=== PATIENT | male | born 1960 | race African-American/Black ===

== ENCOUNTER 2017-06-19 10:42 | Inpatient (IN) | payer MEDICAID ==
[2017-06-19] MEDS ORDERED: MAGNESIUM SULFATE/D5W 100 ML IV ONE (10:49)
[2017-06-19] MEDS ORDERED: NORMAL SALINE 1000 ML 1,000 ML IV ONE (10:51)
[2017-06-19] MEDS ORDERED: IPRATROPIUM/ALBUTEROL 0.5-2.5 MG/3 ML AMPUL NEB ONE (10:51)
--- NOTE | 2017-06-19 11:22 | RADIOLOGY REPORT (SQ) ---
EXAM DESCRIPTION: CHEST SINGLE VIEW COMPLETED DATE/TIME: 06/19/2017 10:59 am REASON FOR STUDY: bed 9 db COMPARISON: None. NUMBER OF VIEWS: One view. TECHNIQUE: Single frontal radiographic view of the chest acquired. LIMITATIONS: None. FINDINGS: LUNGS AND PLEURA: The lungs are clear and well expanded except for linear atelectatic marylou ing at the left lung base. MEDIASTINUM AND HILAR STRUCTURES: No masses. Contour normal. HEART AND VASCULAR STRUCTURES: Heart normal in size. Normal vasculature. BONES: No acute findings. HARDWARE: None in the chest. OTHER: No other significant finding. IMPRESSION: Nothing acute other than linear atelectatic marking left lung base. TECHNICAL DOCUMENTATION: JOB ID: [id number] [employer]- All Rights Reserved
[2017-06-19 11:49] LABS: ABSOLUTE EOSINOPHILS # (AUTO) 0.2 10^3/uL (0.0-0.6); ABSOLUTE LYMPHOCYTES (AUTO) 0.7 10^3/uL (0.5-4.7); ABSOLUTE MONOCYTES (AUTO) 0.6 10^3/uL (0.1-1.4); BASOPHILS % (AUTO) 0.3 % (0-2); EOSINOPHILS % (AUTO) 1.5 % (0-6); HEMATOCRIT 41.1 % (37.9-51.0); HEMOGLOBIN 13.5 g/dL (13.5-17.0); HGB HCT DIFFERENCE -0.6; MEAN CORPUSCULAR HEMOGLOBIN 25.4 pg (27.0-33.4); MEAN CORPUSCULAR HGB CONC 32.8 g/dL (32.0-36.0); MEAN CORPUSCULAR VOLUME 78 fl (80-97); MONOCYTES % (AUTO) 6.1 % (3-13); RED CELL DISTRIBUTION WIDTH 20.1 % (11.5-14.0); SEGMENTED NEUTROPHILS % (AUTO) 85.1 % (42-78); VENOUS BLOOD BASE EXCESS -0.2 mmol/L; VENOUS BLOOD HCO3 25.9 mmol/L (20-32); VENOUS BLOOD PCO2 47.5 mmHg (35-63); VENOUS BLOOD PH 7.35 (7.30-7.42); WHITE BLOOD COUNT 10.6 10^3/uL (4.0-10.5)
[2017-06-19 11:56] LABS: PROTHROMBIN TIME 12.5 SEC (11.4-15.4)
[2017-06-19 11:57] LABS: PARTIAL THROMBOPLASTIN TIME 25.8 SEC (23.5-35.8)
[2017-06-19 12:02] LABS: ALANINE AMINOTRANSFERASE 28 U/L (21-72); ALBUMIN 4.2 g/dL (3.5-5.0); ALKALINE PHOSPHATASE 65 U/L (38-126); ANION GAP 11 (5-19); ASPARTATE AMINO TRANSFERASE 21 U/L (17-59); BILIRUBIN,DIRECT 0.4 mg/dL (0.0-0.4); BILIRUBIN,TOTAL 0.7 mg/dL (0.2-1.3); BLOOD UREA NITROGEN 16 mg/dL (7-20); CALCIUM 9.3 mg/dL (8.4-10.2); CARBON DIOXIDE 28 mmol/L (22-30); CHLORIDE 104 mmol/L (98-107); CREATINE KINASE 132 U/L (55-170); CREATININE RESULT 1.24 mg/dL (0.52-1.25); GLUCOSE 141 mg/dL (75-110); MAGNESIUM 2.1 mg/dL (1.6-2.3); POTASSIUM 3.8 mmol/L (3.6-5.0); SODIUM 143.4 mmol/L (137-145); TOTAL PROTEIN 7.5 g/dL (6.3-8.2)
--- NOTE | 2017-06-19 12:11 | EKG REPORT ---
SEVERITY:- ABNORMAL ECG - SINUS TACHYCARDIA VENTRICULAR PREMATURE COMPLEX REPOL ABNRM SUGGESTS ISCHEMIA, DIFFUSE LEADS : Confirmed by: Herson Stanton 19-Jun-2017 12:10:48
[2017-06-19 12:14] LABS: CREATINE KINASE MB 3.18 ng/mL (<4.55)
[2017-06-19 12:17] LABS: TROPONIN I < 0.012 ng/mL
[2017-06-19] MEDS ORDERED: ALBUTEROL SULFATE 0.083% NEB 2.5 MG/3 ML AMPUL NEB ONE (12:19)
[2017-06-19] MEDS ORDERED: CEFTRIAXONE 1 GM/D5W RTU 50 ML IV ONE (12:19)
[2017-06-19] MEDS ORDERED: AZITHROMYCIN INJ 500 MG VIAL IV ONE (12:19)
[2017-06-19] MEDS ORDERED: METHYLPREDNISOLONE INJ 125 MG/2 ML SDV IV ONE (12:20)
--- NOTE | 2017-06-19 12:30 | ER Document Report ---
ED General - General Chief Complaint: Breathing Difficulty Stated Complaint: DIFFICULTY BREATHING Time Seen by Provider: 06/19/17 10:49 TRAVEL OUTSIDE OF THE [place] IN LAST 30 DAYS: No - HPI Patient complains to provider of: Respiratory distress Notes: Patient coming in for evaluation of respiratory distress patient has a history of COPD emphysema patient placed on CPAP as he was hypoxic with O2 saturations in the 80s prior to arrival. Patient tachycardic tachypneic upon arrival placed on BiPAP. Patient denies head pain chest pain abdominal pain denies any recent travel states denies any hemoptysis does state that he had clear sputum now has yellow sputum and coughing. No recent antibiotics - Related Data Allergies/Adverse Reactions: No Known Allergies Allergy (Verified 06/19/17 11:48) Home Medications: Current Home Medications Albuterol Sulfate [Albuterol Sulfate 2.5mg/3 mL] 1 vial IH Q6HP PRN 06/19/17 [ History] Albuterol Sulfate [Proair Hfa Inhalation Aerosol 8.5 gm Mdi] 2 puff IH Q6HP PRN 06/19/17 [History] Amlodipine Besylate [Norvasc 5 mg Tablet] 5 mg PO DAILY 06/19/17 [History] Cetirizine HCl [Zyrtec 10 mg Tablet] 10 mg PO DAILY 06/19/17 [History] Fluticasone/Salmeterol [Advair 500-50 Diskus 28 Dose] 1 inh IH DAILY 06/19/17 [ History] Hydrochlorothiazide 25 mg PO DAILY 06/19/17 [History] Montelukast Sodium [Singulair 10 mg Tablet] 10 mg PO QHS 06/19/17 [History] Naproxen Sodium [Aleve] 440 mg PO DAILY 06/19/17 [History] Prednisone [Deltasone 5 mg Tablet] 5 mg PO DAILY 06/19/17 [History] Tamsulosin HCl [Flomax 0.4 mg Cap.sr] 0.4 mg PO QHS 06/19/17 [History] Tiotropium [place] [Spiriva Handihaler 18 mcg/dose (30 Dose)] 1 cap IH DAILY 06/28 [History] Past Medical History - Social History Smoking Status: Former Smoker Frequency of alcohol use: None Drug Abuse: None Family History: Reviewed & Not Pertinent Patient has suicidal ideation: No Patient has homicidal ideation: No - Past Medical History Cardiac Medical History: Reports: Hx Hypercholesterolemia, Hx Hypertension Pulmonary Medical History: Reports: Hx Bronchitis Renal/ Medical History: Denies: Hx Peritoneal Dialysis Review of Systems - Review of Systems Constitutional: No symptoms reported EENT: No symptoms reported Cardiovascular: No symptoms reported Respiratory: Cough, Short of breath, Wheezing Gastrointestinal: No symptoms reported Genitourinary: No symptoms reported Male Genitourinary: No symptoms reported Musculoskeletal: No symptoms reported Skin: No symptoms reported Hematologic/Lymphatic: No symptoms reported Neurological/Psychological: No symptoms reported -: Yes All other systems reviewed and negative Physical Exam - Vital signs Vitals: Resp BP 32 H 163/119 H 06/19/17 10:50 06/19/17 10:50 Interpretation: Normal - General General appearance: Appears well, Alert - HEENT Head: Normocephalic, Atraumatic Eyes: Normal Pupils: PERRL - Respiratory Respiratory status: Respiratory distress Chest status: Nontender Breath sounds: Rhonchi, Wheezing Chest palpation: Normal - Cardiovascular Rhythm: Regular Heart sounds: Normal auscultation Murmur: No - Abdominal Inspection: Normal Distension: No distension Bowel sounds: Normal Tenderness: Nontender Organomegaly: No organomegaly - Back Back: Normal, Nontender - Extremities General upper extremity: Normal inspection, Nontender, Normal color, Normal ROM , Normal temperature General lower extremity: Normal inspection, Nontender, Normal color, Normal ROM , Normal temperature, Normal weight bearing. No: Sandi's sign - Neurological Neuro grossly intact: Yes Cognition: Normal Orientation: AAOx4 Srikanth Coma Scale Eye Opening: Spontaneous [place] Coma Scale Verbal: Oriented Srikanth Coma Scale Motor: Obeys Commands Srikanth Coma Scale Total: 15 Speech: Normal Motor strength normal: LUE, RUE, LLE, RLE Sensory: Normal - Psychological Associated symptoms: Normal affect, Normal mood - Skin Skin Temperature: Warm Skin Moisture: Dry Skin Color: Normal Course - Re-evaluation Re-evalutation: 06/19/17 15:31 Patient better on BiPAP will give Rocephin and Zithromax due to changes sputum. Lab work does not show any critical pathology this time will admit for COPD exacerbation due to hypoxia. - Vital Signs Vital signs: Temp Pulse Resp BP Pulse Ox 97.3 F 99 22 H 128/82 H 98 06/19/17 15:15 06/19/17 15:15 06/19/17 15:15 06/19/17 15:15 06/19/17 15:15 - Laboratory Result Diagrams: 06/19/17 11:25 06/19/17 11:25 Laboratory results interpreted by me: 06/19/17 06/19/17 06/19/17 11:25 11:25 11:25 WBC 10.6 H MCV 78 L MCH 25.4 L RDW 20.1 H Seg Neutrophils % 85.1 H Lymphocytes % 7.0 L Absolute Neutrophils 9.0 H D-Dimer 3.24 H Glucose 141 H Critical Care Note - Critical Care Note Total time excluding time spent on procedures (mins): 50 Comments: Multiple evaluations a restrained stress managing BiPAP. Discharge - Discharge Clinical Impression: Respiratory distress with hypoxia, COPD exacerbation Condition: Good Disposition: ADMITTED INPATIENT Admitting Provider: Burt [facility] Unit Admitted: [facility]
[2017-06-19] MEDS ORDERED: HYDRALAZINE HCL INJ/PF 20 MG/1 ML SDV IV PRN (13:26)
[2017-06-19] MEDS ORDERED: ALBUTEROL SULFATE 0.083% NEB 2.5 MG/3 ML AMPUL NEB PRN (13:26)
[2017-06-19] MEDS ORDERED: ACETAMINOPHEN 325 MG TABLET PO PRN (13:28)
[2017-06-19] MEDS ORDERED: ONDANSETRON HCL INJ/PF 4 MG/2 ML SDV IV PRN (13:28)
--- NOTE | 2017-06-19 13:39 | PDOC H&P ---
History of Present Illness Admission Date/PCP: 06/19/17 13:05 Dr. Burch Patient complains of: Shortness of breath History of Present Illness: SHONDA HUERTA is a 56 year old male with past medical history of COPD and hypertension presents with relatively acute onset today of shortness of breath. He has had a couple days of productive cough as well. He is felt feverish at times but has had no documented temperature. He was found in the emergency department to have a room air oxygen saturation of 80%. He has recovered nicely on oxygen supplementation and BiPAP in his O2 sat is currently in the high 90s. Home medications have not been verified. Past Medical History Cardiac Medical History: Reports: Hyperlipidema, Hypertension Pulmonary Medical History: Reports: Chronic Obstructive Pulmonary Disease (COPD) GI Medical History: Reports: Gastroesophageal Reflux Disease Past Surgical History Past Surgical History: Reports: None Social History Information Source: Patient Lives with: Family Smoking Status: Former Smoker Frequency of Alcohol Use: None Hx Recreational Drug Use: No Hx Prescription Drug Abuse: No - Advance Directive Resuscitation Status: Full Code Family History Family History: Hypertension Parental Family History Reviewed: Yes Children Family History Reviewed: Yes Sibling(s) Family History Reviewed.: Yes Medication/Allergy Allergies/Adverse Reactions: No Known Allergies Allergy (Verified 06/19/17 11:48) Review of Systems Constitutional: PRESENT: fatigue. ABSENT: chills, fever(s), headache(s), weight gain, weight loss Eyes: ABSENT: visual disturbances Ears: ABSENT: hearing changes Cardiovascular: PRESENT: dyspnea on exertion. ABSENT: chest pain, edema, orthropnea, palpitations Respiratory: PRESENT: cough, dyspnea, sputum. ABSENT: hemoptysis Gastrointestinal: ABSENT: abdominal pain, constipation, diarrhea, hematemesis, hematochezia, nausea, vomiting Genitourinary: ABSENT: dysuria, hematuria Musculoskeletal: ABSENT: joint swelling Integumentary: ABSENT: rash, wounds Neurological: ABSENT: abnormal gait, abnormal speech, confusion, dizziness, focal weakness, syncope Psychiatric: ABSENT: anxiety, depression, homidical ideation, suicidal ideation Endocrine: ABSENT: cold intolerance, heat intolerance, polydipsia, polyuria Hematologic/Lymphatic: ABSENT: easy bleeding, easy bruising Physical Exam Vital Signs: Temp Pulse Resp BP Pulse Ox 97.9 F 39 H 120/72 100 06/19/17 11:01 06/19/17 13:05 06/19/17 12:31 06/19/17 12:31 PHYSICAL EXAM: GENERAL: Appears well, no acute distress HEENT: Normocephalic, no scleral icterus, conjunctiva clear, EOEM intact, PERRLA , moist mucous membranes NECK: trachea midline, no thyromegally RESPIRATORY: Bilateral inspiratory/expiratory wheezes CARDIAC: Regular rate and rhythm, no murmur/karla/rub ABDOMEN: Soft, no distension, no tenderness, no guarding, normal bowel sounds, negative Jorgensen sign RECTAL: deferred : deferred EXTREMITIES: No edema, cyanosis, clubbing MUSCULOSKELETAL: No joint swelling or deformity VASCULAR: normal peripheral pulses NEUROLOGIC: Alert, oriented to person/place/time, normal speech, cranial nerves grossly intact, 5/5 strength in all extremities, tactile sensation intact in all extremities SKIN: No rash, no wounds, no worrisome skin lesions PSYCHIATRIC: Normal mood, normal affect Results Laboratory Results: Labs- All tests 24 hr 06/19/17 06/19/17 06/19/17 11:25 11:25 11:25 WBC 10.6 H RBC 5.30 Hgb 13.5 Hct 41.1 MCV 78 L MCH 25.4 L MCHC 32.8 RDW 20.1 H Plt Count 166 Seg Neutrophils % 85.1 H Lymphocytes % 7.0 L Monocytes % 6.1 Eosinophils % 1.5 Basophils % 0.3 Absolute Neutrophils 9.0 H Absolute Lymphocytes 0.7 Absolute Monocytes 0.6 Absolute Eosinophils 0.2 Absolute Basophils 0.0 PT INR APTT VBG pH VBG pCO2 VBG HCO3 VBG Base Excess Sodium 143.4 Potassium 3.8 Chloride 104 Carbon Dioxide 28 Anion Gap 11 BUN 16 Creatinine 1.24 Est GFR ( Amer) > 60 Est GFR (Non-Af Amer) > 60 Glucose 141 H Calcium 9.3 Magnesium 2.1 Total Bilirubin 0.7 Direct Bilirubin 0.4 Indirect Bilirubin Not Reportable Neonat Total Bilirubin Not Reportable AST 21 ALT 28 Alkaline Phosphatase 65 Creatine Kinase 132 CK-MB (CK-2) 3.18 Troponin I < 0.012 NT-Pro-B Natriuret Pep 48 Total Protein 7.5 Albumin 4.2 06/19/17 06/19/17 11:25 11:25 WBC RBC Hgb Hct MCV MCH MCHC RDW Plt Count Seg Neutrophils % Lymphocytes % Monocytes % Eosinophils % Basophils % Absolute Neutrophils Absolute Lymphocytes Absolute Monocytes Absolute Eosinophils Absolute Basophils PT 12.5 INR 0.87 APTT 25.8 VBG pH 7.35 VBG pCO2 47.5 VBG HCO3 25.9 VBG Base Excess -0.2 Sodium Potassium Chloride Carbon Dioxide Anion Gap BUN Creatinine Est GFR ( Amer) Est GFR (Non-Af Amer) Glucose Calcium Magnesium Total Bilirubin Direct Bilirubin Indirect Bilirubin Neonat Total Bilirubin AST ALT Alkaline Phosphatase Creatine Kinase CK-MB (CK-2) Troponin I NT-Pro-B Natriuret Pep Total Protein Albumin Impressions: Chest X-Ray 06/19/17 10:44 IMPRESSION: Nothing acute other than linear atelectatic marking left lung base. Assessment & Plan - Diagnosis (1) Acute hypoxemic respiratory failure Is this a current diagnosis for this admission?: YesPlan: Continue BiPAP and oxygen supplementation for now. Wean off as tolerated. (2) COPD exacerbation Is this a current diagnosis for this admission?: YesPlan: Continue IV Solu-Medrol, IV Rocephin, and IV azithromycin initiated in the emergency department. Nebulizer treatments. (3) Hypertension Is this a current diagnosis for this admission?: YesPlan: Verify home medications and resume. As needed IV hydralazine for now. (4) GERD (gastroesophageal reflux disease) Is this a current diagnosis for this admission?: YesPlan: Prevacid. - Time Time Spent: Greater than 70 Minutes Anticipated discharge: Home Within: within 72 hours
[2017-06-19] MEDS: ALBUTEROL SULFATE 0.083% NEB 2.5 MG/3 ML AMPUL NEB SCH ×2 (13:56→20:42)
[2017-06-19] MEDS: METHYLPREDNISOLONE INJ 40 MG/1 ML SDV IV SCH ×2 (14:23→21:23)
[2017-06-19 14:31] LABS: CREATINE KINASE MB 3.82 ng/mL (<4.55); TROPONIN I 0.016 ng/mL
[2017-06-19 14:53] LABS: APPEARANCE,URINE CLEAR; BILIRUBIN,URINE NEGATIVE (NEGATIVE); GLUCOSE, URINE NEGATIVE (NEGATIVE); KETONES,URINE NEGATIVE (NEGATIVE); LEUKOCYTE ESTERASE,URINE NEGATIVE (NEGATIVE); NITRITE,URINE NEGATIVE (NEGATIVE); PROTEIN,URINE 100 mg/dL (NEGATIVE); URINE SPECIFIC GRAVITY 1.011; UROBILINOGEN,URINE NEGATIVE mg/dL (<2.0)
--- NOTE | 2017-06-19 20:48 | RADIOLOGY REPORT (SQ) ---
EXAM DESCRIPTION: CTA CHEST COMPLETED DATE/TIME: 06/19/2017 8:34 pm REASON FOR STUDY: dyspnea, +Ddimer COMPARISON: None. TECHNIQUE: CT scan of the chest performed using helical scanning technique with dynamic intravenous contrast injection. Images reviewed with lung, soft tissue and bone windows. Reconstructed coronal and sagittal MPR images reviewed. Additional 3 dimensional post-processing performed to develop Maximal Intensity Projection images (PR P). All images stored on PACS. All CT scanners at this facility use dose modulation, iterative reconstruction, and/or weight based d osing when appropriate to reduce radiation dose to as low as reasonably achievable (ALARA). [facility]: Dose Right [facility]: CareDose [facility]: Dose Right [facility]: Teradose 4D [facility]: [employer] CONTRAST TYPE AND DOSE: contrast/concentration: Isovue 370.00 mg/ml; Total Contrast Delivered: 76.0 ml; Total Saline Delivered: 70.0 ml RENAL FUNCTION: BUN 16, creatinine 1.24 RADIATION DOSE: Up-to-date CT equipment and radiation dose reduction techniques were employed. CTDIv ol: 25.1 - 26.4 mGy. DLP: 983 mGy-cm. . LIMITATIONS: None. FINDINGS: LUNGS AND PLEURA: No masses, infiltrates, pneumothorax. No pleural effusions, calcificati ons. AORTA AND GREAT VESSELS: No aneurysm or dissection. HEART: No pericardial effusion. PULMONARY ARTERIES: There are acute emboli in the right lower lobe segmental mid subsegmental branche s. There is thrombus in the right upper lobe segmental in sub segmental branches. Small filling def ect is seen in sub segmental branches on the left. HILAR AND MEDIASTINAL STRUCTURES: No identified masses or abnormal nodes. HARDWARE: None in the chest. UPPER ABDOMEN: No significant findings. Limited exam. THYROID AND OTHER SOFT TISSUES: No masses. No adenopathy. BONES: No acute or significant finding. 3D MIPS: Confirm above findings. OTHER: No other significant finding. IMPRESSION: Bilateral pulmonary emboli as described. COMMENT: This report was called to Viktoriya at20:38 on 06/19/2017. TECHNICAL DOCUMENTATION: JOB ID: [id number] Quality ID # [id number]: Final reports with documentation of one or more dose reduction techniques (e.g., Au tomated exposure control, adjustment of the mA and/or kV according to patient size, use of iterative reconstruction technique) 2010 [employer]- All Rights Reserved
[2017-06-19] MEDS: TAMSULOSIN HCL 0.4 MG CAP.SR.24H PO SCH (21:22)
[2017-06-19] MEDS: MONTELUKAST SODIUM 10 MG TABLET PO SCH (21:22)
[2017-06-19] MEDS: NORMAL SALINE 1000 ML 1,000 ML IV PRN (21:31)
[2017-06-19] MEDS ORDERED: ENOXAPARIN SODIUM INJ 100 MG/1 ML DISP.SYRIN SUBCUT SCH (22:00)
[2017-06-19 22:01] LABS: CREATINE KINASE MB 4.81 ng/mL (<4.55); TROPONIN I 0.016 ng/mL
--- NOTE | 2017-06-19 23:07 | RADIOLOGY REPORT (SQ) ---
EXAM DESCRIPTION: VENOUS BILATERAL LOWER COMPLETED DATE/TIME: 06/19/2017 10:53 pm REASON FOR STUDY: pe COMPARISON: None. TECHNIQUE: Dynamic and static lozada scale and color images acquired of both lower extremity venous sy stems. Selected spectral images acquired with additional compression and augmentation maneuvers. Imag es stored on PACS. LIMITATIONS: None. FINDINGS: RIGHT LEG COMMON FEMORAL AND FEMORAL: Normal phasicity, compression and augmentation. No visualized echogenic m aterial on lozada scale. No defects on color images. POPLITEAL: There is nonocclusive thrombus in the right popliteal vein. Age is acute to subacute. CALF VESSELS: Normal compression and augmentation. No visualized echogenic material on lozada scale. No defects on color image. GSV AND SSV: Normal compression. No visualized echogenic material on lozada scale. No defects on color images. ANY DEEP VENOUS INSUFFICIENCY: Not evaluated. ANY EVIDENCE OF POPLITEAL CYST: No. OTHER: No other significant finding. LEFT LEG COMMON FEMORAL AND FEMORAL: Normal phasicity, compression and augmentation. No visualized echogenic m aterial on lozada scale. No defects on color images. POPLITEAL: Normal compression and augmentation. No visualized echogenic material on lozada scale. No de fects on color images. CALF VESSELS: Normal compression and augmentation. No visualized echogenic material on lozada scale. No defects on color images. GSV AND SSV: Normal compression. No visualized echogenic material on lozada scale. No defects on color images. ANY DEEP VENOUS INSUFFICIENCY: Not evaluated. ANY EVIDENCE POPLITEAL CYST: No. OTHER: No other significant finding. IMPRESSION: Acute to subacute nonocclusive thrombus in the right popliteal vein. COMMENT: This report was related to the floor by the cardiovascular radiologic technologist. TECHNICAL DOCUMENTATION: JOB ID: [id number] [employer]- All Rights Reserved
[2017-06-20 03:41] LABS: ABSOLUTE LYMPHOCYTES (AUTO) 0.6 10^3/uL (0.5-4.7); ABSOLUTE MONOCYTES (AUTO) 0.2 10^3/uL (0.1-1.4); ABSOLUTE NEUT (AUTO) 9.3 10^3/uL (1.7-8.2); BASOPHILS % (AUTO) 0.2 % (0-2); EOSINOPHILS % (AUTO) 0.1 % (0-6); HEMATOCRIT 38.7 % (37.9-51.0); HEMOGLOBIN 12.9 g/dL (13.5-17.0); LYMPHOCYTES % (AUTO) 5.8 % (13-45); MEAN CORPUSCULAR HEMOGLOBIN 25.5 pg (27.0-33.4); MEAN CORPUSCULAR HGB CONC 33.4 g/dL (32.0-36.0); MEAN CORPUSCULAR VOLUME 77 fl (80-97); MONOCYTES % (AUTO) 1.9 % (3-13); RED BLOOD COUNT 5.06 10^6/uL (4.35-5.55); RED CELL DISTRIBUTION WIDTH 19.5 % (11.5-14.0); WHITE BLOOD COUNT 10.1 10^3/uL (4.0-10.5)
[2017-06-20 03:54] LABS: ANION GAP 15 (5-19); BLOOD UREA NITROGEN 17 mg/dL (7-20); CALCIUM 9.5 mg/dL (8.4-10.2); CARBON DIOXIDE 22 mmol/L (22-30); CHLORIDE 105 mmol/L (98-107); CREATINE KINASE 217 U/L (55-170); CREATININE RESULT 1.11 mg/dL (0.52-1.25); GLUCOSE 166 mg/dL (75-110)
[2017-06-20 04:08] LABS: CREATINE KINASE MB 6.32 ng/mL (<4.55)
[2017-06-20 04:09] LABS: TROPONIN I < 0.012 ng/mL
[2017-06-20] MEDS: NORMAL SALINE 1000 ML 1,000 ML IV PRN (05:07)
[2017-06-20] MEDS: LANSOPRAZOLE 30 MG TAB.RAP.DR PO SCH (05:08)
[2017-06-20] MEDS: METHYLPREDNISOLONE INJ 40 MG/1 ML SDV IV SCH (05:09)
[2017-06-20] MEDS: ALBUTEROL SULFATE 0.083% NEB 2.5 MG/3 ML AMPUL NEB SCH ×3 (08:25→20:35)
--- NOTE | 2017-06-20 08:42 | Progress Note ---
Provider Note Provider Note: June 19, 2017: CT angiogram of chest reveals bilateral pulmonary emboli. At 9:10 PM, went to patient's bedside. Floor nurse is present. Systemic anticoagulation recommended to patient. Patient understands the risks of systemic anti-coagulation to include but not be limited to internal bleeding , which can take the form of GI tract and/or intracranial hemorrhage, the latter of which can result in or stroke with permanent paralysis. Patient has no absolute contraindication to systemic anticoagulation. Above discussed in lay person's terms. Patient agrees to undergo systemic anticoagulation.
--- NOTE | 2017-06-20 09:51 | PDOC PROGRESS REPORT ---
Subjective Progress Note for:: 06/20/17 Subjective:: Patient states her shortness of breath is much improved. He does have nasal congestion postnasal drip. He is still having a productive cough. He denies fever, chills, headache, nausea, vomiting, chest pain. Physical Exam Vital Signs: Temp Pulse Resp BP Pulse Ox 97.8 F 86 18 131/80 H 96 06/20/17 07:28 06/20/17 08:25 06/20/17 08:25 06/20/17 07:28 06/20/17 08:25 Intake & Output 06/19/17 06/20/17 06/21/17 06:59 06:59 06:59 Intake Total 1702 Balance 1702 Weight 91.2 kg Results Laboratory Results: 06/20/17 03:31 06/20/17 03:31 06/19/17 06/20/17 06/20/17 14:30 03:31 03:31 WBC 10.1 RBC 5.06 Hgb 12.9 L Hct 38.7 MCV 77 L MCH 25.5 L MCHC 33.4 RDW 19.5 H Plt Count 135 L Seg Neutrophils % 92.0 H Lymphocytes % 5.8 L Monocytes % 1.9 L Eosinophils % 0.1 Basophils % 0.2 Absolute Neutrophils 9.3 H Absolute Lymphocytes 0.6 Absolute Monocytes 0.2 Absolute Eosinophils 0.0 Absolute Basophils 0.0 Sodium 142.0 Potassium 4.0 Chloride 105 Carbon Dioxide 22 Anion Gap 15 BUN 17 Creatinine 1.11 Est GFR ( Amer) > 60 Est GFR (Non-Af Amer) > 60 Glucose 166 H Calcium 9.5 Urine Color YELLOW Urine Appearance CLEAR Urine pH 5.0 Ur Specific [place] 1.011 Urine Protein 100 H Urine Glucose (UA) NEGATIVE Urine Ketones NEGATIVE Urine Blood NEGATIVE Urine Nitrite NEGATIVE Ur Leukocyte Esterase NEGATIVE Urine WBC (Auto) 1 Urine RBC (Auto) 1 06/19/17 06/19/17 06/19/17 13:35 13:35 20:00 Creatine Kinase 145 Cancelled CK-MB (CK-2) 3.82 Troponin I 0.016 06/19/17 06/19/17 06/19/17 20:00 21:07 21:07 Creatine Kinase 199 H CK-MB (CK-2) Cancelled 4.81 H Troponin I Cancelled 0.016 06/20/17 06/20/17 03:31 03:31 Creatine Kinase 217 H CK-MB (CK-2) 6.32 H Troponin I < 0.012 Impressions: Chest/Abdomen CTA 06/19/17 00:00 IMPRESSION: Bilateral pulmonary emboli as described. Venous Doppler Study 06/19/17 00:00 IMPRESSION: Acute to subacute nonocclusive thrombus in the right popliteal vein. Chest X-Ray 06/19/17 10:44 IMPRESSION: Nothing acute other than linear atelectatic marking left lung base. Assessment & Plan - Diagnosis (1) Acute hypoxemic respiratory failure Is this a current diagnosis for this admission?: YesPlan: Oxygen saturation now stable on room air. Secondary to bilateral pulmonary emboli. (2) Pulmonary emboli Is this a current diagnosis for this admission?: YesPlan: Discontinue Lovenox. Start Xarelto. Consult Dr. Casillas of hematology. Likely secondary to immobility associated with recent back injury. No prior history of VTE. Last colonoscopy performed by Dr. Chaudhari 2 weeks ago with 2 polyps removed. Possible discharge home in the morning if tolerating oral anticoagulation. (3) Right leg DVT Is this a current diagnosis for this admission?: Yes (4) COPD exacerbation Is this a current diagnosis for this admission?: YesPlan: Discontinue Solu-Medrol. Continue Singulair, Advair. Continue albuterol. (5) Hypertension Is this a current diagnosis for this admission?: Yes (6) GERD (gastroesophageal reflux disease) Is this a current diagnosis for this admission?: Yes (7) Acute sinusitis Is this a current diagnosis for this admission?: YesPlan: Skye Mccormick. (8) Obstructive sleep apnea Is this a current diagnosis for this admission?: YesPlan: Patient is on home CPAP for the past month. - Time Time Spent with patient: 35 or more minutes Anticipated discharge: Home Within: within 24 hours
[2017-06-20] MEDS ORDERED: ENOXAPARIN SODIUM INJ 40 MG/0.4 ML DISP.SYRIN SUBCUT SCH (10:00)
[2017-06-20] MEDS ORDERED: CEFTRIAXONE 1 GM/D5W RTU 50 ML IV SCH (10:00)
[2017-06-20] MEDS ORDERED: AZITHROMYCIN 500 MG in DEXTROSE 5%-WATER 250 ML IV SCH (10:00)
[2017-06-20] MEDS: RIVAROXABAN 15 MG TABLET PO SCH ×2 (10:27→18:42)
[2017-06-20] MEDS: FLUTICASONE/SALMETEROL DISKUS 500-50 MCG/DOSE IH SCH (10:30)
[2017-06-20] MEDS: LEVOFLOXACIN 750 MG TABLET PO SCH (10:30)
[2017-06-20] MEDS: TIOTROPIUM BROMIDE DPI 5 CAP/KIT (18 MCG/CAP) IH SCH (10:31)
[2017-06-20] MEDS: HYDROCHLOROTHIAZIDE 25 MG TABLET PO SCH (10:42)
[2017-06-20] MEDS: AMLODIPINE BESYLATE 5 MG TABLET PO SCH (10:43)
[2017-06-20] MEDS: CETIRIZINE 10 MG TABLET PO SCH (10:44)
--- NOTE | 2017-06-20 10:57 | EKG REPORT ---
SEVERITY:- BORDERLINE ECG - SINUS RHYTHM LVH BY VOLTAGE : Confirmed by: Herson Stanton 20-Jun-2017 10:56:31
[2017-06-20] MEDS ORDERED: FLUTICASONE NASAL SPRAY 50 MCG/SPRY 120 SPRAY/16 GM NASL ONE (11:00)
--- NOTE | 2017-06-20 15:38 | Physician Advisory Note ---
Physician Advisor ProgressNote .: [facility] I have reviewed the medical record for this patient. Physician Advisor Statement: Nice documentation of Ac Resp Failure, hypoxemic type. Ham Smoker: Pt also had labored breathing initially, documented by ED nurse, which supports this dx. Thanks! CK
--- NOTE | 2017-06-20 16:29 | CONSULTATION REPORT E ---
Consultation Report NAME: SHONDA HUERTA : 1960 AGE: 56Y DATE: 06/20/2017 ROOM: 333 A TO: ERNESTO MAYA M.D. FROM: DONNA LEONARD Requesting Physician REASON FOR REFERRAL: Pulmonary embolism. HISTORY OF PRESENT ILLNESS: The patient is a 56-year-old man who was admitted into the hospital June 19, 2017 with complaints of shortness of breath. He was seen in the emergency room with complaints of shortness of breath, cough productive, febrile symptoms, and his oxygenation on room air was 80%. He had a chest x-ray done that showed no acute abnormalities other than linear atelectatic markings in the left lung base. CT chest showed bilateral pulmonary embolisms. Dopplers of his lower extremities showed DVT in his right lower extremity. He tells me he was diagnosed with COPD in 2012. At that time he was incarcerated. He tells me that he had to receive prednisone pills on and off over the years. He believes with the prednisone he had damage too. He was incarcerated and was released in January of 2017. While he was incarcerated he told me that x-rays of his spine had shown compression fractures. He has also been having pain in his right lower extremity, but he attributes that to his back pain. Since hospitalization and being on anticoagulation he is feeling a lot better. His shortness of breath has improved. His past medical history, as stated above, includes COPD, hyperlipidemia, high blood pressure, gastroesophageal reflux disease. He used to smoke cigarettes. He stopped smoking about 11 years ago. He does not drink alcohol as well. PHYSICAL EXAMINATION: GENERAL: He is a middle-aged man. He is not acutely ill looking. He is not tachypneic at rest. He has good air entry bilaterally. ABDOMEN: Soft. Liver and spleen are not palpably enlarged. X-RAYS: Chest x-ray June 19, 2017: Nothing acute other than linear atelectatic markings, left lung base. CTA chest: No masses or infiltrates in the lungs. Bilateral pulmonary emboli. LABORATORY STUDIES: White count was 10.1, hemoglobin 13.5, platelet count 116. His serum electrolytes were within normal limits. IMPRESSION AND PLAN: The patient is a 56-year-old man who was recently admitted with bilateral pulmonary embolisms, explaining most of his hypoxia. He also has underlying COPD. He tells me he has been more sedentary because of his back pain. I will request a thrombophilia workup. I will follow him with the results as an outpatient. I will also try and obtain his prior records with regards to the x-rays that were done of his back. I agree with the Xarelto. I explained that he will be on 15 mg b.i.d. for about 21 days followed by 20 mg a day. I will plan on seeing him back for followup in the office on July 03 at about 10 a.m. I thank you for this consultation and allowing me to participate in his care. DICTATING PHYSICIAN: ERNESTO MAYA M.D. [id number] [id number] ID: [id number] JOB#: [id number] ACCT: [id number] cc:ERNESTO MAYA M.D. >
[2017-06-20] MEDS: MONTELUKAST SODIUM 10 MG TABLET PO SCH (22:09)
[2017-06-20] MEDS: TAMSULOSIN HCL 0.4 MG CAP.SR.24H PO SCH (22:10)
[2017-06-20] MEDS: FLUTICASONE NASAL SPRAY 50 MCG/SPRY 120 SPRAY/16 GM NASL SCH (22:11)
[2017-06-21] MEDS: LANSOPRAZOLE 30 MG TAB.RAP.DR PO SCH (05:50)
[2017-06-21 06:56] LABS: ABSOLUTE LYMPHOCYTES (AUTO) 0.9 10^3/uL (0.5-4.7); ABSOLUTE NEUT (AUTO) 10.1 10^3/uL (1.7-8.2); BASOPHILS % (AUTO) 0.2 % (0-2); EOSINOPHILS % (AUTO) 0.1 % (0-6); HEMATOCRIT 36.7 % (37.9-51.0); HGB HCT DIFFERENCE -0.7; LYMPHOCYTES % (AUTO) 7.3 % (13-45); MEAN CORPUSCULAR HEMOGLOBIN 25.7 pg (27.0-33.4); MEAN CORPUSCULAR HGB CONC 32.7 g/dL (32.0-36.0); MEAN CORPUSCULAR VOLUME 78 fl (80-97); RED BLOOD COUNT 4.68 10^6/uL (4.35-5.55); RED CELL DISTRIBUTION WIDTH 19.6 % (11.5-14.0); SEGMENTED NEUTROPHILS % (AUTO) 84.4 % (42-78)
[2017-06-21 06:59] LABS: ANION GAP 9 (5-19); BLOOD UREA NITROGEN 16 mg/dL (7-20); CALCIUM 9.2 mg/dL (8.4-10.2); CARBON DIOXIDE 26 mmol/L (22-30); CHLORIDE 109 mmol/L (98-107); CREATININE RESULT 0.98 mg/dL (0.52-1.25); GLUCOSE 74 mg/dL (75-110); POTASSIUM 3.7 mmol/L (3.6-5.0); SODIUM 144.1 mmol/L (137-145)
[2017-06-21 07:09] LABS: APPEARANCE,URINE CLEAR; BILIRUBIN,URINE NEGATIVE (NEGATIVE); GLUCOSE, URINE NEGATIVE (NEGATIVE); KETONES,URINE NEGATIVE (NEGATIVE); LEUKOCYTE ESTERASE,URINE NEGATIVE (NEGATIVE); NITRITE,URINE NEGATIVE (NEGATIVE); PROTEIN,URINE NEGATIVE (NEGATIVE); UROBILINOGEN,URINE NEGATIVE mg/dL (<2.0)
[2017-06-21] MEDS: ALBUTEROL SULFATE 0.083% NEB 2.5 MG/3 ML AMPUL NEB SCH ×3 (07:56→20:13)
[2017-06-21] MEDS: TIOTROPIUM BROMIDE DPI 5 CAP/KIT (18 MCG/CAP) IH SCH (08:51)
[2017-06-21] MEDS: RIVAROXABAN 15 MG TABLET PO SCH ×2 (08:51→17:20)
[2017-06-21] MEDS: FLUTICASONE NASAL SPRAY 50 MCG/SPRY 120 SPRAY/16 GM NASL SCH ×2 (08:52→21:12)
[2017-06-21] MEDS: FLUTICASONE/SALMETEROL DISKUS 500-50 MCG/DOSE IH SCH (08:53)
[2017-06-21] MEDS: LEVOFLOXACIN 750 MG TABLET PO SCH (08:54)
[2017-06-21] MEDS: HYDROCHLOROTHIAZIDE 25 MG TABLET PO SCH (08:54)
[2017-06-21] MEDS: CETIRIZINE 10 MG TABLET PO SCH (08:54)
[2017-06-21] MEDS: AMLODIPINE BESYLATE 5 MG TABLET PO SCH (08:55)
--- NOTE | 2017-06-21 16:49 | PDOC PROGRESS REPORT ---
Subjective Progress Note for:: 06/21/17 Subjective:: Patient states he is shortness of breath is much improved. His nasal congestion is also improved. He denies fever, chills, headache, nausea, vomiting, chest pain. Physical Exam Vital Signs: Temp Pulse Resp BP Pulse Ox 97.8 F 95 16 113/65 93 06/21/17 15:15 06/21/17 15:15 06/21/17 15:15 06/21/17 15:15 06/21/17 15:15 Intake & Output 06/20/17 06/21/17 06/22/17 06:59 06:59 06:59 Intake Total 1702 2388 573 Output Total 3675 Balance 1702 -022 573 Weight 91.2 kg 91.9 kg GENERAL: No acute distress HEENT: Conjunctiva clear, nonicteric, moist mucous membranes, no JVD, midline trachea RESPIRATORY: Clear to auscultation bilaterally, no wheezes, no rhonchi CARDIAC: Regular rate and rhythm, no murmurs/gallops/rubs ABDOMEN: Soft, nondistended, nontender, positive bowel sounds, no rebound, no guarding EXTREMETIES: No edema, cyanosis, clubbing NEUROLOGIC: Alert, oriented to person/place/time, CN's grossly intact, no focal deficits SKIN: No rash, wounds PSYCH: Normal mood, normal affect Results Laboratory Results: 06/21/17 06:06 06/21/17 06:06 06/21/17 06/21/17 06/21/17 06:06 06:06 06:40 WBC 12.0 H RBC 4.68 Hgb 12.0 L Hct 36.7 L MCV 78 L MCH 25.7 L MCHC 32.7 RDW 19.6 H Plt Count 148 L Seg Neutrophils % 84.4 H Lymphocytes % 7.3 L Monocytes % 8.0 Eosinophils % 0.1 Basophils % 0.2 Absolute Neutrophils 10.1 H Absolute Lymphocytes 0.9 Absolute Monocytes 1.0 Absolute Eosinophils 0.0 Absolute Basophils 0.0 Sodium 144.1 Potassium 3.7 Chloride 109 H Carbon Dioxide 26 Anion Gap 9 BUN 16 Creatinine 0.98 Est GFR ( Amer) > 60 Est GFR (Non-Af Amer) > 60 Glucose 74 L Calcium 9.2 Urine Color YELLOW Urine Appearance CLEAR Urine pH 6.0 Ur Specific [place] 1.010 Urine Protein NEGATIVE Urine Glucose (UA) NEGATIVE Urine Ketones NEGATIVE Urine Blood NEGATIVE Urine Nitrite NEGATIVE Ur Leukocyte Esterase NEGATIVE Urine WBC (Auto) 1 Urine RBC (Auto) 0 06/19/17 06/19/17 06/19/17 13:35 13:35 20:00 Creatine Kinase 145 Cancelled CK-MB (CK-2) 3.82 Troponin I 0.016 06/19/17 06/19/17 06/19/17 20:00 21:07 21:07 Creatine Kinase 199 H CK-MB (CK-2) Cancelled 4.81 H Troponin I Cancelled 0.016 06/20/17 06/20/17 03:31 03:31 Creatine Kinase 217 H CK-MB (CK-2) 6.32 H Troponin I < 0.012 Impressions: Chest/Abdomen CTA 06/19/17 00:00 IMPRESSION: Bilateral pulmonary emboli as described. Venous Doppler Study 06/19/17 00:00 IMPRESSION: Acute to subacute nonocclusive thrombus in the right popliteal vein. Chest X-Ray 06/19/17 10:44 IMPRESSION: Nothing acute other than linear atelectatic marking left lung base. Assessment & Plan - Diagnosis (1) Acute hypoxemic respiratory failure Is this a current diagnosis for this admission?: YesPlan: Oxygen saturation now stable on room air. Secondary to bilateral pulmonary emboli. I attempted to discharge patient home today but he did not feel comfortable leaving the hospital and request to stay until tomorrow. (2) Pulmonary emboli Is this a current diagnosis for this admission?: YesPlan: Continue Xarelto. Consult from Dr. Casillas of hematology appreciated. She states she will order hypercoagulable studies. Likely secondary to immobility associated with recent back injury. No prior history of VTE. Last colonoscopy performed by Dr. Chaudhari 2 weeks ago with 2 polyps removed. Possible discharge home in the morning if tolerating oral anticoagulation. (3) Right leg DVT Is this a current diagnosis for this admission?: Yes (4) COPD exacerbation Is this a current diagnosis for this admission?: Yes (5) Hypertension Is this a current diagnosis for this admission?: Yes (6) GERD (gastroesophageal reflux disease) Is this a current diagnosis for this admission?: Yes (7) Acute sinusitis Is this a current diagnosis for this admission?: YesPlan: Levaquin, Flonase. (8) Obstructive sleep apnea Is this a current diagnosis for this admission?: YesPlan: Patient is on home CPAP for the past month. Follow-up Dr. Freire as an outpatient - Time Time Spent with patient: 25-34 minutes
[2017-06-21] MEDS: TAMSULOSIN HCL 0.4 MG CAP.SR.24H PO SCH (21:11)
[2017-06-21] MEDS: MONTELUKAST SODIUM 10 MG TABLET PO SCH (21:11)
[2017-06-22] MEDS: LANSOPRAZOLE 30 MG TAB.RAP.DR PO SCH (05:10)
[2017-06-22 06:03] LABS: HEMATOCRIT 39.5 % (37.9-51.0); HEMOGLOBIN 12.8 g/dL (13.5-17.0); HGB HCT DIFFERENCE -1.1; MEAN CORPUSCULAR HEMOGLOBIN 25.4 pg (27.0-33.4); MEAN CORPUSCULAR HGB CONC 32.5 g/dL (32.0-36.0); MEAN CORPUSCULAR VOLUME 78 fl (80-97); RED BLOOD COUNT 5.04 10^6/uL (4.35-5.55); RED CELL DISTRIBUTION WIDTH 19.7 % (11.5-14.0); WHITE BLOOD COUNT 5.5 10^3/uL (4.0-10.5)
[2017-06-22] MEDS: ALBUTEROL SULFATE 0.083% NEB 2.5 MG/3 ML AMPUL NEB SCH (08:32)
[2017-06-22] MEDS: RIVAROXABAN 15 MG TABLET PO SCH (09:10)
[2017-06-22] MEDS: CETIRIZINE 10 MG TABLET PO SCH (09:11)
[2017-06-22] MEDS: HYDROCHLOROTHIAZIDE 25 MG TABLET PO SCH (09:11)
[2017-06-22] MEDS: FLUTICASONE/SALMETEROL DISKUS 500-50 MCG/DOSE IH SCH (09:13)
[2017-06-22] MEDS: LEVOFLOXACIN 750 MG TABLET PO SCH (09:13)
[2017-06-22] MEDS: AMLODIPINE BESYLATE 5 MG TABLET PO SCH (09:13)
[2017-06-22] MEDS: FLUTICASONE NASAL SPRAY 50 MCG/SPRY 120 SPRAY/16 GM NASL SCH (09:14)
[2017-06-22] MEDS: TIOTROPIUM BROMIDE DPI 5 CAP/KIT (18 MCG/CAP) IH SCH (09:15)
[2017-06-22 10:36] VITALS: BP 128/82
--- NOTE | 2017-06-22 13:25 | PDOC DISCHARGE SUMMARY ---
General - Admit/Disc Date/PCP Admission Date/Primary Care Provider: 06/19/17 13:28 Discharge Date: 06/22/17 - Discharge Diagnosis (1) Acute hypoxemic respiratory failure Is this a current diagnosis for this admission?: Yes (2) Pulmonary emboli Is this a current diagnosis for this admission?: Yes (3) Right leg DVT Is this a current diagnosis for this admission?: Yes (4) COPD exacerbation Is this a current diagnosis for this admission?: Yes (5) Hypertension Is this a current diagnosis for this admission?: Yes (6) GERD (gastroesophageal reflux disease) Is this a current diagnosis for this admission?: Yes (7) Acute sinusitis Is this a current diagnosis for this admission?: Yes (8) Obstructive sleep apnea Is this a current diagnosis for this admission?: Yes - Additional Information Resuscitation Status: Full Code Discharge Diet: Regular Discharge Activity: Activity As Tolerated Home Medications: Albuterol Sulfate [Albuterol Sulfate 2.5mg/3 mL] 1 vial IH Q6HP PRN 06/19/17 Albuterol Sulfate [Proair HFA Inhalation Aerosol 8.5 gm MDI] 2 puff IH Q6HP PRN 06/19/17 Amlodipine Besylate [Norvasc 5 mg Tablet] 5 mg PO DAILY 06/19/17 Cetirizine HCl [Zyrtec 10 mg Tablet] 10 mg PO DAILY 06/19/17 Fluticasone/Salmeterol [Advair 500-50 Diskus 28 Dose] 1 inh IH DAILY 06/19/17 Hydrochlorothiazide 25 mg PO DAILY 06/19/17 Montelukast Sodium [Singulair 10 mg Tablet] 10 mg PO QHS 06/19/17 Prednisone [Deltasone 5 mg Tablet] 5 mg PO DAILY 06/19/17 Tamsulosin HCl [Flomax 0.4 mg Cap.sr] 0.4 mg PO QHS 06/19/17 Tiotropium [place] [Spiriva Handihaler 18 mcg/dose (30 Dose)] 1 cap IH DAILY 06/28 Fluticasone Propionate [Flonase Nasal [place] 50 Mcg/[place] 16 gm] 1 spray NASL Q12 spray.pump 06/22/17 Gabapentin [Neurontin 300 mg Capsule] 300 mg PO QHS #30 cap 06/22/17 Lansoprazole [Prevacid 30 mg Odt Tablet] 30 mg PO Q6AM #30 tab. 06/22/17 Levofloxacin [Levaquin 750 mg Tablet] 750 mg PO DAILY #5 tablet 06/22/17 Rivaroxaban [Xarelto 15 mg Tablet] 15 mg PO BIDBS #40 tablet 06/22/17 Tramadol HCl 50 mg PO Q6HP PRN #30 tablet 06/22/17 History of Present Illness Patient complains of: Shortness of breath History of Present Illness: SHONDA HUERTA is a 56 year old male with past medical history of COPD and hypertension presents with relatively acute onset today of shortness of breath. He has had a couple days of productive cough as well. He is felt feverish at times but has had no documented temperature. He was found in the emergency department to have a room air oxygen saturation of 80%. He has recovered nicely on oxygen supplementation and BiPAP in his O2 sat is currently in the high 90s. Hospital Course Hospital Course: Patient was admitted for dyspnea. D-dimer was positive. CTA showed bilateral pulmonary emboli. Right lower extremity Doppler showed right popliteal DVT. Presumably this is secondary to recent inactivity as a result of a low back injury. Patient was started on Lovenox initially and subsequently transitioned to Xarelto. He was seen by Dr. Casillas of hematology and she mention ordering hypercoagulable workup. Patient has tolerated Xarelto. He is discharged home in stable condition with follow-up appointment with Dr. Casillas. Patient was also treated for acute sinusitis with Flonase and Levaquin. Physical Exam Vital Signs: Temp Pulse Resp BP Pulse Ox 98.0 F 98 14 128/82 H 98 06/22/17 10:24 06/22/17 10:24 06/22/17 10:24 06/22/17 10:24 06/22/17 10:24 Intake & Output 06/21/17 06/22/17 06/23/17 06:59 06:59 06:59 Intake Total 4380 1992 Output Total 9520 0250 Balance -917 -419 Weight 91.9 kg 91.7 kg GENERAL: No acute distress HEENT: Conjunctiva clear, nonicteric, moist mucous membranes, no JVD, midline trachea RESPIRATORY: Clear to auscultation bilaterally, no wheezes, no rhonchi CARDIAC: Regular rate and rhythm, no murmurs/gallops/rubs ABDOMEN: Soft, nondistended, nontender, positive bowel sounds, no rebound, no guarding EXTREMETIES: No edema, cyanosis, clubbing NEUROLOGIC: Alert, oriented to person/place/time, CN's grossly intact, no focal deficits SKIN: No rash, wounds PSYCH: Normal mood, normal affect Results Laboratory Results: 06/22/17 05:41 06/21/17 06:06 06/22/17 05:41 WBC 5.5 RBC 5.04 Hgb 12.8 L Hct 39.5 MCV 78 L MCH 25.4 L MCHC 32.5 RDW 19.7 H Plt Count 157 06/19/17 06/19/17 06/19/17 13:35 13:35 20:00 Creatine Kinase 145 Cancelled CK-MB (CK-2) 3.82 Troponin I 0.016 06/19/17 06/19/17 06/19/17 20:00 21:07 21:07 Creatine Kinase 199 H CK-MB (CK-2) Cancelled 4.81 H Troponin I Cancelled 0.016 06/20/17 06/20/17 03:31 03:31 Creatine Kinase 217 H CK-MB (CK-2) 6.32 H Troponin I < 0.012 Impressions: Chest/Abdomen CTA 06/19/17 00:00 IMPRESSION: Bilateral pulmonary emboli as described. Venous Doppler Study 06/19/17 00:00 IMPRESSION: Acute to subacute nonocclusive thrombus in the right popliteal vein. Chest X-Ray 06/19/17 10:44 IMPRESSION: Nothing acute other than linear atelectatic marking left lung base. Qualifiers PATEINT BEING DISCHARGED WITH ANY OF THE FOLLOWING DIAGNOSIS?: No Plan Time Spent: Less than 30 Minutes
== END 2017-06-22 11:00 | disposition home or self-care (01) | DRG 189 ==
LOC: ER 10:42 → UNDOADMIN 13:05 → EH 13:05 → 3S 13:28 → EH 15:08 → 3S 15:08
PROVIDERS: ADMIT Family Medicine; ATTEND Family Medicine
DX: J96.01 Acute respiratory failure with hypoxia (principal); I26.99 Other pulmonary embolism without acute cor pulmonale; I82.431 Acute embolism and thrombosis of right popliteal vein; J44.9 Chronic obstructive pulmonary disease, unspecified; E78.5 Hyperlipidemia, unspecified; K21.9 Gastro-esophageal reflux disease without esophagitis; M54.9 Dorsalgia, unspecified; I10 Essential (primary) hypertension; J01.90 Acute sinusitis, unspecified; G47.33 Obstructive sleep apnea (adult) (pediatric); Z79.899 Other long term (current) drug therapy; Z87.891 Personal history of nicotine dependence
CPT/HCPCS: 36415; 71010; 71275; 80048; 80053; 81001; 82550; 82553; 82803; 83735; 83880; 84484; 85025; 85027; 85379; 85610; 85730; 87040; 93005; 93010; 93970; 94640; 94660; 96365; 96375; 99285; J0456; J0696; J1650; J2920; J2930; J3475; J3490; J7030; J7620

== ENCOUNTER 2017-07-10 13:14 | Inpatient (IN) | payer MEDICAID ==
[2017-07-10] MEDS ORDERED: MAGNESIUM SULFATE/D5W 1 GM/100 ML RTUPB IV ONE (13:37)
[2017-07-10] MEDS ORDERED: ALBUTEROL SULFATE 0.083% NEB 2.5 MG/3 ML AMPUL NEB ONE (13:37)
[2017-07-10 13:49] LABS: ABSOLUTE LYMPHOCYTES (AUTO) 0.6 10^3/uL (0.5-4.7); ABSOLUTE MONOCYTES (AUTO) 0.6 10^3/uL (0.1-1.4); ABSOLUTE NEUT (AUTO) 7.3 10^3/uL (1.7-8.2); BASOPHILS % (AUTO) 0.2 % (0-2); EOSINOPHILS % (AUTO) 0.4 % (0-6); HEMATOCRIT 43.8 % (37.9-51.0); HEMOGLOBIN 14.5 g/dL (13.5-17.0); HGB HCT DIFFERENCE -0.3; LYMPHOCYTES % (AUTO) 7.2 % (13-45); MEAN CORPUSCULAR HEMOGLOBIN 25.6 pg (27.0-33.4); MEAN CORPUSCULAR VOLUME 77 fl (80-97); MONOCYTES % (AUTO) 6.7 % (3-13); RED BLOOD COUNT 5.66 10^6/uL (4.35-5.55); RED CELL DISTRIBUTION WIDTH 19.3 % (11.5-14.0); SEGMENTED NEUTROPHILS % (AUTO) 85.5 % (42-78); WHITE BLOOD COUNT 8.6 10^3/uL (4.0-10.5)
[2017-07-10 13:55] LABS: PROTHROMBIN TIME 24.2 SEC (11.4-15.4)
[2017-07-10 13:59] LABS: VENOUS BLOOD BASE EXCESS -0.5 mmol/L; VENOUS BLOOD HCO3 24.5 mmol/L (20-32); VENOUS BLOOD PCO2 41.5 mmHg (35-63); VENOUS BLOOD PH 7.39 (7.30-7.42)
[2017-07-10 14:09] LABS: ALANINE AMINOTRANSFERASE 25 U/L (21-72); ALBUMIN 4.1 g/dL (3.5-5.0); ALKALINE PHOSPHATASE 64 U/L (38-126); ANION GAP 15 (5-19); ASPARTATE AMINO TRANSFERASE 19 U/L (17-59); BILIRUBIN,DIRECT 0.4 mg/dL (0.0-0.4); BILIRUBIN,TOTAL 0.8 mg/dL (0.2-1.3); BLOOD UREA NITROGEN 18 mg/dL (7-20); CALCIUM 9.7 mg/dL (8.4-10.2); CARBON DIOXIDE 25 mmol/L (22-30); CHLORIDE 103 mmol/L (98-107); CREATINE KINASE 155 U/L (55-170); CREATININE RESULT 1.24 mg/dL (0.52-1.25); GLUCOSE 151 mg/dL (75-110); LIPASE 104.2 U/L (23-300); POTASSIUM 3.5 mmol/L (3.6-5.0); SODIUM 142.5 mmol/L (137-145); TOTAL PROTEIN 7.4 g/dL (6.3-8.2)
--- NOTE | 2017-07-10 14:18 | RADIOLOGY REPORT (SQ) ---
EXAM DESCRIPTION: CHEST SINGLE VIEW COMPLETED DATE/TIME: 07/10/2017 2:01 pm REASON FOR STUDY: sob COMPARISON: 06/19/2017 EXAM PARAMETERS: NUMBER OF VIEWS: One view. TECHNIQUE: Single frontal radiographic view of the chest acquired. RADIATION DOSE: NA LIMITATIONS: None. FINDINGS: LUNGS AND PLEURA: Mild chronic interstitial changes are suggested. The lungs are somewhat hyperexpanded. No localized infiltrate is present no mass is seen MEDIASTINUM AND HILAR STRUCTURES: No masses. Contour normal. HEART AND VASCULAR STRUCTURES: Heart normal in size. Normal vasculature. BONES: No acute findings. HARDWARE: None in the chest. OTHER: No other significant finding. IMPRESSION: Mild chronic lung changes with no acute cardiopulmonary disease. TECHNICAL DOCUMENTATION: JOB ID: [id number]
[2017-07-10 14:21] LABS: CREATINE KINASE MB 2.21 ng/mL (<4.55)
[2017-07-10 14:22] LABS: TROPONIN I < 0.012 ng/mL
[2017-07-10] MEDS ORDERED: LIDOCAINE 5% (700 MG) TRANSDERMAL ADH..PATCH TP ONE (14:42)
--- NOTE | 2017-07-10 14:44 | ER Document Report ---
ED General - General Chief Complaint: Breathing Difficulty Stated Complaint: DIFFICULTY BREATHING Time Seen by Provider: 07/10/17 13:31 TRAVEL OUTSIDE OF THE [place] IN LAST 30 DAYS: No - HPI Patient complains to provider of: COPD exacerbation hypoxia and difficulty breathing Notes: Patient coming in for evaluation of difficulty breathing. Patient is ongoing for the last 2 days worse today she was found to be hypoxic upon EMS arrival. Patient has a history of DVT PE and is currently on Xarelto. Patient is compliant with medications states no recent antibiotics no recent travel. Patient was placed on CPAP due to his tachypnea and hypoxia transported to ER for further evaluation. Upon my evaluation will transfer the patient over to BiPAP patient states feeling better after trial of CPAP. Patient denies any fevers chills denies any productive cough denies any recent travel or chest pain at this time denies any abdominal pain. - Related Data Allergies/Adverse Reactions: No Known Allergies Allergy (Verified 06/19/17 11:48) Past Medical History - Social History Smoking Status: Unknown if Ever Smoked Family History: Reviewed & Not Pertinent - Past Medical History Cardiac Medical History: Reports: Hx Hypercholesterolemia, Hx Hypertension Pulmonary Medical History: Reports: Hx Bronchitis, Hx COPD Renal/ Medical History: Denies: Hx Peritoneal Dialysis GI Medical History: Reports: Hx Gastroesophageal Reflux Disease - Immunizations Hx Pneumococcal Vaccination: 11/12/16 Review of Systems - Review of Systems Constitutional: No symptoms reported EENT: No symptoms reported Cardiovascular: No symptoms reported Respiratory: Short of breath, Wheezing Gastrointestinal: No symptoms reported Genitourinary: No symptoms reported Male Genitourinary: No symptoms reported Musculoskeletal: No symptoms reported Skin: No symptoms reported Hematologic/Lymphatic: No symptoms reported Neurological/Psychological: No symptoms reported -: Yes All other systems reviewed and negative Physical Exam - Vital signs Vitals: Temp Pulse Ox 98.3 F 96 07/10/17 13:31 07/10/17 13:31 Interpretation: Normal - General General appearance: Appears well, Alert - HEENT Head: Normocephalic, Atraumatic Eyes: Normal Pupils: PERRL - Respiratory Respiratory status: Respiratory distress - Mild to moderate required BiPAP Chest status: Nontender Breath sounds: Decreased air movement, Wheezing Chest palpation: Normal - Cardiovascular Rhythm: Regular Heart sounds: Normal auscultation Murmur: No - Abdominal Inspection: Normal Distension: No distension Bowel sounds: Normal Tenderness: Nontender Organomegaly: No organomegaly - Back Back: Normal, Nontender - Extremities General upper extremity: Normal inspection, Nontender, Normal color, Normal ROM , Normal temperature General lower extremity: Normal inspection, Nontender, Normal color, Normal ROM , Normal temperature, Normal weight bearing. No: Sandi's sign - Neurological Neuro grossly intact: Yes Cognition: Normal Orientation: AAOx4 Srikanth Coma Scale Eye Opening: Spontaneous [place] Coma Scale Verbal: Oriented Srikanth Coma Scale Motor: Obeys Commands Srikanth Coma Scale Total: 15 Speech: Normal Motor strength normal: LUE, RUE, LLE, RLE Sensory: Normal - Psychological Associated symptoms: Normal affect, Normal mood - Skin Skin Temperature: Warm Skin Moisture: Dry Skin Color: Normal Course - Re-evaluation Re-evalutation: 07/10/17 15:39 Laboratory studies not show any acute critical findings chest x-ray is negative. Patient does have slight elevation in INR more likely due to the patient's Xarelto use. Patient will be discussed with the hospitalist and will be admitted for hypoxia with COPD exacerbation. - Vital Signs Vital signs: Temp Pulse Resp BP Pulse Ox 98.3 F 18 104/81 99 07/10/17 13:31 07/10/17 15:01 07/10/17 15:01 07/10/17 15:01 - Laboratory Result Diagrams: 07/10/17 13:38 07/10/17 13:38 Laboratory results interpreted by me: 07/10/17 07/10/17 07/10/17 13:38 13:38 13:38 RBC 5.66 H MCV 77 L MCH 25.6 L RDW 19.3 H Seg Neutrophils % 85.5 H Lymphocytes % 7.2 L PT 24.2 H Potassium 3.5 L Glucose 151 H Critical Care Note - Critical Care Note Total time excluding time spent on procedures (mins): 35 Comments: Multiple evaluations for patient with respiratory distress requiring BiPAP Discharge - Discharge Clinical Impression: COPD exacerbation, Anticoagulated, Acute hypoxemic respiratory failure Right leg DVT Qualifiers: Affected thrombotic vein of extremity: unspecified vein of extremity Chronicity : unspecified Qualified Code(s): I82.401 - Acute embolism and thrombosis of unspecified deep veins of right lower extremity Pulmonary emboli Qualifiers: Pulmonary embolism type: other Chronicity: unspecified Acute cor pulmonale presence: without acute cor pulmonale Qualified Code(s): I26.99 - Other pulmonary embolism without acute cor pulmonale Condition: Good Disposition: ADMITTED INPATIENT Admitting Provider: Hospitalist Ruth Guillermo [facility] Unit Admitted: [facility] Referrals: STACEY MORTON MD [Primary Care Provider] - Follow up as needed
[2017-07-10] MEDS ORDERED: ACETAMINOPHEN 325 MG TABLET PO PRN (15:18)
[2017-07-10] MEDS ORDERED: ONDANSETRON 4 MG TAB.RAPDIS PO PRN (15:18)
[2017-07-10] MEDS ORDERED: LEVALBUTEROL HCL NEB 0.63 MG/3 ML AMPUL NEB PRN (15:18)
[2017-07-10] MEDS ORDERED: ONDANSETRON HCL INJ/PF 4 MG/2 ML SDV IV PRN (15:18)
--- NOTE | 2017-07-10 15:41 | PDOC H&P ---
History of Present Illness Admission Date/PCP: STACEY MORTON MD Patient complains of: Shortness of breath History of Present Illness: SHONDA HUERTA is a 56 year old male who was discharged about 3 weeks ago from this hospital after being treated for shortness of breath and was found to have a DVT with pulmonary emboli. He was sent home on Levaquin for sinusitis and had been doing well. He reports that approximately 2 days ago he began having worsening shortness of breath along with a cough productive of some yellow sputum. He also has had some chills but no fevers. He also has had worsening wheezing and he reports he has been compliant with his anticoagulation therapy. He reports he has been having dyspnea on exertion with minimal effort. He denies having any chest pain associated with this. He denies any palpitations or tachycardia. The patient does use Singulair and Advair and has been taking those as prescribed. The patient also has complaints of back pain reports the tramadol he was given at the last hospitalization has worked well for him. Chest x-ray shows no evidence for a pneumonia but he appears to have a bronchitis with an acute COPD exacerbation and was admitted for further treatment. Past Medical History Cardiac Medical History: Reports: Hyperlipidema, Hypertension Pulmonary Medical History: Reports: Bronchitis, Chronic Obstructive Pulmonary Disease (COPD) EENT Medical History: Reports: None Neurological Medical History: Reports: None Endocrine Medical History: Reports: None Renal/ Medical History: Reports: None Malignancy Medical History: Reports: None GI Medical History: Reports: Gastroesophageal Reflux Disease Musculoskeltal Medical History: Reports: Other - Chronic back pain Skin Medical History: Reports: None Psychiatric Medical History: Reports: None Traumatic Medical History: Reports: None Hematology: Reports: Other Hematology History Note: DVT with pulmonary embolism Infectious Medical History: Reports: None Past Surgical History Past Surgical History: Reports: None Social History Information Source: Patient Lives with: Family Smoking Status: Former Smoker Frequency of Alcohol Use: None Hx Recreational Drug Use: No Drugs: None Hx Prescription Drug Abuse: No - Advance Directive Resuscitation Status: Full Code Family History Family History: Father's health history is unknown. Mother at age 91 and had no chronic health problems except for hypertension. Parental Family History Reviewed: Yes Children Family History Reviewed: No Sibling(s) Family History Reviewed.: No Medication/Allergy Home Medications: Albuterol Sulfate [Albuterol Sulfate 2.5mg/3 mL] 1 vial IH Q6HP PRN 06/19/17 Albuterol Sulfate [Proair HFA Inhalation Aerosol 8.5 gm MDI] 2 puff IH Q6HP PRN 06/19/17 Amlodipine Besylate [Norvasc 5 mg Tablet] 5 mg PO DAILY 06/19/17 Cetirizine HCl [Zyrtec 10 mg Tablet] 10 mg PO DAILY 06/19/17 Fluticasone/Salmeterol [Advair 500-50 Diskus 28 Dose] 1 inh IH DAILY 06/19/17 Hydrochlorothiazide 25 mg PO DAILY 06/19/17 Montelukast Sodium [Singulair 10 mg Tablet] 10 mg PO QHS 06/19/17 Prednisone [Deltasone 5 mg Tablet] 5 mg PO DAILY 06/19/17 Tamsulosin HCl [Flomax 0.4 mg Cap.sr] 0.4 mg PO QHS 06/19/17 Tiotropium [place] [Spiriva Handihaler 18 mcg/dose (30 Dose)] 1 cap IH DAILY 06/28 Fluticasone Propionate [Flonase Nasal [place] 50 Mcg/[place] 16 gm] 1 spray NASL Q12 spray.pump 06/22/17 Gabapentin [Neurontin 300 mg Capsule] 300 mg PO QHS #30 cap 06/22/17 Lansoprazole [Prevacid 30 mg Odt Tablet] 30 mg PO Q6AM #30 tab.rap.dr 06/22/17 Rivaroxaban [Xarelto 15 mg Tablet] 15 mg PO BIDBS #40 tablet 06/22/17 Allergies/Adverse Reactions: No Known Allergies Allergy (Verified 06/19/17 11:48) Review of Systems Constitutional: PRESENT: chills. ABSENT: fever(s), headache(s), weight gain, weight loss Eyes: ABSENT: visual disturbances Ears: ABSENT: hearing changes Cardiovascular: PRESENT: dyspnea on exertion. ABSENT: chest pain, edema, orthropnea, palpitations Respiratory: PRESENT: cough, dyspnea, sputum. ABSENT: hemoptysis Gastrointestinal: ABSENT: abdominal pain, constipation, diarrhea, hematemesis, hematochezia, nausea, vomiting Musculoskeletal: PRESENT: back pain. ABSENT: joint swelling Integumentary: ABSENT: rash, wounds Neurological: ABSENT: abnormal gait, abnormal speech, confusion, dizziness, focal weakness, syncope Psychiatric: ABSENT: anxiety, depression Endocrine: ABSENT: cold intolerance, heat intolerance, polydipsia, polyuria Hematologic/Lymphatic: ABSENT: easy bleeding, easy bruising Physical Exam Vital Signs: Temp Pulse Resp BP Pulse Ox 98.3 F 18 104/81 99 07/10/17 13:31 07/10/17 15:01 07/10/17 15:01 07/10/17 15:01 Intake & Output 07/09/17 07/10/17 07/11/17 06:59 06:59 06:59 Weight 92 kg General appearance: PRESENT: no acute distress, well-developed, well-nourished Head exam: PRESENT: atraumatic, normocephalic Eye exam: PRESENT: conjunctiva pink, EOMI, PERRLA. ABSENT: scleral icterus Ear exam: PRESENT: normal external ear exam Mouth exam: PRESENT: moist, tongue midline Neck exam: ABSENT: carotid bruit, JVD, lymphadenopathy, thyromegaly Respiratory exam: PRESENT: wheezes - Bilateral expiratory wheezes. ABSENT: rales, rhonchi Cardiovascular exam: PRESENT: RRR. ABSENT: diastolic murmur, rubs, systolic murmur Pulses: PRESENT: normal dorsalis pedis pul Vascular exam: PRESENT: normal capillary refill GI/Abdominal exam: PRESENT: normal bowel sounds, soft. ABSENT: distended, guarding, mass, organolmegaly, rebound, tenderness Rectal exam: PRESENT: deferred Extremities exam: ABSENT: calf tenderness, clubbing, pedal edema Neurological exam: PRESENT: alert, awake, oriented to person, oriented to place , oriented to time, oriented to situation, CN II-XII grossly intact. ABSENT: motor sensory deficit Psychiatric exam: PRESENT: appropriate affect Skin exam: PRESENT: dry, intact, warm. ABSENT: cyanosis, rash Results Laboratory Results: 07/10/17 13:38 07/10/17 13:38 07/10/17 07/10/17 07/10/17 13:38 13:38 13:38 WBC 8.6 RBC 5.66 H Hgb 14.5 Hct 43.8 MCV 77 L MCH 25.6 L MCHC 33.0 RDW 19.3 H Plt Count 316 Seg Neutrophils % 85.5 H Lymphocytes % 7.2 L Monocytes % 6.7 Eosinophils % 0.4 Basophils % 0.2 Absolute Neutrophils 7.3 Absolute Lymphocytes 0.6 Absolute Monocytes 0.6 Absolute Eosinophils 0.0 Absolute Basophils 0.0 VBG pH 7.39 VBG pCO2 41.5 VBG HCO3 24.5 VBG Base Excess -0.5 Sodium 142.5 Potassium 3.5 L Chloride 103 Carbon Dioxide 25 Anion Gap 15 BUN 18 Creatinine 1.24 Est GFR ( Amer) > 60 Est GFR (Non-Af Amer) > 60 Glucose 151 H Calcium 9.7 Magnesium 2.0 Total Bilirubin 0.8 AST 19 ALT 25 Alkaline Phosphatase 64 Total Protein 7.4 Albumin 4.1 Lipase 104.2 07/10/17 07/10/17 13:38 13:38 Creatine Kinase 155 CK-MB (CK-2) 2.21 Troponin I < 0.012 NT-Pro-B Natriuret Pep 58 Impressions: Chest X-Ray 07/10/17 13:31 IMPRESSION: Mild chronic lung changes with no acute cardiopulmonary disease. Assessment & Plan - Diagnosis (1) Acute hypoxemic respiratory failure Is this a current diagnosis for this admission?: Yes Plan: Secondary to acute COPD exacerbation and bronchitis. Will treat with IV steroids, Rocephin. Patient is doing better on the BiPAP. (2) COPD exacerbation Is this a current diagnosis for this admission?: Yes Plan: Patient has acute bronchitis along with his acute COPD exacerbation. Will treat with IV steroids, nebulizers, Rocephin. (3) Pulmonary emboli Qualifiers: Pulmonary embolism type: other Chronicity: unspecified Acute cor pulmonale presence: without acute cor pulmonale Qualified Code(s): I26.99 - Other pulmonary embolism without acute cor pulmonale Is this a current diagnosis for this admission?: Yes Plan: Continue with Xarelto. (4) GERD (gastroesophageal reflux disease) Is this a current diagnosis for this admission?: Yes (5) Hypertension Is this a current diagnosis for this admission?: Yes (6) Obstructive sleep apnea Is this a current diagnosis for this admission?: Yes Plan: Continue with BiPAP as needed - Time Time Spent: 50 to 70 Minutes - Inpatient Certification Medical Necessity: Need Close Monitoring Due to Risk of Patient Decompensation, Need for IV Antibiotics
[2017-07-10] MEDS ORDERED: TRAMADOL HCL 50 MG TABLET PO PRN (15:42)
--- NOTE | 2017-07-10 16:24 | EKG REPORT ---
SEVERITY:- ABNORMAL ECG - SINUS TACHYCARDIA VENTRICULAR BIGEMINY : Confirmed by: Annalise Bess MD 10-Jul-2017 16:23:10
[2017-07-10] MEDS ORDERED: RIVAROXABAN 15 MG TABLET PO ONE (19:00)
[2017-07-10] MEDS: IPRATROPIUM/ALBUTEROL 0.5-2.5 MG/3 ML AMPUL NEB SCH (20:36)
[2017-07-10] MEDS ORDERED: TAMSULOSIN HCL 0.4 MG CAP.SR.24H PO SCH (22:00)
[2017-07-10] MEDS ORDERED: GABAPENTIN 300 MG CAPSULE PO SCH (22:00)
[2017-07-10] MEDS ORDERED: METHYLPREDNISOLONE INJ 40 MG/1 ML SDV IV SCH (22:00)
[2017-07-10] MEDS ORDERED: MONTELUKAST SODIUM 10 MG TABLET PO SCH (22:00)
[2017-07-10] MEDS: FAMOTIDINE 20 MG TABLET PO SCH (22:55)
[2017-07-10] MEDS: FLUTICASONE NASAL SPRAY 50 MCG/SPRY 120 SPRAY/16 GM NASL SCH (23:04)
[2017-07-11] MEDS: IPRATROPIUM/ALBUTEROL 0.5-2.5 MG/3 ML AMPUL NEB SCH ×2 (02:34→08:26)
[2017-07-11] MEDS ORDERED: LANSOPRAZOLE 30 MG TAB.RAP.DR PO SCH (06:00)
[2017-07-11 06:27] LABS: HEMATOCRIT 38.9 % (37.9-51.0); HEMOGLOBIN 13.1 g/dL (13.5-17.0); HGB HCT DIFFERENCE 0.4; MEAN CORPUSCULAR HEMOGLOBIN 25.8 pg (27.0-33.4); MEAN CORPUSCULAR HGB CONC 33.6 g/dL (32.0-36.0); MEAN CORPUSCULAR VOLUME 77 fl (80-97); RED BLOOD COUNT 5.06 10^6/uL (4.35-5.55); RED CELL DISTRIBUTION WIDTH 19.1 % (11.5-14.0); WHITE BLOOD COUNT 6.8 10^3/uL (4.0-10.5)
[2017-07-11 06:32] LABS: ANION GAP 15 (5-19); BLOOD UREA NITROGEN 26 mg/dL (7-20); CARBON DIOXIDE 24 mmol/L (22-30); CHLORIDE 103 mmol/L (98-107); CREATININE RESULT 1.17 mg/dL (0.52-1.25); GLUCOSE 153 mg/dL (75-110); MAGNESIUM 2.5 mg/dL (1.6-2.3); POTASSIUM 4.2 mmol/L (3.6-5.0); SODIUM 141.5 mmol/L (137-145)
[2017-07-11] MEDS ORDERED: RIVAROXABAN 15 MG TABLET PO SCH (08:00)
[2017-07-11 08:11] VITALS: BP 142/80
[2017-07-11] MEDS: FAMOTIDINE 20 MG TABLET PO SCH (09:44)
[2017-07-11] MEDS: FLUTICASONE NASAL SPRAY 50 MCG/SPRY 120 SPRAY/16 GM NASL SCH (09:54)
[2017-07-11] MEDS ORDERED: TIOTROPIUM BROMIDE DPI 5 CAP/KIT (18 MCG/CAP) IH SCH (10:00)
[2017-07-11] MEDS ORDERED: CETIRIZINE 10 MG TABLET PO SCH (10:00)
[2017-07-11] MEDS ORDERED: CEFTRIAXONE 1 GM/D5W RTU 1 GM/50 ML RTUPB IV SCH (10:00)
[2017-07-11] MEDS ORDERED: AMLODIPINE BESYLATE 5 MG TABLET PO SCH (10:00)
[2017-07-11] MEDS ORDERED: HYDROCHLOROTHIAZIDE 25 MG TABLET PO SCH (10:00)
--- NOTE | 2017-07-11 11:12 | PDOC DISCHARGE SUMMARY ---
General - Admit/Disc Date/PCP Admission Date/Primary Care Provider: 07/10/17 16:12 STACEY MORTON MD Discharge Date: 07/11/17 - Discharge Diagnosis (1) Acute hypoxemic respiratory failure Is this a current diagnosis for this admission?: Yes (2) COPD exacerbation Is this a current diagnosis for this admission?: Yes (3) Pulmonary emboli Is this a current diagnosis for this admission?: Yes Summary: Patient currently is on twice daily dosing for Xarelto. He will switch over to once daily dosing once he reaches the 21 day marylou. (4) GERD (gastroesophageal reflux disease) Is this a current diagnosis for this admission?: Yes (5) Hypertension Is this a current diagnosis for this admission?: Yes (6) Obstructive sleep apnea Is this a current diagnosis for this admission?: Yes - Additional Information Resuscitation Status: Full Code Discharge Diet: Cardiac Discharge Activity: Activity As Tolerated Home Medications: Albuterol Sulfate [Albuterol Sulfate 2.5mg/3 mL] 1 vial IH Q6HP PRN 06/19/17 Albuterol Sulfate [Proair HFA Inhalation Aerosol 8.5 gm MDI] 2 puff IH Q6HP PRN 06/19/17 Amlodipine Besylate [Norvasc 5 mg Tablet] 5 mg PO DAILY 06/19/17 Cetirizine HCl [Zyrtec 10 mg Tablet] 10 mg PO DAILY 06/19/17 Fluticasone/Salmeterol [Advair 500-50 Diskus 28 Dose] 1 inh IH DAILY 06/19/17 Hydrochlorothiazide 25 mg PO DAILY 06/19/17 Montelukast Sodium [Singulair 10 mg Tablet] 10 mg PO QHS 06/19/17 Tamsulosin HCl [Flomax 0.4 mg Cap.sr] 0.4 mg PO QHS 06/19/17 Tiotropium [place] [Spiriva Handihaler 18 mcg/dose (30 Dose)] 1 cap IH DAILY 06/28 Fluticasone Propionate [Flonase Nasal [place] 50 Mcg/[place] 16 gm] 1 spray NASL Q12 spray.pump 06/22/17 Gabapentin [Neurontin 300 mg Capsule] 300 mg PO QHS #30 cap 06/22/17 Lansoprazole [Prevacid 30 mg Odt Tablet] 30 mg PO Q6AM #30 tab.rap.dr 06/22/17 Rivaroxaban [Xarelto 15 mg Tablet] 15 mg PO BIDBS #40 tablet 06/22/17 Lovastatin [Mevacor] 10 mg PO QHS 07/10/17 Cefuroxime Axetil [Ceftin 500 mg Tablet] 500 mg PO BID #14 tablet 07/11/17 Prednisone [Deltasone 5 mg Tablet] 10 mg PO DAILY #39 tablet 07/11/17 Tramadol HCl [Ultram 50 mg Tablet] 50 mg PO Q6HP PRN #20 tablet 07/11/17 History of Present Illness History of Present Illness: SHONDA HUERTA is a 56 year old male who was discharged about 3 weeks ago from this hospital after being treated for shortness of breath and was found to have a DVT with pulmonary emboli. He was sent home on Levaquin for sinusitis and had been doing well. He reports that approximately 2 days ago he began having worsening shortness of breath along with a cough productive of some yellow sputum. He also has had some chills but no fevers. He also has had worsening wheezing and he reports he has been compliant with his anticoagulation therapy. He reports he has been having dyspnea on exertion with minimal effort. He denies having any chest pain associated with this. He denies any palpitations or tachycardia. The patient does use Singulair and Advair and has been taking those as prescribed. The patient also has complaints of back pain reports the tramadol he was given at the last hospitalization has worked well for him. Chest x-ray shows no evidence for a pneumonia but he appears to have a bronchitis with an acute COPD exacerbation and was admitted for further treatment. Hospital Course Hospital Course: 56-year-old male admitted with an acute COPD exacerbation. He initially required BiPAP in the emergency room. He was given IV steroids and showed quick improvement in his symptoms. The following day after admission he was greatly improved and had minimal wheezing. Patient felt that he was back to his baseline and felt comfortable going home. He has been switched over to an oral prednisone taper and will continue to use his CPAP at night. Patient was started on antibiotics and sent home with a course of Ceftin for presumed bronchitis. Bronchitis most likely is what triggered this acute COPD exacerbation. His other medical problems were stable during this hospitalization. He was recently started on Xarelto for pulmonary embolism and he is currently on twice daily dosing of Xarelto. Once he reaches day 21 he will switch over to daily dosing of Xarelto. Physical Exam Vital Signs: Temp Pulse Resp BP Pulse Ox 97.7 F 91 18 142/80 H 97 07/11/17 09:44 07/11/17 09:44 07/11/17 09:44 07/11/17 07:35 07/11/17 09:44 Intake & Output 07/10/17 07/11/17 07/12/17 06:59 06:59 06:59 Intake Total 500 Output Total 825 Balance -325 Weight 110.2 kg General appearance: PRESENT: no acute distress Eye exam: PRESENT: conjunctiva pink. ABSENT: scleral icterus Mouth exam: PRESENT: moist, tongue midline Neck exam: ABSENT: JVD Respiratory exam: PRESENT: wheezes - Few scattered expiratory wheezes.. ABSENT : rales, rhonchi Cardiovascular exam: PRESENT: RRR. ABSENT: diastolic murmur, rubs, systolic murmur GI/Abdominal exam: PRESENT: normal bowel sounds, soft. ABSENT: distended, guarding, mass, organolmegaly, rebound, tenderness Extremities exam: ABSENT: calf tenderness, clubbing, pedal edema Neurological exam: PRESENT: alert, awake, oriented to person, oriented to place , oriented to time, oriented to situation, CN II-XII grossly intact. ABSENT: motor sensory deficit Psychiatric exam: PRESENT: appropriate affect Skin exam: PRESENT: dry, intact, warm. ABSENT: cyanosis, rash Results Laboratory Results: 07/11/17 05:41 07/11/17 05:41 07/11/17 07/11/17 05:41 05:41 WBC 6.8 RBC 5.06 Hgb 13.1 L Hct 38.9 MCV 77 L MCH 25.8 L MCHC 33.6 RDW 19.1 H Plt Count 289 Sodium 141.5 Potassium 4.2 Chloride 103 Carbon Dioxide 24 Anion Gap 15 BUN 26 H Creatinine 1.17 Est GFR ( Amer) > 60 Est GFR (Non-Af Amer) > 60 Glucose 153 H Calcium 10.0 Magnesium 2.5 H 07/10/17 23:35 Sputum Gram Stain - Final 07/10/17 23:35 Sputum Sputum Culture - Final 07/10/17 17:35 Troponin I < 0.012 Impressions: Chest X-Ray 07/10/17 13:31 IMPRESSION: Mild chronic lung changes with no acute cardiopulmonary disease. Qualifiers PATEINT BEING DISCHARGED WITH ANY OF THE FOLLOWING DIAGNOSIS?: No Plan Discharge Plan: Patient is discharged home in stable condition. Will follow up with his primary care doctor in 2 weeks. Time Spent: Greater than 30 Minutes
[2017-07-11] MEDS ORDERED: FLUTICASONE/SALMETEROL DISKUS 500-50 MCG/DOSE IH SCH (22:00)
== END 2017-07-11 12:00 | disposition home or self-care (01) | DRG 190 ==
LOC: ER 13:14 → EH 16:12 → 3S 20:09
PROVIDERS: ADMIT Family Medicine; ATTEND Family Medicine
PROC: 5A09357 Assistance with Respiratory Ventilation, Less than 24 Consecutive Hours, Continuous Positive Airway Pressure (ICD-10-PCS; principal; 2017-07-10)
DX: J44.1 Chronic obstructive pulmonary disease with (acute) exacerbation (principal); J96.01 Acute respiratory failure with hypoxia; K21.9 Gastro-esophageal reflux disease without esophagitis; J40 Bronchitis, not specified as acute or chronic; G47.33 Obstructive sleep apnea (adult) (pediatric); G89.29 Other chronic pain; M54.9 Dorsalgia, unspecified; I10 Essential (primary) hypertension; Z79.02 Long term (current) use of antithrombotics/antiplatelets; Z79.899 Other long term (current) drug therapy; Z87.891 Personal history of nicotine dependence; Z86.711 Personal history of pulmonary embolism; Z86.718 Personal history of other venous thrombosis and embolism
CPT/HCPCS: 36415; 71010; 80048; 80053; 82550; 82553; 82803; 83690; 83735; 83880; 84484; 85025; 85027; 85610; 87040; 87205; 93005; 93010; 94640; 94660; 99291; J2920; J3475; J3490; J7620

== ENCOUNTER 2017-09-24 13:04 | Emergency (ER) | payer MEDICAID ==
[2017-09-24] MEDS ORDERED: ALBUTEROL SULFATE 0.083% NEB 2.5 MG/3 ML AMPUL NEB ONE (14:58)
--- NOTE | 2017-09-24 14:59 | ER Document Report ---
ED Medical Screen (RME) - General Chief Complaint: Breathing Difficulty Stated Complaint: BACK PAIN, DIFFICULTY BREATHING Time Seen by Provider: 09/24/17 14:57 Notes: Patient presents with cough congestion fever and weakness. TRAVEL OUTSIDE OF THE [place] IN LAST 30 DAYS: No - Related Data Allergies/Adverse Reactions: No Known Allergies Allergy (Verified 09/24/17 13:11) Home Medications: Current Home Medications Calcium Carbonate [Calcium] 500 mg PO DAILY 09/24/17 [History] Levofloxacin [Levaquin 750 mg Tablet] 750 mg PO DAILY 09/24/17 [History] Past Medical History - Past Medical History Cardiac Medical History: Reports: Hx Hypercholesterolemia, Hx Hypertension Pulmonary Medical History: Reports: Hx Bronchitis, Hx COPD Renal/ Medical History: Denies: Hx Peritoneal Dialysis GI Medical History: Reports: Hx Gastroesophageal Reflux Disease Physical Exam - Vital signs Vitals: Temp Pulse Resp BP Pulse Ox 98.1 F 98 20 133/78 H 93 09/24/17 13:11 09/24/17 13:11 09/24/17 13:11 09/24/17 13:11 09/24/17 13:11 Course - Vital Signs Vital signs: Temp Pulse Resp BP Pulse Ox 98.1 F 98 20 133/78 H 93 09/24/17 13:11 09/24/17 13:11 09/24/17 13:11 09/24/17 13:11 09/24/17 13:11
[2017-09-24 15:50] LABS: ABSOLUTE BASOPHILS # (AUTO) 0.1 10^3/uL (0.0-0.2); ABSOLUTE EOSINOPHILS # (AUTO) 0.7 10^3/uL (0.0-0.6); ABSOLUTE LYMPHOCYTES (AUTO) 0.8 10^3/uL (0.5-4.7); ABSOLUTE MONOCYTES (AUTO) 0.8 10^3/uL (0.1-1.4); ABSOLUTE NEUT (AUTO) 5.8 10^3/uL (1.7-8.2); BASOPHILS % (AUTO) 0.6 % (0-2); EOSINOPHILS % (AUTO) 8.6 % (0-6); HEMOGLOBIN 13.5 g/dL (13.5-17.0); HGB HCT DIFFERENCE 0.5; LYMPHOCYTES % (AUTO) 10.3 % (13-45); MEAN CORPUSCULAR HEMOGLOBIN 25.5 pg (27.0-33.4); MEAN CORPUSCULAR HGB CONC 33.7 g/dL (32.0-36.0); MEAN CORPUSCULAR VOLUME 76 fl (80-97); MONOCYTES % (AUTO) 9.5 % (3-13); RED BLOOD COUNT 5.28 10^6/uL (4.35-5.55); RED CELL DISTRIBUTION WIDTH 18.2 % (11.5-14.0); WHITE BLOOD COUNT 8.1 10^3/uL (4.0-10.5)
[2017-09-24 16:12] LABS: ALANINE AMINOTRANSFERASE 29 U/L (21-72); ALBUMIN 4.2 g/dL (3.5-5.0); ALKALINE PHOSPHATASE 51 U/L (38-126); ANION GAP 13 (5-19); ASPARTATE AMINO TRANSFERASE 21 U/L (17-59); BILIRUBIN,DIRECT 0.2 mg/dL (0.0-0.4); BILIRUBIN,TOTAL 0.6 mg/dL (0.2-1.3); BLOOD UREA NITROGEN 12 mg/dL (7-20); CARBON DIOXIDE 31 mmol/L (22-30); CHLORIDE 102 mmol/L (98-107); GLUCOSE 94 mg/dL (75-110); POTASSIUM 3.5 mmol/L (3.6-5.0); TOTAL PROTEIN 7.2 g/dL (6.3-8.2)
[2017-09-24 16:19] LABS: APPEARANCE,URINE CLEAR; BILIRUBIN,URINE NEGATIVE (NEGATIVE); GLUCOSE, URINE NEGATIVE (NEGATIVE); KETONES,URINE NEGATIVE (NEGATIVE); LEUKOCYTE ESTERASE,URINE NEGATIVE (NEGATIVE); NITRITE,URINE NEGATIVE (NEGATIVE); PROTEIN,URINE 30 mg/dL (NEGATIVE); URINE SPECIFIC GRAVITY 1.012; UROBILINOGEN,URINE NEGATIVE mg/dL (<2.0)
--- NOTE | 2017-09-24 16:33 | ER Document Report ---
ED Respiratory Problem - General Chief Complaint: Breathing Difficulty Stated Complaint: BACK PAIN, DIFFICULTY BREATHING Time Seen by Provider: 09/24/17 14:57 Notes: The patient is a 56-year-old male, past medical history COPD, hypertension, presents with 1 week of nasal congestion and dry cough. He was started on Levaquin by his primary care physician a week ago without much relief of his symptoms. He is using his albuterol inhaler with some relief and is taking 10 mg prednisone every day. Patient is also having his chronic low back pain. He denies fevers, chest pain, leg swelling, hemoptysis, change in bowel or bladder , numbness, tingling or difficulty walking. TRAVEL OUTSIDE OF THE [place] IN LAST 30 DAYS: No - Related Data Allergies/Adverse Reactions: No Known Allergies Allergy (Verified 09/24/17 13:11) Home Medications: Current Home Medications Calcium Carbonate [Calcium] 500 mg PO DAILY 09/24/17 [History] Levofloxacin [Levaquin 750 mg Tablet] 750 mg PO DAILY 09/24/17 [History] Past Medical History - General Information source: Patient - Social History Smoking Status: Never Smoker Chew tobacco use (# tins/day): No Frequency of alcohol use: None Drug Abuse: None Family History: Reviewed & Not Pertinent Patient has suicidal ideation: No Patient has homicidal ideation: No - Past Medical History Cardiac Medical History: Reports: Hx Hypercholesterolemia, Hx Hypertension Pulmonary Medical History: Reports: Hx Bronchitis, Hx COPD Renal/ Medical History: Denies: Hx Peritoneal Dialysis GI Medical History: Reports: Hx Gastroesophageal Reflux Disease Surgical Hx: Negative - Immunizations Hx Pneumococcal Vaccination: 11/12/16 Review of Systems - Review of Systems Notes: REVIEW OF SYSTEMS: CONSTITUTIONAL: -fevers, -chills EENT: -eye pain, -difficulty swallowing, +nasal congestion CARDIOVASCULAR: -chest pain, -syncope. RESPIRATORY: +cough, +SOB GASTROINTESTINAL: -abdominal pain, - nausea, -vomiting, -diarrhea GENITOURINARY: -dysuria, -hematuria MUSCULOSKELETAL: +back pain, -neck pain SKIN: -rash or skin lesions. HEMATOLOGIC: -easy bruising or bleeding. LYMPHATIC: -swollen, enlarged glands. NEUROLOGICAL: -altered mental status or loss of consciousness, -headache, - neurologic symptoms PSYCHIATRIC: -anxiety, -depression. ALL OTHER SYSTEMS REVIEWED AND NEGATIVE. Physical Exam - Vital signs Vitals: Temp Pulse Resp BP Pulse Ox 98.1 F 98 20 133/78 H 93 09/24/17 13:11 09/24/17 13:11 09/24/17 13:11 09/24/17 13:11 09/24/17 13:11 - Notes Notes: PHYSICAL EXAMINATION: GENERAL: Well-appearing, well-nourished and in no acute distress. HEAD: Atraumatic, normocephalic. EYES: Pupils equal round and reactive to light, extraocular movements intact, sclera anicteric, conjunctiva are normal. ENT: nares patent, oropharynx clear without exudates. Moist mucous membranes. Large amount of nasal congestion. NECK: Normal range of motion, supple without lymphadenopathy LUNGS: No respiratory distress. Mild end-expiratory wheezes. HEART: Regular rate and rhythm without murmurs ABDOMEN: Soft, nontender, normoactive bowel sounds. No guarding, no rebound. No masses appreciated. EXTREMITIES: Normal range of motion, no pitting or edema. No cyanosis. NEUROLOGICAL: Cranial nerves grossly intact. Normal speech, normal gait. Normal sensory and motor exams. PSYCH: Normal mood, normal affect. SKIN: Warm, Dry, normal turgor, no rashes or lesions noted. Course - Re-evaluation Re-evalutation: Patient appears well and is in no respiratory distress. He requested IM Solu- Medrol because he felt that it worked better for his bronchitis. After duo nebs and Cymetra, his wheezing completely resolved and he feels much better. Chest x-ray does not show any evidence of pneumonia. It does show a questionable small nodule in the right upper lobe, probably overlying shadows. Provided x-ray finding to patient and told him about the nodule with follow up at his primary care physician for further evaluation and a repeat x-ray. Patient back pain is chronic in nature and he has no red flag signs for back pain at this time. Gave strict return precautions to the patient and he understands. - Vital Signs Vital signs: Temp Pulse Resp BP Pulse Ox 98.1 F 98 18 133/78 H 93 09/24/17 13:11 09/24/17 13:11 09/24/17 16:26 09/24/17 13:11 09/24/17 16:26 - Laboratory Result Diagrams: 09/24/17 15:30 09/24/17 15:30 Laboratory results interpreted by me: 09/24/17 09/24/17 09/24/17 15:30 15:30 16:00 MCV 76 L MCH 25.5 L RDW 18.2 H Lymphocytes % 10.3 L Eosinophils % 8.6 H Absolute Eosinophils 0.7 H Sodium 146.0 H Potassium 3.5 L Carbon Dioxide 31 H Urine Protein 30 H - Diagnostic Test Radiology reviewed: Image reviewed, Reports reviewed Radiology results interpreted by me: CXR: Questionable small pulmonary nodule, most likely skin overlying. Discharge - Discharge Clinical Impression: Bronchitis, Nasal congestion Back pain Qualifiers: Back pain location: low back pain Chronicity: chronic Back pain laterality: unspecified Sciatica presence: without sciatica Qualified Code(s): M54.5 - Low back pain Condition: Stable Disposition: HOME, SELF-CARE Additional Instructions: Take the full course of steroids as directed. You may use your albuterol inhaler every 2 hours as needed for any wheezing. Use the Netti Pot as we talked about to help with your nasal congestion. If he continues to smoke, try to quit. Follow-up with your primary care physician this week for further evaluation and treatment. Return to the ER if you have worsening symptoms or any other concerns. BRONCHITIS WITH BRONCHOSPASM (WHEEZING): You have bronchitis with bronchospasm (wheezing). Sometimes people develop wheezing with a chest cold. This occurs either because of an underlying tendency toward asthma or because the virus itself irritates the bronchial tubes. This irritation causes cough, shortness of breath, and wheezing. Emergency treatment of bronchospasm may include adrenaline shots or bronchodilator aerosol. You may feel lightheaded and have a rapid pulse for an hour or two. Rest and get plenty of fluids. At home, we'll treat you with a bronchodilator inhaler. Corticosteroids may be required for some patients. Until you recover, avoid chemical fumes, dusts, pollens, and exercising in very cold or dry air. If you smoke, stop now! Most cases of bronchitis get better without antibiotics. We prescribe antibiotics when we believe bacteria are damaging your airways, or if there's high risk the bronchitis will worsen into pneumonia. Increase your fluid intake. A cool mist humidifier may make your lungs more comfortable. An expectorant (cough medicine that loosens phlegm) can help. Repeated episodes of bronchitis and bronchospasm may result in lung damage -- for example, chronic bronchitis, recurrent pneumonias, or emphysema. If you develop a fever, increased wheezing, chest pain, or severe shortness of breath, you should contact the doctor immediately. INHALED BRONCHODILATORS: You have received a treatment of and/or prescription for an inhaled bronchodilator -- a medication which stimulates the airways in the lung to dilate. This improves the flow of air in asthma, bronchitis, and emphysema. These medicines have some similarity to adrenaline, and can cause similar side effects: shakiness, racing heart, and a sense of nervousness. These side effects decrease with time. Contact your doctor if these side effects are severe. Do not over-use the medicine. Too-frequent use of the inhaler may make it ineffective. Call your doctor if the inhaler is not controlling your symptoms at the prescribed doses. STEROID MEDICATION: You have been given an injection of or oral medicine of the cortisone/ steroid class. This medication is used to control inflammation or allergy. Allen t is usually only given for a short period of time, until the acute process subsides. There are usually no side effects from short-term use of cortisone-like medications. Some persons feel an increased sense of well-being and are not sleepy at bedtime. Long-term use of cortisone medications is best avoided, unless required for a severe condition. If your condition does not remit, or relapses after the course of corticosteroid medication, you should consult your physician. USE OF ACETAMINOPHEN (Tylenol): Acetaminophen may be taken for pain relief or fever control. It's much safer than aspirin, offering a wider range of "safe" dosages. It is safe during . Some brand names are Tylenol, Panadol, Datril, Anacin 3, Tempra, and Liquiprin. Acetaminophen can be repeated every four hours. The following are maximum recommended dosages: >89 pounds or adults 650 mg to 900 mg Acetaminophen can be repeated every four hours. Maximum dose not to exceed 4000 mg a day. SMOKING: If you smoke, you should stop smoking. The tar and chemicals in cigarette smoke are harmful. Smoking has been shown to cause: emphysema chronic bronchitis lung cancer mouth and throat cancer stomach and pancreas cancer premature aging defects In addition, smoking increases ear and lung infections in children of smokers. FOLLOW-UP CARE: If you have been referred to a physician for follow-up care, call the physician s office for an appointment as you were instructed or within the next two days. If you experience worsening or a significant change in your symptoms, notify the physician immediately or return to the Emergency Department at any time for re-evaluation. Prescriptions: Albuterol Sulfate [Proair HFA Inhalation Aerosol 8.5 gm MDI] 2 puff IH Q4H PRN # 1 mdi PRN Reason: Prednisone [Deltasone 10 mg Tablet] 10 mg PO ASDIR PRN #21 tablet PRN Reason: Forms: Smoking Cessation Education, Elevated Blood Pressure Referrals: OLEG DAMICO MD [ACTIVE STAFF] - Follow up as needed
[2017-09-24] MEDS ORDERED: IPRATROPIUM/ALBUTEROL 0.5-2.5 MG/3 ML AMPUL NEB ONE (16:42)
[2017-09-24] MEDS ORDERED: METHYLPREDNISOLONE INJ 125 MG/2 ML SDV IM ONE (16:42)
--- NOTE | 2017-09-24 17:03 | RADIOLOGY REPORT (SQ) ---
EXAM DESCRIPTION: CHEST SINGLE VIEW COMPLETED DATE/TIME: 09/24/2017 4:55 pm REASON FOR STUDY: cough COMPARISON: None. EXAM PARAMETERS: NUMBER OF VIEWS: One view. TECHNIQUE: Single frontal radiographic view of the chest acquired. RADIATION DOSE: NA LIMITATIONS: None. FINDINGS: LUNGS AND PLEURA: Subcentimeter nodular density right upper lung, probably overlapping sha dows. No effusions. MEDIASTINUM AND HILAR STRUCTURES: No masses. Contour normal. HEART AND VASCULAR STRUCTURES: Heart normal in size. Normal vasculature. BONES: No acute findings. HARDWARE: None in the chest. OTHER: No other significant finding. IMPRESSION: Questionable small nodule right upper lobe. No acute findings. TECHNICAL DOCUMENTATION: JOB ID: [id number] [employer]- All Rights Reserved
[2017-09-24 17:56] VITALS: BP 125/75
== END 2017-09-24 17:40 | disposition home or self-care (01) ==
LOC: ER 13:04
DX: J40 Bronchitis, not specified as acute or chronic (principal); R09.81 Nasal congestion; J44.9 Chronic obstructive pulmonary disease, unspecified; I10 Essential (primary) hypertension; G89.29 Other chronic pain; M54.5 Low back pain; E78.00 Pure hypercholesterolemia, unspecified
CPT/HCPCS: 94640 ×2; 99285; 96372; 36415; 85025; 80053; 81001; 71010; J2930; J7620

== ENCOUNTER 2017-10-05 12:20 | Inpatient (IN) | payer MEDICAID ==
[2017-10-05] MEDS ORDERED: BUDESONIDE NEB 0.5 MG/2 ML AMPUL NEB ONE (12:43)
[2017-10-05] MEDS ORDERED: MAGNESIUM SULFATE/D5W 1 GM/100 ML RTUPB IV ONE (13:02)
[2017-10-05] MEDS ORDERED: ALBUTEROL SULFATE 0.083% NEB 2.5 MG/3 ML AMPUL NEB ONE ×2 (13:02→14:56)
[2017-10-05] MEDS ORDERED: IPRATROPIUM/ALBUTEROL 0.5-2.5 MG/3 ML AMPUL NEB ONE (13:02)
--- NOTE | 2017-10-05 13:03 | ER Document Report ---
ED General - General Chief Complaint: Shortness Of Breath Stated Complaint: BREATHING ISSUES Time Seen by Provider: 10/05/17 13:01 TRAVEL OUTSIDE OF THE [place] IN LAST 30 DAYS: No - HPI Patient complains to provider of: Shortness of breath Notes: Patient coming in for evaluation shortness of breath. Patient has a history of COPD. Patient states started last night. Patient states he was out in the cold along with people or smoking along with people that also has strong perfumes on states that due to this exposure became short of breath however worse this morning therefore came to the hospital for further evaluation. Patient does have a history of former smoking states no smoking now. Denies history of PE DVT denies any chest pain abdominal pain nausea vomiting fevers or chills. Upon my evaluation patient is slightly tachypneic with SPO2 reading approximately upper 80s lower 90s. - Related Data Allergies/Adverse Reactions: No Known Allergies Allergy (Verified 10/05/17 12:25) Past Medical History - Social History Smoking Status: Never Smoker Frequency of alcohol use: None Drug Abuse: Bath salts Family History: Reviewed & Not Pertinent Patient has suicidal ideation: No Patient has homicidal ideation: No - Past Medical History Cardiac Medical History: Reports: Hx Hypercholesterolemia, Hx Hypertension Pulmonary Medical History: Reports: Hx Bronchitis, Hx COPD Renal/ Medical History: Denies: Hx Peritoneal Dialysis GI Medical History: Reports: Hx Gastroesophageal Reflux Disease - Immunizations Hx Pneumococcal Vaccination: 11/12/16 Review of Systems - Review of Systems Constitutional: No symptoms reported EENT: No symptoms reported Cardiovascular: No symptoms reported Respiratory: Cough, Short of breath, Wheezing Gastrointestinal: No symptoms reported Genitourinary: No symptoms reported Male Genitourinary: No symptoms reported Musculoskeletal: No symptoms reported Skin: No symptoms reported Hematologic/Lymphatic: No symptoms reported Neurological/Psychological: No symptoms reported -: Yes All other systems reviewed and negative Physical Exam - Vital signs Vitals: Temp Pulse Resp BP Pulse Ox 97.7 F 109 H 24 H 131/78 H 91 L 10/05/17 12:24 10/05/17 12:24 10/05/17 12:24 10/05/17 12:24 10/05/17 12:24 Interpretation: Hypoxic, Tachypneic - General General appearance: Appears well, Alert - HEENT Head: Normocephalic, Atraumatic Eyes: Normal Pupils: PERRL - Respiratory Respiratory status: Respiratory distress - Mild Chest status: Nontender Breath sounds: Rhonchi, Wheezing Chest palpation: Normal - Cardiovascular Rhythm: Regular Heart sounds: Normal auscultation Murmur: No - Abdominal Inspection: Normal Distension: No distension Bowel sounds: Normal Tenderness: Nontender Organomegaly: No organomegaly - Back Back: Normal, Nontender - Extremities General upper extremity: Normal inspection, Nontender, Normal color, Normal ROM , Normal temperature General lower extremity: Normal inspection, Nontender, Normal color, Normal ROM , Normal temperature, Normal weight bearing. No: Sandi's sign - Neurological Neuro grossly intact: Yes Cognition: Normal Orientation: AAOx4 [place] Coma Scale Eye Opening: Spontaneous Srikanth Coma Scale Verbal: Oriented [place] Coma Scale Motor: Obeys Commands Srikanth Coma Scale Total: 15 Speech: Normal Motor strength normal: LUE, RUE, LLE, RLE Sensory: Normal - Psychological Associated symptoms: Normal affect, Normal mood - Skin Skin Temperature: Warm Skin Moisture: Dry Skin Color: Normal Course - Re-evaluation Re-evalutation: 10/05/17 15:25 Lab work did not reveal any critical pathology. Patient was given nebulizer treatments steroids chest x-ray is negative for infection however patient states minimal improvement. Magnesium was given patient was placed on BiPAP. After placed patient on BiPAP discussed with hospitalist agrees with admission. Conference with the patient that he was better on the BiPAP at this time patient related that he does have a history of bilateral PEs and currently on is on Xarelto. Patient states did not take his Xarelto today did not find hospitalist. Otherwise patient looks to be stable for IMCU. - Vital Signs Vital signs: Temp Pulse Resp BP Pulse Ox 97.7 F 109 H 32 H 121/86 H 95 10/05/17 12:24 10/05/17 12:24 10/05/17 15:01 10/05/17 15:01 10/05/17 15:01 - Laboratory Result Diagrams: 10/05/17 13:25 10/05/17 13:25 Laboratory results interpreted by me: 10/05/17 10/05/17 13:25 13:25 WBC 10.7 H MCV 76 L MCH 25.0 L RDW 18.2 H Lymphocytes % 9.0 L Sodium 146.5 H Potassium 3.2 L Creatine Kinase 239 H Critical Care Note - Critical Care Note Total time excluding time spent on procedures (mins): 35 Comments: Multiple evaluations for mild respiratory distress requiring BiPAP. Discharge - Discharge Clinical Impression: COPD exacerbation, Respiratory distress Condition: Good Disposition: ADMITTED INPATIENT Admitting Provider: Hospitalist - [facility] Admitted: [facility] Referrals: STACEY MORTON MD [Primary Care Provider] - Follow up as needed
--- NOTE | 2017-10-05 13:43 | RADIOLOGY REPORT (SQ) ---
EXAM DESCRIPTION: CHEST SINGLE VIEW COMPLETED DATE/TIME: 10/05/2017 1:32 pm REASON FOR STUDY: cxr COMPARISON: 09/24/2017 EXAM PARAMETERS: NUMBER OF VIEWS: One view. TECHNIQUE: Single frontal radiographic view of the chest acquired. RADIATION DOSE: NA LIMITATIONS: None. FINDINGS: LUNGS AND PLEURA: No opacities, masses or pneumothorax. No pleural effusion. MEDIASTINUM AND HILAR STRUCTURES: No masses. Contour normal. HEART AND VASCULAR STRUCTURES: Heart normal in size. Normal vasculature. BONES: No acute findings. HARDWARE: None in the chest. OTHER: No other significant finding. IMPRESSION: NO ACUTE RADIOGRAPHIC FINDING IN THE CHEST. TECHNICAL DOCUMENTATION: JOB ID: [id number] [employer]- All Rights Reserved
[2017-10-05 13:56] LABS: ABSOLUTE EOSINOPHILS # (AUTO) 0.4 10^3/uL (0.0-0.6); ABSOLUTE MONOCYTES (AUTO) 1.2 10^3/uL (0.1-1.4); ABSOLUTE NEUT (AUTO) 8.2 10^3/uL (1.7-8.2); BASOPHILS % (AUTO) 0.3 % (0-2); EOSINOPHILS % (AUTO) 3.6 % (0-6); HEMATOCRIT 40.9 % (37.9-51.0); HEMOGLOBIN 13.5 g/dL (13.5-17.0); HGB HCT DIFFERENCE -0.4; MEAN CORPUSCULAR VOLUME 76 fl (80-97); RED BLOOD COUNT 5.39 10^6/uL (4.35-5.55); RED CELL DISTRIBUTION WIDTH 18.2 % (11.5-14.0); SEGMENTED NEUTROPHILS % (AUTO) 76.1 % (42-78); VENOUS BLOOD BASE EXCESS 4.3 mmol/L; VENOUS BLOOD HCO3 31.2 mmol/L (20-32); VENOUS BLOOD PCO2 55.9 mmHg (35-63); VENOUS BLOOD PH 7.36 (7.30-7.42); WHITE BLOOD COUNT 10.7 10^3/uL (4.0-10.5)
[2017-10-05 14:00] LABS: PROTHROMBIN TIME 13.7 SEC (11.4-15.4)
[2017-10-05 14:16] LABS: ALANINE AMINOTRANSFERASE 31 U/L (21-72); ALKALINE PHOSPHATASE 52 U/L (38-126); ANION GAP 14 (5-19); ASPARTATE AMINO TRANSFERASE 25 U/L (17-59); BILIRUBIN,DIRECT 0.3 mg/dL (0.0-0.4); BILIRUBIN,TOTAL 0.7 mg/dL (0.2-1.3); BLOOD UREA NITROGEN 14 mg/dL (7-20); CALCIUM 9.2 mg/dL (8.4-10.2); CARBON DIOXIDE 30 mmol/L (22-30); CHLORIDE 103 mmol/L (98-107); CREATINE KINASE 239 U/L (55-170); CREATININE RESULT 1.13 mg/dL (0.52-1.25); GLUCOSE 98 mg/dL (75-110); LIPASE 76.8 U/L (23-300); MAGNESIUM 1.9 mg/dL (1.6-2.3); POTASSIUM 3.2 mmol/L (3.6-5.0); SODIUM 146.5 mmol/L (137-145); TOTAL PROTEIN 6.7 g/dL (6.3-8.2)
[2017-10-05 14:30] LABS: CREATINE KINASE MB 4.47 ng/mL (<4.55); TROPONIN I 0.018 ng/mL
--- NOTE | 2017-10-05 14:43 | EKG REPORT ---
SEVERITY:- ABNORMAL ECG - SINUS TACHYCARDIA NONSPECIFIC REPOL ABNORMALITY, DIFFUSE LEADS : Confirmed by: Annalise Bess MD 05-Oct-2017 14:42:30
[2017-10-05] MEDS ORDERED: METHYLPREDNISOLONE INJ 125 MG/2 ML SDV IV ONE (14:56)
[2017-10-05] MEDS ORDERED: METHYLPREDNISOLONE INJ 125 MG/2 ML SDV ONE (14:56)
[2017-10-05] MEDS ORDERED: ONDANSETRON HCL INJ/PF 4 MG/2 ML SDV IV PRN (15:29)
[2017-10-05] MEDS ORDERED: ACETAMINOPHEN 325 MG TABLET PO PRN (15:29)
[2017-10-05] MEDS ORDERED: ONDANSETRON 4 MG TAB.RAPDIS PO PRN (15:29)
--- NOTE | 2017-10-05 15:45 | PDOC H&P ---
History of Present Illness Admission Date/PCP: 10/05/17 15:27 STACEY MORTON MD Patient complains of: shortness of breath History of Present Illness: SHONDA HUERTA is a 56 year old male with a history of copd who last night began to have shortness of breath. He was around some smoke and began to have troubles breathing. Denies any cough, fevers, KRISHNAN, PND. Has a history of PE and has been compliant with his xarelto. Denies chest pain. Denies recent travel. Past Medical History Cardiac Medical History: Reports: Hyperlipidema, Hypertension Pulmonary Medical History: Reports: Bronchitis, Chronic Obstructive Pulmonary Disease (COPD) Neurological Medical History: Reports: None Endocrine Medical History: Reports: None Renal/ Medical History: Reports: None Malignancy Medical History: Reports: None GI Medical History: Reports: Gastroesophageal Reflux Disease Musculoskeltal Medical History: Reports: None Skin Medical History: Reports: None Hematology: Reports: Other - pulmonary embolism Past Surgical History Past Surgical History: Reports: None Social History Information Source: Patient Lives with: Family Smoking Status: Never Smoker Frequency of Alcohol Use: None Hx Recreational Drug Use: No Drugs: None Hx Prescription Drug Abuse: No - Advance Directive Resuscitation Status: Full Code Family History Family History: Father's history is unknown. Mother at 91. Had hypertension Parental Family History Reviewed: Yes Children Family History Reviewed: No Sibling(s) Family History Reviewed.: No Medication/Allergy Home Medications: Albuterol Sulfate [Albuterol Sulfate 2.5mg/3 mL] 1 vial IH Q6HP PRN 06/19/17 Albuterol Sulfate [Proair HFA Inhalation Aerosol 8.5 gm MDI] 2 puff IH Q6HP PRN 06/19/17 Amlodipine Besylate [Norvasc 5 mg Tablet] 5 mg PO DAILY 06/19/17 Cetirizine HCl [Zyrtec 10 mg Tablet] 10 mg PO DAILY 06/19/17 Fluticasone/Salmeterol [Advair 500-50 Diskus 28 Dose] 1 inh IH DAILY 06/19/17 Hydrochlorothiazide 25 mg PO DAILY 06/19/17 Montelukast Sodium [Singulair 10 mg Tablet] 10 mg PO QHS 06/19/17 Tamsulosin HCl [Flomax 0.4 mg Cap.sr] 0.4 mg PO QHS 06/19/17 Tiotropium [place] [Spiriva Handihaler 18 mcg/dose (30 Dose)] 1 cap IH DAILY 06/28 Fluticasone Propionate [Flonase Nasal [place] 50 Mcg/[place] 16 gm] 1 spray NASL Q12 spray.pump 06/22/17 Gabapentin [Neurontin 300 mg Capsule] 300 mg PO QHS #30 cap 06/22/17 Lansoprazole [Prevacid 30 mg Odt Tablet] 30 mg PO Q6AM #30 tab.rap.dr 06/22/17 Rivaroxaban [Xarelto 15 mg Tablet] 15 mg PO BIDBS #40 tablet 06/22/17 Lovastatin [Mevacor] 10 mg PO QHS 07/10/17 Prednisone [Deltasone 5 mg Tablet] 10 mg PO DAILY #39 tablet 07/11/17 Tramadol HCl [Ultram 50 mg Tablet] 50 mg PO Q6HP PRN #20 tablet 07/11/17 Albuterol Sulfate [Proair HFA Inhalation Aerosol 8.5 gm MDI] 2 puff IH Q4H PRN # 1 mdi 09/24/17 Calcium Carbonate [Calcium] 500 mg PO DAILY 09/24/17 Levofloxacin [Levaquin 750 mg Tablet] 750 mg PO DAILY 09/24/17 Prednisone [Deltasone 10 mg Tablet] 10 mg PO ASDIR PRN #21 tablet 09/24/17 Allergies/Adverse Reactions: No Known Allergies Allergy (Verified 10/05/17 12:25) Review of Systems Constitutional: ABSENT: chills, fever(s), headache(s), weight gain, weight loss Eyes: ABSENT: visual disturbances Ears: ABSENT: hearing changes Cardiovascular: ABSENT: chest pain, dyspnea on exertion, edema, orthropnea, palpitations Respiratory: PRESENT: dyspnea. ABSENT: cough, hemoptysis, sputum Gastrointestinal: ABSENT: abdominal pain, constipation, diarrhea, hematemesis, hematochezia, nausea, vomiting Genitourinary: ABSENT: dysuria, hematuria Musculoskeletal: ABSENT: joint swelling Integumentary: ABSENT: rash, wounds Neurological: ABSENT: abnormal gait, abnormal speech, confusion, dizziness, focal weakness, syncope Psychiatric: ABSENT: anxiety, depression, homidical ideation, suicidal ideation Endocrine: ABSENT: cold intolerance, heat intolerance, polydipsia, polyuria Hematologic/Lymphatic: ABSENT: easy bleeding, easy bruising Physical Exam Vital Signs: Temp Pulse Resp BP Pulse Ox 97.7 F 109 H 32 H 121/86 H 95 10/05/17 12:24 10/05/17 12:24 10/05/17 15:01 10/05/17 15:01 10/05/17 15:01 General appearance: PRESENT: no acute distress, well-developed, well-nourished Eye exam: PRESENT: conjunctiva pink, EOMI, PERRLA. ABSENT: scleral icterus Ear exam: PRESENT: normal external ear exam Mouth exam: PRESENT: moist, tongue midline Neck exam: ABSENT: carotid bruit, JVD, lymphadenopathy, thyromegaly Respiratory exam: PRESENT: wheezes. ABSENT: rales, rhonchi Cardiovascular exam: PRESENT: RRR. ABSENT: diastolic murmur, rubs, systolic murmur Pulses: PRESENT: normal dorsalis pedis pul Vascular exam: PRESENT: normal capillary refill GI/Abdominal exam: PRESENT: normal bowel sounds, soft. ABSENT: distended, guarding, mass, organolmegaly, rebound, tenderness Rectal exam: PRESENT: deferred Extremities exam: PRESENT: full ROM. ABSENT: calf tenderness, clubbing, pedal edema Neurological exam: PRESENT: alert, awake, oriented to person, oriented to place , oriented to time, oriented to situation, CN II-XII grossly intact. ABSENT: motor sensory deficit Psychiatric exam: PRESENT: appropriate affect Skin exam: PRESENT: dry, intact, warm. ABSENT: cyanosis, rash Results Impressions: Chest X-Ray 10/05/17 13:02 IMPRESSION: NO ACUTE RADIOGRAPHIC FINDING IN THE CHEST. Assessment & Plan - Diagnosis (1) Acute hypoxemic respiratory failure Is this a current diagnosis for this admission?: Yes Plan: secondary to copd. Has a history of PE but has been compliant with his xarelto. (2) COPD exacerbation Is this a current diagnosis for this admission?: Yes Plan: Will treat with iv steroids and nebulizers (3) Anticoagulated Is this a current diagnosis for this admission?: Yes Plan: continue xarelto (5) Hypertension Is this a current diagnosis for this admission?: Yes Plan: patient is on norvasc (6) Obstructive sleep apnea Is this a current diagnosis for this admission?: Yes Plan: use bipap as needed (7) Pulmonary emboli Qualifiers: Pulmonary embolism type: other Chronicity: unspecified Acute cor pulmonale presence: without acute cor pulmonale Qualified Code(s): I26.99 - Other pulmonary embolism without acute cor pulmonale Is this a current diagnosis for this admission?: Yes Plan: continue xarelto - Time Time Spent: 50 to 70 Minutes - Inpatient Certification Medical Necessity: Need Close Monitoring Due to Risk of Patient Decompensation
[2017-10-05] MEDS: ALBUTEROL SULFATE 0.083% NEB 2.5 MG/3 ML AMPUL NEB PRN (17:15)
[2017-10-05] MEDS: POTASSI CL 20 MEQ/50 ML RIDER 20 MEQ/50 ML RTUPB IV SCH ×2 (18:57→20:59)
[2017-10-05] MEDS: IPRATROPIUM/ALBUTEROL 0.5-2.5 MG/3 ML AMPUL NEB SCH (19:55)
[2017-10-05] MEDS ORDERED: FLUOROMETHOLONE OU SCH (22:00)
[2017-10-05] MEDS ORDERED: (PENDING PHARMACY ID) (Lovastatin [Lovastatin] 40 MG) PO SCH (22:00)
[2017-10-05] MEDS: METHYLPREDNISOLONE INJ 40 MG/1 ML SDV IV SCH (22:09)
[2017-10-05] MEDS: FAMOTIDINE 20 MG TABLET PO SCH (22:10)
[2017-10-05] MEDS: ATORVASTATIN CALCIUM 10 MG TABLET PO SCH (22:10)
[2017-10-05] MEDS: TRAMADOL HCL 50 MG TABLET PO SCH (22:11)
[2017-10-05] MEDS: MONTELUKAST SODIUM 10 MG TABLET PO SCH (22:11)
[2017-10-05] MEDS: GABAPENTIN 300 MG CAPSULE PO SCH (22:12)
[2017-10-06] MEDS: ALBUTEROL SULFATE 0.083% NEB 2.5 MG/3 ML AMPUL NEB PRN ×2 (05:03→14:17)
[2017-10-06 05:19] LABS: HEMATOCRIT 38.8 % (37.9-51.0); HEMOGLOBIN 12.6 g/dL (13.5-17.0); MEAN CORPUSCULAR HGB CONC 32.5 g/dL (32.0-36.0); MEAN CORPUSCULAR VOLUME 77 fl (80-97); RED BLOOD COUNT 5.05 10^6/uL (4.35-5.55); RED CELL DISTRIBUTION WIDTH 18.6 % (11.5-14.0); WHITE BLOOD COUNT 14.8 10^3/uL (4.0-10.5)
[2017-10-06] MEDS: LANSOPRAZOLE 15 MG TAB.RAP.DR PO SCH (05:39)
[2017-10-06] MEDS: METHYLPREDNISOLONE INJ 40 MG/1 ML SDV IV SCH ×3 (05:39→21:29)
[2017-10-06 05:41] LABS: BASOPHILS % (MANUAL) 0 % (0-2); EOSINOPHILS % (MANUAL) 0 % (0-6); LYMPHOCYTES % (MANUAL) 3 % (13-45); TOTAL CELLS COUNTED 100
[2017-10-06 05:43] LABS: HYPOCHROMASIA 1+; TOXIC VACUOLATION PRESENT
[2017-10-06 05:44] LABS: ANISOCYTOSIS 2+; BURR CELLS SLIGHT; MICROCYTOSIS SLIGHT; OVALOCYTES SLIGHT; POIKILOCYTOSIS 1+; TARGET CELLS SLIGHT
[2017-10-06 05:48] LABS: ANION GAP 16 (5-19); BLOOD UREA NITROGEN 16 mg/dL (7-20); CALCIUM 9.2 mg/dL (8.4-10.2); CARBON DIOXIDE 24 mmol/L (22-30); CHLORIDE 105 mmol/L (98-107); CREATININE RESULT 1.04 mg/dL (0.52-1.25); GLUCOSE 163 mg/dL (75-110); MAGNESIUM 2.3 mg/dL (1.6-2.3); SODIUM 144.5 mmol/L (137-145)
[2017-10-06] MEDS: IPRATROPIUM/ALBUTEROL 0.5-2.5 MG/3 ML AMPUL NEB SCH ×3 (07:53→21:07)
[2017-10-06] MEDS: TRAMADOL HCL 50 MG TABLET PO SCH (09:46)
[2017-10-06] MEDS: FAMOTIDINE 20 MG TABLET PO SCH ×2 (09:47→21:30)
[2017-10-06] MEDS: RIVAROXABAN 10 MG TABLET PO SCH (09:47)
[2017-10-06] MEDS: AMLODIPINE BESYLATE 5 MG TABLET PO SCH (09:47)
[2017-10-06] MEDS: FLUTICASONE/SALMETEROL DISKUS 500-50 MCG/DOSE IH SCH (09:48)
[2017-10-06] MEDS: TIOTROPIUM BROMIDE DPI 5 CAP/KIT (18 MCG/CAP) IH SCH (09:48)
[2017-10-06] MEDS ORDERED: ENOXAPARIN SODIUM INJ 40 MG/0.4 ML DISP.SYRIN SUBCUT SCH (10:00)
--- NOTE | 2017-10-06 10:40 | PDOC PROGRESS REPORT ---
Subjective Progress Note for:: 10/06/17 Subjective:: Patient is still feeling short of breath. Physical Exam Vital Signs: Temp Pulse Resp BP Pulse Ox 98.5 F 91 22 H 125/86 H 92 10/06/17 08:22 10/06/17 08:22 10/06/17 08:22 10/06/17 08:22 10/06/17 08:22 Intake & Output 10/05/17 10/06/17 10/07/17 06:59 06:59 06:59 Intake Total 1365 Output Total 700 Balance 665 Weight 87.7 kg General appearance: PRESENT: no acute distress Eye exam: PRESENT: conjunctiva pink. ABSENT: scleral icterus Neck exam: ABSENT: JVD Respiratory exam: PRESENT: wheezes - Bilateral expiratory wheezes. ABSENT: rales, rhonchi Cardiovascular exam: PRESENT: RRR. ABSENT: diastolic murmur, rubs, systolic murmur GI/Abdominal exam: PRESENT: normal bowel sounds, soft. ABSENT: distended, guarding, mass, organolmegaly, rebound, tenderness Extremities exam: ABSENT: calf tenderness, clubbing, pedal edema Neurological exam: PRESENT: alert, awake, oriented to person, oriented to place , oriented to time, oriented to situation, CN II-XII grossly intact. ABSENT: motor sensory deficit Psychiatric exam: PRESENT: appropriate affect Skin exam: PRESENT: dry, intact, warm. ABSENT: cyanosis, rash Results Laboratory Results: 10/06/17 05:03 10/06/17 05:03 10/06/17 10/06/17 05:03 05:03 WBC 14.8 H RBC 5.05 Hgb 12.6 L Hct 38.8 MCV 77 L MCH 25.0 L MCHC 32.5 RDW 18.6 H Plt Count 237 Seg Neutrophils % Not Reportable Lymphocytes % Not Reportable Monocytes % Not Reportable Eosinophils % Not Reportable Basophils % Not Reportable Absolute Neutrophils Not Reportable Absolute Lymphocytes Not Reportable Absolute Monocytes Not Reportable Absolute Eosinophils Not Reportable Absolute Basophils Not Reportable Sodium 144.5 Potassium 5.0 D Chloride 105 Carbon Dioxide 24 Anion Gap 16 BUN 16 Creatinine 1.04 Est GFR ( Amer) > 60 Est GFR (Non-Af Amer) > 60 Glucose 163 H Calcium 9.2 Magnesium 2.3 10/05/17 19:40 Troponin I 0.015 Impressions: Chest X-Ray 10/05/17 13:02 IMPRESSION: NO ACUTE RADIOGRAPHIC FINDING IN THE CHEST. Assessment & Plan - Diagnosis (1) Acute hypoxemic respiratory failure Is this a current diagnosis for this admission?: Yes Plan: secondary to copd. Has a history of PE but has been compliant with his xarelto. (2) COPD exacerbation Is this a current diagnosis for this admission?: Yes Plan: Will treat with iv steroids and nebulizers (3) Anticoagulated Is this a current diagnosis for this admission?: Yes Plan: continue xarelto (5) Hypertension Is this a current diagnosis for this admission?: Yes Plan: patient is on norvasc (6) Obstructive sleep apnea Is this a current diagnosis for this admission?: Yes Plan: use bipap as needed (7) Pulmonary emboli Qualifiers: Pulmonary embolism type: other Chronicity: unspecified Acute cor pulmonale presence: without acute cor pulmonale Qualified Code(s): I26.99 - Other pulmonary embolism without acute cor pulmonale Is this a current diagnosis for this admission?: Yes Plan: continue xarelto - Time Time Spent with patient: 25-34 minutes - Inpatient Certification Medical Necessity: Need Close Monitoring Due to Risk of Patient Decompensation
--- NOTE | 2017-10-06 14:07 | EKG REPORT ---
SEVERITY:- ABNORMAL ECG - SINUS TACHYCARDIA NONSPECIFIC REPOL ABNORMALITY, DIFFUSE LEADS : Confirmed by: Annalise Bess MD 06-Oct-2017 14:07:15
[2017-10-06] MEDS: TAMSULOSIN HCL 0.4 MG CAP.SR.24H PO SCH (17:37)
[2017-10-06] MEDS: TRAMADOL HCL 50 MG TABLET PO PRN (21:30)
[2017-10-06] MEDS: GABAPENTIN 300 MG CAPSULE PO SCH (21:30)
[2017-10-06] MEDS: ATORVASTATIN CALCIUM 10 MG TABLET PO SCH (21:30)
[2017-10-06] MEDS: MONTELUKAST SODIUM 10 MG TABLET PO SCH (21:31)
[2017-10-07] MEDS: ALBUTEROL SULFATE 0.083% NEB 2.5 MG/3 ML AMPUL NEB PRN ×2 (03:32→12:34)
[2017-10-07 05:28] LABS: HEMATOCRIT 36.8 % (37.9-51.0); HEMOGLOBIN 12.2 g/dL (13.5-17.0); HGB HCT DIFFERENCE -0.2; MEAN CORPUSCULAR HEMOGLOBIN 24.8 pg (27.0-33.4); MEAN CORPUSCULAR HGB CONC 33.1 g/dL (32.0-36.0); MEAN CORPUSCULAR VOLUME 75 fl (80-97); RED BLOOD COUNT 4.91 10^6/uL (4.35-5.55); RED CELL DISTRIBUTION WIDTH 18.5 % (11.5-14.0); WHITE BLOOD COUNT 19.9 10^3/uL (4.0-10.5)
[2017-10-07] MEDS: LANSOPRAZOLE 15 MG TAB.RAP.DR PO SCH (05:35)
[2017-10-07] MEDS: METHYLPREDNISOLONE INJ 40 MG/1 ML SDV IV SCH ×3 (05:37→21:03)
[2017-10-07 05:43] LABS: ANION GAP 12 (5-19); BLOOD UREA NITROGEN 17 mg/dL (7-20); CALCIUM 9.1 mg/dL (8.4-10.2); CARBON DIOXIDE 25 mmol/L (22-30); CHLORIDE 107 mmol/L (98-107); CREATININE RESULT 0.93 mg/dL (0.52-1.25); GLUCOSE 141 mg/dL (75-110); POTASSIUM 4.7 mmol/L (3.6-5.0); SODIUM 144.4 mmol/L (137-145)
[2017-10-07 06:11] LABS: BASOPHILS % (MANUAL) 0 % (0-2); EOSINOPHILS % (MANUAL) 0 % (0-6); LYMPHOCYTES % (MANUAL) 1 % (13-45); TOTAL CELLS COUNTED 100
[2017-10-07 06:12] LABS: ANISOCYTOSIS 2+; HYPOCHROMASIA 1+; MICROCYTOSIS 1+
[2017-10-07] MEDS: IPRATROPIUM/ALBUTEROL 0.5-2.5 MG/3 ML AMPUL NEB SCH ×3 (07:43→20:22)
[2017-10-07] MEDS: FAMOTIDINE 20 MG TABLET PO SCH ×2 (10:53→21:03)
[2017-10-07] MEDS: AMLODIPINE BESYLATE 5 MG TABLET PO SCH (10:54)
[2017-10-07] MEDS: TIOTROPIUM BROMIDE DPI 5 CAP/KIT (18 MCG/CAP) IH SCH (10:54)
[2017-10-07] MEDS: RIVAROXABAN 10 MG TABLET PO SCH (10:55)
[2017-10-07] MEDS: FLUTICASONE/SALMETEROL DISKUS 500-50 MCG/DOSE IH SCH (10:55)
[2017-10-07] MEDS: TRAMADOL HCL 50 MG TABLET PO PRN ×2 (10:58→21:02)
--- NOTE | 2017-10-07 11:20 | PDOC PROGRESS REPORT ---
Subjective Progress Note for:: 10/07/17 Subjective:: Patient reports that his breathing is doing better today. Physical Exam Vital Signs: Temp Pulse Resp BP Pulse Ox 98.4 F 98 18 150/75 H 95 10/07/17 08:06 10/07/17 08:06 10/07/17 08:06 10/07/17 08:06 10/07/17 08:06 Intake & Output 10/06/17 10/07/17 10/08/17 06:59 06:59 06:59 Intake Total 1365 2385 Output Total 700 2050 Balance 665 335 Weight 87.7 kg 88 kg General appearance: PRESENT: no acute distress Eye exam: PRESENT: conjunctiva pink. ABSENT: scleral icterus Mouth exam: PRESENT: moist, tongue midline Neck exam: ABSENT: JVD Respiratory exam: PRESENT: wheezes - Few scattered expiratory wheezes.. ABSENT : rales, rhonchi Cardiovascular exam: PRESENT: RRR. ABSENT: diastolic murmur, rubs, systolic murmur GI/Abdominal exam: PRESENT: normal bowel sounds, soft. ABSENT: distended, guarding, mass, organolmegaly, rebound, tenderness Extremities exam: ABSENT: calf tenderness, clubbing, pedal edema Neurological exam: PRESENT: alert, awake, oriented to person, oriented to place , oriented to time, oriented to situation, CN II-XII grossly intact. ABSENT: motor sensory deficit Psychiatric exam: PRESENT: appropriate affect Skin exam: PRESENT: dry, intact, warm. ABSENT: cyanosis, rash Results Laboratory Results: 10/07/17 04:40 10/07/17 04:40 10/07/17 10/07/17 04:40 04:40 WBC 19.9 H RBC 4.91 Hgb 12.2 L Hct 36.8 L MCV 75 L MCH 24.8 L MCHC 33.1 RDW 18.5 H Plt Count 205 Seg Neutrophils % Not Reportable Lymphocytes % Not Reportable Monocytes % Not Reportable Eosinophils % Not Reportable Basophils % Not Reportable Absolute Neutrophils Not Reportable Absolute Lymphocytes Not Reportable Absolute Monocytes Not Reportable Absolute Eosinophils Not Reportable Absolute Basophils Not Reportable Sodium 144.4 Potassium 4.7 Chloride 107 Carbon Dioxide 25 Anion Gap 12 BUN 17 Creatinine 0.93 Est GFR ( Amer) > 60 Est GFR (Non-Af Amer) > 60 Glucose 141 H Calcium 9.1 10/05/17 19:40 Troponin I 0.015 Impressions: Chest X-Ray 10/05/17 13:02 IMPRESSION: NO ACUTE RADIOGRAPHIC FINDING IN THE CHEST. Assessment & Plan - Diagnosis (1) Acute hypoxemic respiratory failure Is this a current diagnosis for this admission?: Yes Plan: secondary to copd. Has a history of PE but has been compliant with his xarelto. Patient clinically is improving. (2) COPD exacerbation Is this a current diagnosis for this admission?: Yes Plan: Will continue with iv steroids and nebulizers. The patient clinically is improving. (3) Anticoagulated Is this a current diagnosis for this admission?: Yes Plan: continue xarelto (4) GERD (gastroesophageal reflux disease) Is this a current diagnosis for this admission?: Yes (5) Hypertension Is this a current diagnosis for this admission?: Yes Plan: patient is on norvasc (6) Obstructive sleep apnea Is this a current diagnosis for this admission?: Yes Plan: use bipap as needed (7) Pulmonary emboli Qualifiers: Pulmonary embolism type: other Chronicity: unspecified Acute cor pulmonale presence: without acute cor pulmonale Qualified Code(s): I26.99 - Other pulmonary embolism without acute cor pulmonale Is this a current diagnosis for this admission?: Yes Plan: continue xarelto - Time Time Spent with patient: 25-34 minutes - Inpatient Certification Medical Necessity: Need Close Monitoring Due to Risk of Patient Decompensation
[2017-10-07] MEDS: TAMSULOSIN HCL 0.4 MG CAP.SR.24H PO SCH (18:02)
[2017-10-07] MEDS: MONTELUKAST SODIUM 10 MG TABLET PO SCH (21:03)
[2017-10-07] MEDS: GABAPENTIN 300 MG CAPSULE PO SCH (21:03)
[2017-10-07] MEDS: ATORVASTATIN CALCIUM 10 MG TABLET PO SCH (21:03)
[2017-10-08] MEDS: ALBUTEROL SULFATE 0.083% NEB 2.5 MG/3 ML AMPUL NEB PRN (02:17)
[2017-10-08] MEDS: LANSOPRAZOLE 15 MG TAB.RAP.DR PO SCH (05:22)
[2017-10-08] MEDS: METHYLPREDNISOLONE INJ 40 MG/1 ML SDV IV SCH ×3 (05:23→21:25)
[2017-10-08 06:52] LABS: HEMATOCRIT 36.5 % (37.9-51.0); HEMOGLOBIN 11.7 g/dL (13.5-17.0); HGB HCT DIFFERENCE -1.4; MEAN CORPUSCULAR HEMOGLOBIN 24.7 pg (27.0-33.4); MEAN CORPUSCULAR VOLUME 77 fl (80-97); RED BLOOD COUNT 4.73 10^6/uL (4.35-5.55); RED CELL DISTRIBUTION WIDTH 18.8 % (11.5-14.0); WHITE BLOOD COUNT 20.8 10^3/uL (4.0-10.5)
[2017-10-08 07:13] LABS: BASOPHILS % (MANUAL) 0 % (0-2); EOSINOPHILS % (MANUAL) 0 % (0-6); LYMPHOCYTES % (MANUAL) 5 % (13-45); TOTAL CELLS COUNTED 100
[2017-10-08 07:15] LABS: ANISOCYTOSIS 1+; MICROCYTOSIS SLIGHT; OVALOCYTES SLIGHT; POIKILOCYTOSIS SLIGHT; TOXIC GRANULATION SLIGHT; TOXIC VACUOLATION PRESENT
[2017-10-08 07:16] LABS: TARGET CELLS SLIGHT; TEAR DROP CELLS SLIGHT
[2017-10-08 07:25] LABS: ANION GAP 9 (5-19); BLOOD UREA NITROGEN 17 mg/dL (7-20); CALCIUM 8.9 mg/dL (8.4-10.2); CARBON DIOXIDE 28 mmol/L (22-30); CHLORIDE 107 mmol/L (98-107); CREATININE RESULT 0.97 mg/dL (0.52-1.25); GLUCOSE 119 mg/dL (75-110); POTASSIUM 4.7 mmol/L (3.6-5.0); SODIUM 144.4 mmol/L (137-145)
[2017-10-08] MEDS ORDERED: ONDANSETRON 4 MG TAB.RAPDIS PO PRN (08:00)
[2017-10-08] MEDS ORDERED: ONDANSETRON HCL INJ/PF 4 MG/2 ML SDV IV PRN (08:00)
[2017-10-08] MEDS: IPRATROPIUM/ALBUTEROL 0.5-2.5 MG/3 ML AMPUL NEB SCH ×3 (08:05→19:47)
[2017-10-08] MEDS: AMLODIPINE BESYLATE 5 MG TABLET PO SCH (10:13)
[2017-10-08] MEDS: FAMOTIDINE 20 MG TABLET PO SCH ×2 (10:13→21:25)
[2017-10-08] MEDS: FLUTICASONE/SALMETEROL DISKUS 500-50 MCG/DOSE IH SCH (10:14)
[2017-10-08] MEDS: TIOTROPIUM BROMIDE DPI 5 CAP/KIT (18 MCG/CAP) IH SCH (10:14)
[2017-10-08] MEDS: TRAMADOL HCL 50 MG TABLET PO PRN ×2 (10:16→21:28)
--- NOTE | 2017-10-08 10:31 | PDOC PROGRESS REPORT ---
Subjective Progress Note for:: 10/08/17 Subjective:: still complains of wheezing. Physical Exam Vital Signs: Temp Pulse Resp BP Pulse Ox 98.9 F 95 20 117/79 92 10/08/17 07:22 10/08/17 08:05 10/08/17 08:05 10/08/17 07:22 10/08/17 08:05 Intake & Output 10/07/17 10/08/17 10/09/17 06:59 06:59 06:59 Intake Total 2385 1828 Output Total 2050 1100 Balance 335 728 Weight 88 kg 87.6 kg General appearance: PRESENT: no acute distress Eye exam: PRESENT: conjunctiva pink. ABSENT: scleral icterus Mouth exam: PRESENT: moist, tongue midline Neck exam: ABSENT: JVD Respiratory exam: PRESENT: wheezes - Bilateral expiratory wheezes. ABSENT: rales, rhonchi Cardiovascular exam: PRESENT: RRR. ABSENT: diastolic murmur, rubs, systolic murmur GI/Abdominal exam: PRESENT: normal bowel sounds, soft. ABSENT: distended, guarding, mass, organolmegaly, rebound, tenderness Extremities exam: ABSENT: calf tenderness, clubbing, pedal edema Neurological exam: PRESENT: alert, awake, oriented to person, oriented to place , oriented to time, oriented to situation, CN II-XII grossly intact. ABSENT: motor sensory deficit Psychiatric exam: PRESENT: appropriate affect Skin exam: PRESENT: dry, intact, warm. ABSENT: cyanosis, rash Results Laboratory Results: 10/08/17 06:24 10/08/17 06:24 10/08/17 10/08/17 06:24 06:24 WBC 20.8 H RBC 4.73 Hgb 11.7 L Hct 36.5 L MCV 77 L MCH 24.7 L MCHC 32.0 RDW 18.8 H Plt Count 205 Seg Neutrophils % Not Reportable Lymphocytes % Not Reportable Monocytes % Not Reportable Eosinophils % Not Reportable Basophils % Not Reportable Absolute Neutrophils Not Reportable Absolute Lymphocytes Not Reportable Absolute Monocytes Not Reportable Absolute Eosinophils Not Reportable Absolute Basophils Not Reportable Sodium 144.4 Potassium 4.7 Chloride 107 Carbon Dioxide 28 Anion Gap 9 BUN 17 Creatinine 0.97 Est GFR ( Amer) > 60 Est GFR (Non-Af Amer) > 60 Glucose 119 H Calcium 8.9 10/05/17 19:40 Troponin I 0.015 Impressions: Chest X-Ray 10/05/17 13:02 IMPRESSION: NO ACUTE RADIOGRAPHIC FINDING IN THE CHEST. Assessment & Plan - Diagnosis (1) Acute hypoxemic respiratory failure Is this a current diagnosis for this admission?: Yes Plan: secondary to copd. Has a history of PE but has been compliant with his xarelto. Patient clinically is improving. (2) COPD exacerbation Is this a current diagnosis for this admission?: Yes Plan: Will continue with iv steroids and nebulizers. The patient clinically is improving. (3) Anticoagulated Is this a current diagnosis for this admission?: Yes Plan: continue xarelto (4) GERD (gastroesophageal reflux disease) Is this a current diagnosis for this admission?: Yes (5) Hypertension Is this a current diagnosis for this admission?: Yes Plan: patient is on norvasc (6) Obstructive sleep apnea Is this a current diagnosis for this admission?: Yes Plan: use bipap as needed (7) Pulmonary emboli Qualifiers: Pulmonary embolism type: other Chronicity: unspecified Acute cor pulmonale presence: without acute cor pulmonale Qualified Code(s): I26.99 - Other pulmonary embolism without acute cor pulmonale Is this a current diagnosis for this admission?: Yes Plan: continue xarelto - Time Time Spent with patient: 25-34 minutes - Inpatient Certification Medical Necessity: Need Close Monitoring Due to Risk of Patient Decompensation - Plan Summary Plan Summary: If he continues to improve, he can probably be discharged home tomorrow.
[2017-10-08] MEDS: TAMSULOSIN HCL 0.4 MG CAP.SR.24H PO SCH (17:33)
[2017-10-08] MEDS: RIVAROXABAN 10 MG TABLET PO SCH (17:33)
[2017-10-08] MEDS: GABAPENTIN 300 MG CAPSULE PO SCH (21:25)
[2017-10-08] MEDS: ATORVASTATIN CALCIUM 10 MG TABLET PO SCH (21:25)
[2017-10-08] MEDS: MONTELUKAST SODIUM 10 MG TABLET PO SCH (21:25)
[2017-10-09 05:27] LABS: HEMATOCRIT 36.3 % (37.9-51.0); HEMOGLOBIN 11.7 g/dL (13.5-17.0); HGB HCT DIFFERENCE -1.2; MEAN CORPUSCULAR HEMOGLOBIN 24.6 pg (27.0-33.4); MEAN CORPUSCULAR HGB CONC 32.2 g/dL (32.0-36.0); MEAN CORPUSCULAR VOLUME 76 fl (80-97); RED BLOOD COUNT 4.75 10^6/uL (4.35-5.55); RED CELL DISTRIBUTION WIDTH 18.4 % (11.5-14.0); WHITE BLOOD COUNT 18.5 10^3/uL (4.0-10.5)
[2017-10-09 05:45] LABS: ANION GAP 9 (5-19); BLOOD UREA NITROGEN 19 mg/dL (7-20); CARBON DIOXIDE 27 mmol/L (22-30); CHLORIDE 106 mmol/L (98-107); GLUCOSE 162 mg/dL (75-110); SODIUM 141.7 mmol/L (137-145)
[2017-10-09 05:57] LABS: BASOPHILS % (MANUAL) 0 % (0-2); EOSINOPHILS % (MANUAL) 0 % (0-6); LYMPHOCYTES % (MANUAL) 1 % (13-45); TOTAL CELLS COUNTED 100
[2017-10-09 05:58] LABS: ANISOCYTOSIS 1+; MICROCYTOSIS SLIGHT; TOXIC GRANULATION SLIGHT
[2017-10-09] MEDS: LANSOPRAZOLE 15 MG TAB.RAP.DR PO SCH (06:02)
[2017-10-09] MEDS: METHYLPREDNISOLONE INJ 40 MG/1 ML SDV IV SCH ×2 (06:02→13:21)
[2017-10-09] MEDS: IPRATROPIUM/ALBUTEROL 0.5-2.5 MG/3 ML AMPUL NEB SCH ×2 (08:04→13:36)
[2017-10-09] MEDS: TIOTROPIUM BROMIDE DPI 5 CAP/KIT (18 MCG/CAP) IH SCH (09:09)
[2017-10-09] MEDS: AMLODIPINE BESYLATE 5 MG TABLET PO SCH (09:10)
[2017-10-09] MEDS: FLUTICASONE/SALMETEROL DISKUS 500-50 MCG/DOSE IH SCH (09:10)
[2017-10-09] MEDS: FAMOTIDINE 20 MG TABLET PO SCH (09:10)
[2017-10-09] MEDS: TRAMADOL HCL 50 MG TABLET PO PRN (11:33)
--- NOTE | 2017-10-09 15:06 | PDOC DISCHARGE SUMMARY ---
General - Admit/Disc Date/PCP Admission Date/Primary Care Provider: 10/05/17 15:27 STACEY MORTON MD Discharge Date: 10/09/17 - Discharge Diagnosis (1) Acute hypoxemic respiratory failure Is this a current diagnosis for this admission?: Yes Summary: Secondary to underlying COPD resolved. (2) COPD exacerbation Is this a current diagnosis for this admission?: Yes Summary: Continue steroid taper at home. Follow-up with snuff box finisher October 17 as already scheduled. (3) Hypertension Is this a current diagnosis for this admission?: Yes Summary: Continue home medications. (4) Obstructive sleep apnea Is this a current diagnosis for this admission?: Yes Summary: Continue home CPAP/BiPAP (5) Pulmonary emboli Is this a current diagnosis for this admission?: Yes Summary: The patient did not have an active pulmonary embolus on this admission. He has a history of PE for which she is on Xarelto. Continue this at home. (6) GERD (gastroesophageal reflux disease) Is this a current diagnosis for this admission?: Yes - Additional Information Resuscitation Status: Full Code Home Medications: Albuterol Sulfate [Ventolin 0.083% Neb 2.5 mg/3 mL Ampul] 1 vial NEB RTQ6HP PRN 10/05/17 Amlodipine Besylate [Norvasc 5 mg Tablet] 5 mg PO DAILY 10/05/17 Calcium Carbonate [[place] 500 mg Tablet ([place])] 500 mg PO DAILY Fluorometholone [Fml] 1 drop OU QID 10/05/17 Fluticasone/Salmeterol [Advair 500-50 Diskus 28 Dose] 1 inh IH DAILY 10/05/17 Gabapentin [Neurontin 300 mg Capsule] 300 mg PO QHS 10/05/17 Hydrochlorothiazide [Hydrodiuril 25 mg Tablet] 25 mg PO DAILY 10/05/17 Lovastatin 40 mg PO QHS 10/05/17 Montelukast Sodium [Singulair 10 mg Tablet] 10 mg PO QHS 10/05/17 Omeprazole 20 mg PO DAILY 10/05/17 Prednisone [Deltasone 5 mg Tablet] 5 mg PO DAILY 10/05/17 Rivaroxaban [Xarelto 10 mg Tablet] 20 mg PO DAILY 10/05/17 Tamsulosin HCl [Flomax 0.4 mg Cap.sr] 0.4 mg PO QPM 10/05/17 Tiotropium [place] [Spiriva Handihaler 18 mcg/dose (30 Dose)] 1 cap IH DAILY Tramadol HCl [Ultram 50 mg Tablet] 50 mg PO Q12 10/05/17 Prednisone 20 mg PO ASDIR PRN #15 tablet 10/09/17 History of Present Illness History of Present Illness: SHONDA HUERTA is a 56 year old -Portuguese male who was admitted for COPD exacerbation and respiratory failure. Please see the details of his admission below as outlined by the admitting physician. Admission Date/PCP: 10/05/17 15:27 STACEY MORTON MD Patient complains of: shortness of breath History of Present Illness: SHONDA HUERTA is a 56 year old male with a history of copd who last night began to have shortness of breath. He was around some smoke and began to have troubles breathing. Denies any cough, fevers, KRISHNAN, PND. Has a history of PE and has been compliant with his xarelto. Denies chest pain. Denies recent travel. Hospital Course Hospital Course: Patient was admitted to the hospital for COPD exacerbation. He was started on Solu-Medrol and antibiotics. Over the next couple of days the patient gradually improved. Today at the bedside the patient was able to speak in full sentences and felt ready to go home. 4 management of his hypertension he was kept on his Norvasc. He was provided with BiPAP machine for his obstructive sleep apnea. Patient had a history of pulmonary emboli and was maintained on his Xarelto. Patient is currently fit to be discharged and he will need to follow-up with his lung doctor on October 17 as previously scheduled. Physical Exam Vital Signs: Temp Pulse Resp BP Pulse Ox 97.5 F 93 18 117/82 95 10/09/17 11:09 10/09/17 13:36 10/09/17 13:36 10/09/17 11:09 10/09/17 13:36 Intake & Output 10/08/17 10/09/17 10/10/17 06:59 06:59 06:59 Intake Total 1828 2958 940 Output Total 1100 1325 500 Balance 728 1633 440 Weight 87.6 kg 89.3 kg GENERAL: This is a well-developed and nourished appearing obese - Portuguese male resting in bed currently in no acute distress. HEART: Regular rate and rhythm. No murmurs, rubs or gallops. LUNGS: Coarse breath sounds at the bases bilateral with occasional expiratory wheezes. Equal rise and fall the chest. The patient is speaking in full sentences without any use of accessory muscles. ABDOMEN: Soft, nontender, nondistended with normoactive bowel sounds EXTREMETIES: No clubbing, cyanosis. 1+ edema. 2+ peripheral pulses bilaterally. NEURO: Awake, alert and oriented 3. Cranial nerves II through XII are grossly intact. Results Laboratory Results: 10/09/17 04:57 10/09/17 04:57 10/09/17 10/09/17 04:57 04:57 WBC 18.5 H RBC 4.75 Hgb 11.7 L Hct 36.3 L MCV 76 L MCH 24.6 L MCHC 32.2 RDW 18.4 H Plt Count 187 Seg Neutrophils % Not Reportable Lymphocytes % Not Reportable Monocytes % Not Reportable Eosinophils % Not Reportable Basophils % Not Reportable Absolute Neutrophils Not Reportable Absolute Lymphocytes Not Reportable Absolute Monocytes Not Reportable Absolute Eosinophils Not Reportable Absolute Basophils Not Reportable Sodium 141.7 Potassium 5.0 Chloride 106 Carbon Dioxide 27 Anion Gap 9 BUN 19 Creatinine 0.90 Est GFR ( Amer) > 60 Est GFR (Non-Af Amer) > 60 Glucose 162 H Calcium 9.0 10/05/17 19:40 Troponin I 0.015 Impressions: Chest X-Ray 10/05/17 13:02 IMPRESSION: NO ACUTE RADIOGRAPHIC FINDING IN THE CHEST. Qualifiers PATEINT BEING DISCHARGED WITH ANY OF THE FOLLOWING DIAGNOSIS?: No Plan Time Spent: Less than 30 Minutes
[2017-10-09 16:28] VITALS: BP 130/72
[2017-10-09] MEDS: RIVAROXABAN 10 MG TABLET PO SCH (16:42)
[2017-10-09] MEDS: TAMSULOSIN HCL 0.4 MG CAP.SR.24H PO SCH (16:44)
== END 2017-10-09 16:41 | disposition home or self-care (01) | DRG 190 ==
LOC: ER 12:20 → EH 15:27 → 3W 16:28
PROVIDERS: ADMIT Internal Medicine; ATTEND Internal Medicine
PROC: 5A09457 Assistance with Respiratory Ventilation, 24-96 Consecutive Hours, Continuous Positive Airway Pressure (ICD-10-PCS; principal; 2017-10-05)
DX: J44.1 Chronic obstructive pulmonary disease with (acute) exacerbation (principal); J96.01 Acute respiratory failure with hypoxia; I10 Essential (primary) hypertension; E78.5 Hyperlipidemia, unspecified; K21.9 Gastro-esophageal reflux disease without esophagitis; G47.33 Obstructive sleep apnea (adult) (pediatric); Z79.02 Long term (current) use of antithrombotics/antiplatelets; Z79.899 Other long term (current) drug therapy; Z86.711 Personal history of pulmonary embolism; Z87.891 Personal history of nicotine dependence; Z79.84 Long term (current) use of oral hypoglycemic drugs
CPT/HCPCS: 36415; 71010; 80048; 80053; 82550; 82553; 82803; 83690; 83735; 84484; 85025; 85610; 93005; 93010; 94640; 94660; 96365; 96375; 99285; J2920; J2930; J3475; J3480; J3490; J7620

== ENCOUNTER → 2017-10-18 | Outpatient (CLI) | payer MEDICAID ==
--- NOTE | 2017-10-18 14:49 | RADIOLOGY REPORT (SQ) ---
EXAM DESCRIPTION: BARIUM SWALLOW PHARYNX ONLY COMPLETED DATE/TIME: 10/18/2017 9:37 am REASON FOR STUDY: DYSPHAGIA (R13.10) R13.10 DYSPHAGIA, UNSPECIFIED COMPARISON: CHEST CTA 06/29/2017 TECHNIQUE: Under fluoroscopic guidance, patient ingested effervescent granules followed by thick and thin barium. Fluoroscopic spot images and routine radiographic images acquired and stored on PACS. 12 MM BARIUM TABLET GIVEN: Yes. No significant delay in passage. LIMITATIONS: None. FLUOROSCOPY TIME: FLUORO TIME: 0.5 MINUTES 10 FLUOROSCOPY images saved to PACS. FINDINGS: NEUROMUSCULAR COORDINATION OF SWALLOW: Normal. No aspiration. ESOPHAGEAL MOTILITY: Normal primary peristalsis. Mild tertiary contractions noted throughout the mid and distal esophagus suggesting mild esophageal dysmotility. No esophageal spasm. ESOPHAGEAL MUCOSA: Normal mucosa without masses or ulceration. GASTRO-ESOPHAGEAL JUNCTION: A small compound hiatal hernia is identified with moderate gastroesophage al reflux extending into the mid esophagus. NON-GI TRACT STRUCTURES: No significant finding. OTHER: No other significant finding. IMPRESSION: 1. MILD ESOPHAGEAL DYSMOTILITY. TABLET PASSED WITH NO DELAY. 2. SMALL COMPOUND HIATAL HERNIA. 3. MODERATE GASTROESOPHAGEAL REFLUX. COMMENT: Quality ID [id number]: Final reports for procedures using fluoroscopy that document radiation exp osure indices, or exposure time and number of fluorographic images (if radiation exposure indices are not available) TECHNICAL DOCUMENTATION: JOB ID: [id number] [email or web address] All Rights Reserved
== END ==
LOC: RAD 08:41
PROVIDERS: ATTEND Internal Medicine Gastroenterology
DX: K21.9 Gastro-esophageal reflux disease without esophagitis (principal); K44.9 Diaphragmatic hernia without obstruction or gangrene
CPT/HCPCS: 74210

== ENCOUNTER 2017-11-19 11:43 | Inpatient (IN) | payer MEDICAID ==
[2017-11-19] MEDS ORDERED: PREDNISONE 20 MG TABLET PO ONE (13:06)
--- NOTE | 2017-11-19 13:07 | ER Document Report ---
ED Medical Screen (RME) - General Chief Complaint: Shortness Of Breath Stated Complaint: DIFFICULTY BREATHING Time Seen by Provider: 11/19/17 13:05 Notes: copd/severe cough sob TRAVEL OUTSIDE OF THE [place] IN LAST 30 DAYS: No - Related Data Allergies/Adverse Reactions: No Known Allergies Allergy (Verified 11/19/17 11:45) Past Medical History - Social History Chew tobacco use (# tins/day): No Frequency of alcohol use: None Drug Abuse: None - Past Medical History Cardiac Medical History: Reports: Hx Hypercholesterolemia, Hx Hypertension Pulmonary Medical History: Reports: Hx Bronchitis, Hx COPD Renal/ Medical History: Denies: Hx Peritoneal Dialysis GI Medical History: Reports: Hx Gastroesophageal Reflux Disease - Immunizations History of Influenza Vaccine for 08/2017 - 01/2018 Season: Yes Physical Exam - Vital signs Vitals: Temp Pulse Resp BP Pulse Ox 98.6 F 107 H 26 H 110/74 91 L 11/19/17 11:48 11/19/17 11:48 11/19/17 11:48 11/19/17 11:48 11/19/17 11:48 Course - Vital Signs Vital signs: Temp Pulse Resp BP Pulse Ox 98.6 F 107 H 26 H 110/74 91 L 11/19/17 11:48 11/19/17 11:48 11/19/17 11:48 11/19/17 11:48 11/19/17 11:48
[2017-11-19] MEDS ORDERED: METHYLPREDNISOLONE INJ 125 MG/2 ML SDV IV ONE (13:26)
--- NOTE | 2017-11-19 13:30 | ER Document Report ---
ED General - General Chief Complaint: Shortness Of Breath Stated Complaint: DIFFICULTY BREATHING Time Seen by Provider: 11/19/17 13:05 TRAVEL OUTSIDE OF THE [place] IN LAST 30 DAYS: No - HPI Notes: Patient is a 56-year-old male with a history of COPD who presents to the ED complaining of dry nonproductive cough, intermittent shortness of breath and wheezing since Melissa, but worsened today. Patient states that he has been using his BiPAP and at home medications with minimal relief at this time. Patient states that the wheezing has gotten worse despite his conservative measures so he came to the ED for evaluation and management. Patient states that he has been taking 5 mg of prednisone every other day. Patient states that the symptoms mimic that of when he was admitted in September. Patient states that he will get into a coughing fit and has trouble stopping it then becomes even more short of breath afterwards temporarily. Denies any headache, fever, neck pain, URI, sore throat, chest pain, palpitations, syncope, abdominal pain, nausea/vomiting/diarrhea, urinary retention, dysuria, hematuria , or rash. - Related Data Allergies/Adverse Reactions: No Known Allergies Allergy (Verified 11/19/17 11:45) Past Medical History - Social History Smoking Status: Never Smoker Chew tobacco use (# tins/day): No Frequency of alcohol use: None Drug Abuse: None Family History: Reviewed & Not Pertinent Patient has suicidal ideation: No Patient has homicidal ideation: No - Past Medical History Cardiac Medical History: Reports: Hx Hypercholesterolemia, Hx Hypertension Pulmonary Medical History: Reports: Hx Bronchitis, Hx COPD Renal/ Medical History: Denies: Hx Peritoneal Dialysis GI Medical History: Reports: Hx Gastroesophageal Reflux Disease - Immunizations Hx Pneumococcal Vaccination: 11/12/16 Review of Systems - Review of Systems Notes: REVIEW OF SYSTEMS: CONSTITUTIONAL : Denies fever, chills, or sweats. Denies recent illness. EENT: Denies eye, ear, throat, or mouth pain or symptoms. Denies nasal or sinus congestion or discharge. Denies throat, tongue, or mouth swelling or difficulty swallowing. CARDIOVASCULAR: Denies chest pain. Denies palpitations or racing or irregular heart beat. Denies ankle edema. RESPIRATORY: see hpi GASTROINTESTINAL: Denies abdominal pain or distention. Denies nausea, vomiting , or diarrhea. Denies blood in vomitus, stools, or per rectum. Denies black, tarry stools. Denies constipation. GENITOURINARY: Denies difficulty urinating, painful urination, burning, frequency, blood in urine, or discharge. MUSCULOSKELETAL: Denies back or neck pain or stiffness. Denies joint pain or swelling. SKIN: Denies rash, lesions or sores. NEUROLOGICAL: Denies confusion or altered mental status. Denies passing out or loss of consciousness. Denies dizziness or lightheadedness. Denies headache. Denies weakness or paralysis or loss of use of either side. Denies problems with gait or speech. Denies sensory loss, numbness, or tingling. Denies seizures. ALL OTHER SYSTEMS REVIEWED AND NEGATIVE. Dictation was performed using [employer] mobile voice recognition software Physical Exam - Vital signs Vitals: Temp Pulse Resp BP Pulse Ox 98.6 F 107 H 26 H 110/74 91 L 11/19/17 11:48 11/19/17 11:48 11/19/17 11:48 11/19/17 11:48 11/19/17 11:48 Notes: PHYSICAL EXAMINATION: GENERAL: Well-appearing, well-nourished and in mild acute respiratory distress. A&Ox4 HEAD: Atraumatic, normocephalic. EYES: Pupils equal round and reactive to light, extraocular movements intact, sclera anicteric, conjunctiva are normal. ENT: Nares patent and without discharge. oropharynx clear without exudates. No tonsilar hypertrophy or erythema. Moist mucous membranes. No sinus tenderness. NECK: Normal range of motion, supple without lymphadenopathy LUNGS: wheezing throughout. Mildly tachypneic HEART: Regular rate and rhythm without murmurs, rubs, gallops. ABDOMEN: Soft, nontender, nondistended abdomen. No guarding, no rebound. No masses appreciated. Normal bowel sounds present. No CVA tenderness bilaterally. Musculoskeletal: FROM to passive/active. Strength 5+/5. Extremities: No cyanosis, clubbing, or edema b/l. Peripheral pulses 2+. Capillary refill less than 3 seconds. NEUROLOGICAL: Cranial nerves grossly intact. Normal speech, normal gait. Normal sensory, motor exams PSYCH: Normal mood, normal affect. SKIN: Warm, Dry, normal turgor, no rashes or lesions noted. Course - Re-evaluation Re-evalutation: 11/19/17 14:02 Re-eval after 2 neb treatments, solumedrol, and 1st of 2 magnesium bags. Pt continues to have wheezing throughout and feels SOB. We will start BIPAP. O2 saturation 91% on RA. 11/19/17 15:17 Patient continues to have wheezing throughout, but is feeling better and his oxygen saturation is now 99% on BiPAP. CBC, CMP, venous blood gas, cardiac enzyme, EKG unremarkable for any acute pathology at this time. Chest x-ray was unremarkable as well. Reviewed with Dr. Resendiz who accepted patient has admission to [facility]. Patient and are in agreement with plan and admission. - Vital Signs Vital signs: Temp Pulse Resp BP Pulse Ox 98.6 F 107 H 24 H 133/84 H 95 11/19/17 11:48 11/19/17 11:48 11/19/17 14:01 11/19/17 14:01 11/19/17 14:01 - Laboratory Result Diagrams: 11/19/17 13:30 11/19/17 13:30 Laboratory results interpreted by me: 11/19/17 11/19/17 11/19/17 13:30 13:30 13:30 Hgb 12.8 L MCV 76 L MCH 24.5 L RDW 19.4 H Seg Neutrophils % 85.7 H Lymphocytes % 7.0 L Carbon Dioxide 31 H Creatinine 1.26 H Est GFR (Non-Af Amer) 59 L Glucose 115 H Creatine Kinase 228 H CK-MB (CK-2) 11/19/17 13:30 Hgb MCV MCH RDW Seg Neutrophils % Lymphocytes % Carbon Dioxide Creatinine Est GFR (Non-Af Amer) Glucose Creatine Kinase CK-MB (CK-2) 5.09 H Discharge - Discharge Clinical Impression: COPD exacerbation, Hypoxia Condition: Stable Disposition: ADMITTED INPATIENT Admitting Provider: Hospitalist - Dr. Resendiz Unit Admitted: [facility]
[2017-11-19] MEDS: ALBUTEROL SULFATE 0.083% NEB 2.5 MG/3 ML AMPUL NEB SCH ×2 (13:31→13:49)
[2017-11-19] MEDS: MAGNESIUM SULFATE/D5W 1 GM/100 ML RTUPB IV SCH ×2 (13:35→14:12)
[2017-11-19 13:41] LABS: VENOUS BLOOD BASE EXCESS 3.9 mmol/L; VENOUS BLOOD HCO3 29.8 mmol/L (20-32); VENOUS BLOOD PCO2 50.4 mmHg (35-63); VENOUS BLOOD PH 7.39 (7.30-7.42)
[2017-11-19 13:47] LABS: ABSOLUTE EOSINOPHILS # (AUTO) 0.2 10^3/uL (0.0-0.6); ABSOLUTE LYMPHOCYTES (AUTO) 0.7 10^3/uL (0.5-4.7); ABSOLUTE MONOCYTES (AUTO) 0.4 10^3/uL (0.1-1.4); BASOPHILS % (AUTO) 0.4 % (0-2); EOSINOPHILS % (AUTO) 2.1 % (0-6); HEMATOCRIT 39.5 % (37.9-51.0); HEMOGLOBIN 12.8 g/dL (13.5-17.0); MEAN CORPUSCULAR HEMOGLOBIN 24.5 pg (27.0-33.4); MEAN CORPUSCULAR HGB CONC 32.5 g/dL (32.0-36.0); MEAN CORPUSCULAR VOLUME 76 fl (80-97); MONOCYTES % (AUTO) 4.8 % (3-13); PLATELET COUNT 305 10^3/uL (150-450); RED BLOOD COUNT 5.24 10^6/uL (4.35-5.55); RED CELL DISTRIBUTION WIDTH 19.4 % (11.5-14.0); SEGMENTED NEUTROPHILS % (AUTO) 85.7 % (42-78); TOTAL CELLS COUNTED % (AUTO) 100 %; WHITE BLOOD COUNT 9.3 10^3/uL (4.0-10.5)
[2017-11-19 14:01] LABS: ALBUMIN 4.3 g/dL (3.5-5.0); ASPARTATE AMINO TRANSFERASE 21 U/L (17-59); BILIRUBIN,DIRECT 0.2 mg/dL (0.0-0.4); BILIRUBIN,TOTAL 0.4 mg/dL (0.2-1.3); BLOOD UREA NITROGEN 18 mg/dL (7-20); CALCIUM 10.2 mg/dL (8.4-10.2); CARBON DIOXIDE 31 mmol/L (22-30); GLUCOSE 115 mg/dL (75-110); NEONATAL BILIRUBIN RESULT 0.2 mg/dL (0.1-1.1); TOTAL PROTEIN 7.2 g/dL (6.3-8.2)
--- NOTE | 2017-11-19 14:07 | RADIOLOGY REPORT (SQ) ---
EXAM DESCRIPTION: CHEST PA/LAT COMPLETED DATE/TIME: 11/19/2017 1:46 pm REASON FOR STUDY: cough/sob COMPARISON: 09/24/[address] chest 06/19/2017 EXAM PARAMETERS: NUMBER OF VIEWS: two views TECHNIQUE: Digital Frontal and Lateral radiographic views of the chest acquired. RADIATION DOSE: NA LIMITATIONS: none FINDINGS: LUNGS AND PLEURA: No opacities, masses or pneumothorax. No pleural effusion. MEDIASTINUM AND HILAR STRUCTURES: No masses or contour abnormalities. HEART AND VASCULAR STRUCTURES: Heart normal size. No evidence for failure. BONES: No acute findings. HARDWARE: None in the chest. OTHER: No other significant finding. IMPRESSION: NO SIGNIFICANT RADIOGRAPHIC FINDING IN THE CHEST. TECHNICAL DOCUMENTATION: JOB ID: [id number] [employer]- All Rights Reserved
[2017-11-19 14:14] LABS: ALANINE AMINOTRANSFERASE 31 U/L (21-72); ALKALINE PHOSPHATASE 46 U/L (38-126); ANION GAP 12 (5-19); CHLORIDE 100 mmol/L (98-107); POTASSIUM 3.6 mmol/L (3.6-5.0); SODIUM 142.7 mmol/L (137-145)
[2017-11-19 14:35] LABS: CREATINE KINASE 228 U/L (55-170)
[2017-11-19 14:48] LABS: CREATINE KINASE MB 5.09 ng/mL (<4.55); TROPONIN I 0.012 ng/mL
[2017-11-19] MEDS ORDERED: ALBUTEROL SULFATE 0.083% NEB 2.5 MG/3 ML AMPUL NEB PRN (15:50)
[2017-11-19] MEDS ORDERED: ACETAMINOPHEN 325 MG TABLET PO PRN (15:51)
[2017-11-19] MEDS ORDERED: ONDANSETRON HCL INJ/PF 4 MG/2 ML SDV IV PRN (15:51)
[2017-11-19] MEDS ORDERED: ONDANSETRON 4 MG TAB.RAPDIS PO PRN (15:51)
--- NOTE | 2017-11-19 16:06 | PDOC H&P ---
History of Present Illness Admission Date/PCP: 11/19/17 15:23 HAWK SANTOS MD Patient complains of: Shortness of breath History of Present Illness: SHONDA HUERTA is a 56 year old male known to me from several previous admissions who presents with an acute COPD exacerbation. Patient reports that he went home at the end of September was feeling well but approximately 2 weeks ago began to have shortness of breath along with a nonproductive cough. He also has had some chills but no fevers. He tried to get better at home by using his nebulizer but continued to have worsening shortness of breath. He has had worsening dyspnea on exertion but denies any chest pain. He denies any orthopnea, PND or lower extremity edema. The patient does not smoke and has not been around anybody who is been sick. He has not had any prolonged immobility. He does have a history of pulmonary embolism but has been compliant with his Xarelto. Past Medical History Cardiac Medical History: Reports: Hyperlipidema, Hypertension Pulmonary Medical History: Reports: Bronchitis, Chronic Obstructive Pulmonary Disease (COPD), Sleep Apnea EENT Medical History: Reports: None Neurological Medical History: Reports: None Endocrine Medical History: Reports: None Malignancy Medical History: Reports: None GI Medical History: Reports: Gastroesophageal Reflux Disease Musculoskeltal Medical History: Reports: None Skin Medical History: Reports: None Psychiatric Medical History: Reports: None Hematology: Reports: Other - History of pulmonary embolism Infectious Medical History: Reports: None Past Surgical History Past Surgical History: Reports: None Social History Information Source: Patient Lives with: Family Smoking Status: Never Smoker Frequency of Alcohol Use: None Hx Recreational Drug Use: Yes Drugs: None Hx Prescription Drug Abuse: No - Advance Directive Resuscitation Status: Full Code Family History Family History: Mother is 91 and has hypertension. Father's health history is unknown. Parental Family History Reviewed: Yes Children Family History Reviewed: No Sibling(s) Family History Reviewed.: No Medication/Allergy Home Medications: Albuterol Sulfate [Ventolin 0.083% Neb 2.5 mg/3 mL Ampul] 1 vial NEB [id number] PRN 10/05/17 Amlodipine Besylate [Norvasc 5 mg Tablet] 5 mg PO DAILY 10/05/17 Calcium Carbonate [[place] 500 mg Tablet (Oyster-Shell)] 500 mg PO DAILY Fluticasone/Salmeterol [Advair 500-50 Diskus 28 Dose] 1 inh IH DAILY 10/05/17 Gabapentin [Neurontin 300 mg Capsule] 300 mg PO QHS 10/05/17 Hydrochlorothiazide [Hydrodiuril 25 mg Tablet] 25 mg PO DAILY 10/05/17 Lovastatin 40 mg PO QHS 10/05/17 Montelukast Sodium [Singulair 10 mg Tablet] 10 mg PO QHS 10/05/17 Omeprazole 20 mg PO DAILY 10/05/17 Prednisone [Deltasone 5 mg Tablet] 5 mg PO ASDIR 10/05/17 Rivaroxaban [Xarelto 10 mg Tablet] 20 mg PO DAILY 10/05/17 Tamsulosin HCl [Flomax 0.4 mg Cap.sr] 0.4 mg PO QPM 10/05/17 Tiotropium [place] [Spiriva Handihaler 18 mcg/dose (30 Dose)] 1 cap IH DAILY Tramadol HCl [Ultram 50 mg Tablet] 50 mg PO Q12 10/05/17 Allergies/Adverse Reactions: No Known Allergies Allergy (Verified 11/19/17 11:45) Review of Systems Constitutional: PRESENT: chills. ABSENT: fever(s), headache(s), weight gain, weight loss Eyes: ABSENT: visual disturbances Ears: PRESENT: as per HPI Cardiovascular: PRESENT: dyspnea on exertion. ABSENT: chest pain, edema, orthropnea, palpitations Respiratory: PRESENT: cough, dyspnea. ABSENT: hemoptysis, sputum Gastrointestinal: PRESENT: heartburn. ABSENT: abdominal pain, constipation, diarrhea, hematemesis, hematochezia, nausea, vomiting Genitourinary: ABSENT: dysuria, hematuria Musculoskeletal: ABSENT: joint swelling Integumentary: ABSENT: rash, wounds Neurological: ABSENT: abnormal gait, abnormal speech, confusion, dizziness, focal weakness, syncope Psychiatric: ABSENT: anxiety, depression Endocrine: ABSENT: cold intolerance, heat intolerance, polydipsia, polyuria Hematologic/Lymphatic: ABSENT: easy bleeding, easy bruising Physical Exam Vital Signs: Temp Pulse Resp BP Pulse Ox 98.6 F 107 H 18 135/89 H 98 11/19/17 11:48 11/19/17 11:48 11/19/17 15:48 11/19/17 15:01 11/19/17 15:48 General appearance: PRESENT: mild distress, obese Head exam: PRESENT: atraumatic Eye exam: PRESENT: conjunctiva pink, EOMI, PERRLA. ABSENT: scleral icterus Ear exam: PRESENT: normal external ear exam Mouth exam: PRESENT: moist, tongue midline Neck exam: ABSENT: carotid bruit, JVD, lymphadenopathy, thyromegaly Respiratory exam: PRESENT: wheezes - Bilateral expiratory wheezes left greater than right. ABSENT: rales, rhonchi Cardiovascular exam: PRESENT: RRR. ABSENT: diastolic murmur, rubs, systolic murmur GI/Abdominal exam: PRESENT: normal bowel sounds, soft. ABSENT: distended, guarding, mass, organolmegaly, rebound, tenderness Rectal exam: PRESENT: deferred Extremities exam: ABSENT: calf tenderness, clubbing, pedal edema Neurological exam: PRESENT: alert, awake, oriented to person, oriented to place , oriented to time, oriented to situation, CN II-XII grossly intact. ABSENT: motor sensory deficit Psychiatric exam: PRESENT: appropriate affect Skin exam: PRESENT: dry, intact, warm. ABSENT: cyanosis, rash Results Impressions: Chest X-Ray 11/19/17 13:06 IMPRESSION: NO SIGNIFICANT RADIOGRAPHIC FINDING IN THE CHEST. Assessment & Plan - Diagnosis (1) Acute hypoxemic respiratory failure Is this a current diagnosis for this admission?: Yes Plan: Patient has respiratory failure secondary to acute COPD exacerbation. Patient currently is on BiPAP and is oxygenating adequately. Will continue with steroids, nebulizers, BiPAP. The patient has no evidence for infection. (2) COPD exacerbation Is this a current diagnosis for this admission?: Yes Plan: Continue with steroids, nebulizers and BiPAP. (3) Obstructive sleep apnea Is this a current diagnosis for this admission?: Yes Plan: Patient uses CPAP at night. Will use BiPAP here while hospitalized because of his COPD exacerbation. (4) Pulmonary emboli Is this a current diagnosis for this admission?: Yes Plan: Continue with Xarelto. He reports that he has been compliant with his medications. (5) Hyperlipidemia Is this a current diagnosis for this admission?: Yes (6) Anticoagulated Is this a current diagnosis for this admission?: Yes Plan: Anticoagulated with Xarelto because of a history of pulmonary embolism. (7) GERD (gastroesophageal reflux disease) Is this a current diagnosis for this admission?: Yes Plan: Patient has been on Prilosec as an outpatient. (8) Hypertension Is this a current diagnosis for this admission?: Yes Plan: Continue with Norvas. - Time Time Spent: 50 to 70 Minutes - Inpatient Certification Medical Necessity: Need Close Monitoring Due to Risk of Patient Decompensation
--- NOTE | 2017-11-19 17:11 | EKG REPORT ---
SEVERITY:- ABNORMAL ECG - SINUS RHYTHM NONSPECIFIC T ABNORMALITIES, LATERAL LEADS : Confirmed by: Cooper Duran MD 19-Nov-2017 17:11:06
[2017-11-19] MEDS: IPRATROPIUM/ALBUTEROL 0.5-2.5 MG/3 ML AMPUL NEB SCH ×3 (17:22→23:45)
[2017-11-19] MEDS: TAMSULOSIN HCL 0.4 MG CAP.SR.24H PO SCH (17:31)
[2017-11-19] MEDS: GABAPENTIN 300 MG CAPSULE PO SCH (21:53)
[2017-11-19] MEDS: ATORVASTATIN CALCIUM 10 MG TABLET PO SCH (21:53)
[2017-11-19] MEDS: METHYLPREDNISOLONE INJ 40 MG/1 ML SDV IV SCH (21:54)
[2017-11-19] MEDS: MONTELUKAST SODIUM 10 MG TABLET PO SCH (21:54)
[2017-11-19] MEDS: TRAMADOL HCL 50 MG TABLET PO SCH (21:54)
[2017-11-19] MEDS ORDERED: (PENDING PHARMACY ID) (Lovastatin [Lovastatin] 40 MG) PO SCH (22:00)
[2017-11-20] MEDS: IPRATROPIUM/ALBUTEROL 0.5-2.5 MG/3 ML AMPUL NEB SCH ×5 (03:51→20:19)
[2017-11-20] MEDS: METHYLPREDNISOLONE INJ 40 MG/1 ML SDV IV SCH (05:28)
[2017-11-20] MEDS: LANSOPRAZOLE 15 MG TAB.RAP.DR PO SCH (05:28)
[2017-11-20 06:03] LABS: HEMOGLOBIN 12.1 g/dL (13.5-17.0); MEAN CORPUSCULAR HGB CONC 31.9 g/dL (32.0-36.0); MEAN CORPUSCULAR VOLUME 75 fl (80-97); PLATELET COUNT 272 10^3/uL (150-450); RED BLOOD COUNT 5.04 10^6/uL (4.35-5.55); RED CELL DISTRIBUTION WIDTH 19.2 % (11.5-14.0); WHITE BLOOD COUNT 11.9 10^3/uL (4.0-10.5)
[2017-11-20 06:22] LABS: ANION GAP 15 (5-19); BLOOD UREA NITROGEN 17 mg/dL (7-20); CALCIUM 9.7 mg/dL (8.4-10.2); CARBON DIOXIDE 26 mmol/L (22-30); CHLORIDE 99 mmol/L (98-107); GLUCOSE 142 mg/dL (75-110); POTASSIUM 3.8 mmol/L (3.6-5.0)
[2017-11-20] MEDS ORDERED: ENOXAPARIN SODIUM INJ 40 MG/0.4 ML DISP.SYRIN SUBCUT SCH (10:00)
[2017-11-20] MEDS: FLUTICASONE/SALMETEROL DISKUS 500-50 MCG/DOSE IH SCH (10:38)
[2017-11-20] MEDS: AMLODIPINE BESYLATE 5 MG TABLET PO SCH (10:39)
[2017-11-20] MEDS: CALCIUM CARBONATE 500 MG TABLET PO SCH (10:39)
[2017-11-20] MEDS: RIVAROXABAN 10 MG TABLET PO SCH (10:39)
[2017-11-20] MEDS: HYDROCHLOROTHIAZIDE 25 MG TABLET PO SCH (10:39)
[2017-11-20] MEDS: TRAMADOL HCL 50 MG TABLET PO SCH ×2 (10:40→22:11)
--- NOTE | 2017-11-20 10:56 | Physician Advisory Note ---
Physician Advisor ProgressNote .: [facility] have reviewed the medical record for this patient. Physician Advisor Statement: Please consider documentin. To support dx of Ac Hypoxemic Resp FAilure: any O2 sats <90%? Any increased work of breathing/accessory muscle use/labored breathing/ ... in association with O2 sats clearly below pt's baseline? Or was this dx suspected but ruled out? - Payers like to say Bipap was used without really being needed ("just to make pt feel better psychologically"), if documentation doesn't clearly support its need. - In favor of this dx: pt had "mild acute resp distress" in ED, tachycardia , tachypnea. 2. Medical necessity: If pt is not clinically improved enough for safe d/c today, please document this & Inpatient will be appropriate. Ex: "Pt continues to need O2 he doesn't need @baseline, with persistent tachycardia/tachypnea, continued KRISHNAN, wheezing, cough this AM...." Status: see above. Thanks! CK
[2017-11-20] MEDS ORDERED: PREDNISONE 20 MG TABLET PO ONE (13:00)
[2017-11-20] MEDS ORDERED: AZITHROMYCIN 250 MG TABLET PO SCH (13:00)
--- NOTE | 2017-11-20 17:21 | PDOC PROGRESS REPORT ---
Subjective Progress Note for:: 11/20/17 Subjective:: Doing better. Continues to have SOB with exertion. Currently on 2L however feels can be weaned. Denies fevers, chills, CP, NV. PO intake good. Wants to ambulate. Reason For Visit: COPD EXACERBATION Physical Exam Vital Signs: Temp Pulse Resp BP Pulse Ox 97.8 F 110 H 20 144/92 H 94 11/20/17 15:34 11/20/17 16:36 11/20/17 16:36 11/20/17 15:34 11/20/17 16:36 Intake & Output 11/19/17 11/20/17 11/21/17 06:59 06:59 06:59 Intake Total 502 1191 Output Total 400 200 Balance 102 991 Weight 89.5 kg General appearance: PRESENT: no acute distress, obese Mouth exam: PRESENT: moist Neck exam: ABSENT: JVD Respiratory exam: PRESENT: decreased breath sounds, unlabored, wheezes Cardiovascular exam: PRESENT: RRR GI/Abdominal exam: PRESENT: soft. ABSENT: distended Neurological exam: PRESENT: alert, altered Results Laboratory Results: 11/20/17 05:04 11/20/17 05:04 11/20/17 11/20/17 05:04 05:04 WBC 11.9 H RBC 5.04 Hgb 12.1 L Hct 38.0 MCV 75 L MCH 24.0 L MCHC 31.9 L RDW 19.2 H Plt Count 272 Sodium 140.0 Potassium 3.8 Chloride 99 Carbon Dioxide 26 Anion Gap 15 BUN 17 Creatinine 1.01 Est GFR ( Amer) > 60 Est GFR (Non-Af Amer) > 60 Glucose 142 H Calcium 9.7 Impressions: Chest X-Ray 11/19/17 13:06 IMPRESSION: NO SIGNIFICANT RADIOGRAPHIC FINDING IN THE CHEST. Assessment & Plan - Diagnosis (1) COPD exacerbation Is this a current diagnosis for this admission?: Yes Plan: Improving. - Transition from IV Methylprednisone to PO Prednisone 40mg daily * 4 days - Started Azithromycin 500 * 3 days for anti-inflammatory effect - Continue Nebs - Will work to titrate down O2 (2) Hypoxia Plan: Currently on 2L. No O2 requirement at home. Sats are good, will continue to wean down as tolerated with goal O2>88% (3) Anticoagulated Is this a current diagnosis for this admission?: Yes Plan: On Xarelto for PE (4) Obstructive sleep apnea Is this a current diagnosis for this admission?: Yes Plan: Using BiPAP at night, continue (5) Pulmonary emboli Is this a current diagnosis for this admission?: Yes - Time Time Spent with patient: Less than 15 minutes Medications reviewed and adjusted accordingly: Yes Anticipated discharge: Home Within: within 24 hours
[2017-11-20] MEDS: TAMSULOSIN HCL 0.4 MG CAP.SR.24H PO SCH (17:54)
[2017-11-20] MEDS: GABAPENTIN 300 MG CAPSULE PO SCH (22:11)
[2017-11-20] MEDS: MONTELUKAST SODIUM 10 MG TABLET PO SCH (22:11)
[2017-11-20] MEDS: ATORVASTATIN CALCIUM 10 MG TABLET PO SCH (22:12)
[2017-11-21] MEDS: IPRATROPIUM/ALBUTEROL 0.5-2.5 MG/3 ML AMPUL NEB SCH ×4 (00:25→11:45)
[2017-11-21] MEDS: LANSOPRAZOLE 15 MG TAB.RAP.DR PO SCH (05:54)
[2017-11-21 08:45] LABS: HEMATOCRIT 36.6 % (37.9-51.0); HEMOGLOBIN 11.7 g/dL (13.5-17.0); MEAN CORPUSCULAR HGB CONC 31.9 g/dL (32.0-36.0); MEAN CORPUSCULAR VOLUME 75 fl (80-97); PLATELET COUNT 274 10^3/uL (150-450); RED BLOOD COUNT 4.87 10^6/uL (4.35-5.55); RED CELL DISTRIBUTION WIDTH 19.7 % (11.5-14.0); WHITE BLOOD COUNT 17.3 10^3/uL (4.0-10.5)
[2017-11-21 09:01] LABS: ANION GAP 10 (5-19); BLOOD UREA NITROGEN 18 mg/dL (7-20); CARBON DIOXIDE 32 mmol/L (22-30); CHLORIDE 101 mmol/L (98-107); GLUCOSE 122 mg/dL (75-110); POTASSIUM 3.5 mmol/L (3.6-5.0); SODIUM 142.8 mmol/L (137-145)
[2017-11-21] MEDS: RIVAROXABAN 10 MG TABLET PO SCH (09:23)
[2017-11-21] MEDS: AMLODIPINE BESYLATE 5 MG TABLET PO SCH (09:24)
[2017-11-21] MEDS: TRAMADOL HCL 50 MG TABLET PO SCH (09:24)
[2017-11-21] MEDS: CALCIUM CARBONATE 500 MG TABLET PO SCH (09:24)
[2017-11-21] MEDS: HYDROCHLOROTHIAZIDE 25 MG TABLET PO SCH (09:24)
[2017-11-21] MEDS: FLUTICASONE/SALMETEROL DISKUS 500-50 MCG/DOSE IH SCH (09:25)
[2017-11-21] MEDS ORDERED: PREDNISONE 20 MG TABLET PO SCH (10:00)
[2017-11-21] MEDS ORDERED: POTASSIUM CHLORIDE 20 MEQ/15 ML UDCUP PO ONE (10:00)
[2017-11-21 13:16] VITALS: BP 130/79
--- NOTE | 2017-11-21 13:43 | PDOC DISCHARGE SUMMARY ---
Discharge Summary (SDC) - Discharge Final Diagnosis: Acute COPD exacerbation. Known history of smoking and COPD diagnosis based on imaging. Initially treated with BiPAPA, IV Methylprednisone and nebulizing treatment with improvement. Transitioned to PO steriouds and started on PO Azithromycin on 11/20. No longer requiring supplemental O2 as of 11/20. Feeling much better on 11/21 and stable for discharge to home. Outpatient Plan - Complete PO Prednisone 40mg daily * 3 days - Complete Azithromycin 500 * 2 days for anti-inflammatory effect - Continue home COPD Regimen - Follow up with PCP in 1 week for evaluation Discharge Date: 11/21/17 Condition: Good Forms: Discharge POC-Adult Treatment or Instructions: Glad you are feeling better. For your COPD exacerbation: continue oral prednisone for 3 more days and oral azithromycin for 2 more days - Please follow up with your PCP for post hospitalization evaluatin For eye surgery: Okay to proceed with procedure next Sunday 11/26 if you are feeling better. Prescriptions: Azithromycin [Zithromax 250 mg Tablet] 500 mg PO NOW 2 Days tablet Prednisone [Deltasone 20 mg Tablet] 40 mg PO DAILY 3 Days #6 tablet Referrals: STACEY MORTON MD [NO LOCAL MD] - 11/29/17 10:00 am Respiratory Treatments at Home: Incentive Spirometer, Flutter Valve, Nebulizer Discharge Activity: Activity As Tolerated Home Care Assistance: None Needed Report the Following to Your Physician Immediately: Shortness of Breath, Fever over 101 Degrees, Wheezing
== END 2017-11-21 13:46 | disposition home or self-care (01) | DRG 192 ==
LOC: ER 11:43 → EH 15:23 → 3S 23:28
PROVIDERS: ADMIT Internal Medicine; ATTEND Internal Medicine
PROC: 5A09457 Assistance with Respiratory Ventilation, 24-96 Consecutive Hours, Continuous Positive Airway Pressure (ICD-10-PCS; principal; 2017-11-19)
DX: J44.1 Chronic obstructive pulmonary disease with (acute) exacerbation (principal); Z79.02 Long term (current) use of antithrombotics/antiplatelets; Z86.711 Personal history of pulmonary embolism; E78.5 Hyperlipidemia, unspecified; I10 Essential (primary) hypertension; K21.9 Gastro-esophageal reflux disease without esophagitis; Z79.899 Other long term (current) drug therapy; G47.33 Obstructive sleep apnea (adult) (pediatric)
CPT/HCPCS: 36415; 71046; 80048; 80053; 82550; 82553; 82803; 84484; 85025; 85027; 93005; 93010; 94640; 94660; 96365; 96375; 99285; J2920; J2930; J3475; J3490; J7512; J7620

== ENCOUNTER 2017-12-03 13:27 | Inpatient (IN) | payer MEDICAID ==
[2017-12-03] MEDS ORDERED: MORPHINE SULFATE 10 MG/ML INJ IV ONE (14:42)
[2017-12-03] MEDS ORDERED: NORMAL SALINE 1000 ML 1,000 ML IV ONE (14:42)
--- NOTE | 2017-12-03 14:45 | ER Document Report ---
ED Medical Screen (RME) - General Chief Complaint: Shortness Of Breath Stated Complaint: RIGHT LEG AND BACK PAIN Time Seen by Provider: 12/03/17 14:42 Notes: Patient states that for about 1 week he has had increasing shortness of breath with cough and congestion. He is also had chest pain. In addition he states he has chronic back pain which is now worse and radiates down right leg TRAVEL OUTSIDE OF THE [place] IN LAST 30 DAYS: No - Related Data Allergies/Adverse Reactions: No Known Allergies Allergy (Verified 12/03/17 14:30) Past Medical History - Social History Chew tobacco use (# tins/day): No Frequency of alcohol use: None Drug Abuse: None - Past Medical History Cardiac Medical History: Reports: Hx Hypercholesterolemia, Hx Hypertension Pulmonary Medical History: Reports: Hx Bronchitis, Hx COPD, Hx Sleep Apnea Renal/ Medical History: Denies: Hx Peritoneal Dialysis GI Medical History: Reports: Hx Gastroesophageal Reflux Disease - Immunizations History of Influenza Vaccine for 08/2017 - 01/2018 Season: Yes Influenza Administration Date for 08/2017 - 01/2018 Season: 09/12/17 Physical Exam - Vital signs Vitals: Temp Pulse Resp BP Pulse Ox 99.6 F 108 H 20 127/82 H 93 12/03/17 13:52 12/03/17 13:52 12/03/17 13:52 12/03/17 13:52 12/03/17 13:52 Course - Vital Signs Vital signs: Temp Pulse Resp BP Pulse Ox 99.6 F 108 H 20 127/82 H 93 12/03/17 13:52 12/03/17 13:52 12/03/17 13:52 12/03/17 13:52 12/03/17 13:52
--- NOTE | 2017-12-03 15:23 | RADIOLOGY REPORT (SQ) ---
EXAM DESCRIPTION: CHEST PA/LAT COMPLETED DATE/TIME: 12/03/2017 3:09 pm REASON FOR STUDY: cough/cp COMPARISON: 11/19/2017 EXAM PARAMETERS: NUMBER OF VIEWS: two views TECHNIQUE: Digital Frontal and Lateral radiographic views of the chest acquired. RADIATION DOSE: NA LIMITATIONS: none FINDINGS: LUNGS AND PLEURA: Linear atelectatic markings seen at the lung bases, lungs otherwise joel r. MEDIASTINUM AND HILAR STRUCTURES: No masses or contour abnormalities. HEART AND VASCULAR STRUCTURES: Heart normal size. No evidence for failure. BONES: No acute findings. HARDWARE: None in the chest. OTHER: No other significant finding. IMPRESSION: Linear atelectatic markings lung bases. Lungs otherwise clear. TECHNICAL DOCUMENTATION: JOB ID: [id number] 2005 [employer]- All Rights Reserved
[2017-12-03 16:14] LABS: VENOUS BLOOD BASE EXCESS 0.1 mmol/L; VENOUS BLOOD HCO3 23.5 mmol/L (20-32); VENOUS BLOOD PCO2 34.4 mmHg (35-63); VENOUS BLOOD PH 7.45 (7.30-7.42)
[2017-12-03 16:16] LABS: APPEARANCE,URINE CLEAR; BILIRUBIN,URINE NEGATIVE (NEGATIVE); COLOR,URINE YELLOW; GLUCOSE, URINE NEGATIVE (NEGATIVE); HEMOGLOBIN 12.7 g/dL (13.5-17.0); KETONES,URINE NEGATIVE (NEGATIVE); LEUKOCYTE ESTERASE,URINE TRACE (NEGATIVE); MEAN CORPUSCULAR HEMOGLOBIN 24.2 pg (27.0-33.4); MEAN CORPUSCULAR HGB CONC 32.7 g/dL (32.0-36.0); MEAN CORPUSCULAR VOLUME 74 fl (80-97); NITRITE,URINE NEGATIVE (NEGATIVE); PLATELET COUNT 165 10^3/uL (150-450); PROTEIN,URINE 100 mg/dL (NEGATIVE); RED BLOOD COUNT 5.27 10^6/uL (4.35-5.55); RED CELL DISTRIBUTION WIDTH 19.9 % (11.5-14.0); URINE SPECIFIC GRAVITY 1.015; WHITE BLOOD COUNT 18.8 10^3/uL (4.0-10.5)
[2017-12-03 16:40] LABS: ALANINE AMINOTRANSFERASE 40 U/L (21-72); ALBUMIN 4.1 g/dL (3.5-5.0); ALKALINE PHOSPHATASE 87 U/L (38-126); ANION GAP 14 (5-19); ASPARTATE AMINO TRANSFERASE 41 U/L (17-59); BILIRUBIN,DIRECT 0.8 mg/dL (0.0-0.4); BILIRUBIN,TOTAL 1.4 mg/dL (0.2-1.3); BLOOD UREA NITROGEN 19 mg/dL (7-20); CALCIUM 9.5 mg/dL (8.4-10.2); CARBON DIOXIDE 22 mmol/L (22-30); CHLORIDE 100 mmol/L (98-107); GLUCOSE 128 mg/dL (75-110); POTASSIUM 4.3 mmol/L (3.6-5.0); SODIUM 135.5 mmol/L (137-145); TOTAL PROTEIN 7.7 g/dL (6.3-8.2)
[2017-12-03 16:48] LABS: ABSOLUTE LYMPHOCYTES# (MANUAL) 1.1 10^3/uL (0.5-4.7); ABSOLUTE MONOCYTES # (MANUAL) 0.6 10^3/uL (0.1-1.4); ABSOLUTE NEUTROPHILS# (MANUAL) 17.1 10^3/uL (1.7-8.2); BAND NEUTROPHILS % (MANUAL) 1 % (3-5); BASOPHILS % (MANUAL) 0 % (0-2); EOSINOPHILS % (MANUAL) 0 % (0-6); LYMPHOCYTES % (MANUAL) 6 % (13-45); MONOCYTES % (MANUAL) 3 % (3-13); SEGMENTED NEUTROPHILS % (MAN) 90 % (42-78); TOTAL CELLS COUNTED 100
[2017-12-03 16:50] LABS: ANISOCYTOSIS 1+; HYPOCHROMASIA 1+; PLATELET COMMENT ADEQUATE; POLYCHROMASIA SLIGHT
[2017-12-03] MEDS ORDERED: ASPIRIN 325 MG TABLET PO ONE (18:18)
[2017-12-03] MEDS ORDERED: CEFTRIAXONE 1 GM/D5W RTU 1 GM/50 ML RTUPB IV ONE (19:13)
[2017-12-03] MEDS ORDERED: AZITHROMYCIN 250 MG TABLET PO ONE (19:14)
--- NOTE | 2017-12-03 19:16 | ER Document Report ---
ED General - General Chief Complaint: Shortness Of Breath Stated Complaint: RIGHT LEG AND BACK PAIN Time Seen by Provider: 12/03/17 14:42 Notes: Patient is a 57-year-old male with a past medical history of COPD, sleep apnea, prior DVT and pulmonary emboli currently anticoagulated on Xarelto, hypertension , hyperlipidemia, who presents with 1 week of progressively short worsening shortness of breath. Patient states that since being discharged from the hospital he has gotten progressively worse. He notes that exertion worsens his shortness of breath. He uses his home nebulizer treatments at home with only minimal improvement of his symptoms. He states this feels very similar to prior COPD exacerbations. He notes that he has had a subjective fever and cough at home but has not recorded fever. No vomiting or diarrhea. No altered mental status, headache, weakness or numbness. He denies any chest pain currently but states that his intermittently had some mild chest discomfort throughout the past 1 week. He has not seen his primary care doctor regarding today's concerns. TRAVEL OUTSIDE OF THE [place] IN LAST 30 DAYS: No - Related Data Allergies/Adverse Reactions: No Known Allergies Allergy (Verified 12/03/17 14:30) Past Medical History - General Information source: Patient - Social History Smoking Status: Never Smoker Chew tobacco use (# tins/day): No Frequency of alcohol use: None Drug Abuse: None Lives with: Spouse/Significant other Family History: Reviewed & Not Pertinent Patient has suicidal ideation: No Patient has homicidal ideation: No - Past Medical History Cardiac Medical History: Reports: Hx Hypercholesterolemia, Hx Hypertension Pulmonary Medical History: Reports: Hx Bronchitis, Hx COPD, Hx Sleep Apnea Renal/ Medical History: Denies: Hx Peritoneal Dialysis GI Medical History: Reports: Hx Gastroesophageal Reflux Disease - Immunizations Hx Pneumococcal Vaccination: 11/12/16 Review of Systems - Review of Systems Notes: Constitutional: Positive for subjective fever HENT: Negative for sore throat. Eyes: Negative for visual changes. Cardiovascular: Negative for chest pain. Respiratory: Positive for shortness of breath. Gastrointestinal: Negative for abdominal pain, vomiting or diarrhea. Genitourinary: Negative for dysuria. Musculoskeletal: Negative for back pain. Skin: Negative for rash. Neurological: Negative for headaches, weakness or numbness. 10 point ROS negative except as marked above and in HPI. Physical Exam - Vital signs Vitals: Temp Pulse Resp BP Pulse Ox 99.6 F 108 H 20 127/82 H 93 12/03/17 13:52 12/03/17 13:52 12/03/17 13:52 12/03/17 13:52 12/03/17 13:52 Interpretation: Tachycardic Notes: PHYSICAL EXAMINATION: GENERAL: Appears mildly uncomfortable but no acute distress HEAD: Atraumatic, normocephalic. EYES: Pupils equal round and reactive to light, extraocular movements intact, sclera anicteric, conjunctiva are normal. ENT: nares patent, oropharynx clear without exudates. Moist mucous membranes. NECK: Normal range of motion, supple without lymphadenopathy LUNGS: Breath sounds clear to auscultation bilaterally and equal. No wheezes rales or rhonchi. HEART: Regular tachycardia without murmurs ABDOMEN: Soft, nontender, normoactive bowel sounds. No guarding, no rebound. No masses appreciated. EXTREMITIES: Normal range of motion, no pitting or edema. No cyanosis. NEUROLOGICAL: No focal neurological deficits. Moves all extremities spontaneously and on command. PSYCH: Normal mood, normal affect. SKIN: Warm, Dry, normal turgor, no rashes or lesions noted. Course - Re-evaluation Re-evalutation: 12/03/17 19:14 Patient presents with 1 week of progressively worsening shortness of breath, cough, and generalized malaise. On exam, patient is in no acute distress, vitals are unremarkable with exception of mild tachycardia. Chest x-ray appears to show a left lower lobe infiltrate that was not present on the prior chest x-ray. More concerningly the patient has a prominent leukocytosis which he has had in the past but was not present at time of discharge. Patient does have chronic steroid use which could also account for his prominent leukocytosis. However, patient does have a notable acute kidney injury of which she has no history with a current creatinine of 2.04. He also has an elevated troponin at 0.044 again of which she has no history. EKG without any ischemic changes and he is denying current chest pain but states he has had intermittently over the past 1 week. Will begin empiric treatment for pneumonia , provide IV fluids, repeat troponin, and request hospitalization from the accepting inpatient physician 12/03/17 19:58 I discussed with the hospitalist and he is requesting a repeat troponin. Patient is now wheezing, more tachypnea, saturating 87% on room air. He appears to have a worsening COPD exacerbation. Will begin continuous nebulizers , IV Solu-Medrol, magnesium and reassess 12/03/17 2030 Patient began approximately 20 minutes ago having an acute COPD exacerbation which became much more short of breath, tachypneic, tripoding with extensive wheezing throughout. Nebulizer treatments were provided and patient began to have improvement of symptoms. IV Solu-Medrol has also been ordered as well as IV magnesium. Repeat troponin is downtrending. I discussed with Dr. Borjas who hospitalized patient. - Vital Signs Vital signs: Temp Pulse Resp BP Pulse Ox 99.6 F 108 H 16 119/75 93 12/03/17 13:52 12/03/17 13:52 12/03/17 20:27 12/03/17 20:27 12/03/17 20:27 - Laboratory Result Diagrams: 12/03/17 15:30 12/03/17 15:30 Laboratory results interpreted by me: 12/03/17 12/03/17 12/03/17 15:30 15:30 15:30 WBC 18.8 H Hgb 12.7 L MCV 74 L MCH 24.2 L RDW 19.9 H Seg Neuts % (Manual) 90 H Band Neutrophils % 1 L Lymphocytes % (Manual) 6 L Abs Neuts (Manual) 17.1 H VBG pH 7.45 H VBG pCO2 34.4 L Sodium 135.5 L Creatinine 2.04 H Est GFR ( Amer) 41 L Est GFR (Non-Af Amer) 34 L Glucose 128 H Total Bilirubin 1.4 H Direct Bilirubin 0.8 H Urine Protein Urine Blood Urine Urobilinogen Ur Leukocyte Esterase 12/03/17 15:30 WBC Hgb MCV MCH RDW Seg Neuts % (Manual) Band Neutrophils % Lymphocytes % (Manual) Abs Neuts (Manual) VBG pH VBG pCO2 Sodium Creatinine Est GFR ( Amer) Est GFR (Non-Af Amer) Glucose Total Bilirubin Direct Bilirubin Urine Protein 100 H Urine Blood SMALL H Urine Urobilinogen 4.0 H Ur Leukocyte Esterase TRACE H - Diagnostic Test Radiology reviewed: Image reviewed, Reports reviewed Radiology results interpreted by me: 12/03/17 19:14 Chest x-ray: Left lower lobe infiltrate - EKG Interpretation by Me Additional EKG results interpreted by me: 12/03/17 19:17 Normal sinus rhythm. No ST elevations or depressions. QTC is 419. Rate 89. Discharge - Discharge Clinical Impression: COPD exacerbation, Acute hypoxemic respiratory failure Acute renal failure Qualifiers: Acute renal failure type: unspecified Qualified Code(s): N17.9 - Acute kidney failure, unspecified Condition: Fair Disposition: ADMITTED INPATIENT [facility] Admitted: Telemetry
[2017-12-03] MEDS ORDERED: METHYLPREDNISOLONE INJ 125 MG/2 ML SDV IV ONE (19:58)
[2017-12-03] MEDS ORDERED: IPRATROPIUM/ALBUTEROL 0.5-2.5 MG/3 ML AMPUL NEB ONE (19:58)
[2017-12-03] MEDS ORDERED: CEFTRIAXONE INJ 1000 MG VIAL ONE (20:03)
[2017-12-03] MEDS: MAGNESIUM SULFATE/D5W 1 GM/100 ML RTUPB IV SCH (20:30)
[2017-12-03 21:02] LABS: A TYPE INFLUENZA AG NEGATIVE (NEGATIVE); B INFLUENZA AG NEGATIVE (NEGATIVE)
[2017-12-03] MEDS ORDERED: ACETAMINOPHEN 325 MG TABLET PO PRN (21:21)
[2017-12-03] MEDS ORDERED: HYDRALAZINE HCL INJ/PF 20 MG/1 ML SDV IV PRN (21:21)
[2017-12-03] MEDS ORDERED: IPRATROPIUM/ALBUTEROL 0.5-2.5 MG/3 ML AMPUL NEB PRN (21:21)
[2017-12-03] MEDS ORDERED: GUAIFENESIN SYRP 200 MG/10 ML UDC PO PRN (21:21)
[2017-12-03] MEDS ORDERED: HEPARIN SOD (PORCINE) 5,000 UNIT/ML 1 ML SYRINGE SUBCUT SCH (22:00)
[2017-12-03] MEDS ORDERED: CHLORPHENIRAMINE MALEATE 4 MG TABLET PO ONE (23:00)
[2017-12-03] MEDS ORDERED: LACTULOSE SYRUP 20 GM/30 ML UDCUP PO ONE (23:00)
[2017-12-03] MEDS ORDERED: AZITHROMYCIN 500 MG in DEXTROSE 5%-WATER 250 ML IV ONE (23:30)
--- NOTE | 2017-12-03 23:34 | EKG REPORT ---
SEVERITY:- ABNORMAL ECG - SINUS RHYTHM NONSPECIFIC T ABNORMALITIES, INFERIOR LEADS : Confirmed by: Herson Stanton 03-Dec-2017 23:34:34
[2017-12-03] MEDS ORDERED: LANSOPRAZOLE 30 MG TAB.RAP.DR PO ONE (23:45)
[2017-12-04] MEDS: GUAIFENESIN 600 MG TABLET.SA PO SCH ×3 (00:18→22:50)
[2017-12-04] MEDS: HEPARIN SOD (PORCINE) 5,000 UNIT/ML 1 ML SYRINGE SUBCUT SCH ×4 (00:19→22:53)
[2017-12-04] MEDS: FLUTICASONE NASAL SPRAY 50 MCG/SPRY 120 SPRAY/16 GM NASL SCH ×3 (00:21→23:08)
[2017-12-04] MEDS: MAGNESIUM SULFATE/D5W 1 GM/100 ML RTUPB IV SCH (00:21)
[2017-12-04] MEDS: NORMAL SALINE 1000 ML 1,000 ML IV SCH ×2 (00:21→06:28)
[2017-12-04] MEDS: IPRATROPIUM/ALBUTEROL 0.5-2.5 MG/3 ML AMPUL NEB SCH ×4 (01:53→19:43)
[2017-12-04 03:05] LABS: CREATINE KINASE MB 2.21 ng/mL (<4.55); TROPONIN I 0.012 ng/mL
[2017-12-04] MEDS ORDERED: METHYLPREDNISOLONE INJ 125 MG/2 ML SDV IV SCH (06:00)
[2017-12-04] MEDS: LANSOPRAZOLE 30 MG TAB.RAP.DR PO SCH ×2 (06:29→16:37)
--- NOTE | 2017-12-04 07:31 | PDOC H&P ---
History of Present Illness Admission Date/PCP: 12/03/17 21:22 Patient complains of: Shortness of breath History of Present Illness: SHONDA HUERTA is a 57 year old male with a past medical history of prednisone dependent COPD, obstructive sleep apnea, pulmonary emboli on Xarelto, hypertension, hyperlipidemia and uncontrolled GERD. She presents after 48 hours of worsening shortness of breath and cough exacerbated at night after lying down. In the emergency room he is found to be tachycardic, tachypneic with oxygen saturations of 86%, leukocytosis of 18,000 and acute renal failure with a creatinine of 2.0. He started on empiric antibiotics, albuterol and Atrovent and referred to the hospitalist for admission. Patient denies recent change in medications. Past Medical History Cardiac Medical History: Reports: Hyperlipidema, Hypertension Pulmonary Medical History: Reports: Bronchitis, Chronic Obstructive Pulmonary Disease (COPD), Sleep Apnea GI Medical History: Reports: Gastroesophageal Reflux Disease Social History Information Source: Patient, [facility] Records Lives with: Spouse/Significant other Smoking Status: Never Smoker Frequency of Alcohol Use: None Hx Recreational Drug Use: No Drugs: None Hx Prescription Drug Abuse: No Family History Family History: COPD, Hypertension Parental Family History Reviewed: Yes Children Family History Reviewed: Yes Sibling(s) Family History Reviewed.: Yes Medication/Allergy Home Medications: Albuterol Sulfate [Ventolin 0.083% Neb 2.5 mg/3 ml Ampul] 2.5 mg NEB [id number] PRN 12/03/17 Amlodipine Besylate [Norvasc 5 mg Tablet] 5 mg PO DAILY 12/03/17 Gabapentin [Neurontin 300 mg Capsule] 300 mg PO QHS 12/03/17 Hydrochlorothiazide [Hydrodiuril 25 mg Tablet] 25 mg PO QAM 12/03/17 Lovastatin 40 mg PO WSUPPER 12/03/17 Montelukast Sodium [Singulair 10 mg Tablet] 10 mg PO QHS 12/03/17 Omeprazole 40 mg PO QAM 12/03/17 Potassium Chloride [Klor-Con 10 Meq Tablet.sa] 10 meq PO [id number] 12/03/17 Prednisone [Deltasone 10 mg Tablet] 10 mg PO DAILY 12/03/17 Rivaroxaban [Xarelto 10 mg Tablet] 20 mg PO WSUPPER 12/03/17 Tamsulosin HCl [Flomax 0.4 mg Cap.sr] 0.4 mg PO DAILY 12/03/17 Tiotropium [place] [Spiriva Handihaler 5 Cap/Kit (18 Mcg/Cap)] 1 cap IH DAILY Tramadol HCl [Ultram 50 mg Tablet] 50 mg PO Q12 12/03/17 Allergies/Adverse Reactions: No Known Allergies Allergy (Verified 12/03/17 14:30) Review of Systems Constitutional: PRESENT: as per HPI, fatigue Eyes: ABSENT: visual disturbances Ears: ABSENT: hearing changes Cardiovascular: ABSENT: chest pain, dyspnea on exertion, edema, orthropnea, palpitations Respiratory: PRESENT: as per HPI, cough, dyspnea. ABSENT: sputum Gastrointestinal: PRESENT: as per HPI, constipation, heartburn. ABSENT: abdominal pain, diarrhea, hematemesis, hematochezia, nausea, vomiting Genitourinary: ABSENT: dysuria, hematuria Musculoskeletal: PRESENT: back pain. ABSENT: joint swelling Integumentary: ABSENT: rash, wounds Neurological: ABSENT: abnormal gait, abnormal speech, confusion, dizziness, focal weakness, syncope Psychiatric: ABSENT: anxiety, depression, homidical ideation, suicidal ideation Endocrine: ABSENT: cold intolerance, heat intolerance, polydipsia, polyuria Hematologic/Lymphatic: ABSENT: easy bleeding, easy bruising Physical Exam Vital Signs: Temp Pulse Resp BP Pulse Ox 99.6 F 80 17 113/81 94 12/03/17 13:52 12/04/17 01:53 12/04/17 07:00 12/04/17 07:00 12/04/17 07:00 General appearance: PRESENT: cooperative, mild distress Head exam: PRESENT: atraumatic, normocephalic Eye exam: PRESENT: conjunctiva pink, EOMI, PERRLA. ABSENT: scleral icterus Ear exam: PRESENT: normal external ear exam Mouth exam: PRESENT: moist, tongue midline Neck exam: ABSENT: carotid bruit, JVD, lymphadenopathy, thyromegaly Respiratory exam: PRESENT: accessory muscle use, clear to auscultation andie, crackles, prolonged expiratory phas, rales, retraction, tachypnea. ABSENT: rhonchi, wheezes Cardiovascular exam: PRESENT: RRR. ABSENT: diastolic murmur, rubs, systolic murmur Pulses: PRESENT: normal dorsalis pedis pul Vascular exam: PRESENT: normal capillary refill GI/Abdominal exam: PRESENT: normal bowel sounds, soft. ABSENT: distended, guarding, mass, organolmegaly, rebound, tenderness Rectal exam: PRESENT: deferred Extremities exam: PRESENT: full ROM. ABSENT: calf tenderness, clubbing, pedal edema Neurological exam: PRESENT: alert, awake, oriented to person, oriented to place , oriented to time, oriented to situation, CN II-XII grossly intact. ABSENT: motor sensory deficit Psychiatric exam: PRESENT: appropriate affect, normal mood. ABSENT: homicidal ideation, suicidal ideation Skin exam: PRESENT: dry, intact, warm. ABSENT: cyanosis, rash Results Laboratory Results: 12/04/17 12/04/17 02:25 02:25 Creatine Kinase 114 CK-MB (CK-2) 2.21 Troponin I 0.012 Impressions: Chest X-Ray 12/03/17 14:42 IMPRESSION: Linear atelectatic markings lung bases. Lungs otherwise clear. Assessment & Plan - Diagnosis (1) Acute hypoxemic respiratory failure Is this a current diagnosis for this admission?: Yes Plan: Likely secondary to uncontrolled GERD with aspiration pneumonitis. Empiric antibiotics, supplemental oxygen and BiPAP albuterol and Atrovent, flutter valve , incentive spirometry and prednisone ordered (2) Acute renal failure Qualifiers: Acute renal failure type: unspecified Qualified Code(s): N17.9 - Acute kidney failure, unspecified Is this a current diagnosis for this admission?: Yes Plan: Unclear cause. Allopurinol held, avoiding nephrotoxic meds and doses reevaluate chemistry. (3) COPD exacerbation Is this a current diagnosis for this admission?: Yes Plan: Please see #1 (4) Anticoagulated Is this a current diagnosis for this admission?: Yes Plan: Continue Xarelto at renal dose (5) GERD (gastroesophageal reflux disease) Is this a current diagnosis for this admission?: Yes Plan: Proton pump inhibitor twice daily and education (6) Obstructive sleep apnea Is this a current diagnosis for this admission?: Yes Plan: BiPAP - Time Time Spent: 50 to 70 Minutes - Inpatient Certification Medical Necessity: Need Close Monitoring Due to Risk of Patient Decompensation
[2017-12-04 08:22] LABS: HEMATOCRIT 36.4 % (37.9-51.0); HEMOGLOBIN 11.8 g/dL (13.5-17.0); MEAN CORPUSCULAR HEMOGLOBIN 24.3 pg (27.0-33.4); MEAN CORPUSCULAR HGB CONC 32.4 g/dL (32.0-36.0); MEAN CORPUSCULAR VOLUME 75 fl (80-97); PLATELET COUNT 149 10^3/uL (150-450); RED BLOOD COUNT 4.85 10^6/uL (4.35-5.55); RED CELL DISTRIBUTION WIDTH 19.9 % (11.5-14.0); WHITE BLOOD COUNT 14.4 10^3/uL (4.0-10.5)
[2017-12-04 08:41] LABS: ANION GAP 14 (5-19); BLOOD UREA NITROGEN 18 mg/dL (7-20); CALCIUM 8.1 mg/dL (8.4-10.2); CARBON DIOXIDE 21 mmol/L (22-30); CHLORIDE 103 mmol/L (98-107); GLUCOSE 190 mg/dL (75-110); POTASSIUM 4.4 mmol/L (3.6-5.0); SODIUM 137.8 mmol/L (137-145)
[2017-12-04 08:47] LABS: ABSOLUTE LYMPHOCYTES# (MANUAL) 0.3 10^3/uL (0.5-4.7); ABSOLUTE NEUTROPHILS# (MANUAL) 14.1 10^3/uL (1.7-8.2); BASOPHILS % (MANUAL) 0 % (0-2); EOSINOPHILS % (MANUAL) 0 % (0-6); LYMPHOCYTES % (MANUAL) 2 % (13-45); MONOCYTES % (MANUAL) 0 % (3-13); NUCLEATED RED BLOOD CELLS 1 /100 WBC (0); SEGMENTED NEUTROPHILS % (MAN) 98 % (42-78); TOTAL CELLS COUNTED 100
[2017-12-04 08:48] LABS: ANISOCYTOSIS 2+
[2017-12-04 08:49] LABS: PLATELET COMMENT ADEQUATE; POLYCHROMASIA SLIGHT; TOXIC GRANULATION SLIGHT
[2017-12-04 08:53] LABS: CREATINE KINASE MB 2.62 ng/mL (<4.55)
[2017-12-04 08:57] LABS: TROPONIN I < 0.012 ng/mL
[2017-12-04] MEDS ORDERED: CEFTRIAXONE 1 GM/D5W RTU 1 GM/50 ML RTUPB IV SCH (10:00)
[2017-12-04] MEDS: CEFTRIAXONE SODIUM 1,000 MG in DEXTROSE 5%-WATER 50 ML IV SCH (10:42)
[2017-12-04] MEDS: METHYLPREDNISOLONE INJ 125 MG/2 ML SDV IV SCH ×2 (14:14→22:51)
--- NOTE | 2017-12-04 14:43 | Physician Advisory Note ---
Physician Advisor ProgressNote .: Pursuant to the plan for Faye Moe, I have reviewed the medical record for this patient. Physician Advisor Statement: Nice documentation of Acute Respiratory Failure w/associated hypoxemia 87% RA & accessory muscle use in ED note & H&P. Please consider documenting, if you agree: 1. "Possible LLL pneumonia, suspect type [gram-neg? aspiration? gram- pos?], & evidenced by " - Tachypnea, tachycardia, hypoxemia, LLL infiltrate on CXR are documented in H &P. - Please also state if pt had fever, cough, KRISHNAN, pleuritic CP, sputum, chills , other evidence? - If pt's PNA is "healthcare-acquired", it is likely to be gram-neg. (A PNA that is "Hospital-acquired" developed AFTER admission, & raises risk mgmt concerns.) 2. Do you feel pt's leukocytosis on arrival this adm is due to A. acute pneumonia, or due to B. acute bronchitis, or due to C. steroid tx? (Uses prednisone 10mg daily, was given 3 days of 30mg 1 1/ 2 weeks before this adm at end of a COPD exacerbation adm.) 3. Medical necessity: please document each day the clinical reasons pt unable to be safely d/c'd before that night, such as: "respiratory status not yet back to baseline", continuing to need O2 & intermittent Bipap this AM", "I AM CONCERNED about ", ... Status: Pt with worsening outpt despite nebs tx & po steroids, with new hypoxemia/acute resp failure, multiple concerning co-morbidities, requiring frequent nebs & ongoing IV steroids. Still w/KRISHNAN, cough, wheezing, & needing Bipap this AM. Highly unlikely to be considered safe for d/c before a 2nd MN. Appropriate for Inpt status if attending agrees. Thanks! GUSTAVO
[2017-12-04 15:31] LABS: CREATINE KINASE MB 3.14 ng/mL (<4.55)
[2017-12-04 15:33] LABS: TROPONIN I < 0.012 ng/mL
--- NOTE | 2017-12-04 16:17 | PDOC PROGRESS REPORT ---
Subjective Progress Note for:: 12/04/17 Subjective:: Patient is a 57-year-old male with a history of steroid-dependent COPD, obstructive sleep apnea, pulmonary emboli on Xarelto, hypertension, hyperlipidemia, uncontrolled GERD presenting with COPD exacerbation. Patient states he feels much better however he continues to have cough. He no longer has chest pain associated with cough. Patient says the cough is intermittently productive of clear sputum. Reason For Visit: COPD EXACERBATION ACUTE BRONCHITIS ARF Physical Exam Vital Signs: Temp Pulse Resp BP Pulse Ox 99.6 F 88 18 113/81 96 12/03/17 13:52 12/04/17 13:59 12/04/17 13:59 12/04/17 07:00 12/04/17 13:59 General appearance: PRESENT: no acute distress, well-developed, well-nourished Head exam: PRESENT: normocephalic Eye exam: PRESENT: EOMI. ABSENT: scleral icterus Ear exam: PRESENT: normal external ear exam Mouth exam: PRESENT: moist Neck exam: ABSENT: carotid bruit, JVD, lymphadenopathy, thyromegaly Respiratory exam: PRESENT: clear to auscultation andie, decreased breath sounds, tachypnea, other - Cough with deep breath nasal cannula in place. ABSENT: rales , rhonchi, unlabored, wheezes Cardiovascular exam: PRESENT: RRR. ABSENT: diastolic murmur, rubs, systolic murmur Pulses: PRESENT: normal dorsalis pedis pul Vascular exam: PRESENT: normal capillary refill GI/Abdominal exam: PRESENT: normal bowel sounds, soft. ABSENT: distended, guarding, mass, organolmegaly, rebound, tenderness Rectal exam: PRESENT: deferred Extremities exam: PRESENT: full ROM. ABSENT: calf tenderness, clubbing, pedal edema Neurological exam: PRESENT: alert, awake, oriented to person, oriented to place , oriented to time, oriented to situation, CN II-XII grossly intact. ABSENT: motor sensory deficit Psychiatric exam: PRESENT: appropriate affect, normal mood. ABSENT: homicidal ideation, suicidal ideation Skin exam: PRESENT: dry, intact, warm. ABSENT: cyanosis, rash Results Laboratory Results: 12/04/17 07:59 12/04/17 07:59 12/04/17 12/04/17 07:59 07:59 WBC 14.4 H RBC 4.85 Hgb 11.8 L Hct 36.4 L MCV 75 L MCH 24.3 L MCHC 32.4 RDW 19.9 H Plt Count 149 L Seg Neutrophils % Not Reportable Lymphocytes % Not Reportable Monocytes % Not Reportable Eosinophils % Not Reportable Basophils % Not Reportable Absolute Neutrophils Not Reportable Absolute Lymphocytes Not Reportable Absolute Monocytes Not Reportable Absolute Eosinophils Not Reportable Absolute Basophils Not Reportable Sodium 137.8 Potassium 4.4 Chloride 103 Carbon Dioxide 21 L Anion Gap 14 BUN 18 Creatinine 1.22 Est GFR ( Amer) > 60 Est GFR (Non-Af Amer) > 60 Glucose 190 H Calcium 8.1 L 12/04/17 12/04/17 12/04/17 02:25 02:25 07:59 Creatine Kinase 114 105 CK-MB (CK-2) 2.21 Troponin I 0.012 12/04/17 12/04/17 12/04/17 07:59 14:17 14:17 Creatine Kinase 107 CK-MB (CK-2) 2.62 3.14 Troponin I < 0.012 < 0.012 Impressions: Chest X-Ray 12/03/17 14:42 IMPRESSION: Linear atelectatic markings lung bases. Lungs otherwise clear. Assessment & Plan - Diagnosis (1) Acute hypoxemic respiratory failure Is this a current diagnosis for this admission?: Yes Plan: There is COPD exacerbation. Continue Solu-Medrol azithromycin, ceftriaxone, Pulmicort Singulair and nebulizers. Patient Solu-Medrol decreased to 125 mg to 60 mg 3 times daily. Will wean oxygen as tolerated. Note that patient is not on oxygen at home. (2) Acute renal failure Qualifiers: Acute renal failure type: unspecified Qualified Code(s): N17.9 - Acute kidney failure, unspecified Is this a current diagnosis for this admission?: Yes Plan: Most likely prerenal as patient creatinine improved from 2.04 down to 1.22 with IV hydration. We will continue to monitor. (3) COPD exacerbation Is this a current diagnosis for this admission?: Yes Plan: Patient with COPD exacerbation. Patient with productive cough, chest tenderness associated with coughing and shortness of breath. The symptoms are gradually improving. Patient does have coughing with deep inhalation. Patient most likely has an acute viral bronchitis. Patient being treated with antibiotic, steroids, nebulizers and antihistamines. Patient being given as needed antitussives. (4) Anticoagulated Is this a current diagnosis for this admission?: Yes Plan: She is on Xarelto for history of pulmonary embolism. (5) GERD (gastroesophageal reflux disease) Is this a current diagnosis for this admission?: Yes Plan: Patient on Prevacid twice daily. Will also start patient on Tums. (6) Obstructive sleep apnea Is this a current diagnosis for this admission?: Yes Plan: BiPAP at night and as needed during the day. - Time Time Spent with patient: 15-24 minutes Anticipated discharge: Home Within: within 72 hours - Inpatient Certification Medical Necessity: Need for Nebulizer Therapy and Monitoring of Response, Need for IV Antibiotics - Patient still on oxygen. Patient is not on oxygen at his baseline. Will wean patient off of oxygen prior to discharge.
[2017-12-04] MEDS: CALCIUM CARBONATE 500 MG TAB.CHEW PO SCH ×2 (16:37→22:51)
[2017-12-04] MEDS: BUDESONIDE NEB 0.5 MG/2 ML AMPUL NEB SCH (19:43)
[2017-12-04] MEDS ORDERED: TRAMADOL HCL 50 MG TABLET PO PRN (21:28)
[2017-12-04] MEDS ORDERED: MAGNESIUM CITRATE 296 ML BOTTLE PO ONE (21:45)
[2017-12-04] MEDS ORDERED: AZITHROMYCIN 500 MG in DEXTROSE 5%-WATER 250 ML IV SCH (22:00)
[2017-12-04] MEDS: MONTELUKAST SODIUM 10 MG TABLET PO SCH (22:51)
[2017-12-05] MEDS: IPRATROPIUM/ALBUTEROL 0.5-2.5 MG/3 ML AMPUL NEB SCH ×4 (01:54→19:39)
[2017-12-05] MEDS: HEPARIN SOD (PORCINE) 5,000 UNIT/ML 1 ML SYRINGE SUBCUT SCH ×2 (05:37→14:18)
[2017-12-05] MEDS: LANSOPRAZOLE 30 MG TAB.RAP.DR PO SCH ×2 (06:12→16:30)
[2017-12-05] MEDS: METHYLPREDNISOLONE INJ 125 MG/2 ML SDV IV SCH ×2 (06:12→14:18)
[2017-12-05] MEDS: BUDESONIDE NEB 0.5 MG/2 ML AMPUL NEB SCH ×2 (08:34→19:39)
[2017-12-05] MEDS: GUAIFENESIN 600 MG TABLET.SA PO SCH ×2 (09:25→21:35)
[2017-12-05] MEDS: FLUTICASONE NASAL SPRAY 50 MCG/SPRY 120 SPRAY/16 GM NASL SCH ×2 (09:25→21:29)
[2017-12-05] MEDS: CALCIUM CARBONATE 500 MG TAB.CHEW PO SCH ×4 (09:25→21:25)
[2017-12-05] MEDS: CEFTRIAXONE SODIUM 1,000 MG in DEXTROSE 5%-WATER 50 ML IV SCH (09:26)
[2017-12-05] MEDS ORDERED: METHYLPREDNISOLONE INJ 125 MG/2 ML SDV IV SCH (15:26)
--- NOTE | 2017-12-05 15:40 | PDOC PROGRESS REPORT ---
Subjective Progress Note for:: 12/05/17 Subjective:: Patient is a 57-year-old male with a history of steroid-dependent COPD, obstructive sleep apnea, pulmonary emboli on Xarelto, hypertension, hyperlipidemia, uncontrolled GERD presenting with COPD exacerbation. Patient states that the breathing is much better however he has severe lower back pain. Patient states that he has osteoporosis as a result of chronic steroid use for his COPD. Reason For Visit: COPD EXACERBATION ACUTE BRONCHITIS ARF Physical Exam Vital Signs: Temp Pulse Resp BP Pulse Ox 97.8 F 79 16 129/81 H 94 12/05/17 11:23 12/05/17 14:00 12/05/17 13:52 12/05/17 11:23 12/05/17 13:52 Intake & Output 12/04/17 12/05/17 12/06/17 06:59 06:59 06:59 Intake Total 605 Balance 605 Weight 84 kg General appearance: PRESENT: no acute distress, well-developed, well-nourished Head exam: PRESENT: normocephalic, other - full face Eye exam: PRESENT: EOMI. ABSENT: scleral icterus Ear exam: PRESENT: normal external ear exam Mouth exam: PRESENT: moist, tongue midline Neck exam: ABSENT: carotid bruit, JVD, lymphadenopathy, thyromegaly Respiratory exam: PRESENT: clear to auscultation andie. ABSENT: rales, rhonchi, wheezes Cardiovascular exam: PRESENT: RRR. ABSENT: diastolic murmur, rubs, systolic murmur Pulses: PRESENT: normal dorsalis pedis pul Vascular exam: PRESENT: normal capillary refill GI/Abdominal exam: PRESENT: normal bowel sounds, soft. ABSENT: distended, guarding, mass, organolmegaly, rebound, tenderness Rectal exam: PRESENT: deferred Extremities exam: PRESENT: full ROM. ABSENT: calf tenderness, clubbing, pedal edema Neurological exam: PRESENT: alert, awake, oriented to person, oriented to place , oriented to time, oriented to situation, CN II-XII grossly intact. ABSENT: motor sensory deficit Psychiatric exam: PRESENT: appropriate affect, normal mood. ABSENT: homicidal ideation, suicidal ideation Skin exam: PRESENT: dry, intact, warm. ABSENT: cyanosis, rash Results Laboratory Results: 12/04/17 07:59 12/04/17 07:59 12/04/17 12/04/1712/04/18 02:25 02:25 07:59 Creatine Kinase 114 105 CK-MB (CK-2) 2.21 Troponin I 0.012 12/04/17 12/04/17 12/04/17 07:59 14:17 14:17 Creatine Kinase 107 CK-MB (CK-2) 2.62 3.14 Troponin I < 0.012 < 0.012 Impressions: Chest X-Ray 12/03/17 14:42 IMPRESSION: Linear atelectatic markings lung bases. Lungs otherwise clear. Assessment & Plan - Diagnosis (1) Acute hypoxemic respiratory failure Is this a current diagnosis for this admission?: Yes Plan: Due due COPD exacerbation. Continue Solu-Medrol azithromycin, ceftriaxone, Pulmicort Singulair and nebulizers. Continue to wean steroids. Patient is doing much better. Patient not requiring oxygen or the bipap as much. Patient is feeling better. (2) Acute renal failure Qualifiers: Acute renal failure type: unspecified Qualified Code(s): N17.9 - Acute kidney failure, unspecified Is this a current diagnosis for this admission?: Yes Plan: Resolved with IV hydration. (3) COPD exacerbation Is this a current diagnosis for this admission?: Yes Plan: Patient with COPD exacerbation. Please refer to management under hypoxic respiratory failure. (4) Anticoagulated Is this a current diagnosis for this admission?: Yes Plan: Continue on xarelto. (5) GERD (gastroesophageal reflux disease) Is this a current diagnosis for this admission?: Yes Plan: Patient on Prevacid twice daily. Continue tums. Stable. (6) Obstructive sleep apnea Is this a current diagnosis for this admission?: Yes Plan: BiPAP at night and as needed during the day. (7) Chronic back pain Qualifiers: Back pain location: low back pain Sciatica laterality: sciatica laterality unspecified Is this a current diagnosis for this admission?: Yes Plan: Patient complains of chronic back pain. He states that the tramadol is not helping. Patient states that his bone are destroyed from being on steroids for such a long time. Patient continued on tramadol scheduled with the addition of gabapetin, baclofen and PRN percocet. - Time Time Spent with patient: 15-24 minutes Anticipated discharge: Home Within: within 48 hours - Inpatient Certification Medical Necessity: Need For Continuous Telemetry Monitoring, Need for Nebulizer Therapy and Monitoring of Response, Need for Pain Control
[2017-12-05] MEDS: RIVAROXABAN 10 MG TABLET PO SCH (16:28)
[2017-12-05] MEDS: BACLOFEN 10 MG TABLET PO SCH (17:44)
[2017-12-05] MEDS: OXYCODONE-ACETAMINOPHEN 5-325 MG TABLET PO PRN (17:44)
[2017-12-05] MEDS ORDERED: BACLOFEN 20 MG TABLET PO SCH (18:00)
[2017-12-05] MEDS: TRAMADOL HCL 50 MG TABLET PO SCH (21:26)
[2017-12-05] MEDS: MONTELUKAST SODIUM 10 MG TABLET PO SCH (21:27)
[2017-12-05] MEDS: GABAPENTIN 300 MG CAPSULE PO SCH (21:27)
[2017-12-05] MEDS: METHYLPREDNISOLONE INJ 40 MG/1 ML SDV IV SCH (21:28)
[2017-12-05] MEDS ORDERED: AZITHROMYCIN 250 MG TABLET PO SCH (22:00)
[2017-12-06] MEDS: IPRATROPIUM/ALBUTEROL 0.5-2.5 MG/3 ML AMPUL NEB SCH ×4 (02:06→19:47)
[2017-12-06] MEDS: METHYLPREDNISOLONE INJ 40 MG/1 ML SDV IV SCH (05:10)
[2017-12-06] MEDS: LANSOPRAZOLE 30 MG TAB.RAP.DR PO SCH ×2 (05:11→16:25)
[2017-12-06] MEDS: TRAMADOL HCL 50 MG TABLET PO SCH ×3 (05:11→22:05)
[2017-12-06] MEDS: CALCIUM CARBONATE 500 MG TAB.CHEW PO SCH ×4 (08:15→22:03)
[2017-12-06] MEDS: BUDESONIDE NEB 0.5 MG/2 ML AMPUL NEB SCH ×2 (08:39→19:47)
[2017-12-06] MEDS: GABAPENTIN 300 MG CAPSULE PO SCH ×2 (09:04→22:04)
[2017-12-06] MEDS: BACLOFEN 10 MG TABLET PO SCH ×2 (09:04→17:42)
[2017-12-06] MEDS: FLUTICASONE NASAL SPRAY 50 MCG/SPRY 120 SPRAY/16 GM NASL SCH ×2 (09:05→22:04)
[2017-12-06] MEDS: GUAIFENESIN 600 MG TABLET.SA PO SCH ×2 (09:05→22:04)
[2017-12-06] MEDS ORDERED: LEVOFLOXACIN 500 MG TABLET PO SCH (10:00)
[2017-12-06] MEDS: RIVAROXABAN 10 MG TABLET PO SCH (16:25)
[2017-12-06] MEDS: OXYCODONE-ACETAMINOPHEN 5-325 MG TABLET PO PRN (16:26)
[2017-12-06] MEDS: MONTELUKAST SODIUM 10 MG TABLET PO SCH (22:04)
[2017-12-07] MEDS: IPRATROPIUM/ALBUTEROL 0.5-2.5 MG/3 ML AMPUL NEB SCH ×3 (02:00→13:40)
[2017-12-07] MEDS: LANSOPRAZOLE 30 MG TAB.RAP.DR PO SCH ×2 (05:21→17:13)
[2017-12-07] MEDS: TRAMADOL HCL 50 MG TABLET PO SCH ×2 (05:21→13:15)
[2017-12-07] MEDS: BUDESONIDE NEB 0.5 MG/2 ML AMPUL NEB SCH (08:07)
[2017-12-07] MEDS: CALCIUM CARBONATE 500 MG TAB.CHEW PO SCH ×3 (08:33→17:13)
[2017-12-07] MEDS ORDERED: PREDNISONE 20 MG TABLET PO SCH (10:00)
[2017-12-07] MEDS ORDERED: GABAPENTIN 300 MG CAPSULE PO SCH (10:00)
[2017-12-07] MEDS: GUAIFENESIN 600 MG TABLET.SA PO SCH (10:19)
[2017-12-07] MEDS: BACLOFEN 10 MG TABLET PO SCH (10:19)
[2017-12-07] MEDS: FLUTICASONE NASAL SPRAY 50 MCG/SPRY 120 SPRAY/16 GM NASL SCH (10:22)
[2017-12-07 10:37] LABS: HEMATOCRIT 37.7 % (37.9-51.0); HEMOGLOBIN 12.1 g/dL (13.5-17.0); MEAN CORPUSCULAR HEMOGLOBIN 24.6 pg (27.0-33.4); MEAN CORPUSCULAR HGB CONC 32.1 g/dL (32.0-36.0); MEAN CORPUSCULAR VOLUME 76 fl (80-97); PLATELET COUNT 190 10^3/uL (150-450); RED BLOOD COUNT 4.93 10^6/uL (4.35-5.55); WHITE BLOOD COUNT 9.6 10^3/uL (4.0-10.5)
[2017-12-07 10:50] LABS: ANION GAP 10 (5-19); BLOOD UREA NITROGEN 18 mg/dL (7-20); CALCIUM 9.7 mg/dL (8.4-10.2); CARBON DIOXIDE 28 mmol/L (22-30); CHLORIDE 105 mmol/L (98-107); GLUCOSE 124 mg/dL (75-110); MAGNESIUM 2.2 mg/dL (1.6-2.3); POTASSIUM 3.9 mmol/L (3.6-5.0); SODIUM 142.5 mmol/L (137-145)
[2017-12-07 10:58] LABS: ABSOLUTE LYMPHOCYTES# (MANUAL) 1.3 10^3/uL (0.5-4.7); ABSOLUTE MONOCYTES # (MANUAL) 0.6 10^3/uL (0.1-1.4); ABSOLUTE NEUTROPHILS# (MANUAL) 7.7 10^3/uL (1.7-8.2); BAND NEUTROPHILS % (MANUAL) 1 % (3-5); BASOPHILS % (MANUAL) 0 % (0-2); EOSINOPHILS % (MANUAL) 0 % (0-6); LYMPHOCYTES % (MANUAL) 10 % (13-45); MONOCYTES % (MANUAL) 6 % (3-13); SEGMENTED NEUTROPHILS % (MAN) 79 % (42-78); TOTAL CELLS COUNTED 100
[2017-12-07 10:59] LABS: ANISOCYTOSIS 2+; OVALOCYTES 1+; PLATELET COMMENT ADEQUATE; POIKILOCYTOSIS 1+
[2017-12-07 15:16] VITALS: BP 116/75
[2017-12-07] MEDS: OXYCODONE-ACETAMINOPHEN 5-325 MG TABLET PO PRN (15:39)
[2017-12-07] MEDS: RIVAROXABAN 10 MG TABLET PO SCH (17:13)
--- NOTE | 2017-12-08 11:43 | PDOC PROGRESS REPORT ---
Subjective Progress Note for:: 12/06/17 Subjective:: Patient is a 57-year-old male with a history of steroid-dependent COPD, obstructive sleep apnea, pulmonary emboli on Xarelto, hypertension, hyperlipidemia, uncontrolled GERD presenting with COPD exacerbation. Patient states that he still really short of breath with activity. Explained to patient that he cannot be discharged if his breathing is not close to baseline. Patient still continues to have back pain. Reason For Visit: COPD EXACERBATION ACUTE BRONCHITIS ARF Physical Exam Vital Signs: Temp Pulse Resp BP Pulse Ox 97.7 F 81 16 116/75 99 12/06/17 16:00 12/06/17 16:00 12/06/17 16:00 12/06/17 16:00 12/06/17 16:00 Intake & Output 12/05/17 12/06/17 12/07/17 06:59 06:59 06:59 Intake Total 605 1822 1080 Balance 605 1822 1080 Weight 84 kg 85.4 kg General appearance: PRESENT: no acute distress, well-developed, well-nourished Head exam: PRESENT: normocephalic Eye exam: PRESENT: EOMI. ABSENT: scleral icterus Mouth exam: PRESENT: moist Neck exam: ABSENT: carotid bruit, JVD, lymphadenopathy, thyromegaly Respiratory exam: PRESENT: clear to auscultation andie, wheezes - mild intermittent wheezing. ABSENT: rales, rhonchi Cardiovascular exam: PRESENT: RRR. ABSENT: diastolic murmur, rubs, systolic murmur Pulses: PRESENT: normal dorsalis pedis pul Vascular exam: PRESENT: normal capillary refill GI/Abdominal exam: PRESENT: normal bowel sounds, soft. ABSENT: distended, guarding, mass, organolmegaly, rebound, tenderness Rectal exam: PRESENT: deferred Extremities exam: PRESENT: full ROM. ABSENT: calf tenderness, clubbing, pedal edema Neurological exam: PRESENT: alert, awake, oriented to person, oriented to place , oriented to time, oriented to situation, CN II-XII grossly intact. ABSENT: motor sensory deficit Psychiatric exam: PRESENT: appropriate affect, normal mood. ABSENT: homicidal ideation, suicidal ideation Skin exam: PRESENT: dry, intact, warm. ABSENT: cyanosis, rash Results Laboratory Results: 12/04/17 07:59 12/04/17 07:59 12/04/17 12/04/1712/04/18 02:25 02:25 07:59 Creatine Kinase 114 105 CK-MB (CK-2) 2.21 Troponin I 0.012 12/04/17 12/04/17 12/04/17 07:59 14:17 14:17 Creatine Kinase 107 CK-MB (CK-2) 2.62 3.14 Troponin I < 0.012 < 0.012 Impressions: Chest X-Ray 12/03/17 14:42 IMPRESSION: Linear atelectatic markings lung bases. Lungs otherwise clear. Assessment & Plan - Diagnosis (1) Acute hypoxemic respiratory failure Is this a current diagnosis for this admission?: Yes Plan: Due due COPD exacerbation. Continue Solu-Medrol azithromycin, ceftriaxone, Pulmicort Singulair and nebulizers. Continue to wean steroids. Patient is doing much better. Patient no longer on BiPAP. Patient is on supplemental oxygen. Patient still very short of breath with ambulation. (2) Acute renal failure Qualifiers: Acute renal failure type: unspecified Qualified Code(s): N17.9 - Acute kidney failure, unspecified Is this a current diagnosis for this admission?: Yes Plan: Resolved with IV hydration. (3) COPD exacerbation Is this a current diagnosis for this admission?: Yes Plan: Patient with COPD exacerbation. Please refer to management under hypoxic respiratory failure. (4) Anticoagulated Is this a current diagnosis for this admission?: Yes Plan: Continue on xarelto. (5) GERD (gastroesophageal reflux disease) Is this a current diagnosis for this admission?: Yes Plan: Patient on Prevacid twice daily. Continue tums. Stable. (6) Obstructive sleep apnea Is this a current diagnosis for this admission?: Yes Plan: BiPAP at night and as needed during the day. (7) Chronic back pain Qualifiers: Back pain location: low back pain Sciatica laterality: sciatica laterality unspecified Is this a current diagnosis for this admission?: Yes Plan: Patient complains of chronic back pain. He states that the tramadol is not helping. Patient states that his bone are destroyed from being on steroids for such a long time. Continue current management. - Time Time Spent with patient: Less than 15 minutes Anticipated discharge: Home Within: within 24 hours - Inpatient Certification Medical Necessity: Need for Nebulizer Therapy and Monitoring of Response, Risk of Complication if Not Cared For in Hospital - Patient states still significantly short of breath with activity. This is not patient's baseline. Will continue therapy and follow-up in the morning.
--- NOTE | 2017-12-08 15:03 | PDOC DISCHARGE SUMMARY ---
General - Admit/Disc Date/PCP Admission Date/Primary Care Provider: 12/03/17 21:22 Discharge Date: 12/08/17 - Discharge Diagnosis (1) Acute hypoxemic respiratory failure Is this a current diagnosis for this admission?: Yes (2) Acute renal failure Is this a current diagnosis for this admission?: Yes (3) COPD exacerbation Is this a current diagnosis for this admission?: Yes (4) Anticoagulated Is this a current diagnosis for this admission?: Yes (5) GERD (gastroesophageal reflux disease) Is this a current diagnosis for this admission?: Yes (6) Obstructive sleep apnea Is this a current diagnosis for this admission?: Yes (7) Chronic back pain Is this a current diagnosis for this admission?: Yes - Additional Information Discharge Diet: As Tolerated Discharge Activity: Activity As Tolerated, Balance Activity w/Rest, Walk Frequently Prescriptions: Baclofen [Baclofen 10 mg Tablet] 5 mg PO BID 30 Days #15 tablet Methylprednisolone [Medrol Dosepack (4 mg/Tab) 21 Tab/Dosepak] 4 mg PO ASDIR # 21 tab.ds.pk Oxycodone HCl/Acetaminophen [Percocet 10-325 Mg Tablet] 1 each PO Q4 PRN 2 Days #12 tablet PRN Reason: Home Medications: Albuterol Sulfate [Ventolin 0.083% Neb 2.5 mg/3 mL Ampul] 2.5 mg NEB [id number] PRN 12/03/17 Amlodipine Besylate [Norvasc 5 mg Tablet] 5 mg PO DAILY 12/03/17 Hydrochlorothiazide [Hydrodiuril 25 mg Tablet] 25 mg PO QAM 12/03/17 Lovastatin 40 mg PO WSUPPER 12/03/17 Montelukast Sodium [Singulair 10 mg Tablet] 10 mg PO QHS 12/03/17 Omeprazole 40 mg PO QAM 12/03/17 Potassium Chloride [Klor-Con 10 Meq Tablet.sa] 10 meq PO WBRKFST 12/03/17 Prednisone [Deltasone 10 mg Tablet] 10 mg PO DAILY 12/03/17 Rivaroxaban [Xarelto 10 mg Tablet] 20 mg PO WSUPPER 12/03/17 Tamsulosin HCl [Flomax 0.4 mg Cap.sr] 0.4 mg PO DAILY 12/03/17 Tiotropium Sebastian [Spiriva Handihaler 5 Cap/Kit (18 Mcg/Cap)] 1 cap IH DAILY Tramadol HCl [Ultram 50 mg Tablet] 50 mg PO Q12 12/03/17 Baclofen [Baclofen 10 mg Tablet] 5 mg PO BID 30 Days #15 tablet 12/07/17 Gabapentin [Neurontin 300 mg Capsule] 600 mg PO BID 30 Days #0 12/07/17 Methylprednisolone [Medrol Dosepack (4 mg/Tab) 21 Tab/Dosepak] 4 mg PO ASDIR # 21 tab.ds.pk 12/07/17 Oxycodone HCl/Acetaminophen [Percocet 10-325 Mg Tablet] 1 each PO Q4 PRN 2 Days #12 tablet 12/07/17 History of Present Illness History of Present Illness: SHONDA HUERTA is a 57 year old male SHONDA HUERTA is a 57 year old male with a past medical history of prednisone dependent COPD, obstructive sleep apnea, pulmonary emboli on Xarelto, hypertension, hyperlipidemia and uncontrolled GERD. She presents after 48 hours of worsening shortness of breath and cough exacerbated at night after lying down. In the emergency room he is found to be tachycardic, tachypneic with oxygen saturations of 86%, leukocytosis of 18,000 and acute renal failure with a creatinine of 2.0. He started on empiric antibiotics, albuterol and Atrovent and referred to the hospitalist for admission. Patient denies recent change in medications. Original H&P was dictated by Dr. Borjas. Please refer to it for further details. Hospital Course Hospital Course: Patient with a known history of COPD steroid-dependent. Patient presented with acute hypoxic respiratory failure satting in the 80s. Patient was started on empiric antibiotics supplemental oxygen and BiPAP. Patient is steroid- dependent however was given increased dose of steroids. There was thought that he has uncontrolled GERD with aspiration pneumonitis. Patient however later on revealed that he had been placed on Levaquin and then on Bactrim and was still actively taking the medication. 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 Patient ceftriaxone and Zithromax were de-escalated to Levaquin. Then Levaquin was discontinued after it was discovered that patient had been on antibiotics for several days prior to his admission. Steroids were quickly weaned as patient had minimal wheezing and was having more side effects from the medication the benefits. Patient wheezing resolved quickly however patient was still short of breath up into the day of discharge. Patient did complain of having severe back pain which is chronic. This did improve however came back again as the weather got cold. Patient was placed on scheduled tramadol. Patient gabapentin was increased to 600 mg p.o. twice daily. Patient was started on Percocet and low-dose baclofen. Patient current symptoms were treated with PPI twice daily and Tums. Patient was continued on his Xarelto for DVT/PE. Patient leukocytosis did resolve during hospitalization. Patient did have acute renal failure. Patient creatinine was 2.04 however did improve to 1.12 prior to discharge home. This is most likely prerenal in nature as it did improve with IV fluids. Patient reports feeling better from a respiratory standpoint. He continues to have pain in his back however that is chronic. Physical Exam Vital Signs: Temp Pulse Resp BP Pulse Ox 98.1 F 81 18 116/75 96 12/07/17 15:12 12/07/17 15:12 12/07/17 15:12 12/07/17 15:12 12/07/17 16:13 Intake & Output 12/06/17 12/07/17 12/08/17 06:59 06:59 06:59 Intake Total 1821 1915 Balance 1821915 Weight 85.4 kg 86.4 kg General appearance: PRESENT: no acute distress, well-developed, well-nourished Head exam: PRESENT: normocephalic, other - Wounds of the face especially in the cheeks Eye exam: PRESENT: EOMI. ABSENT: scleral icterus Ear exam: PRESENT: normal external ear exam Mouth exam: PRESENT: moist Neck exam: ABSENT: carotid bruit, JVD, lymphadenopathy, thyromegaly Respiratory exam: PRESENT: clear to auscultation andie, unlabored, wheezes - No intermittent wheezing. ABSENT: accessory muscle use, rales, rhonchi Cardiovascular exam: PRESENT: RRR. ABSENT: diastolic murmur, rubs, systolic murmur Pulses: PRESENT: normal dorsalis pedis pul Vascular exam: PRESENT: normal capillary refill GI/Abdominal exam: PRESENT: normal bowel sounds, soft. ABSENT: distended, guarding, mass, organolmegaly, rebound, tenderness Rectal exam: PRESENT: deferred Extremities exam: PRESENT: full ROM. ABSENT: calf tenderness, clubbing, pedal edema Neurological exam: PRESENT: alert, awake, oriented to person, oriented to place , oriented to time, oriented to situation, CN II-XII grossly intact. ABSENT: motor sensory deficit Psychiatric exam: PRESENT: appropriate affect, normal mood. ABSENT: homicidal ideation, suicidal ideation Skin exam: PRESENT: dry, intact, warm. ABSENT: cyanosis, rash Results Laboratory Results: 12/07/17 09:52 12/07/17 09:52 12/07/17 12/07/17 09:52 09:52 WBC 9.6 RBC 4.93 Hgb 12.1 L Hct 37.7 L MCV 76 L MCH 24.6 L MCHC 32.1 RDW 20.0 H Plt Count 190 Seg Neutrophils % Not Reportable Lymphocytes % Not Reportable Monocytes % Not Reportable Eosinophils % Not Reportable Basophils % Not Reportable Absolute Neutrophils Not Reportable Absolute Lymphocytes Not Reportable Absolute Monocytes Not Reportable Absolute Eosinophils Not Reportable Absolute Basophils Not Reportable Sodium 142.5 Potassium 3.9 Chloride 105 Carbon Dioxide 28 Anion Gap 10 BUN 18 Creatinine 1.12 Est GFR ( Amer) > 60 Est GFR (Non-Af Amer) > 60 Glucose 124 H Calcium 9.7 Magnesium 2.2 12/04/17 12/04/17 12/04/17 02:25 02:25 07:59 Creatine Kinase 114 105 CK-MB (CK-2) 2.21 Troponin I 0.012 12/04/17 12/04/17 12/04/17 07:59 14:17 14:17 Creatine Kinase 107 CK-MB (CK-2) 2.62 3.14 Troponin I < 0.012 < 0.012 Impressions: Chest X-Ray 12/03/17 14:42 IMPRESSION: Linear atelectatic markings lung bases. Lungs otherwise clear. Qualifiers PATEINT BEING DISCHARGED WITH ANY OF THE FOLLOWING DIAGNOSIS?: No Plan Discharge Plan: Patient discharged on Solu-Medrol Dosepak. No antibiotics given as patient was still on antibiotics prior to admission and still has antibiotics remaining at home. Patient does not appear infectious at this time. Patient was discharged on increased dose of gabapentin. Patient still takes his tramadol. Patient was given Percocets 10 and was advised to take half if he did not feel like the full 10 was needed to take 10 if he felt that it was. Time Spent: Greater than 30 Minutes
== END 2017-12-07 17:20 | disposition home or self-care (01) | DRG 190 ==
LOC: ER 13:27 → EH 21:22 → 4N 12-04 18:14
PROVIDERS: ADMIT Internal Medicine; ATTEND Internal Medicine
PROC: 5A09357 Assistance with Respiratory Ventilation, Less than 24 Consecutive Hours, Continuous Positive Airway Pressure (ICD-10-PCS; principal; 2017-12-03)
PROC: 3E0F73Z Introduction of Anti-inflammatory into Respiratory Tract, Via Natural or Artificial Opening (ICD-10-PCS; 2017-12-04)
DX: J44.1 Chronic obstructive pulmonary disease with (acute) exacerbation (principal); J96.01 Acute respiratory failure with hypoxia; N17.9 Acute kidney failure, unspecified; K21.9 Gastro-esophageal reflux disease without esophagitis; G47.33 Obstructive sleep apnea (adult) (pediatric); G89.29 Other chronic pain; M54.5 Low back pain; I10 Essential (primary) hypertension; E78.5 Hyperlipidemia, unspecified; Z79.899 Other long term (current) drug therapy; Z79.01 Long term (current) use of anticoagulants; Z86.711 Personal history of pulmonary embolism; Z79.52 Long term (current) use of systemic steroids; Z83.6 Family history of other diseases of the respiratory system; Z82.49 Family history of ischemic heart disease and other diseases of the circulatory system
CPT/HCPCS: 36415; 71046; 80048; 80053; 81001; 82550; 82553; 82803; 83605; 83735; 84484; 85025; 87040; 87086; 87804; 93005; 93010; 94660; 94667; 94799; 96361; 96365; 96368; 96375; 99285; J0456; J0696; J1644; J2270; J2920; J2930; J3475; J3490; J7030; J7060; J7512; J7620

== ENCOUNTER 2018-01-03 01:17 | Emergency (ER) | payer MEDICAID ==
[2018-01-03] MEDS ORDERED: IPRATROPIUM/ALBUTEROL 0.5-2.5 MG/3 ML AMPUL NEB ONE (01:32)
[2018-01-03] MEDS ORDERED: NORMAL SALINE 500 ML IV ONE (01:41)
[2018-01-03] MEDS ORDERED: NITROGLYCERIN 0.4 MG/TAB 25 TAB/BOTTLE SL PRN (01:41)
--- NOTE | 2018-01-03 01:45 | ER Document Report ---
ED Respiratory Problem - General Mode of Arrival: Ambulatory Information source: Patient TRAVEL OUTSIDE OF THE [place] IN LAST 30 DAYS: No <AIDE PENA - Last Filed: 01/03/18 04:51> <ALONZO CARDOSO - Last Filed: 01/03/18 05:42> - General Chief Complaint: Shortness Of Breath Stated Complaint: SHORTNESS OF BREATH Time Seen by Provider: 01/03/18 01:31 Notes: Patient is a 57-year-old male who presents to the emergency department today with complaints of shortness of breath. Patient states his breathing became much worse yesterday. Patient also mentions upper abdominal pain/chest pain. Patient states he is unsure if this pain is his known hernia or something new. Patient states the pain seemed to begin about 4 days ago and he had slight shortness of breath then but the shortness of breath now is much worse. Patient states he used several more albuterol breathing treatments today than normal. Patient also took a 10 mg prednisone this morning. Patient has not been on any recent antibiotics. Patient mentions "hot and cold flashes and itching all over". Patient denies a cardiac history. (AIDE PENA) - Related Data Allergies/Adverse Reactions: No Known Allergies Allergy (Verified 12/03/17 14:30) Past Medical History - General Information source: Patient, [facility] - Social History Smoking Status: Unknown if Ever Smoked Cigarette use (# per day): No Frequency of alcohol use: None Drug Abuse: None Family History: Reviewed & Not Pertinent, COPD, Hypertension - Past Medical History Cardiac Medical History: Reports: Hx Hypercholesterolemia, Hx Hypertension Pulmonary Medical History: Reports: Hx Bronchitis, Hx COPD, Hx Sleep Apnea GI Medical History: Reports: Hx Gastroesophageal Reflux Disease Surgical Hx: Negative - Immunizations Hx Pneumococcal Vaccination: 11/12/16 <AIDE PENA - Last Filed: 01/03/18 04:51> Review of Systems - Review of Systems Constitutional: See HPI, Other - 'hot/cold flashes' EENT: No symptoms reported Cardiovascular: See HPI, Chest pain Respiratory: See HPI, Short of breath Gastrointestinal: No symptoms reported Genitourinary: No symptoms reported Male Genitourinary: No symptoms reported Musculoskeletal: No symptoms reported Skin: See HPI, Other - 'itching all over' Hematologic/Lymphatic: No symptoms reported Neurological/Psychological: No symptoms reported -: Yes All other systems reviewed and negative <AIDE PENA - Last Filed: 01/03/18 04:51> Physical Exam - Vital signs Interpretation: Tachycardic, Hypoxic, Tachypneic <BECKYAIDE - Last Filed: 01/03/18 04:51> <ALONZO CARDOSO - Last Filed: 01/03/18 05:42> - Vital signs Vitals: Resp Pulse Ox 21 H 91 L 01/03/18 01:40 01/03/18 01:40 - Notes Notes: Physical Exam: General: Alert, moderate distress, appears uncomfortable. HEENT: Normocephalic. Atraumatic. PERRL. Extraocular movements intact. Oropharynx clear. Neck: Supple. Non-tender. Respiratory: Diffuse expiratory wheezing. Tachypneic, retracting. Cardiovascular: Tachycardic, regular rhythm. Abdominal: Normal Inspection. Non-tender. No distension. Normal Bowel Sounds. Back: Non-tender. No deformity or step off. Extremities: Moves all four extremities. Upper extremities: Normal inspection. Normal ROM. Lower extremities: Normal inspection. No edema. Normal ROM. Neurological: Normal cognition. AAOx4. Normal speech. Psychological: Normal affect. Normal Mood. Skin: Warm. Dry. Normal color. (BECKYAXELAIDE) Course - Laboratory Result Diagrams: 01/03/18 01:48 01/03/18 01:48 <BECKYAIDE - Last Filed: 01/03/18 04:51> - Laboratory Result Diagrams: 01/03/18 01:48 01/03/18 01:48 - Diagnostic Test Radiology reviewed: Reports reviewed - Consults Dr. León Time consulted: 02:50 Consulted provider: other - will accept for transfer <ALONZO CARDOSO - Last Filed: 01/03/18 05:42> - Re-evaluation Re-evalutation: 01/03/18 01:[address] Stanton for concerning EKG, stated to call Dr. Duran who is doing EKG readings. 01/03/18 01:[address] Duran who states he does not have access to EKGs right now 01/03/18 01:51 Call placed to [facility] for EKG concerns, they state they do not have cardiology in house 02/22/18 01:51 Call placed to [facility], awaiting call back from cardiology. 01/03/18 02:03 Dr. Stanton called back, states EKG indicated lateral ischemia 01/03/18 02:27 Dr. Valencia, cardiology from [facility] called back stating he would see the patient in consult, to admit to hospitalist. (AIDE PENA) 01/03/18 03:00 Patient is a 57-year-old male who comes in with difficulty breathing and chest pain. Patient has a history of COPD and has had exacerbations in the past. He usually does not have chest pain. EKG appears much different from previous EKG on 12/03/2017. There is ST depression in V4 through V6 after consultation with cardiology. Concerning for ischemia. Patient was given nitroglycerin with some relief of pain. He was started on nitroglycerin drip. Aspirin and Lovenox were also given. Patient was discussed with cardiology here as well as at [facility]. Patient was discussed with Dr. León, the hospitalist at [facility] who will accept the patient for transfer. Discussed with patient who is agreeable with this plan. Pain is controlled on nitroglycerin drip. COPD exacerbation seems controlled with DuoNeb, Solu-Medrol , and magnesium. Patient is also having potassium replaced. 01/03/18 05:00 Transport is here for patient. Stable at this time for transfer. (ALONZO CARDOSO) - Vital Signs Vital signs: Temp Pulse Resp BP Pulse Ox 97.6 F 17 117/81 97 01/03/18 03:10 01/03/18 04:41 01/03/18 04:41 01/03/18 04:41 - Laboratory Laboratory results interpreted by me: 01/03/18 01/03/18 01/03/18 01:48 01:48 01:48 Hgb 12.2 L Hct 37.8 L MCV 76 L MCH 24.4 L RDW 20.6 H PT 16.8 H Potassium 2.7 L* Est GFR (Non-Af Amer) 59 L Critical Care Note - Critical Care Note Total time excluding time spent on procedures (mins): 90 - Evaluation and management of respiratory distress, COPD exacerbation, management of chest pain , unstable angina, coordination with specialist, coordination of transfer, counseling of patient, multiple re-evaluations <ALONZO CARDOSO - Last Filed: 01/03/18 05:42> Discharge <AIDE PENA - Last Filed: 01/03/18 04:51> <ALONZO CARDOSO - Last Filed: 01/03/18 05:42> - Discharge Clinical Impression: COPD exacerbation, Respiratory distress, Unstable angina, Hypokalemia Condition: Stable Disposition: [facility] Referrals: STACEY MORTON MD [Primary Care Provider] - Follow up as needed Scribe Attestation: 01/03/18 05:42 I personally performed the services described in the documentation, reviewed and edited the documentation which was dictated to the scribe in my presence, and it accurately records my words and actions. (ALONZO CARDOSO) Scribe Documentation - Scribe Written by Loreibe:: Leesa Arredondo, 01/03/2018, [id number] acting as scribe for :: Cecil <AIDE PENA - Last Filed: 01/03/18 04:51>
--- NOTE | 2018-01-03 01:50 | RADIOLOGY REPORT (SQ) ---
EXAM DESCRIPTION: CHEST SINGLE VIEW CLINICAL HISTORY: sob COMPARISON: 12/03/2017 FINDINGS: Single frontal view of the chest. The cardiomediastinal silhouette has normal size and contour. No consolidation, pneumothorax, or pleural effusion. No displaced rib fractures identified. Upper abdominal soft tissues are unremarkable. IMPRESSION: 1. No acute pulmonary process identified.
[2018-01-03 02:13] LABS: ABSOLUTE EOSINOPHILS # (AUTO) 0.1 10^3/uL (0.0-0.6); ABSOLUTE LYMPHOCYTES (AUTO) 1.2 10^3/uL (0.5-4.7); ABSOLUTE MONOCYTES (AUTO) 0.6 10^3/uL (0.1-1.4); ABSOLUTE NEUT (AUTO) 6.4 10^3/uL (1.7-8.2); BASOPHILS % (AUTO) 0.4 % (0-2); EOSINOPHILS % (AUTO) 1.7 % (0-6); HEMATOCRIT 37.8 % (37.9-51.0); HEMOGLOBIN 12.2 g/dL (13.5-17.0); LYMPHOCYTES % (AUTO) 14.7 % (13-45); MEAN CORPUSCULAR HEMOGLOBIN 24.4 pg (27.0-33.4); MEAN CORPUSCULAR HGB CONC 32.3 g/dL (32.0-36.0); MEAN CORPUSCULAR VOLUME 76 fl (80-97); MONOCYTES % (AUTO) 7.3 % (3-13); PLATELET COUNT 201 10^3/uL (150-450); RED BLOOD COUNT 5.01 10^6/uL (4.35-5.55); RED CELL DISTRIBUTION WIDTH 20.6 % (11.5-14.0); SEGMENTED NEUTROPHILS % (AUTO) 75.9 % (42-78); TOTAL CELLS COUNTED % (AUTO) 100 %; WHITE BLOOD COUNT 8.4 10^3/uL (4.0-10.5)
[2018-01-03 02:16] LABS: VENOUS BLOOD BASE EXCESS 4.5 mmol/L; VENOUS BLOOD HCO3 29.7 mmol/L (20-32); VENOUS BLOOD PCO2 46.5 mmHg (35-63); VENOUS BLOOD PH 7.42 (7.30-7.42)
[2018-01-03 02:21] LABS: INTERNATIONAL RATION (INR) 1.28; PROTHROMBIN TIME 16.8 SEC (11.4-15.4)
[2018-01-03 02:24] LABS: ALANINE AMINOTRANSFERASE 29 U/L (21-72); ALBUMIN 3.9 g/dL (3.5-5.0); ALKALINE PHOSPHATASE 45 U/L (38-126); ANION GAP 11 (5-19); ASPARTATE AMINO TRANSFERASE 21 U/L (17-59); BILIRUBIN,DIRECT 0.3 mg/dL (0.0-0.4); BILIRUBIN,TOTAL 0.5 mg/dL (0.2-1.3); BLOOD UREA NITROGEN 11 mg/dL (7-20); CARBON DIOXIDE 28 mmol/L (22-30); CHLORIDE 104 mmol/L (98-107); GLUCOSE 100 mg/dL (75-110); SODIUM 142.6 mmol/L (137-145); TOTAL PROTEIN 6.9 g/dL (6.3-8.2)
[2018-01-03] MEDS ORDERED: NITROGLYCERIN/D5W 50 MG/250 ML RTUINJ IV PRN (02:26)
[2018-01-03 02:37] LABS: NT PRO BNP 60 pg/mL (5-900)
[2018-01-03] MEDS: MAGNESIUM SULFATE/D5W 1 GM/100 ML RTUPB IV SCH ×2 (02:37→03:18)
[2018-01-03 02:38] LABS: POTASSIUM 2.7 mmol/L (3.6-5.0)
[2018-01-03 02:39] LABS: TROPONIN I < 0.012 ng/mL
[2018-01-03] MEDS ORDERED: ASPIRIN 81 MG TABLET, CHEWABLE PO ONE (02:39)
[2018-01-03] MEDS ORDERED: POTASSI CL 20 MEQ/50 ML RIDER 20 MEQ/50 ML RTUPB IV SCH (02:42)
[2018-01-03] MEDS ORDERED: ENOXAPARIN SODIUM INJ 100 MG/1 ML DISP.SYRIN SUBCUT ONE (04:11)
[2018-01-03 04:44] VITALS: BP 117/81
--- NOTE | 2018-01-03 08:11 | EKG REPORT ---
SEVERITY:- ABNORMAL ECG - SINUS RHYTHM REPOL ABNRM SUGGESTS ISCHEMIA,INFERO LATERAL LEADS, NEW, COMPARED TO 12/03/17, CLINICAL CORRELATION NE EDED. : Confirmed by: Cooper Duran MD 03-Jan-2018 08:10:26
--- NOTE | 2018-01-03 08:12 | EKG REPORT ---
SEVERITY:- ABNORMAL ECG - SINUS TACHYCARDIA REPOL ABNRM SUGGESTS ISCHEMIA, DIFFUSE LEADS, NEWW. COMPARED TO 12/03/17 EKG : Confirmed by: Cooper Duran MD 03-Jan-2018 08:12:14
== END 2018-01-03 05:00 | disposition short-term general hospital (02) ==
LOC: ER 01:17
DX: J44.1 Chronic obstructive pulmonary disease with (acute) exacerbation (principal); R06.00 Dyspnea, unspecified; I20.0 Unstable angina; E87.6 Hypokalemia; I10 Essential (primary) hypertension
CPT/HCPCS: 93005; 94640; 99291; 99292; 96372; 96365; 96367; 36415; 87040; 85025; 85610; 80053; 84484; 82803; 83605; 83880; 71045; 93010; J3475; J3490; J7040; J1650; J7620

== ENCOUNTER 2018-02-02 12:36 | Inpatient (IN) | payer MEDICAID ==
[~2018-02-02 12:36] MED LIST: ATROPINE SULFATE INJ 1 MG/10 ML DISP.SYRIN IV ONE; EPINEPHRINE INJ 1 MG/10 ML DISP.SYRIN ONE; SODIUM BICARBONATE 8.4% INJ 50 MEQ/50 ML DISP.SYRIN ONE
[2018-02-02] MEDS ORDERED: ASPIRIN 81 MG TABLET, CHEWABLE PO ONE (13:02)
[2018-02-02] MEDS ORDERED: ALBUTEROL SULFATE 0.083% NEB 2.5 MG/3 ML AMPUL NEB ONE ×2 (13:02→13:03)
[2018-02-02] MEDS ORDERED: IPRATROPIUM/ALBUTEROL 0.5-2.5 MG/3 ML AMPUL NEB ONE ×2 (13:02→14:14)
--- NOTE | 2018-02-02 13:02 | ER Document Report ---
ED Medical Screen (RME) - General Mode of Arrival: Wheelchair Information source: Patient TRAVEL OUTSIDE OF THE [place] IN LAST 30 DAYS: No - HPI Patient complains to provider of: Shortness of Breath Onset: Yesterday Associated Symptoms: Other - see notes above <LUIS URENA - Last Filed: 02/02/18 13:30> <LIBRADO HOUSTON - Last Filed: 02/02/18 18:05> - General Chief Complaint: COPD Exacerbation Stated Complaint: CHEST TIGHTNESS, RIGHT ARM PAIN Time Seen by Provider: 02/02/18 12:56 Notes: 57 year old male with history of COPD presents to the ED complaining of shortness of breath that started yesterday morning and continually worsened. Patient has tried using his Albuterol, Advair, Spiriva, and nebulizer treatments to no relief. Patient additionally complains of a productive cough, chest pain, and cold and hot flashes. (LUIS URENA) - Related Data Allergies/Adverse Reactions: No Known Allergies Allergy (Verified 02/02/18 12:37) Past Medical History - General Information source: Patient - Past Medical History Cardiac Medical History: Reports: Hx Hypercholesterolemia, Hx Hypertension Pulmonary Medical History: Reports: Hx Asthma - seasonal, Hx Bronchitis, Hx COPD , Hx Sleep Apnea Renal/ Medical History: Denies: Hx Peritoneal Dialysis GI Medical History: Reports: Hx Gastroesophageal Reflux Disease - Immunizations History of Influenza Vaccine for 08/2017 - 01/2018 Season: Yes Influenza Administration Date for 08/2017 - 01/2018 Season: 09/12/17 <LUIS URENA - Last Filed: 02/02/18 13:30> Review of Systems - Review of Systems Constitutional: See HPI, Chills EENT: No symptoms reported Cardiovascular: See HPI, Chest pain Respiratory: See HPI, Cough, Short of breath, Sputum Gastrointestinal: No symptoms reported Genitourinary: No symptoms reported Male Genitourinary: No symptoms reported Musculoskeletal: No symptoms reported Skin: No symptoms reported Hematologic/Lymphatic: No symptoms reported Neurological/Psychological: No symptoms reported -: Yes All other systems reviewed and negative <LUIS URENA - Last Filed: 02/02/18 13:30> Physical Exam - General General appearance: Alert, Other - appears uncomfortable - HEENT Head: Normocephalic, Atraumatic Eyes: Normal Extraocular movements intact: Yes Pupils: PERRL - Respiratory Respiratory status: Respiratory distress - moderate shortness of breath and tachypnic Breath sounds: Decreased air movement, Wheezing - Expiratory, Other - wet cough - Cardiovascular Rhythm: Regular Heart sounds: Normal auscultation <LUIS URENA - Last Filed: 02/02/18 13:30> - Vital signs Vitals: Temp Pulse Resp BP Pulse Ox 98.5 F 102 H 20 120/88 H 91 L 02/02/18 12:41 02/02/18 12:41 02/02/18 12:41 02/02/18 12:41 02/02/18 12:41 Course - Laboratory Result Diagrams: 02/02/18 13:20 02/02/18 13:20 <LIBRADO HOUSTON - Last Filed: 02/02/18 18:05> - Vital Signs Vital signs: Temp Pulse Resp BP Pulse Ox 98.5 F 108 H 16 125/91 H 99 02/02/18 12:41 02/02/18 16:36 02/02/18 16:36 02/02/18 16:15 02/02/18 16:36 - Laboratory Laboratory results interpreted by me: 02/02/18 02/02/18 02/02/18 13:20 13:20 13:20 Hgb 12.7 L MCV 78 L MCH 25.0 L RDW 21.4 H Lymphocytes % 12.1 L Carbonic Acid ABG pH ABG pCO2 ABG pO2 ABG O2 Saturation Potassium 3.2 L Carbon Dioxide 34 H Glucose 111 H CK-MB (CK-2) 4.97 H 02/02/18 14:02 Hgb MCV MCH RDW Lymphocytes % Carbonic Acid 1.45 H ABG pH 7.29 L ABG pCO2 48.3 H ABG pO2 309.6 H ABG O2 Saturation 99.6 H Potassium Carbon Dioxide Glucose CK-MB (CK-2) Doctor's Discharge <LUIS URENA - Last Filed: 02/02/18 13:30> <LIBRADO HOUSTON - Last Filed: 02/02/18 18:05> - Discharge Clinical Impression: Respiratory arrest, COPD with respiratory failure, acute Condition: Serious Disposition: ADMITTED INPATIENT Scribe Documentation - Scribe Written by Scribe:: Leesa Sheehan, 02/02/2018 [id number] acting as scribe for :: Rehan <LUIS URENA - Last Filed: 02/02/18 13:30>
[2018-02-02] MEDS ORDERED: METHYLPREDNISOLONE INJ 125 MG/2 ML SDV IV ONE (13:46)
[2018-02-02 13:50] LABS: ABSOLUTE EOSINOPHILS # (AUTO) 0.2 10^3/uL (0.0-0.6); ABSOLUTE LYMPHOCYTES (AUTO) 0.7 10^3/uL (0.5-4.7); ABSOLUTE MONOCYTES (AUTO) 0.6 10^3/uL (0.1-1.4); ABSOLUTE NEUT (AUTO) 4.1 10^3/uL (1.7-8.2); BASOPHILS % (AUTO) 0.3 % (0-2); EOSINOPHILS % (AUTO) 2.8 % (0-6); HEMATOCRIT 39.6 % (37.9-51.0); HEMOGLOBIN 12.7 g/dL (13.5-17.0); LYMPHOCYTES % (AUTO) 12.1 % (13-45); MEAN CORPUSCULAR HGB CONC 32.2 g/dL (32.0-36.0); MEAN CORPUSCULAR VOLUME 78 fl (80-97); MONOCYTES % (AUTO) 10.2 % (3-13); PLATELET COUNT 157 10^3/uL (150-450); RED BLOOD COUNT 5.09 10^6/uL (4.35-5.55); RED CELL DISTRIBUTION WIDTH 21.4 % (11.5-14.0); SEGMENTED NEUTROPHILS % (AUTO) 74.6 % (42-78); TOTAL CELLS COUNTED % (AUTO) 100 %; WHITE BLOOD COUNT 5.5 10^3/uL (4.0-10.5)
[2018-02-02 14:07] LABS: ALANINE AMINOTRANSFERASE 34 U/L (21-72); ALKALINE PHOSPHATASE 39 U/L (38-126); ANION GAP 9 (5-19); ASPARTATE AMINO TRANSFERASE 23 U/L (17-59); BILIRUBIN,DIRECT 0.1 mg/dL (0.0-0.4); BILIRUBIN,TOTAL 0.6 mg/dL (0.2-1.3); BLOOD UREA NITROGEN 14 mg/dL (7-20); CALCIUM 10.2 mg/dL (8.4-10.2); CARBON DIOXIDE 34 mmol/L (22-30); CHLORIDE 101 mmol/L (98-107); CREATINE KINASE 154 U/L (55-170); GLUCOSE 111 mg/dL (75-110); POTASSIUM 3.2 mmol/L (3.6-5.0); SODIUM 143.8 mmol/L (137-145); TOTAL PROTEIN 6.6 g/dL (6.3-8.2)
--- NOTE | 2018-02-02 14:07 | RADIOLOGY REPORT (SQ) ---
EXAM DESCRIPTION: CHEST SINGLE VIEW COMPLETED DATE/TIME: 02/02/2018 1:55 pm REASON FOR STUDY: cough, SBO, COPD COMPARISON: 01/03/2018 EXAM PARAMETERS: NUMBER OF VIEWS: One view. TECHNIQUE: Single frontal radiographic view of the chest acquired. RADIATION DOSE: NA LIMITATIONS: None. FINDINGS: LUNGS AND PLEURA: Underlying emphysema. No new opacities, masses or pneumothorax. No pleu ral effusion. MEDIASTINUM AND HILAR STRUCTURES: No masses. Contour normal. HEART AND VASCULAR STRUCTURES: Heart stable in size. Normal vasculature. BONES: No acute findings. HARDWARE: None in the chest. OTHER: No other significant finding. IMPRESSION: NO ACUTE CARDIOPULMONARY PROCESS. NO SIGNIFICANT CHANGE FROM PRIOR STUDY. TECHNICAL DOCUMENTATION: JOB ID: [id number] [employer]- All Rights Reserved Reading location - IP/workstation name: [email or web address]
[2018-02-02] MEDS ORDERED: MORPHINE SULFATE 10 MG/ML INJ IV ONE (14:14)
[2018-02-02] MEDS ORDERED: ONDANSETRON HCL INJ/PF 4 MG/2 ML SDV IV ONE (14:14)
[2018-02-02 14:18] LABS: CREATINE KINASE MB 4.97 ng/mL (<4.55); TROPONIN I 0.013 ng/mL
[2018-02-02] MEDS ORDERED: MAGNESIUM SULFATE/D5W 1 GM/100 ML RTUPB IV ONE (14:25)
[2018-02-02] MEDS ORDERED: KETAMINE HCL INJ 500 MG/10 ML VIAL IV ONE ×3 (14:31→16:43)
[2018-02-02] MEDS ORDERED: LORAZEPAM INJ 2 MG/1 ML VIAL ONE (14:31)
[2018-02-02] MEDS ORDERED: KETAMINE HCL INJ 500 MG/10 ML VIAL ONE (14:34)
[2018-02-02] MEDS ORDERED: PROPOFOL 100 ML IV ONE (15:14)
--- NOTE | 2018-02-02 15:19 | EKG REPORT ---
SEVERITY:- NORMAL ECG - SINUS RHYTHM LVH WITH SECONDARY ST-T WAVE CHANGES : Confirmed by: Herson Stanton 02-Feb-2018 15:18:44
--- NOTE | 2018-02-02 15:26 | RADIOLOGY REPORT (SQ) ---
EXAM DESCRIPTION: CHEST SINGLE VIEW COMPLETED DATE/TIME: 02/02/2018 3:17 pm REASON FOR STUDY: resp failure COMPARISON: 02/02/2018 EXAM PARAMETERS: NUMBER OF VIEWS: One view. TECHNIQUE: Single frontal radiographic view of the chest acquired. RADIATION DOSE: NA LIMITATIONS: None. FINDINGS: LUNGS AND PLEURA: No opacities, masses or pneumothorax. No pleural effusion. MEDIASTINUM AND HILAR STRUCTURES: No masses. Contour normal. HEART AND VASCULAR STRUCTURES: Heart stable in size. Normal vasculature. BONES: No acute findings. HARDWARE: Endotracheal tube approximately 5 cm above the alem. Nasogastric tube in expected locati on of the stomach. OTHER: No other significant finding. IMPRESSION: SATISFACTORY PLACEMENT ENDOTRACHEAL TUBE AND NASOGASTRIC TUBE. OTHERWISE STABLE APPEARA NCE OF THE CHEST. TECHNICAL DOCUMENTATION: JOB ID: [id number] [employer]- All Rights Reserved Reading location - IP/workstation name: [email or web address]
--- NOTE | 2018-02-02 15:29 | ER Document Report ---
ED General - General Chief Complaint: COPD Exacerbation Stated Complaint: CHEST TIGHTNESS, RIGHT ARM PAIN Time Seen by Provider: 02/02/18 12:56 Mode of Arrival: Wheelchair Information source: Patient Notes: Note: This is a 57-year-old man with a history of severe COPD who presented to the emergency room with shortness of breath and wheezing. Patient denied any fever, chills, nausea vomiting. The patient stated he has had bad COPD exacerbations in the past and did not want to wait that long. TRAVEL OUTSIDE OF THE [place] IN LAST 30 DAYS: No - HPI Onset: Just prior to arrival Onset/Duration: Gradual Quality of pain: No pain Severity: None Pain Level: Denies Associated symptoms: Shortness of breath. denies: Chest pain, Fever Exacerbated by: Movement Relieved by: Remaining still Similar symptoms previously: Yes Recently seen / treated by doctor: Yes - Related Data Allergies/Adverse Reactions: No Known Allergies Allergy (Verified 02/02/18 12:37) Past Medical History - General Information source: Patient - Social History Smoking Status: Former Smoker Cigarette use (# per day): No Chew tobacco use (# tins/day): No Smoking Education Provided: No Frequency of alcohol use: None Drug Abuse: None Lives with: Family Family History: Reviewed & Not Pertinent, COPD, Hypertension Patient has suicidal ideation: No Patient has homicidal ideation: No - Past Medical History Cardiac Medical History: Reports: Hx Hypercholesterolemia, Hx Hypertension Pulmonary Medical History: Reports: Hx Asthma - seasonal, Hx Bronchitis, Hx COPD , Hx Sleep Apnea Renal/ Medical History: Denies: Hx Peritoneal Dialysis GI Medical History: Reports: Hx Gastroesophageal Reflux Disease Past Surgical History: Reports: Other - Eye surgery - Immunizations Hx Pneumococcal Vaccination: 11/12/16 Review of Systems - Review of Systems Constitutional: denies: Chills, Fever EENT: No symptoms reported Cardiovascular: See HPI Respiratory: See HPI Gastrointestinal: No symptoms reported Genitourinary: No symptoms reported Male Genitourinary: No symptoms reported Musculoskeletal: No symptoms reported Skin: No symptoms reported Hematologic/Lymphatic: No symptoms reported Neurological/Psychological: No symptoms reported Physical Exam - Vital signs Vitals: Temp Pulse Resp BP Pulse Ox 98.5 F 102 H 20 120/88 H 91 L 02/02/18 12:41 02/02/18 12:41 02/02/18 12:41 02/02/18 12:41 02/02/18 12:41 Notes: Physical exam: GENERAL: 87-year-old man, alert and oriented 3, complaining of shortness of breath. HEAD: Atraumatic, normocephalic. EYES: Pupils equal round and reactive to light, extraocular movements intact, sclera anicteric, conjunctiva are normal. ENT: TMs normal, nares patent, oropharynx clear without exudates. Moist mucous membranes. NECK: Normal range of motion, supple without obvious mass or JVD. LUNGS: Bilateral wheezing, tight breath sounds, reduced airway movement HEART: Regular rate and rhythm without murmurs, rubs or gallops. ABDOMEN: Soft, normoactive bowel sounds. No tenderness to palpation. No guarding, no rebound. No masses appreciated. EXTREMITIES: Normal range of motion, no pitting or edema. No clubbing or cyanosis. NEUROLOGICAL: Cranial nerves II through XII grossly intact. Normal speech, moving all extremities. PSYCH: Normal mood, normal affect. SKIN: Warm, Dry, normal turgor, no rashes or lesions noted. Course - Re-evaluation Re-evalutation: 02/02/18 15:31 Note: Patient was treated with albuterol and ipratropium nebulizers, IV Solu- Medrol, IV magnesium. His respiratory status took a sudden turn for the worst while he was in the emergency room and essentially became unresponsive. I was at the bedside at that time, and a code was called in the emergency room. The patient did require CPR for asystole and then PEA. He was intubated with a 7.5 tube. He did get multiple episodes during the period of CPR. His stomach was decompressed with an OG tube. We were able to get return of spontaneous circulation. Currently, the patient's blood pressure is 150/80 with a pulse of 113 and an O2 sat of 96%. There is spontaneous movement and the patient is being sedated with propofol. Initial cardiac enzymes have been negative. - Vital Signs Vital signs: Temp Pulse Resp BP Pulse Ox 98.5 F 108 H 16 125/91 H 99 02/02/18 12:41 02/02/18 16:36 02/02/18 16:36 02/02/18 16:15 02/02/18 16:36 - Laboratory Result Diagrams: 02/02/18 13:20 02/02/18 13:20 Laboratory results interpreted by me: 02/02/18 02/02/18 02/02/18 13:20 13:20 13:20 Hgb 12.7 L MCV 78 L MCH 25.0 L RDW 21.4 H Lymphocytes % 12.1 L Carbonic Acid ABG pH ABG pCO2 ABG pO2 ABG O2 Saturation Potassium 3.2 L Carbon Dioxide 34 H Glucose 111 H CK-MB (CK-2) 4.97 H 02/02/18 14:02 Hgb MCV MCH RDW Lymphocytes % Carbonic Acid 1.45 H ABG pH 7.29 L ABG pCO2 48.3 H ABG pO2 309.6 H ABG O2 Saturation 99.6 H Potassium Carbon Dioxide Glucose CK-MB (CK-2) - Diagnostic Test Radiology reviewed: Image reviewed, Reports reviewed - Initial chest x-ray showed no infiltrates. Chest x-ray after intubation shows appropriate placement of tube. - EKG Interpretation by Me Rate: Normal Rhythm: NSR - EKG shows normal sinus rhythm with a ventricular rate of 99, no acute ST-T wave changes Procedures - Intubation Orotracheal Time of Intubation: 14:35 Airway evaluation: Abnormal 3-3-2 rule, Copious secretions, Large tongue, Obese Mallampati Classification: Class 4 Medications: Ketamine Intubation method: Orotracheal Blade size: 4 Equipment used: Glidescope ETT size: 7.5 ETT secured at: Lips ETT secured at (cm): 23 Breath Sounds after Intubation: Equal End tidal CO2 confirmed: Yes Post Intubation Xray: Yes Intubation Complications: Other - Tube needed to be replaced after significant cuff leak. Notes: 02/02/18 18:08 Note: The first tube that was placed had a significant cuff leak. A second 7.5 to was placed over bougie with good placement - Additional Procedures CPR Time performed: 14:35 Notes: 02/02/18 18:09 Note: The patient did become pulseless after respiratory arrest while we are in the room. CPR was started immediately. Patient received epinephrine 5, atropine 1. Bedside ultrasound did show minimal heart activity at first. Orogastric tube was placed to decompress the stomach. ROSC was obtained after several minutes. Critical Care Note - Critical Care Note Total time excluding time spent on procedures (mins): 80 Discharge - Discharge Clinical Impression: Respiratory arrest, COPD with respiratory failure, acute Condition: Serious Disposition: ADMITTED INPATIENT Admitting Provider: Hospitalist - Dr Messina Unit Admitted: ICU
[2018-02-02] MEDS ORDERED: OXYCODONE-ACETAMINOPHEN 5-325 MG TABLET NG PRN (15:32)
[2018-02-02] MEDS ORDERED: ALBUTEROL SULFATE 0.083% NEB 2.5 MG/3 ML AMPUL NEB PRN (15:32)
[2018-02-02] MEDS ORDERED: ACETAMINOPHEN 325 MG TABLET NG PRN (15:32)
[2018-02-02] MEDS ORDERED: PROPOFOL 100 ML IV PRN (15:32)
[2018-02-02] MEDS ORDERED: ONDANSETRON HCL INJ/PF 4 MG/2 ML SDV IV PRN (15:32)
[2018-02-02] MEDS ORDERED: PHARMACY COMMUNICATION ORDER MC NR (16:00)
[2018-02-02] MEDS: IPRATROPIUM/ALBUTEROL 0.5-2.5 MG/3 ML AMPUL NEB SCH ×2 (16:36→20:43)
--- NOTE | 2018-02-02 16:38 | PDOC H&P ---
History of Present Illness Admission Date/PCP: STACEY MORTON MD February 02, 2018 Patient complains of: Unable to obtain since patient intubated History of Present Illness: SHONDA HUERTA is a 57 year old male Arrived to ER via private vehicle. His sister brought him into emergency room. She states that patient was having a good week. Upon awakening he complained to her that he was not feeling well. She states that his breathing was not good. She prompted to bring him to emergency room to be checked. While in the room, patient was tachycardic and dyspneic. When patient was administered magnesium sulfate, patient's heart rate went down and went to asystole. ACLS protocol was instituted. Patient was administered epinephrine x 5 with establishment of ROSC. Patient also required intubation. The hospitalist service was consulted and prompted to admit for further management. Sister states that patient had been doing well since his most recent hospitalization. Sister states that patient has been using the oxygen but NOT the CPAP because felt could not breath. Past Medical History Cardiac Medical History: Reports: Hyperlipidema, Hypertension Pulmonary Medical History: Reports: Asthma - seasonal, Bronchitis, Chronic Obstructive Pulmonary Disease (COPD), Sleep Apnea EENT Medical History: Reports: None Neurological Medical History: Reports: None Endocrine Medical History: Reports: None Renal/ Medical History: Reports: None Malignancy Medical History: Reports: None GI Medical History: Reports: Gastroesophageal Reflux Disease Skin Medical History: Reports: None Psychiatric Medical History: Reports: None Traumatic Medical History: Reports: None Hematology: Reports: None Infectious Medical History: Reports: None Past Surgical History Past Surgical History: Reports: None Social History Information Source: Relative Lives with: Family Smoking Status: Former Smoker Frequency of Alcohol Use: None Hx Recreational Drug Use: No Drugs: None Hx Prescription Drug Abuse: No - Advance Directive Resuscitation Status: Full Code Family History Family History: Reviewed & Not Pertinent, COPD, Hypertension Parental Family History Reviewed: Yes Children Family History Reviewed: Yes Sibling(s) Family History Reviewed.: Yes Medication/Allergy Home Medications: Amlodipine Besylate [Norvasc 5 mg Tablet] 5 mg PO DAILY 12/03/17 Hydrochlorothiazide [Hydrodiuril 25 mg Tablet] 25 mg PO QAM 12/03/17 Lovastatin 40 mg PO WSUPPER 12/03/17 Omeprazole 40 mg PO QAM 12/03/17 Rivaroxaban [Xarelto 10 mg Tablet] 20 mg PO WSUPPER 12/03/17 Tamsulosin HCl [Flomax 0.4 mg Cap.sr] 0.4 mg PO DAILY 12/03/17 Tiotropium Dexter [Spiriva Handihaler 5 Cap/Kit (18 Mcg/Cap)] 1 cap IH DAILY Fluticasone Propionate [Flonase Allergy Relief] 2 spray NASL DAILY 02/02/18 Loratadine [Claritin 10 mg Tablet] 10 mg PO DAILY 02/02/18 Tapentadol HCl [Nucynta] 50 mg PO Q6HP PRN 02/02/18 Allergies/Adverse Reactions: No Known Allergies Allergy (Verified 02/02/18 12:37) Review of Systems ROS unobtainable: Due to endotracheal tube Physical Exam Vital Signs: Temp Pulse Resp BP Pulse Ox 98.5 F 102 H 20 120/88 H 93 02/02/18 12:41 02/02/18 12:41 02/02/18 12:41 02/02/18 12:41 02/02/18 13:43 Intake & Output 02/01/18 02/02/18 02/03/18 06:59 06:59 06:59 Weight 87.8 kg General appearance: PRESENT: morbidly obese, other - Sedated Head exam: PRESENT: atraumatic, normocephalic Eye exam: PRESENT: conjunctiva pink, other - Sluggish pupillary reaction Ear exam: PRESENT: normal external ear exam Mouth exam: PRESENT: moist Neck exam: PRESENT: full ROM. ABSENT: JVD, lymphadenopathy, tenderness Respiratory exam: PRESENT: decreased breath sounds, other - Soft crackles throughout Cardiovascular exam: PRESENT: tachycardia. ABSENT: diastolic murmur, systolic murmur GI/Abdominal exam: PRESENT: distended, normal bowel sounds, soft. ABSENT: tenderness Extremities exam: PRESENT: +1 edema. ABSENT: full ROM Musculoskeletal exam: ABSENT: ambulatory Neurological exam: PRESENT: other - Sedated Psychiatric exam: PRESENT: other - Sedated Skin exam: PRESENT: intact, normal color Results Laboratory Results: 02/02/18 13:20 02/02/18 13:20 02/02/18 02/02/18 02/02/18 13:20 13:20 13:20 WBC 5.5 RBC 5.09 Hgb 12.7 L Hct 39.6 MCV 78 L MCH 25.0 L MCHC 32.2 RDW 21.4 H Plt Count 157 Seg Neutrophils % 74.6 Lymphocytes % 12.1 L Monocytes % 10.2 Eosinophils % 2.8 Basophils % 0.3 Absolute Neutrophils 4.1 Absolute Lymphocytes 0.7 Absolute Monocytes 0.6 Absolute Eosinophils 0.2 Absolute Basophils 0.0 Sodium 143.8 Potassium 3.2 L Chloride 101 Carbon Dioxide 34 H Anion Gap 9 BUN 14 Creatinine 1.11 Est GFR ( Amer) > 60 Est GFR (Non-Af Amer) > 60 Glucose 111 H Lactic Acid 1.3 Calcium 10.2 Total Bilirubin 0.6 AST 23 ALT 34 Alkaline Phosphatase 39 Total Protein 6.6 Albumin 4.0 02/02/18 02/02/18 13:20 13:20 Creatine Kinase 154 CK-MB (CK-2) 4.97 H Troponin I 0.013 Impressions: Chest X-Ray 02/02/18 15:02 IMPRESSION: SATISFACTORY PLACEMENT ENDOTRACHEAL TUBE AND NASOGASTRIC TUBE. OTHERWISE STABLE APPEARANCE OF THE CHEST. Assessment & Plan - Diagnosis (1) Acute and chronic respiratory failure Qualifiers: Respiratory failure complication: hypoxia and hypercapnia Qualified Code(s) : J96.21 - Acute and chronic respiratory failure with hypoxia; J96.22 - Acute and chronic respiratory failure with hypercapnia; J96.22 - Acute and chronic respiratory failure with hypercapnia; J96.22 - Acute and chronic respiratory failure with hypercapnia Is this a current diagnosis for this admission?: Yes Plan: Continue ventilatory support. Will consult Dr. Beard who is patient's listed squeegee operator. Order CTA of the chest and BNP (2) COPD with respiratory failure, acute Is this a current diagnosis for this admission?: Yes Plan: To place patient on nebulizer treatments and IV steroids. Suspect patient may have cor pulmonale. Since the recent echocardiogram will order an echocardiogram (3) Anticoagulated Is this a current diagnosis for this admission?: Yes Plan: Sister states that patient had been taking the blood thinner. He is currently on Xarelto as per record for the treatment of PE and DVT (4) Hypertension Qualifiers: Hypertension type: essential hypertension Qualified Code(s): I10 - Essential (primary) hypertension Is this a current diagnosis for this admission?: Yes Plan: For now will hold off antihypertensive medications (5) Obstructive sleep apnea Is this a current diagnosis for this admission?: Yes Plan: May be contributing to presentation (6) History of pulmonary embolism Is this a current diagnosis for this admission?: Yes Plan: Accordingly on anticoagulation. Will order a CT of the chest (7) History of DVT (deep vein thrombosis) Is this a current diagnosis for this admission?: Yes Plan: Patient is on anticoagulation - Time Time Spent: 30 to 50 Minutes Medications reviewed and adjusted accordingly: Yes Anticipated discharge: Other - Unable to tell at this time - Inpatient Certification Based on my medical assessment, after consideration of the patient's comorbidities, presenting symptoms, or acuity I expect that the services needed warrant INPATIENT care.: Yes I certify that my determination is in accordance with my understanding of Medicare's requirements for reasonable and necessary INPATIENT services [42 CFR 412.3e].: Yes Medical Necessity: Need Close Monitoring Due to Risk of Patient Decompensation, Need For IV Fluids, Need For Continuous Telemetry Monitoring, Need for Nebulizer Therapy and Monitoring of Response
[2018-02-02 17:22] LABS: ARTERIAL BLOOD BASE EXCESS -3.9 mmol/L; ARTERIAL BLOOD FIO2 60%; ARTERIAL BLOOD H2CO3 1.45 mmol/L (1.05-1.35); ARTERIAL BLOOD HCO3 22.8 mmol/L (20-26); ARTERIAL BLOOD O2 SATURATION 99.6 % (94-98); ARTERIAL BLOOD PCO2 48.3 mmHg (35-45); ARTERIAL BLOOD PH 7.29 (7.35-7.45); ARTERIAL BLOOD PO2 309.6 mmHg (80-100); ARTERIAL BLOOD TOTAL CO2 24.2 mmol/L (23-27)
[2018-02-02 17:32] LABS: APPEARANCE,URINE CLOUDY; BILIRUBIN,URINE NEGATIVE (NEGATIVE); COLOR,URINE YELLOW; GLUCOSE, URINE >=500 mg/dL (NEGATIVE); KETONES,URINE NEGATIVE (NEGATIVE); LEUKOCYTE ESTERASE,URINE NEGATIVE (NEGATIVE); NITRITE,URINE NEGATIVE (NEGATIVE); PROTEIN,URINE >=500 mg/dL (NEGATIVE); UROBILINOGEN,URINE NEGATIVE mg/dL (<2.0)
[2018-02-02] MEDS ORDERED: POTASSIUM CHLORIDE 20 MEQ/15 ML UDCUP NG SCH (18:00)
--- NOTE | 2018-02-02 18:04 | RADIOLOGY REPORT (SQ) ---
EXAM DESCRIPTION: KUB/ABDOMEN (SINGLE VIEW) COMPLETED DATE/TIME: 02/02/2018 4:41 pm REASON FOR STUDY: Check Placement of NG Tube COMPARISON: None. NUMBER OF VIEWS: One view. TECHNIQUE: Supine radiographic image of the abdomen acquired. LIMITATIONS: None. FINDINGS: BOWEL GAS PATTERN: Normal bowel gas pattern. No dilated loops. CALCIFICATIONS: No suspicious calcifications. SOFT TISSUES: No gross mass or suggestion of organomegaly. HARDWARE: Nasogastric tube terminates expected location of the stomach. Smallwood catheter in place. BONES: No acute fracture. No worrisome bone lesions. OTHER: No other significant finding. IMPRESSION: NO RADIOGRAPHIC EVIDENCE FOR ACUTE ABDOMINAL DISEASE. SATISFACTORY PLACEMENT NASOGASTRI C TUBE. TECHNICAL DOCUMENTATION: JOB ID: [id number] [employer]- All Rights Reserved Reading location - IP/workstation name: [email or web address]
--- NOTE | 2018-02-02 19:22 | RADIOLOGY REPORT (SQ) ---
EXAM DESCRIPTION: CTA CHEST COMPLETED DATE/TIME: 02/02/2018 6:32 pm REASON FOR STUDY: respiratory failure/cardiac arrest COMPARISON: None. TECHNIQUE: CT scan of the chest performed using helical scanning technique with dynamic intravenous contrast injection. Images reviewed with lung, soft tissue and bone windows. Reconstructed coronal and sagittal MPR images reviewed. Additional 3 dimensional post-processing performed to develop Maximal Intensity Projection images (WA P). All images stored on PACS. All CT scanners at this facility use dose modulation, iterative reconstruction, and/or weight based d osing when appropriate to reduce radiation dose to as low as reasonably achievable (ALARA). [facility]: Dose Right [facility]: CareDose [facility]: Dose Right [facility]: Teradose 4D [facility]: Medudem CONTRAST TYPE AND DOSE: contrast/concentration: Isovue 370.00 mg/ml; Total Contrast Delivered: 75.0 ml; Total Saline Delivered: 110.1 ml Contrast bolus optimized for the pulmonary arteries. Not diagnostic for the aorta. RENAL FUNCTION: BUN 14; creatinine 1.11 RADIATION DOSE: CT Rad equipment meets quality standard of care and radiation dose reduction techniq ues were employed. CTDIvol: 18.7 - 26.4 mGy. DLP: 707 mGy-cm. . LIMITATIONS: None. FINDINGS: LUNGS AND PLEURA: Intubated. Dependent atelectasis. No masses, infiltrates, pneumothorax . No pleural effusions, calcifications. AORTA AND GREAT VESSELS: No aneurysm. Contrast bolus not optimized for the aorta. HEART: No pericardial effusion. No significant coronary artery calcifications. PULMONARY ARTERIES: No emboli visualized in the main pulmonary arteries or the segmental branches. HILAR AND MEDIASTINAL STRUCTURES: No identified masses or abnormal nodes. HARDWARE: Endotracheal tube and enteric tube without evidence of gross complication. UPPER ABDOMEN: No significant findings. Limited exam. THYROID AND OTHER SOFT TISSUES: No masses. No adenopathy. BONES: Mildly displaced transverse fractures are seen of the left anterolateral ribs 2 through 5. No ndisplaced fractures are seen of the anterolateral ribs 2 through 6. 3D MIPS: Confirm above findings. OTHER: No other significant finding. IMPRESSION: NORMAL CTA OF THE CHEST. NO PULMONARY EMBOLI. Multiple transverse fractures of the anterolateral ribs bilaterally, consistent with recent resuscita tion efforts. COMMENT: Quality ID # [id number]: Final reports with documentation of one or more dose reduction techniques (e.g., Automated exposure control, adjustment of the mA and/or kV according to patient size, use of iterative reconstruction technique) TECHNICAL DOCUMENTATION: JOB ID: [id number] [employer]- All Rights Reserved Reading location - IP/workstation name: [email or web address]
[2018-02-02] MEDS: PROPOFOL 100 ML IV PRN ×2 (19:55→23:30)
[2018-02-02] MEDS: METHYLPREDNISOLONE INJ 40 MG/1 ML SDV IV SCH (19:56)
[2018-02-02] MEDS: NORMAL SALINE 1000 ML 1,000 ML IV PRN (19:57)
[2018-02-02] MEDS: FAMOTIDINE INJ/PF 20 MG/2 ML SDV IV SCH (21:10)
[2018-02-02 21:22] LABS: ARTERIAL BLOOD BASE EXCESS -2.9 mmol/L; ARTERIAL BLOOD H2CO3 1.34 mmol/L (1.05-1.35); ARTERIAL BLOOD O2 SATURATION 97.5 % (94-98); ARTERIAL BLOOD PCO2 44.4 mmHg (35-45); ARTERIAL BLOOD PH 7.33 (7.35-7.45); ARTERIAL BLOOD PO2 105.3 mmHg (80-100); ARTERIAL BLOOD TOTAL CO2 24.4 mmol/L (23-27)
[2018-02-02 21:24] LABS: ARTERIAL BLOOD FIO2 40%
[2018-02-02] MEDS ORDERED: MIDAZOLAM HCL 50 MG/100 ML RTUINJ IV ONE (23:56)
[2018-02-03] MEDS: MIDAZOLAM HCL 50 MG/100 ML RTUINJ IV PRN ×4 (00:26→17:26)
[2018-02-03 00:40] LABS: ARTERIAL BLOOD BASE EXCESS -0.1 mmol/L; ARTERIAL BLOOD H2CO3 1.19 mmol/L (1.05-1.35); ARTERIAL BLOOD HCO3 24.5 mmol/L (20-26); ARTERIAL BLOOD O2 SATURATION 96.5 % (94-98); ARTERIAL BLOOD PCO2 39.7 mmHg (35-45); ARTERIAL BLOOD PH 7.41 (7.35-7.45); ARTERIAL BLOOD PO2 84.9 mmHg (80-100); ARTERIAL BLOOD TOTAL CO2 25.7 mmol/L (23-27)
[2018-02-03 00:42] LABS: ARTERIAL BLOOD FIO2 30%
[2018-02-03 00:49] LABS: HEMATOCRIT 40.7 % (37.9-51.0); HEMOGLOBIN 12.8 g/dL (13.5-17.0); MEAN CORPUSCULAR HEMOGLOBIN 24.6 pg (27.0-33.4); MEAN CORPUSCULAR HGB CONC 31.4 g/dL (32.0-36.0); MEAN CORPUSCULAR VOLUME 78 fl (80-97); RED BLOOD COUNT 5.19 10^6/uL (4.35-5.55); RED CELL DISTRIBUTION WIDTH 21.8 % (11.5-14.0)
[2018-02-03 00:50] LABS: WHITE BLOOD COUNT 11.3 10^3/uL (4.0-10.5)
[2018-02-03 00:52] LABS: INTERNATIONAL RATION (INR) 1.31; PROTHROMBIN TIME 17.2 SEC (11.4-15.4)
[2018-02-03 00:53] LABS: PARTIAL THROMBOPLASTIN TIME 31.8 SEC (23.5-35.8)
[2018-02-03 00:55] LABS: ABSOLUTE LYMPHOCYTES# (MANUAL) 0.2 10^3/uL (0.5-4.7); ABSOLUTE MONOCYTES # (MANUAL) 0.5 10^3/uL (0.1-1.4); ABSOLUTE NEUTROPHILS# (MANUAL) 10.6 10^3/uL (1.7-8.2); BAND NEUTROPHILS % (MANUAL) 2 % (3-5); BASOPHILS % (MANUAL) 0 % (0-2); EOSINOPHILS % (MANUAL) 0 % (0-6); LYMPHOCYTES % (MANUAL) 2 % (13-45); MONOCYTES % (MANUAL) 4 % (3-13); SEGMENTED NEUTROPHILS % (MAN) 92 % (42-78); TOTAL CELLS COUNTED 100
[2018-02-03 00:59] LABS: ANISOCYTOSIS 3+; PLATELET CLUMPS PRESENT; PLATELET COMMENT ADEQUATE; SCHISTOCYTES SLIGHT; TARGET CELLS SLIGHT; TOXIC VACUOLATION PRESENT
[2018-02-03 01:01] LABS: PLATELET COUNT 143 10^3/uL (150-450)
[2018-02-03 01:05] LABS: ALANINE AMINOTRANSFERASE 115 U/L (21-72); ALBUMIN 3.9 g/dL (3.5-5.0); ALKALINE PHOSPHATASE 39 U/L (38-126); ANION GAP 13 (5-19); ASPARTATE AMINO TRANSFERASE 100 U/L (17-59); BILIRUBIN,DIRECT 0.2 mg/dL (0.0-0.4); BILIRUBIN,TOTAL 0.3 mg/dL (0.2-1.3); BLOOD UREA NITROGEN 20 mg/dL (7-20); CARBON DIOXIDE 26 mmol/L (22-30); CHLORIDE 105 mmol/L (98-107); GLUCOSE 167 mg/dL (75-110); POTASSIUM 3.8 mmol/L (3.6-5.0); SODIUM 144.3 mmol/L (137-145); TOTAL PROTEIN 6.5 g/dL (6.3-8.2)
[2018-02-03] MEDS: METHYLPREDNISOLONE INJ 40 MG/1 ML SDV IV SCH ×3 (02:20→17:27)
[2018-02-03] MEDS ORDERED: FENTANYL CITRATE INJ/PF 100 MCG/2 ML AMPUL ONE (02:40)
[2018-02-03] MEDS ORDERED: FENTANYL CITRATE INJ/PF 100 MCG/2 ML AMPUL INJ SCH (02:45)
[2018-02-03] MEDS: NORMAL SALINE 1000 ML 1,000 ML IV PRN ×2 (03:39→17:25)
[2018-02-03 04:01] LABS: HEMATOCRIT 42.2 % (37.9-51.0); HEMOGLOBIN 13.3 g/dL (13.5-17.0); MEAN CORPUSCULAR HEMOGLOBIN 24.6 pg (27.0-33.4); MEAN CORPUSCULAR HGB CONC 31.5 g/dL (32.0-36.0); MEAN CORPUSCULAR VOLUME 78 fl (80-97); RED BLOOD COUNT 5.39 10^6/uL (4.35-5.55); RED CELL DISTRIBUTION WIDTH 22.2 % (11.5-14.0); WHITE BLOOD COUNT 10.1 10^3/uL (4.0-10.5)
[2018-02-03 04:20] LABS: ALANINE AMINOTRANSFERASE 113 U/L (21-72); ALBUMIN 3.8 g/dL (3.5-5.0); ALKALINE PHOSPHATASE 40 U/L (38-126); ANION GAP 12 (5-19); ASPARTATE AMINO TRANSFERASE 97 U/L (17-59); BILIRUBIN,DIRECT 0.4 mg/dL (0.0-0.4); BILIRUBIN,TOTAL 0.5 mg/dL (0.2-1.3); BLOOD UREA NITROGEN 21 mg/dL (7-20); CALCIUM 8.7 mg/dL (8.4-10.2); CARBON DIOXIDE 28 mmol/L (22-30); CHLORIDE 108 mmol/L (98-107); GLUCOSE 154 mg/dL (75-110); SODIUM 147.5 mmol/L (137-145); TOTAL PROTEIN 6.6 g/dL (6.3-8.2); TRIGLYCERIDES 81 mg/dL (<150)
[2018-02-03 04:29] LABS: POTASSIUM 4.1 mmol/L (3.6-5.0)
[2018-02-03 04:36] LABS: ABSOLUTE LYMPHOCYTES# (MANUAL) 0.2 10^3/uL (0.5-4.7); ABSOLUTE MONOCYTES # (MANUAL) 0.8 10^3/uL (0.1-1.4); ABSOLUTE NEUTROPHILS# (MANUAL) 9.1 10^3/uL (1.7-8.2); BAND NEUTROPHILS % (MANUAL) 2 % (3-5); BASOPHILS % (MANUAL) 0 % (0-2); EOSINOPHILS % (MANUAL) 0 % (0-6); LYMPHOCYTES % (MANUAL) 1 % (13-45); MONOCYTES % (MANUAL) 8 % (3-13); SEGMENTED NEUTROPHILS % (MAN) 88 % (42-78); TOTAL CELLS COUNTED 100
[2018-02-03 04:41] LABS: ANISOCYTOSIS 3+; PLATELET COMMENT ADEQUATE; POIKILOCYTOSIS 1+
[2018-02-03 04:43] LABS: PLATELET CLUMPS PRESENT; PLATELET COUNT 149 10^3/uL (150-450); TOXIC VACUOLATION PRESENT
[2018-02-03] MEDS: FENTANYL CITRATE INJ/PF 100 MCG/2 ML AMPUL IV PRN ×4 (05:29→22:56)
--- NOTE | 2018-02-03 06:31 | RADIOLOGY REPORT (SQ) ---
EXAM DESCRIPTION: CHEST SINGLE VIEW CLINICAL HISTORY: respiratory failure COMPARISON: None. FINDINGS: Single frontal view of the chest. Endotracheal tube with tip 4 cm above the alem. NG tube with tip below the diaphragm. Tortuosity of the thoracic aorta. Heart is not enlarged. Low lung volumes. Leads overlie the chest. No consolidation, pneumothorax, or pleural effusion. Degenerative change of the right acromioclavicular joint. Upper abdominal soft tissues are unremarkable. IMPRESSION: 1. Tubes and lines in appropriate position. No acute pulmonary process identified.
[2018-02-03] MEDS: IPRATROPIUM/ALBUTEROL 0.5-2.5 MG/3 ML AMPUL NEB SCH (08:24)
[2018-02-03] MEDS ORDERED: TAPENTADOL HCL 50 MG PO PRN (08:25)
[2018-02-03] MEDS ORDERED: POTASSIUM CHLORIDE 20 MEQ/15 ML UDCUP NG SCH (08:31)
[2018-02-03] MEDS: DOCUSATE SODIUM 100 MG CAPSULE PO SCH (11:39)
[2018-02-03] MEDS: FAMOTIDINE INJ/PF 20 MG/2 ML SDV IV SCH ×2 (11:40→21:42)
[2018-02-03] MEDS ORDERED: OXYCODONE-ACETAMINOPHEN 5-325 MG TABLET NG PRN (12:36)
[2018-02-03] MEDS: ALBUTEROL SULFATE 0.042% NEB (1.25 MG/3 ML) AMPUL NEB PRN ×2 (12:41→20:01)
[2018-02-03] MEDS ORDERED: ENOXAPARIN SODIUM INJ 80 MG/0.8 ML DISP.SYRIN SUBCUT ONE (13:00)
[2018-02-03] MEDS ORDERED: LANSOPRAZOLE 30 MG TAB.RAP.DR NG ONE (13:00)
[2018-02-03] MEDS ORDERED: POTASSIUM CHLORIDE 20 MEQ/15 ML UDCUP NG ONE (13:00)
[2018-02-03] MEDS ORDERED: AMLODIPINE BESYLATE 5 MG TABLET NG SCH (14:00)
[2018-02-03] MEDS: FUROSEMIDE INJ/PF 20 MG/2 ML SDV IV SCH (14:06)
[2018-02-03] MEDS: LEVOFLOXACIN 500 MG/D5W RTU 500 MG/100 ML RTUPB IV SCH (14:08)
[2018-02-03] MEDS: TAMSULOSIN HCL 0.4 MG CAP.SR.24H PO SCH (14:09)
[2018-02-03] MEDS: IPRATROPIUM BROMIDE 0.02% NEB 0.5 MG/2.5 ML AMPUL NEB SCH (16:05)
[2018-02-03] MEDS: LEVALBUTEROL HCL NEB 1.25 MG/3 ML AMPUL NEB SCH (16:05)
--- NOTE | 2018-02-03 16:22 | EKG REPORT ---
SEVERITY:- ABNORMAL ECG - SINUS TACHYCARDIA REPOL ABNRM SUGGESTS ISCHEMIA, LATERAL LEADS BORDERLINE PROLONGED QT INTERVAL : Confirmed by: Herson Stanton 03-Feb-2018 16:21:54
[2018-02-03] MEDS ORDERED: RIVAROXABAN 10 MG TABLET PO SCH (17:00)
[2018-02-03] MEDS: LORATADINE 10 MG TABLET NG SCH (17:26)
[2018-02-03] MEDS: ASPIRIN 81 MG TABLET, CHEWABLE NG SCH (17:27)
[2018-02-03] MEDS ORDERED: ASPIRIN 81 MG TABLET, ENT COATED PO SCH (18:00)
[2018-02-03] MEDS: ACETAMINOPHEN 650 MG SUPP.RECT PR PRN (18:08)
[2018-02-03] MEDS: POTASSIUM CHLORIDE 20 MEQ/15 ML UDCUP NG SCH (21:41)
[2018-02-03] MEDS: ENOXAPARIN SODIUM INJ 80 MG/0.8 ML DISP.SYRIN SUBCUT SCH (21:42)
[2018-02-03] MEDS: ATORVASTATIN CALCIUM 40 MG TABLET NG SCH (21:43)
[2018-02-04] MEDS: IPRATROPIUM BROMIDE 0.02% NEB 0.5 MG/2.5 ML AMPUL NEB SCH ×4 (00:24→23:41)
[2018-02-04] MEDS: LEVALBUTEROL HCL NEB 1.25 MG/3 ML AMPUL NEB SCH ×4 (00:25→23:41)
[2018-02-04] MEDS: METHYLPREDNISOLONE INJ 40 MG/1 ML SDV IV SCH ×3 (01:38→17:44)
[2018-02-04] MEDS: FENTANYL CITRATE INJ/PF 100 MCG/2 ML AMPUL IV PRN ×2 (03:50→09:16)
[2018-02-04 04:25] LABS: HEMATOCRIT 37.4 % (37.9-51.0); HEMOGLOBIN 12.2 g/dL (13.5-17.0); MEAN CORPUSCULAR HEMOGLOBIN 25.2 pg (27.0-33.4); MEAN CORPUSCULAR HGB CONC 32.5 g/dL (32.0-36.0); MEAN CORPUSCULAR VOLUME 78 fl (80-97); PLATELET COUNT 174 10^3/uL (150-450); RED BLOOD COUNT 4.82 10^6/uL (4.35-5.55); RED CELL DISTRIBUTION WIDTH 21.9 % (11.5-14.0); WHITE BLOOD COUNT 6.5 10^3/uL (4.0-10.5)
[2018-02-04 04:40] LABS: ALANINE AMINOTRANSFERASE 84 U/L (21-72); ALBUMIN 3.3 g/dL (3.5-5.0); ALKALINE PHOSPHATASE 34 U/L (38-126); ANION GAP 10 (5-19); ASPARTATE AMINO TRANSFERASE 73 U/L (17-59); BILIRUBIN,DIRECT 0.4 mg/dL (0.0-0.4); BILIRUBIN,TOTAL 0.6 mg/dL (0.2-1.3); BLOOD UREA NITROGEN 21 mg/dL (7-20); CALCIUM 8.2 mg/dL (8.4-10.2); CARBON DIOXIDE 23 mmol/L (22-30); CHLORIDE 115 mmol/L (98-107); GLUCOSE 158 mg/dL (75-110); POTASSIUM 3.7 mmol/L (3.6-5.0); SODIUM 147.5 mmol/L (137-145); TOTAL PROTEIN 5.9 g/dL (6.3-8.2)
[2018-02-04] MEDS: NORMAL SALINE 1000 ML 1,000 ML IV PRN (05:26)
[2018-02-04] MEDS: LANSOPRAZOLE 30 MG TAB.RAP.DR NG SCH (05:27)
[2018-02-04 05:32] LABS: ARTERIAL BLOOD BASE EXCESS -2.5 mmol/L; ARTERIAL BLOOD H2CO3 0.89 mmol/L (1.05-1.35); ARTERIAL BLOOD HCO3 20.4 mmol/L (20-26); ARTERIAL BLOOD O2 SATURATION 95.7 % (94-98); ARTERIAL BLOOD PCO2 29.5 mmHg (35-45); ARTERIAL BLOOD PH 7.46 (7.35-7.45); ARTERIAL BLOOD PO2 73.4 mmHg (80-100); ARTERIAL BLOOD TOTAL CO2 21.3 mmol/L (23-27)
[2018-02-04 05:41] LABS: ARTERIAL BLOOD FIO2 30%
[2018-02-04 06:01] LABS: APPEARANCE,URINE SLIGHTLY-CLOUDY; BILIRUBIN,URINE NEGATIVE (NEGATIVE); COLOR,URINE YELLOW; GLUCOSE, URINE 50 mg/dL (NEGATIVE); KETONES,URINE NEGATIVE (NEGATIVE); LEUKOCYTE ESTERASE,URINE NEGATIVE (NEGATIVE); NITRITE,URINE NEGATIVE (NEGATIVE); PROTEIN,URINE 30 mg/dL (NEGATIVE); URIC ACID CRYSTALS,URINE RARE /HPF; URINE SPECIFIC GRAVITY 1.017; UROBILINOGEN,URINE NEGATIVE mg/dL (<2.0)
[2018-02-04] MEDS: ALBUTEROL SULFATE 0.042% NEB (1.25 MG/3 ML) AMPUL NEB PRN (07:00)
--- NOTE | 2018-02-04 07:08 | RADIOLOGY REPORT (SQ) ---
EXAM DESCRIPTION: CHEST SINGLE VIEW CLINICAL HISTORY: respiratory failure COMPARISON: 02/03/2018 FINDINGS: Single frontal view of the chest. Endotracheal tube with tip 4 cm above the alem. NG tube with tip below the diaphragm. Tortuosity of the thoracic aorta. Heart is not enlarged. Low lung volumes. Leads overlie the chest. Interval development of streaky left basilar opacity. No pneumothorax. Upper abdominal soft tissues are unremarkable. IMPRESSION: 1. Interval development of streaky left basilar opacities which may be related to subsegmental atelectasis. Electronically signed by: Drake Ramos 02/04/2018 6:06 AM
[2018-02-04] MEDS ORDERED: HYDRALAZINE HCL INJ/PF 20 MG/1 ML SDV IV PRN ×2 (07:19→10:00)
[2018-02-04] MEDS ORDERED: AMLODIPINE BESYLATE 5 MG TABLET NG SCH (07:20)
[2018-02-04] MEDS ORDERED: ONDANSETRON HCL INJ/PF 4 MG/2 ML SDV IV PRN (08:30)
[2018-02-04] MEDS: TAMSULOSIN HCL 0.4 MG CAP.SR.24H PO SCH ×2 (08:44→10:43)
[2018-02-04] MEDS: DOCUSATE SODIUM 100 MG CAPSULE PO SCH (09:57)
[2018-02-04] MEDS: FAMOTIDINE INJ/PF 20 MG/2 ML SDV IV SCH (09:57)
[2018-02-04] MEDS: POTASSIUM CHLORIDE 20 MEQ/15 ML UDCUP NG SCH ×2 (09:57→22:19)
[2018-02-04] MEDS: ENOXAPARIN SODIUM INJ 80 MG/0.8 ML DISP.SYRIN SUBCUT SCH ×2 (09:58→22:19)
--- NOTE | 2018-02-04 10:57 | PDOC PROGRESS REPORT ---
Subjective Progress Note for:: 02/04/18 Subjective:: 57 years old -[place] male was brought into emergency room by his sister via private vehicle due to shortness of breath. He became bradycardic and then went to asystole. Patient was resuscitated and ROSC was established after Epinephrine 5 administered. No hypothermia protocol is in place. Patient was admitted under our service. Patient at the present time is off sedation but not much response reported by nurse. Unable to obtain since sedated Review of symptoms Unable to obtain since sedated All significant laboratories and diagnostics have been reviewed Reason For Visit: ACUTE ON CHRONIC RESPIRATORY FAILURE CARDIAC Physical Exam Vital Signs: Temp Pulse Resp BP Pulse Ox 99.7 F 110 H 25 H 175/103 H 98 02/04/18 06:08 02/04/18 04:00 02/04/18 06:08 02/04/18 06:08 02/04/18 06:08 Intake & Output 02/03/18 02/04/18 02/05/18 06:59 06:59 06:59 Intake Total 1720 2423 Output Total 1375 1860 Balance 345 563 Weight 87.7 kg 88.1 kg General appearance: PRESENT: morbidly obese. ABSENT: cooperative Head exam: PRESENT: atraumatic, normocephalic Eye exam: PRESENT: conjunctiva pink Neck exam: PRESENT: full ROM. ABSENT: JVD, lymphadenopathy, tenderness Respiratory exam: PRESENT: clear to auscultation andie Cardiovascular exam: PRESENT: RRR. ABSENT: diastolic murmur, systolic murmur Vascular exam: PRESENT: normal capillary refill GI/Abdominal exam: PRESENT: distended, normal bowel sounds, soft. ABSENT: tenderness Extremities exam: PRESENT: pedal edema. ABSENT: full ROM Musculoskeletal exam: ABSENT: ambulatory Results Laboratory Results: 02/04/18 03:55 02/04/18 03:55 02/04/18 02/04/18 02/04/18 03:55 03:55 05:19 WBC 6.5 RBC 4.82 Hgb 12.2 L Hct 37.4 L MCV 78 L MCH 25.2 L MCHC 32.5 RDW 21.9 H Plt Count 174 Carbonic Acid 0.89 L HCO3/H2CO3 Ratio 22:1 ABG pH 7.46 H ABG pCO2 29.5 L ABG pO2 73.4 L ABG HCO3 20.4 ABG O2 Saturation 95.7 ABG Base Excess -2.5 FiO2 30% Sodium 147.5 H Potassium 3.7 Chloride 115 H Carbon Dioxide 23 Anion Gap 10 BUN 21 H Creatinine 1.10 Est GFR ( Amer) > 60 Est GFR (Non-Af Amer) > 60 Glucose 158 H Calcium 8.2 L Magnesium 2.4 H Total Bilirubin 0.6 AST 73 H ALT 84 H Alkaline Phosphatase 34 L Total Protein 5.9 L Albumin 3.3 L Urine Color Urine Appearance Urine pH Ur Specific Wilder Urine Protein Urine Glucose (UA) Urine Ketones Urine Blood Urine Nitrite Ur Leukocyte Esterase Urine WBC (Auto) Urine RBC (Auto) 02/04/18 05:19 WBC RBC Hgb Hct MCV MCH MCHC RDW Plt Count Carbonic Acid HCO3/H2CO3 Ratio ABG pH ABG pCO2 ABG pO2 ABG HCO3 ABG O2 Saturation ABG Base Excess FiO2 Sodium Potassium Chloride Carbon Dioxide Anion Gap BUN Creatinine Est GFR ( Amer) Est GFR (Non-Af Amer) Glucose Calcium Magnesium Total Bilirubin AST ALT Alkaline Phosphatase Total Protein Albumin Urine Color YELLOW Urine Appearance SLIGHTLY-CLOUDY Urine pH 5.0 Ur Specific Wilder 1.017 Urine Protein 30 H Urine Glucose (UA) 50 H Urine Ketones NEGATIVE Urine Blood MODERATE H Urine Nitrite NEGATIVE Ur Leukocyte Esterase NEGATIVE Urine WBC (Auto) 1 Urine RBC (Auto) 9 02/02/18 02/03/18 02/03/18 21:23 03:53 09:46 Troponin I 0.119 0.190 0.166 Impressions: Chest/Abdomen CTA 02/02/18 00:00 IMPRESSION: NORMAL CTA OF THE CHEST. NO PULMONARY EMBOLI. Multiple transverse fractures of the anterolateral ribs bilaterally, consistent with recent resuscitation efforts. KUB X-Ray 02/02/18 15:46 IMPRESSION: NO RADIOGRAPHIC EVIDENCE FOR ACUTE ABDOMINAL DISEASE. SATISFACTORY PLACEMENT NASOGASTRIC TUBE. Chest X-Ray 02/04/18 06:00 IMPRESSION: 1. Interval development of streaky left basilar opacities which may be related to subsegmental atelectasis. Assessment & Plan - Diagnosis (1) Acute and chronic respiratory failure Qualifiers: Respiratory failure complication: hypoxia and hypercapnia Qualified Code(s) : J96.21 - Acute and chronic respiratory failure with hypoxia; J96.22 - Acute and chronic respiratory failure with hypercapnia; J96.22 - Acute and chronic respiratory failure with hypercapnia; J96.22 - Acute and chronic respiratory failure with hypercapnia Is this a current diagnosis for this admission?: Yes Plan: Patient cardiac arrest secondary to respiratory failure. Currently being managed by Dr. Beard. Will order EEG an nuclear study to evaluate brain waves (2) COPD with respiratory failure, acute Is this a current diagnosis for this admission?: Yes Plan: Wean off IV steroids. Dr. Beard assisting in management (3) Anticoagulated Is this a current diagnosis for this admission?: Yes Plan: Continue Xarelto 20 mg per NG (4) Hypertension Qualifiers: Hypertension type: essential hypertension Qualified Code(s): I10 - Essential (primary) hypertension Is this a current diagnosis for this admission?: Yes Plan: Increase Norvasc dose. To order hydralazine for rescue (5) Obstructive sleep apnea Is this a current diagnosis for this admission?: Yes Plan: May be contributing to presentation since had not been using CPAP (6) History of pulmonary embolism Is this a current diagnosis for this admission?: Yes Plan: Continue Xarelto (7) History of DVT (deep vein thrombosis) Is this a current diagnosis for this admission?: Yes Plan: Patient is on anticoagulation (8) Ribs, multiple fractures Qualifiers: Encounter type: subsequent encounter Laterality: bilateral Is this a current diagnosis for this admission?: Yes Plan: Bilateral. Due to resuscitation. Will monitor for pneumothorax - Time Time Spent with patient: 15-24 minutes Medications reviewed and adjusted accordingly: Yes Anticipated discharge: Other - Will be pain on brain evaluation - Inpatient Certification Based on my medical assessment, after consideration of the patient's comorbidities, presenting symptoms, or acuity I expect that the services needed warrant INPATIENT care.: Yes I certify that my determination is in accordance with my understanding of Medicare's requirements for reasonable and necessary INPATIENT services [42 CFR 412.3e].: Yes Medical Necessity: Need Close Monitoring Due to Risk of Patient Decompensation, Need for Nebulizer Therapy and Monitoring of Response
--- NOTE | 2018-02-04 14:55 | CONSULTATION REPORT E ---
Consultation Report NAME: SHONDA HUERTA : 1960 AGE: 57Y DATE: 02/02/2018 ROOM: 605 A TO: JERILYN LEONARDO M.D. FROM: SEBAS ALICIA M.D. Requesting Physician The patient is a 57-year-old male who came in February 02, 2018, due to increased shortness of breath and not feeling well. The patient was found to be tachycardic and dyspneic in the emergency room. The patient was given magnesium sulfate IV. Then the patient's heart rate went down to asystole. ACLS protocol was instituted. Endotracheal intubation was done. Epinephrine IV was given 5 times. The patient was being resuscitated for about 45 minutes. The patient was later transferred to the ICU for further management. Consulted around 9:30 p.m. for ventilator management. Ventilators were changed to SIMV PRVC at a rate of 16. Tidal volume time is 540 ml, pressure support of 10, PEEP of 5. Fi O2 was titrated to get saturation 91-94%. ABG ordered after 2 hours. The patient's vital signs have been stable since she was transferred to ICU. The patient is on IV propofol, and later changed to IV Versed. Saturation has been stable at 97-100% on FIO2 of 30%. She has endotracheal secretions. PAST MEDICAL HISTORY: 1. History of hyperlipidemia. 2. Hypertension. 3. Asthma. 4. COPD. 5. Obstructive sleep apnea. SURGICAL HISTORY: None. SOCIAL HISTORY: Lives with family. Former smoker. Denies alcohol abuse or illicit drug use. FAMILY HISTORY: hypertension. HOME MEDICATIONS: Include: 1. Amlodipine 5 mg daily. 2. Hydrochlorothiazide 25 mg daily. 3. Lovastatin 40 mg daily. 4. Omeprazole 6. Flomax 0.5 mg daily. ALLERGIES: No known drug allergies. REVIEW OF SYSTEMS: Not obtainable; the patient is intubated. PHYSICAL EXAMINATION: VITAL SIGNS: Blood pressure is 124/78. Heart rate of 116. Respiratory rate of 16. Saturations 98%. Temperature is 99 degrees Fahrenheit, with a T-max of 99 degrees Fahrenheit. EYES: no jaundice and pallor. EARS, NOSE, THROAT: No ear drainage. No nasal discharge. Endotracheal tube is in place. No jaundice. CHEST AND LUNGS: No wheezing, no rhonchi, no coarse crackles. CARDIOVASCULAR: S1 and S2 distinct; normal rate; regular rhythm. ABDOMEN: Flabby. Positive bowel sounds. Soft. Nondistended. Nontender. EXTREMITIES: No joint swelling or cellulitis. LABORATORY: CBC done today showed a white count of 5.5, hemoglobin 12.7, hematocrit 39.6, platelet count is 157. A blood gas at 9:14 p.m. showed a pH of 7.33, pCO2 of 44.4, pO2 of 105.3, saturation is 97.5, FIO2 of 40%. Repeat ABG at 12:00 still pending. Chemistries showed sodium of 133, potassium 3.2, chloride 101, CO2 is 34, BUN 14, creatinine 1.11, calcium is 10.3, SGOT 33, SGPT 34, alkaline phosphatase 59. Creatinine kinase 154, CK-MB is 4.97. Total protein 6.6, albumin 4. RADIOLOGY: Chest x-ray shows endotracheal tubes in place. No pneumothorax or pleural effusion. ASSESSMENT: 1. Acute respiratory failure requiring invasive mechanical ventilation. Status post cardiac arrest. Down for about 45 minutes. 2. Chronic obstructive pulmonary disease / asthma, in acute exacerbation. Currently not in acute exacerbation. 3. History of obstructive sleep apnea. PLAN/RECOMMENDATIONS: 1. Will continue the ventilator settings at SIMV PRVC with a rate of 16, tidal volume of 540, pressure support of 10, PEEP of 5. Will do ABG in 2 hours, at 12:00 a.m. 2. Continue IV sedation using Versed. 3. Will do a chest x-ray, CBC, and chemistries tomorrow. DICTATING PHYSICIAN: JERILYN LEONARDO MD,GERSON,MPH [id number] PHY#: [id number] ID: [id number] JOB#: [id number] ACCT: [id number] cc:JERILYN LEONARDO M.D. > [facility]
--- NOTE | 2018-02-04 14:58 | PROGRESS NOTE E ---
Progress Note NAME: SHONDA HUERTA : 1960 AGE: 57Y DATE: 02/04/2018 ROOM: 605 SUBJECTIVE: The patient is a 57 years old male who came in status post cardiac arrest and acute respiratory failure requiring invasive mechanical ventilation. The patient has been afebrile for the last 24 hours or more. Blood pressure has been stable. The patient remained comatose despite sedation vacation. Currently, he is having an EEG. The patient is tolerating the NG tube feeding at 10 mL per hour. Endotracheal tube secretion appeared scanty and clear. No vomiting and no diarrhea noted. When the sedation is off, the patient's respiratory went up to 33 per hour, but the patient was not wheezing. No fever over the last 24 hours. OBJECTIVE: The patient is comatose, afebrile, tachypneic when off sedation with a saturation of 97%. Blood pressure is 97/42. Heart rate of 93. EYES: No jaundice or pallor. Pupils are round and 2 mm and fixed. EARS, NOSE, THROAT: No ear drainage. No nasal discharge. CHEST AND LUNGS: No wheezing, no rhonchi, no coarse crackles. CARDIOVASCULAR: S1 and S2 distant, normal rate and rhythm. ABDOMEN: Flabby. Hypoactive bowel sounds. Soft. Nondistended. EXTREMITIES: No joint swelling or cellulitis. LABORATORY: CBC done today showed a white count of 6.5. Hemoglobin is 12.2. Hematocrit is 37.4. Platelet count is 174. A blood gas this morning showed a pH of 7.46, pCO2 of 39.5, pO2 of 73.4, and saturation is 95.7. Chemistries today showed sodium of 147.5, potassium 3.7. Chloride is 115. CO2 is 33, BUN is 31, creatinine 1.10. Glucose is 158. Magnesium is 2.4, calcium is 8.2, SGOT of 73, SGPT of 84, and alkaline phosphatase is 34. Albumin is 3.6. RADIOLOGY: Chest x-ray done this morning showed endotracheal tubes in place. There is no pleural effusions bilaterally. No pneumothorax and no new infiltrates noted. ASSESSMENT: 1. ACUTE RESPIRATORY FAILURE REQUIRING INVASIVE MECHANICAL VENTILATION. Status post cardiac arrest following severe COPD exacerbation. 2. COMA PROBABLY DUE TO SEVERE NEUROLOGIC INJURY FOLLOWING CARDIAC ARREST AND 45 MINUTES OF CARDIOPULMONARY RESUSCITATION. PLAN AND RECOMMENDATIONS: 1. We will continue to optimize ventilatory support. 2. We will increase the PEG tube feedings to 15 mL per hour. 3. Evaluate the patient's neurologic status if clinically brain . Awaiting Neurology's evaluations. DICTATING PHYSICIAN: JERILYN LEONARDO MD,GERSON,MPH [id number] [id number] PHY#: [id number] ID: [id number] JOB#: [id number] ACCT: [id number] cc: > MTDD
[2018-02-04] MEDS: AMLODIPINE BESYLATE 10 MG TABLET NG SCH (15:14)
[2018-02-04] MEDS: LEVOFLOXACIN 500 MG/D5W RTU 500 MG/100 ML RTUPB IV SCH (15:14)
[2018-02-04] MEDS: FUROSEMIDE INJ/PF 20 MG/2 ML SDV IV SCH (15:14)
[2018-02-04] MEDS: LORATADINE 10 MG TABLET NG SCH (17:44)
[2018-02-04] MEDS: ASPIRIN 81 MG TABLET, CHEWABLE NG SCH (17:44)
--- NOTE | 2018-02-04 18:25 | XCELERA REPORT ---
[address] [address] Transthoracic Echocardiogram Report Name: SHONDA HUERTA Age: 57 yrs Gender: Male : 1960 Patient Status: Inpatient Patient Location: ICU^605A Study Date: 02/04/2018 10:36 AM Height: 71 in Weight: 193 lb BSA: 2.1 m2 Procedure: A complete two-dimensional transthoracic echocardiogram was performed (2D, M-mode, spectral and color flow Doppler). The study was technically adequate with some images being suboptimal in quality. Reason For Study: eval for pulmonary hypertension Ordering Physician: BRIEN SULLIVAN Performed By: Denise Sanders Interpretation Summary The left ventricular ejection fraction is normal. Doppler measurements suggest pseudonormalized left ventricular relaxation, which is associated with grade II/IV or mild to moderate diastolic dysfunction There is borderline concentric left ventricular hypertrophy. The left ventricle is grossly normal size. Wall motion cannot be accurately commented on, but no definite regional wall motion abnormalities noted. Borderline right ventricular enlargement. The right ventricular systolic function is normal. The right atrium is normal in size The left atrial size is normal. There is a trace amount of mitral regurgitation There is no mitral valve stenosis. No aortic regurgitation is present. There is no aortic valve stenosis There is a trace or physiologic amount of tricuspid regurgitation Tricuspid regurgitation jet envelope not well defined to measure RV systolic pressure accurately. The aortic root is not well visualized but is probably normal size. The inferior vena cava appeared normal and decreased > 50% with respiration (RAP 5-10 mmHg) There is no pericardial effusion. MMode/2D Measurements & Calculations RVDd: 2.6 cm LVIDd: 5.0 cm FS: 41.5 % Ao root diam: 3.2 cm IVSd: 1.0 cm LVIDs: 2.9 cm EDV(Teich): 120.6 ml LVPWd: 0.97 cm ESV(Teich): 33.5 ml Ao root area: 8.1 cm2 EF(Teich): 72.2 % LA dimension: 3.0 cm Doppler Measurements & Calculations MV E max vamshi: MV P1/2t max vamshi: Ao V2 max: LV V1 max P.1 cm/sec 67.6 cm/sec 160.7 cm/sec 6.8 mmHg MV A max vamshi: MV P1/2t: 61.3 msec Ao max PG: LV V1 max: 91.3 cm/sec 10.3 mmHg 130.3 cm/sec MV E/A: 0.74 MVA(P1/2t): 3.6 cm2 MV dec slope: 322.9 cm/sec2 MV dec time: 0.21 sec PA V2 max: TR max vamshi: 97.2 cm/sec 245.7 cm/sec PA max PG: TR max P.1 mmHg 3.8 mmHg Left Ventricle The left ventricle is grossly normal size. There is borderline concentric left ventricular hypertrophy. The left ventricular ejection fraction is normal. Doppler measurements suggest pseudonormalized left ventricular relaxation, which is associated with grade II/IV or mild to moderate diastolic dysfunction. Wall motion cannot be accurately commented on, but no definite regional wall motion abnormalities noted. Right Ventricle Borderline right ventricular enlargement. The right ventricular systolic function is normal. Atria The right atrium is normal in size. The left atrial size is normal. There is no Doppler evidence for an interatrial shunt. Mitral Valve The mitral valve is grossly normal. There is no mitral valve stenosis. There is a trace amount of mitral regurgitation. Aortic Valve The aortic valve is grossly normal. There is no aortic valve stenosis. No aortic regurgitation is present. Tricuspid Valve The tricuspid valve is not well visualized, but is grossly normal. There is no tricuspid stenosis. There is a trace or physiologic amount of tricuspid regurgitation. Tricuspid regurgitation jet envelope not well defined to measure RV systolic pressure accurately. Pulmonic Valve The pulmonic valve is not well visualized. Great Vessels The aortic root is not well visualized but is probably normal size. The inferior vena cava appeared normal and decreased > 50% with respiration (RAP 5-10 mmHg). Effusions There is no pericardial effusion. : BRIEN SULLIVAN > Herson Stanton
[2018-02-04] MEDS ORDERED: PROPOFOL 100 ML IV ONE (18:46)
[2018-02-04] MEDS: PROPOFOL 100 ML IV PRN (22:18)
[2018-02-04] MEDS: ATORVASTATIN CALCIUM 40 MG TABLET NG SCH (22:20)
[2018-02-05] MEDS: PROPOFOL 100 ML IV PRN ×6 (00:58→23:43)
[2018-02-05 04:07] LABS: ABSOLUTE LYMPHOCYTES (AUTO) 0.6 10^3/uL (0.5-4.7); ABSOLUTE MONOCYTES (AUTO) 0.6 10^3/uL (0.1-1.4); ABSOLUTE NEUT (AUTO) 5.7 10^3/uL (1.7-8.2); BASOPHILS % (AUTO) 0.1 % (0-2); EOSINOPHILS % (AUTO) 0.1 % (0-6); HEMATOCRIT 37.5 % (37.9-51.0); HEMOGLOBIN 11.7 g/dL (13.5-17.0); LYMPHOCYTES % (AUTO) 8.3 % (13-45); MEAN CORPUSCULAR HEMOGLOBIN 24.8 pg (27.0-33.4); MEAN CORPUSCULAR HGB CONC 31.3 g/dL (32.0-36.0); MEAN CORPUSCULAR VOLUME 79 fl (80-97); MONOCYTES % (AUTO) 8.1 % (3-13); PLATELET COUNT 157 10^3/uL (150-450); RED BLOOD COUNT 4.72 10^6/uL (4.35-5.55); RED CELL DISTRIBUTION WIDTH 22.2 % (11.5-14.0); SEGMENTED NEUTROPHILS % (AUTO) 83.4 % (42-78); TOTAL CELLS COUNTED % (AUTO) 100 %; WHITE BLOOD COUNT 6.8 10^3/uL (4.0-10.5)
[2018-02-05 04:28] LABS: ALANINE AMINOTRANSFERASE 59 U/L (21-72); ALBUMIN 3.3 g/dL (3.5-5.0); ALKALINE PHOSPHATASE 39 U/L (38-126); ANION GAP 10 (5-19); ASPARTATE AMINO TRANSFERASE 88 U/L (17-59); BILIRUBIN,DIRECT 0.2 mg/dL (0.0-0.4); BILIRUBIN,TOTAL 0.3 mg/dL (0.2-1.3); BLOOD UREA NITROGEN 24 mg/dL (7-20); CALCIUM 8.3 mg/dL (8.4-10.2); CARBON DIOXIDE 26 mmol/L (22-30); CHLORIDE 115 mmol/L (98-107); GLUCOSE 139 mg/dL (75-110); POTASSIUM 4.3 mmol/L (3.6-5.0); SODIUM 150.8 mmol/L (137-145)
[2018-02-05] MEDS: METHYLPREDNISOLONE INJ 40 MG/1 ML SDV IV SCH ×3 (05:34→21:33)
[2018-02-05] MEDS: LANSOPRAZOLE 30 MG TAB.RAP.DR NG SCH (05:35)
[2018-02-05] MEDS: TAMSULOSIN HCL 0.4 MG CAP.SR.24H PO SCH (07:36)
[2018-02-05] MEDS: LEVALBUTEROL HCL NEB 1.25 MG/3 ML AMPUL NEB SCH ×3 (07:52→19:42)
[2018-02-05] MEDS: IPRATROPIUM BROMIDE 0.02% NEB 0.5 MG/2.5 ML AMPUL NEB SCH ×3 (07:52→19:42)
--- NOTE | 2018-02-05 08:36 | RADIOLOGY REPORT (SQ) ---
EXAM DESCRIPTION: CHEST SINGLE VIEW COMPLETED DATE/TIME: 02/05/2018 6:45 am REASON FOR STUDY: respiratory failure COMPARISON: Previous day. NUMBER OF VIEWS: One view. TECHNIQUE: Single frontal radiographic image of the chest acquired. LIMITATIONS: None. FINDINGS: LUNGS AND PLEURA: Improved aeration left costophrenic angle. No pneumothorax. MEDIASTINUM AND HEART: Stable heart size and mediastinal structures. SUPPORT DEVICES: Appropriate location without change. BONY STRUCTURES: No acute findings. HARDWARE: None. OTHER: No other significant finding. IMPRESSION: Improved aeration left lower lobe. No pneumothorax. Reading location - IP/workstation name: [email or web address]
[2018-02-05] MEDS ORDERED: BISACODYL 10 MG SUPP.RECT PR ONE ×2 (10:00→18:15)
[2018-02-05] MEDS: ACETAMINOPHEN 650 MG SUPP.RECT PR PRN ×2 (10:08→16:05)
[2018-02-05] MEDS: POTASSIUM CHLORIDE 20 MEQ/15 ML UDCUP NG SCH ×2 (10:37→21:33)
[2018-02-05] MEDS: ENOXAPARIN SODIUM INJ 80 MG/0.8 ML DISP.SYRIN SUBCUT SCH ×2 (10:38→21:33)
[2018-02-05] MEDS: DOCUSATE SODIUM 100 MG CAPSULE PO SCH (10:39)
[2018-02-05] MEDS: FENTANYL CITRATE INJ/PF 100 MCG/2 ML AMPUL IV PRN ×2 (10:56→16:06)
--- NOTE | 2018-02-05 12:46 | RADIOLOGY REPORT (SQ) ---
EXAM DESCRIPTION: KUB/ABDOMEN (SINGLE VIEW) COMPLETED DATE/TIME: 02/05/2018 9:54 am REASON FOR STUDY: distended abdomen COMPARISON: 02/02/2018 NUMBER OF VIEWS: One view. TECHNIQUE: Supine radiographic image of the abdomen acquired. LIMITATIONS: Patient motion. FINDINGS: BOWEL GAS PATTERN: Mildly dilated loops of small bowel in the left lower quadrant. There is gas within nondilated colon. CALCIFICATIONS: No suspicious calcifications. SOFT TISSUES: No gross mass or suggestion of organomegaly. HARDWARE: None. BONES: No bone lesions or fracture. OTHER: Unchanged position of [place] catheter and nasogastric tube. IMPRESSION: Ileus or partial small bowel obstruction. Reading location - IP/workstation name: [email or web address]
[2018-02-05 13:36] LABS: ARTERIAL BLOOD BASE EXCESS -2.3 mmol/L; ARTERIAL BLOOD H2CO3 0.98 mmol/L (1.05-1.35); ARTERIAL BLOOD HCO3 21.2 mmol/L (20-26); ARTERIAL BLOOD O2 SATURATION 95.8 % (94-98); ARTERIAL BLOOD PCO2 32.4 mmHg (35-45); ARTERIAL BLOOD PH 7.43 (7.35-7.45); ARTERIAL BLOOD PO2 76.2 mmHg (80-100); ARTERIAL BLOOD TOTAL CO2 22.2 mmol/L (23-27)
[2018-02-05 13:38] LABS: ARTERIAL BLOOD FIO2 30%
[2018-02-05] MEDS: LEVOFLOXACIN 500 MG/D5W RTU 500 MG/100 ML RTUPB IV SCH (13:42)
[2018-02-05] MEDS: AMLODIPINE BESYLATE 10 MG TABLET NG SCH (13:42)
[2018-02-05] MEDS: FUROSEMIDE INJ/PF 20 MG/2 ML SDV IV SCH (13:42)
--- NOTE | 2018-02-05 17:54 | RADIOLOGY REPORT (SQ) ---
EXAM DESCRIPTION: CT HEAD WITHOUT COMPLETED DATE/TIME: 02/05/2018 5:37 pm REASON FOR STUDY: evaluation of anoxic brain injury COMPARISON: None. TECHNIQUE: Axial images acquired through the brain without intravenous contrast. Images reviewed wi th bone, brain and subdural windows. Images stored on PACS. All CT scanners at this facility use dose modulation, iterative reconstruction, and/or weight based d osing when appropriate to reduce radiation dose to as low as reasonably achievable (ALARA). [facility]: Dose Right [facility]: CareDose [facility]: Dose Right [facility]: Teradose 4D [facility]: Smart Evolve IP RADIATION DOSE: CT Rad equipment meets quality standard of care and radiation dose reduction techniq ues were employed. CTDIvol: 64.6 mGy. DLP: 1163 mGy-cm. mGy. LIMITATIONS: None. FINDINGS: VENTRICLES: Normal size and contour. CEREBRUM: No masses. No hemorrhage. No midline shift. No evidence for acute infarction. Normal gra y/white matter differentiation. No areas of low density in the white matter. CEREBELLUM: No masses. No hemorrhage. No alteration of density. No evidence for acute infarction. EXTRAAXIAL SPACES: No fluid collections. No masses. ORBITS AND GLOBE: No intra- or extraconal masses. Normal contour of globe without masses. CALVARIUM: No fracture. PARANASAL SINUSES: No fluid or mucosal thickening. SOFT TISSUES: No mass or hematoma. OTHER: No other significant finding. IMPRESSION: NORMAL BRAIN CT WITHOUT CONTRAST. EVIDENCE OF ACUTE STROKE: NO. COMMENT: Quality ID # [id number]: Final reports with documentation of one or more dose reduction techniques (e.g., Automated exposure control, adjustment of the mA and/or kV according to patient size, use of iterative reconstruction technique) TECHNICAL DOCUMENTATION: JOB ID: [id number] [employer]- All Rights Reserved Reading location - IP/workstation name: [email or web address]
[2018-02-05] MEDS: LORATADINE 10 MG TABLET NG SCH (18:39)
[2018-02-05] MEDS: ASPIRIN 81 MG TABLET, CHEWABLE NG SCH (18:39)
--- NOTE | 2018-02-05 19:33 | PDOC PROGRESS REPORT ---
Subjective Progress Note for:: 02/05/18 Subjective:: 57 yo Male with recent cardiac arrest s/p resuscitation, now intubated on vent, concern for possible anoxic brain injury. Today's sedation vacation, unable to get purposeful behavior from patient today. Became tachycardic, tachypnic, likely secondary to pain, and responded to fentanyl dosing. Reason For Visit: ACUTE ON CHRONIC RESPIRATORY FAILURE CARDIAC Physical Exam Vital Signs: Temp Pulse Resp BP Pulse Ox 99.5 F 98 16 131/85 H 98 02/05/18 18:48 02/05/18 18:00 02/05/18 18:48 02/05/18 18:48 02/05/18 18:48 Intake & Output 02/04/18 02/05/18 02/06/18 06:59 06:59 06:59 Intake Total 2423 1867 742 Output Total 1860 2290 1805 Balance 973 -672 -1716 Weight 88.1 kg 87.6 kg General appearance: ABSENT: no acute distress, cooperative Head exam: PRESENT: atraumatic, normocephalic Eye exam: PRESENT: EOMI, PERRLA Ear exam: PRESENT: normal external ear exam Mouth exam: PRESENT: moist, neck supple Throat exam: ABSENT: post pharyngeal erythema, tonsillar exudate Neck exam: PRESENT: full ROM. ABSENT: JVD, tenderness Respiratory exam: PRESENT: prolonged expiratory phas, wheezes. ABSENT: accessory muscle use, rales, rhonchi Cardiovascular exam: PRESENT: RRR, +S1, +S2 Pulses: PRESENT: normal radial pulses Vascular exam: PRESENT: normal capillary refill. ABSENT: pallor GI/Abdominal exam: ABSENT: ascites, mass, normal bowel sounds Extremities exam: ABSENT: calf tenderness, joint swelling Musculoskeletal exam: PRESENT: full ROM. ABSENT: tenderness Neurological exam: PRESENT: alert, oriented to person, oriented to place, oriented to time Psychiatric exam: ABSENT: agitated, anxious Focused psych exam: ABSENT: catatonic, pressured speech Skin exam: ABSENT: abrasion, normal color Results Laboratory Results: 02/05/18 04:01 02/05/18 04:01 02/05/18 02/05/18 02/05/18 04:01 04:01 13:20 WBC 6.8 RBC 4.72 Hgb 11.7 L Hct 37.5 L MCV 79 L MCH 24.8 L MCHC 31.3 L RDW 22.2 H Plt Count 157 Seg Neutrophils % 83.4 H Lymphocytes % 8.3 L Monocytes % 8.1 Eosinophils % 0.1 Basophils % 0.1 Absolute Neutrophils 5.7 Absolute Lymphocytes 0.6 Absolute Monocytes 0.6 Absolute Eosinophils 0.0 Absolute Basophils 0.0 Carbonic Acid 0.98 L HCO3/H2CO3 Ratio 21:1 ABG pH 7.43 ABG pCO2 32.4 L ABG pO2 76.2 L ABG HCO3 21.2 ABG O2 Saturation 95.8 ABG Base Excess -2.3 FiO2 30% Sodium 150.8 H Potassium 4.3 Chloride 115 H Carbon Dioxide 26 Anion Gap 10 BUN 24 H Creatinine 1.10 Est GFR ( Amer) > 60 Est GFR (Non-Af Amer) > 60 Glucose 139 H Calcium 8.3 L Magnesium 2.8 H Total Bilirubin 0.3 AST 88 H ALT 59 Alkaline Phosphatase 39 Total Protein 6.0 L Albumin 3.3 L 02/03/18 15:20 Tracheal Aspirate Gram Stain - Final 02/03/18 15:20 Tracheal Aspirate Sputum Culture - Final NORMAL BRE 02/02/18 02/03/18 02/03/18 21:23 03:53 09:46 Troponin I 0.119 0.190 0.166 NT-Pro-B Natriuret Pep 02/04/18 03:55 Troponin I NT-Pro-B Natriuret Pep 144 Impressions: Chest/Abdomen CTA 02/02/18 00:00 IMPRESSION: NORMAL CTA OF THE CHEST. NO PULMONARY EMBOLI. Multiple transverse fractures of the anterolateral ribs bilaterally, consistent with recent resuscitation efforts. Head CT 02/05/18 00:00 IMPRESSION: NORMAL BRAIN CT WITHOUT CONTRAST. EVIDENCE OF ACUTE STROKE: NO. KUB X-Ray 02/05/18 00:00 IMPRESSION: Ileus or partial small bowel obstruction. Chest X-Ray 02/05/18 06:00 IMPRESSION: Improved aeration left lower lobe. No pneumothorax. Assessment & Plan - Time Time Spent with patient: 15-24 minutes - Inpatient Certification Based on my medical assessment, after consideration of the patient's comorbidities, presenting symptoms, or acuity I expect that the services needed warrant INPATIENT care.: Yes I certify that my determination is in accordance with my understanding of Medicare's requirements for reasonable and necessary INPATIENT services [42 CFR 412.3e].: Yes Medical Necessity: Need For IV Fluids, Need For Continuous Telemetry Monitoring - Plan Summary Plan Summary: (1) Cardiac Arrest secondary to Respiratory Failure stable, intubated in ICU on vent. (2) Acute and chronic respiratory failure sedation vacation, intubated on vent this AM, but no purposeful movements. became tachycardic, tachypnic, likely secondary to pain, improved on sedation on propofol and fentanyl Pulmonary following. (3) COPD with respiratory failure, acute Pulmonary following. wheezing on exam today. re-escalated IV steroids and Neb medications wound avoid weaning until after patient is extubated. (4) Anticoagulated Continue Xarelto 20 mg per NG (5) Hypertension continue Norvasc dose. prn hydralazine (5) Obstructive sleep apnea may need transition to CPAP when extubated (6) History of pulmonary embolism Continue Xarelto (7) History of DVT (deep vein thrombosis) Patient is on anticoagulation (8) Ribs, multiple fractures Bilateral. Due to resuscitation. will likely need pain treated to get him off of the vent.
--- NOTE | 2018-02-05 19:44 | RADIOLOGY REPORT (SQ) ---
EXAM DESCRIPTION: CT ABD/PELVIS NO ORAL OR IV COMPLETED DATE/TIME: 02/05/2018 5:42 pm REASON FOR STUDY: ileus/partial small bowel obstruction COMPARISON: None. TECHNIQUE: CT scan of the abdomen and pelvis performed without intravenous or oral contrast. Images reviewed with lung, soft tissue, and bone windows. Reconstructed coronal and sagittal MPR images revi ewed. All images stored on PACS. All CT scanners at this facility use dose modulation, iterative reconstruction, and/or weight based d osing when appropriate to reduce radiation dose to as low as reasonably achievable (ALARA). [facility]: Dose Right [facility]: CareDose [facility]: Dose Right [facility]: Teradose 4D [facility]: [employer] RADIATION DOSE: CT Rad equipment meets quality standard of care and radiation dose reduction techniq ues were employed. CTDIvol: 14.4 mGy. DLP: 808 mGy-cm.mGy. LIMITATIONS: None. FINDINGS: LOWER CHEST: Patchy airspace disease in the lung bases. NON-CONTRASTED LIVER, SPLEEN, ADRENALS: Evaluation limited by lack of IV contrast. No identified sign ificant masses. PANCREAS: No masses. No peripancreatic inflammatory changes. GALLBLADDER: No identified stones by CT criteria. No inflammatory changes to suggest cholecystitis. RIGHT KIDNEY AND URETER: No suspicious masses. Assessment limited by lack of IV contrast. No signif icant calcifications. No hydronephrosis or hydroureter. LEFT KIDNEY AND URETER: No suspicious masses. Assessment limited by lack of IV contrast. No signifi cant calcifications. No hydronephrosis or hydroureter. AORTA AND RETROPERITONEUM: No aneurysm. No retroperitoneal masses or adenopathy. BOWEL AND PERITONEAL CAVITY: Nasogastric tube with the tip in the stomach. No significant dilation o f the small bowel. Mild dilation of the proximal sigmoid colon. Distally the colonic lumen is narro wed before passing to the rectum. No significant dilation of the colon proximally. A few diverticul i. APPENDIX: Normal. PELVIS, BLADDER, AND ABDOMINAL WALL:No abnormal masses. No free fluid. Bladder normal. Right inguina l hernia containing fat with no involvement of bowel. BONES: No significant findings. OTHER: No other significant finding. IMPRESSION: 1. FOCAL DILATION OF THE PROXIMAL SIGMOID COLON. THE LUMEN MORE DISTALLY IS NARROWED. THIS COULD RE PRESENT A PARTIAL OBSTRUCTION SECONDARY TO ADHESIONS. APPEARANCE DOES NOT APPEAR TO BE DUE TO VOLVUL US. NO SIGNIFICANT DILATION OF THE COLON PROXIMAL TO THE SIGMOID. THERE ARE A FEW SCATTERED DIVERTI CULI WITH NO CT FINDINGS OF DIVERTICULITIS. 2. NO OTHER SIGNIFICANT FINDINGS. THERE IS PATCHY ATELECTASIS OR INFILTRATE IN THE LUNG BASES. COMMENT: Quality ID # [id number]: Final reports with documentation of one or more dose reduction techniques (e.g., Automated exposure control, adjustment of the mA and/or kV according to patient size, use of iterative reconstruction technique) TECHNICAL DOCUMENTATION: JOB ID: [id number] [employer]- All Rights Reserved Reading location - IP/workstation name: [email or web address]
--- NOTE | 2018-02-05 20:48 | PROGRESS NOTE E ---
Progress Note NAME: SHONDA HUERTA : 1960 AGE: 57Y DATE: 02/05/2018 ROOM: 605 SUBJECTIVE: The patient is a 57-year-old -[place] male who came in with acute respiratory failure requiring invasive mechanical ventilation, status post cardiac arrest for about 45 minutes with ACLS and CPR done following IV magnesium infusion in the emergency room when the patient came in for COPD/asthma exacerbation. The patient has been hemodynamically stable over the last 24 hours. Has had scanty endotracheal tube secretions. No fever spikes over the last 24 hours with a T-max of 99.9. No diarrhea noted and no vomiting noted. The patient was tolerating the OG tube feeding held for a few hours. The patient was seen by neurologist yesterday and had an EEG performed but not reported yet. The CT scan of the head was normal. No signs of intracranial bleed. OBJECTIVE: GENERAL: The patient appeared sedated, afebrile, not in acute respiratory distress. VITAL SIGNS: Temperature of 99.9 with a blood pressure of 171/85, respiratory rate of 16, saturation is 98% on FiO2 of 30%, SIMV rate of 16, tidal volume of 514, pressure support of 10, PEEP of 5. Peak airway pressure of 19, minute ventilation is 9.8. EYES: No jaundice or pallor. EARS, NOSE, AND THROAT: No ear drainage. No nasal discharge. CHEST AND LUNGS: No wheezing, no rhonchi, no coarse crackles. CARDIOVASCULAR: S1 and S2 is distinct. Normal rate, regular rhythm. ABDOMEN: Flabby, positive bowel sounds, soft, nondistended, nontender. EXTREMITIES: No joint swelling. No cellulitis. LABORATORY DATA: CBC done today showed a white count of 6.8, hemoglobin 11.7, hematocrit 37.5, platelet count is 157, no bands noted. ABGs done today showed a pH of 7.43, pCO2 of 32.4, pO2 of 76.2, saturation 95.8. Chemistry done today showed sodium is 150, potassium 4.3, chloride is 115, CO2 is 36, BUN is 24, creatinine is 1.10, glucose 139, calcium is 8.3, magnesium is 2.8. SGOT is 88, SGPT 59, alkaline phosphatase 39, albumin is 3.3, and total protein is 6. IMAGING STUDIES: Chest x-ray today appears stable. Endotracheal tube is in place. No pneumothorax noted. ASSESSMENT: 1. ACUTE RESPIRATORY FAILURE REQUIRING INVASIVE MECHANICAL VENTILATION. Currently stable, no ready to be extubated. 2. ANOXIC ENCEPHALOPATHY SECONDARY TO CARDIAC ARREST AND STATUS POST CARDIOPULMONARY RESUSCITATION, ACLS. 3. COPD EXACERBATION. Currently stable and not any acute bronchospasm. PLAN/RECOMMENDATION: 1. We will continue to optimize ventilator support. 2. Awaiting neurology evaluation to further guide current therapy. 3. We will continue the sedation medication every day. 4. We will plan to extubate the patient if the patient's mental status improves and the patient tolerates spontaneous breathing trial, otherwise I would recommend to initiate family discussion about end-of-life. DICTATING PHYSICIAN: JERILYN LEONARDO MD,GERSON,MPH [id number] PHY#: [id number] 2006 ID: [id number] JOB#: [id number] ACCT: [id number] cc: > MTDD
[2018-02-05] MEDS: ATORVASTATIN CALCIUM 40 MG TABLET NG SCH (21:33)
[2018-02-06] MEDS: PROPOFOL 100 ML IV PRN ×5 (01:40→22:25)
[2018-02-06] MEDS: IPRATROPIUM BROMIDE 0.02% NEB 0.5 MG/2.5 ML AMPUL NEB SCH ×4 (01:44→21:24)
[2018-02-06] MEDS: LEVALBUTEROL HCL NEB 1.25 MG/3 ML AMPUL NEB SCH ×4 (01:44→21:24)
[2018-02-06 04:17] LABS: HEMATOCRIT 37.3 % (37.9-51.0); MEAN CORPUSCULAR HEMOGLOBIN 24.9 pg (27.0-33.4); MEAN CORPUSCULAR HGB CONC 32.1 g/dL (32.0-36.0); MEAN CORPUSCULAR VOLUME 78 fl (80-97); PLATELET COUNT 174 10^3/uL (150-450); RED CELL DISTRIBUTION WIDTH 21.9 % (11.5-14.0)
[2018-02-06 04:42] LABS: ALBUMIN 3.2 g/dL (3.5-5.0); ANION GAP 5 (5-19); BLOOD UREA NITROGEN 26 mg/dL (7-20); CALCIUM 8.2 mg/dL (8.4-10.2); CARBON DIOXIDE 27 mmol/L (22-30); CHLORIDE 121 mmol/L (98-107); GLUCOSE 121 mg/dL (75-110); PHOSPHORUS 2.6 mg/dL (2.5-4.5); POTASSIUM 4.4 mmol/L (3.6-5.0); SODIUM 153.4 mmol/L (137-145); TRIGLYCERIDES 207 mg/dL (<150)
[2018-02-06] MEDS: LANSOPRAZOLE 30 MG TAB.RAP.DR NG SCH (05:57)
[2018-02-06] MEDS: METHYLPREDNISOLONE INJ 40 MG/1 ML SDV IV SCH ×3 (05:57→21:07)
[2018-02-06 06:48] LABS: APPEARANCE,URINE CLEAR; BILIRUBIN,URINE NEGATIVE (NEGATIVE); COLOR,URINE YELLOW; GLUCOSE, URINE NEGATIVE (NEGATIVE); KETONES,URINE NEGATIVE (NEGATIVE); LEUKOCYTE ESTERASE,URINE NEGATIVE (NEGATIVE); NITRITE,URINE NEGATIVE (NEGATIVE); PROTEIN,URINE NEGATIVE (NEGATIVE); URINE SPECIFIC GRAVITY 1.018; UROBILINOGEN,URINE NEGATIVE mg/dL (<2.0)
[2018-02-06] MEDS: FENTANYL CITRATE INJ/PF 100 MCG/2 ML AMPUL IV PRN ×2 (08:31→11:26)
[2018-02-06] MEDS ORDERED: RINGERS SOLUTION,LACTATED 1,000 ML IV PRN (08:43)
--- NOTE | 2018-02-06 09:15 | RADIOLOGY REPORT (SQ) ---
EXAM DESCRIPTION: CHEST SINGLE VIEW COMPLETED DATE/TIME: 02/06/2018 9:03 am REASON FOR STUDY: pneumonia COMPARISON: None. NUMBER OF VIEWS: One view. TECHNIQUE: Single frontal radiographic image of the chest acquired. LIMITATIONS: Expiration. FINDINGS: LUNGS AND PLEURA: Increasing right paratracheal density probably related technique. Lakshmi r definition of the left diaphragm. MEDIASTINUM AND HEART: Stable heart size and mediastinal structures. SUPPORT DEVICES: Appropriate location without change. BONY STRUCTURES: No acute findings. HARDWARE: None. OTHER: No other significant finding. IMPRESSION: Stable chest. No pneumothorax. Reading location - IP/workstation name: [email or web address]
[2018-02-06] MEDS: 1/2 NORMAL SALINE 1,000 ML IV PRN (09:16)
[2018-02-06] MEDS: ENOXAPARIN SODIUM INJ 80 MG/0.8 ML DISP.SYRIN SUBCUT SCH ×2 (09:17→21:08)
[2018-02-06] MEDS: DOCUSATE SODIUM 100 MG CAPSULE PO SCH (09:17)
[2018-02-06] MEDS: POTASSIUM CHLORIDE 20 MEQ/15 ML UDCUP NG SCH ×2 (09:17→21:05)
--- NOTE | 2018-02-06 13:56 | EEG PRO FEE REPORT ---
EEG INTERPRETATION PATIENT NAME: SHONDA HUERTA ROOM#: 605 ORDER#: [id number] DATE OF STUDY: 02/04/2018 : 1960 REFERRING MD: BRIEN SULLIVAN M.D. DIAGNOSIS: Cerebral evaluation REPORT The background is well formed theta of 5-6 Hz or sometimes 7 Hz. It is generally this way throughout the whole tracing with no further focal slowing, amplitude asymmetry or epileptiform discharges being noted. FINAL IMPRESSION: Somewhat slow EEG implying toxic or metabolic or other generalized cause of cerebral dysfunction. This is not that severe. INTERPRETING PHYSICIAN: BRADLEY CUEVAS M.D. /: MTEFFT TT: [id number] ID: [id number] /: [id number] TD: [id number] JOB: [id number] cc:Amber COHEN M.D. MILA BERDECIA, M.D. >
[2018-02-06] MEDS: LEVOFLOXACIN 500 MG/D5W RTU 500 MG/100 ML RTUPB IV SCH (14:46)
[2018-02-06] MEDS: AMLODIPINE BESYLATE 10 MG TABLET NG SCH (14:49)
[2018-02-06] MEDS: FENTANYL CITRATE INJ/PF 100 MCG/2 ML AMPUL IV SCH ×2 (16:43→21:08)
[2018-02-06] MEDS: ACETAMINOPHEN 650 MG SUPP.RECT PR PRN (16:44)
[2018-02-06] MEDS: LORATADINE 10 MG TABLET NG SCH (16:45)
[2018-02-06] MEDS: ASPIRIN 81 MG TABLET, CHEWABLE NG SCH (16:45)
[2018-02-06] MEDS: TAMSULOSIN HCL 0.4 MG CAP.SR.24H PO SCH (20:52)
[2018-02-06] MEDS: ATORVASTATIN CALCIUM 40 MG TABLET NG SCH (21:05)
--- NOTE | 2018-02-06 22:18 | PDOC PROGRESS REPORT ---
Subjective Progress Note for:: 02/06/18 Subjective:: Patient tolerating Diprovan weaning, while receiving Fentanyl IV pushes. Significant discomfort likely from rib fractures secondary to his arrest/CPR. Discussed possible anoxic brain injury with family at the bedside today. EEG only showing waveform slowing in setting of sedation. CT head without evidence of anoxic injury. NGT to suction for distended abdomen secondary to partial small bowel obstruction. Will evaluate patient's response to commands with sedation vacation again tomorrow AM. Reason For Visit: ACUTE ON CHRONIC RESPIRATORY FAILURE CARDIAC Physical Exam Vital Signs: Temp Pulse Resp BP Pulse Ox 100.0 F 88 16 123/86 H 93 02/06/18 21:42 02/06/18 21:20 02/06/18 21:20 02/06/18 19:19 02/06/18 21:20 Intake & Output 02/05/18 02/06/18 02/07/18 06:59 06:59 06:59 Intake Total 1867 1357 1048 Output Total 2290 2830 1250 Balance -423 -8203 -202 Weight 87.6 kg 85.5 kg General appearance: PRESENT: no acute distress, obese Head exam: PRESENT: atraumatic, normocephalic Eye exam: PRESENT: PERRLA. ABSENT: nystagmus Ear exam: PRESENT: normal external ear exam. ABSENT: bleeding Mouth exam: PRESENT: moist, neck supple Neck exam: ABSENT: full ROM, JVD, thyromegaly Respiratory exam: ABSENT: accessory muscle use, rales, wheezes Cardiovascular exam: PRESENT: RRR, +S1, +S2 Pulses: PRESENT: normal radial pulses, normal dorsalis pedis pul Vascular exam: PRESENT: normal capillary refill. ABSENT: pallor GI/Abdominal exam: PRESENT: distended, soft. ABSENT: ascites, firm, rigid Extremities exam: ABSENT: calf tenderness, joint swelling Musculoskeletal exam: PRESENT: full ROM, normal inspection Neurological exam: PRESENT: altered Psychiatric exam: ABSENT: agitated, anxious Skin exam: ABSENT: abrasion, cyanosis Results Laboratory Results: 02/06/18 03:45 02/06/18 13:21 02/06/18 02/06/18 02/06/18 03:45 03:45 06:20 WBC 10.0 RBC 4.80 Hgb 12.0 L Hct 37.3 L MCV 78 L MCH 24.9 L MCHC 32.1 RDW 21.9 H Plt Count 174 Sodium 153.4 H Potassium 4.4 Chloride 121 H Carbon Dioxide 27 Anion Gap 5 BUN 26 H Creatinine 1.06 Est GFR ( Amer) > 60 Est GFR (Non-Af Amer) > 60 Glucose 121 H Calcium 8.2 L Phosphorus 2.6 Albumin 3.2 L Triglycerides 207 H Urine Color YELLOW Urine Appearance CLEAR Urine pH 6.0 Ur Specific [place] 1.018 Urine Protein NEGATIVE Urine Glucose (UA) NEGATIVE Urine Ketones NEGATIVE Urine Blood SMALL H Urine Nitrite NEGATIVE Ur Leukocyte Esterase NEGATIVE Urine WBC (Auto) 3 Urine RBC (Auto) 29 02/06/18 13:21 WBC RBC Hgb Hct MCV MCH MCHC RDW Plt Count Sodium 152.2 H Potassium Chloride Carbon Dioxide Anion Gap BUN Creatinine Est GFR ( Amer) Est GFR (Non-Af Amer) Glucose Calcium Phosphorus Albumin Triglycerides Urine Color Urine Appearance Urine pH Ur Specific [place] Urine Protein Urine Glucose (UA) Urine Ketones Urine Blood Urine Nitrite Ur Leukocyte Esterase Urine WBC (Auto) Urine RBC (Auto) 02/02/18 02/03/18 02/03/18 21:23 03:53 09:46 Troponin I 0.119 0.190 0.166 NT-Pro-B Natriuret Pep 02/04/18 03:55 Troponin I NT-Pro-B Natriuret Pep 144 Impressions: Chest/Abdomen CTA 02/02/18 00:00 IMPRESSION: NORMAL CTA OF THE CHEST. NO PULMONARY EMBOLI. Multiple transverse fractures of the anterolateral ribs bilaterally, consistent with recent resuscitation efforts. Abdomen/Pelvis CT 02/05/18 00:00 IMPRESSION: 1. FOCAL DILATION OF THE PROXIMAL SIGMOID COLON. THE LUMEN MORE DISTALLY IS NARROWED. THIS COULD REPRESENT A PARTIAL OBSTRUCTION SECONDARY TO ADHESIONS. APPEARANCE DOES NOT APPEAR TO BE DUE TO VOLVULUS. NO SIGNIFICANT DILATION OF THE COLON PROXIMAL TO THE SIGMOID. THERE ARE A FEW SCATTERED DIVERTICULI WITH NO CT FINDINGS OF DIVERTICULITIS. 2. NO OTHER SIGNIFICANT FINDINGS. THERE IS PATCHY ATELECTASIS OR INFILTRATE IN THE LUNG BASES. Head CT 02/05/18 00:00 IMPRESSION: NORMAL BRAIN CT WITHOUT CONTRAST. EVIDENCE OF ACUTE STROKE: NO. KUB X-Ray 02/05/18 00:00 IMPRESSION: Ileus or partial small bowel obstruction. Chest X-Ray 02/06/18 00:00 IMPRESSION: Stable chest. No pneumothorax. Assessment & Plan - Plan Summary Plan Summary: (1) Cardiac Arrest secondary to Respiratory Failure stable, intubated in ICU on vent. (2) Acute and chronic respiratory failure sedation vacation, intubated on vent this AM, but no purposeful movements. minimizing propafol, and using fentanyl pushes for pain control will assess ability to follow commands again tomorrow. family aware of possible anoxic brain injury continue pulm medicines (3) COPD with respiratory failure, acute Pulmonary following. no significant wheezing on exam today. wound avoid weaning until after patient is extubated. (4) Anticoagulated Continue Xarelto 20 mg per NG (5) Hypertension continue Norvasc dose. prn hydralazine (5) Obstructive sleep apnea may need transition to CPAP when extubated (6) History of pulmonary embolism Continue Xarelto (7) History of DVT (deep vein thrombosis) Patient is on anticoagulation (8) Ribs, multiple fractures Bilateral. Due to resuscitation. will likely need pain treated to get him off of the vent.
[2018-02-07] MEDS: FENTANYL CITRATE INJ/PF 100 MCG/2 ML AMPUL IV PRN ×2 (00:10→11:34)
[2018-02-07] MEDS: IPRATROPIUM BROMIDE 0.02% NEB 0.5 MG/2.5 ML AMPUL NEB SCH ×4 (02:24→23:59)
[2018-02-07] MEDS: LEVALBUTEROL HCL NEB 1.25 MG/3 ML AMPUL NEB SCH ×4 (02:24→23:59)
[2018-02-07] MEDS: FENTANYL CITRATE INJ/PF 100 MCG/2 ML AMPUL IV SCH (02:33)
[2018-02-07] MEDS: PROPOFOL 100 ML IV PRN ×3 (02:44→20:00)
[2018-02-07] MEDS: 1/2 NORMAL SALINE 1,000 ML IV PRN (02:45)
[2018-02-07 04:12] LABS: HEMATOCRIT 38.5 % (37.9-51.0); HEMOGLOBIN 12.2 g/dL (13.5-17.0); MEAN CORPUSCULAR HEMOGLOBIN 24.8 pg (27.0-33.4); MEAN CORPUSCULAR HGB CONC 31.8 g/dL (32.0-36.0); MEAN CORPUSCULAR VOLUME 78 fl (80-97); PLATELET COUNT 187 10^3/uL (150-450); RED BLOOD COUNT 4.94 10^6/uL (4.35-5.55); RED CELL DISTRIBUTION WIDTH 21.6 % (11.5-14.0); WHITE BLOOD COUNT 9.5 10^3/uL (4.0-10.5)
[2018-02-07 04:25] LABS: ALANINE AMINOTRANSFERASE 48 U/L (21-72); ALBUMIN 3.6 g/dL (3.5-5.0); ALKALINE PHOSPHATASE 38 U/L (38-126); ANION GAP 7 (5-19); ASPARTATE AMINO TRANSFERASE 85 U/L (17-59); BILIRUBIN,DIRECT 0.3 mg/dL (0.0-0.4); BILIRUBIN,TOTAL 0.5 mg/dL (0.2-1.3); BLOOD UREA NITROGEN 30 mg/dL (7-20); CALCIUM 8.4 mg/dL (8.4-10.2); CARBON DIOXIDE 27 mmol/L (22-30); CHLORIDE 118 mmol/L (98-107); GLUCOSE 129 mg/dL (75-110); POTASSIUM 4.7 mmol/L (3.6-5.0); SODIUM 152.2 mmol/L (137-145); TOTAL PROTEIN 6.2 g/dL (6.3-8.2)
[2018-02-07 04:33] LABS: ARTERIAL BLOOD BASE EXCESS -1.1 mmol/L; ARTERIAL BLOOD FIO2 30%; ARTERIAL BLOOD H2CO3 1.06 mmol/L (1.05-1.35); ARTERIAL BLOOD HCO3 22.7 mmol/L (20-26); ARTERIAL BLOOD O2 SATURATION 95.6 % (94-98); ARTERIAL BLOOD PCO2 35.1 mmHg (35-45); ARTERIAL BLOOD PH 7.43 (7.35-7.45); ARTERIAL BLOOD PO2 75.5 mmHg (80-100); ARTERIAL BLOOD TOTAL CO2 23.8 mmol/L (23-27)
[2018-02-07] MEDS: TAMSULOSIN HCL 0.4 MG CAP.SR.24H PO SCH (04:33)
[2018-02-07 04:43] LABS: ABSOLUTE LYMPHOCYTES# (MANUAL) 0.6 10^3/uL (0.5-4.7); ABSOLUTE MONOCYTES # (MANUAL) 0.4 10^3/uL (0.1-1.4); ABSOLUTE NEUTROPHILS# (MANUAL) 8.6 10^3/uL (1.7-8.2); BASOPHILS % (MANUAL) 0 % (0-2); EOSINOPHILS % (MANUAL) 0 % (0-6); LYMPHOCYTES % (MANUAL) 6 % (13-45); MONOCYTES % (MANUAL) 4 % (3-13); SEGMENTED NEUTROPHILS % (MAN) 90 % (42-78); TOTAL CELLS COUNTED 100
[2018-02-07 04:47] LABS: ANISOCYTOSIS 3+; HYPOCHROMASIA 1+; POIKILOCYTOSIS SLIGHT; POLYCHROMASIA SLIGHT
[2018-02-07 04:48] LABS: OVALOCYTES SLIGHT; PLATELET COMMENT ADEQUATE
[2018-02-07] MEDS: METHYLPREDNISOLONE INJ 40 MG/1 ML SDV IV SCH ×3 (05:17→21:04)
[2018-02-07] MEDS: LANSOPRAZOLE 30 MG TAB.RAP.DR NG SCH (05:17)
[2018-02-07] MEDS ORDERED: HYDRALAZINE HCL INJ/PF 20 MG/1 ML SDV IV PRN (08:00)
--- NOTE | 2018-02-07 08:17 | RADIOLOGY REPORT (SQ) ---
EXAM DESCRIPTION: CHEST SINGLE VIEW COMPLETED DATE/TIME: 02/07/2018 6:37 am REASON FOR STUDY: on ventilator COMPARISON: 02/06/2018 NUMBER OF VIEWS: One view. TECHNIQUE: Single frontal radiographic image of the chest acquired. LIMITATIONS: None. FINDINGS: LUNGS AND PLEURA: Diffuse increased aeration with better definition of the left diaphragm. No pneumothorax. MEDIASTINUM AND HEART: Stable heart size and mediastinal structures. SUPPORT DEVICES: Appropriate location without change. BONY STRUCTURES: No acute findings. HARDWARE: None. OTHER: No other significant finding. IMPRESSION: Slight improvement. No pneumothorax. Reading location - IP/workstation name: [email or web address]
[2018-02-07] MEDS: DEXTROSE 5%-WATER 1000 ML 1,000 ML IV PRN (11:33)
[2018-02-07] MEDS: ENOXAPARIN SODIUM INJ 80 MG/0.8 ML DISP.SYRIN SUBCUT SCH ×2 (11:35→21:05)
[2018-02-07] MEDS: DOCUSATE SODIUM 100 MG CAPSULE PO SCH (11:36)
[2018-02-07 11:50] LABS: ARTERIAL BLOOD BASE EXCESS -0.2 mmol/L; ARTERIAL BLOOD H2CO3 1.02 mmol/L (1.05-1.35); ARTERIAL BLOOD HCO3 23.3 mmol/L (20-26); ARTERIAL BLOOD O2 SATURATION 95.4 % (94-98); ARTERIAL BLOOD PH 7.45 (7.35-7.45); ARTERIAL BLOOD PO2 72.2 mmHg (80-100); ARTERIAL BLOOD TOTAL CO2 24.4 mmol/L (23-27)
[2018-02-07 11:51] LABS: ARTERIAL BLOOD FIO2 30%
--- NOTE | 2018-02-07 13:31 | PROGRESS NOTE E ---
Progress Note NAME: SHONDA HUERTA : 1960 AGE: 57Y DATE: 02/06/2018 ROOM: 605 SUBJECTIVE: Patient is a 57-year-old male who was admitted for acute respiratory failure requiring invasive mechanical ventilation, status post cardiac arrest, status post CPR for about 45 minutes. Patient was noted to be spiking a temperature up to 100 degrees Fahrenheit over the last 24 hours, has had scanty endotracheal tube secretions which seem to be clear. No vomiting. No diarrhea. Patient started on Levaquin 500 mg IV piggyback daily. The patient did not tolerate the NG tube feeding at 20 mL/hour and currently the OG tube feedings were done. Patient had sedation medication this morning. Patient did not tolerate the sedation medication and becomes agitated and tachypneic. Reportedly, patient had a spontaneous breathing trial on pressure support 10 and 5 and told by RN the patient seemed to be doing well while on propofol of 10 mcg/minute. OBJECTIVE: GENERAL: Patient is sedated, afebrile, not in acute respiratory distress. VITAL SIGNS: Temperature of 100.2 with a T max of 100.2, heart rate of 91, respiratory rate of 16, oxygen saturation is 94% on FiO2 of 30%, SIMV rate of 16, tidal volume of 540 mL, pressure support of 10, PEEP of 5, fiO2 30%, titrate FiO2 to keep O2 sat 91-94%. Peak airway pressure is 19, plateau pressure is 14, and min ventilation is 9.8. EYES: No jaundice or pallor. EARS, NOSE AND THROAT: No ear drainage noted. No nasal discharge. HEAD AND NECK: No scalp tenderness. Neck supple. CHEST AND LUNGS: No wheezing. No rhonchi. No coarse crackles. CARDIOVASCULAR: S1, S2 distinct. Normal rate, regular rhythm. ABDOMEN: Flabby. Hypoactive bowel sounds. Soft. Nondistended. Nontender. EXTREMITIES: No joint swelling. No cellulitis. LABORATORY: CBC done today showed white count of 10; hemoglobin of 12; hematocrit 37.3; platelet count is 174. Chemistry done today showed sodium 153, potassium 4.4, chloride 121, CO2 is 27, BUN is 26, creatinine 1.06, glucose 121, calcium is 8.2, phosphorus is 2.6 and albumin 3.2. Urinalysis done today showed negative for leukocyte esterase, small amount of blood in the urine. A chest x-ray done today showed endotracheal tubes in place. No pneumothorax noted. No new pulmonary infiltrate. ASSESSMENT: 1. ACUTE RESPIRATORY FAILURE REQUIRING INVASIVE MECHANICAL VENTILATION STATUS POST CARDIAC ARREST FOR ABOUT 45 MINUTES ON CPR. 2. COMA DUE TO ANOXIC ENCEPHALOPATHY. 3. HISTORY OF COPD, CURRENTLY STABLE AND NOT IN ACUTE EXACERBATION. PLAN AND RECOMMENDATIONS: We will continue the ventilator support. We will do sedation vacation every morning and if patient becomes fully awake, then may consider spontaneous breathing trial. I would recommend talking to family members for future care. May consider tracheostomy tube placement eventually and a future transfer to any LTAC if patient remains stable and in persistent vegetative state. DICTATING PHYSICIAN: JERILYN LEONARDO MD,GERSON,MPH [id number] PHY#: [id number] ID: [id number] JOB#: [id number] ACCT: [id number] cc:JERILYN LEONARDO M.D. > MTDD
[2018-02-07] MEDS: LEVOFLOXACIN 500 MG/D5W RTU 500 MG/100 ML RTUPB IV SCH (15:04)
[2018-02-07] MEDS: AMLODIPINE BESYLATE 10 MG TABLET NG SCH (15:07)
[2018-02-07 17:49] LABS: FIBRINOGEN 313 mg/dL (209-497); PARTIAL THROMBOPLASTIN TIME 27.7 SEC (23.5-35.8); PROTHROMBIN TIME 13.9 SEC (11.4-15.4)
[2018-02-07] MEDS: ASPIRIN 81 MG TABLET, CHEWABLE NG SCH (18:00)
--- NOTE | 2018-02-07 20:56 | PDOC PROGRESS REPORT ---
Subjective Progress Note for:: 02/07/18 Subjective:: Patient able to tolerate pressure support settings on vent this AM with sedation weaned. Neurology performed a neuro exam due to concerns of anoxic brain injury. Exam was mixed with no doll eyes and some nystagmus noted on caloric testing. Patient had significant secretions and pulmonary medicine replaced him on Diprovan sedation. Family was not present at the bedside today. Will attempt to have them present tomorrow, for vent weaning. Reason For Visit: ACUTE ON CHRONIC RESPIRATORY FAILURE CARDIAC Physical Exam Vital Signs: Temp Pulse Resp BP Pulse Ox 100.4 F 96 16 116/84 97 02/07/18 19:50 02/07/18 13:39 02/07/18 18:45 02/07/18 17:59 02/07/18 18:45 Intake & Output 02/06/18 02/07/18 02/08/18 06:59 06:59 06:59 Intake Total 1357 2729 1021 Output Total 2830 2150 1850 Balance -1473 579 -829 Weight 85.5 kg 85.2 kg General appearance: PRESENT: no acute distress Head exam: PRESENT: atraumatic, normocephalic Eye exam: PRESENT: PERRLA. ABSENT: scleral icterus Ear exam: PRESENT: normal external ear exam. ABSENT: bleeding Mouth exam: PRESENT: moist, neck supple Neck exam: PRESENT: full ROM. ABSENT: JVD, tenderness Respiratory exam: ABSENT: accessory muscle use, rales, wheezes Cardiovascular exam: PRESENT: RRR, +S1, +S2 Pulses: PRESENT: normal radial pulses, normal dorsalis pedis pul Vascular exam: PRESENT: normal capillary refill. ABSENT: pallor GI/Abdominal exam: PRESENT: distended - mild distension improving on wall suction, hypoactive bowel sounds, soft. ABSENT: ascites, rigid Extremities exam: ABSENT: calf tenderness, joint swelling Musculoskeletal exam: PRESENT: full ROM. ABSENT: ambulatory Neurological exam: PRESENT: altered. ABSENT: reflexes normal Focused psych exam: ABSENT: delusional, paranoid Skin exam: ABSENT: abrasion, cyanosis Results Laboratory Results: 02/07/18 03:46 02/07/18 20:07 02/06/18 02/07/18 02/07/18 22:30 03:46 03:46 WBC 9.5 RBC 4.94 Hgb 12.2 L Hct 38.5 MCV 78 L MCH 24.8 L MCHC 31.8 L RDW 21.6 H Plt Count 187 Seg Neutrophils % Not Reportable Lymphocytes % Not Reportable Monocytes % Not Reportable Eosinophils % Not Reportable Basophils % Not Reportable Absolute Neutrophils Not Reportable Absolute Lymphocytes Not Reportable Absolute Monocytes Not Reportable Absolute Eosinophils Not Reportable Absolute Basophils Not Reportable Carbonic Acid HCO3/H2CO3 Ratio ABG pH ABG pCO2 ABG pO2 ABG HCO3 ABG O2 Saturation ABG Base Excess FiO2 Sodium 149.3 H 152.2 H Potassium 4.7 Chloride 118 H Carbon Dioxide 27 Anion Gap 7 BUN 30 H Creatinine 1.09 Est GFR ( Amer) > 60 Est GFR (Non-Af Amer) > 60 Glucose 129 H Calcium 8.4 Total Bilirubin 0.5 AST 85 H ALT 48 Alkaline Phosphatase 38 Total Protein 6.2 L Albumin 3.6 02/07/18 02/07/18 02/07/18 04:13 08:20 11:30 WBC RBC Hgb Hct MCV MCH MCHC RDW Plt Count Seg Neutrophils % Lymphocytes % Monocytes % Eosinophils % Basophils % Absolute Neutrophils Absolute Lymphocytes Absolute Monocytes Absolute Eosinophils Absolute Basophils Carbonic Acid 1.06 1.02 L HCO3/H2CO3 Ratio 21:1 22:1 ABG pH 7.43 7.45 ABG pCO2 35.1 34.0 L ABG pO2 75.5 L 72.2 L ABG HCO3 22.7 23.3 ABG O2 Saturation 95.6 95.4 ABG Base Excess -1.1 -0.2 FiO2 30% 30% Sodium 151.1 H Potassium Chloride Carbon Dioxide Anion Gap BUN Creatinine Est GFR ( Amer) Est GFR (Non-Af Amer) Glucose Calcium Total Bilirubin AST ALT Alkaline Phosphatase Total Protein Albumin 02/07/18 02/07/18 02/07/18 12:23 16:03 20:07 WBC RBC Hgb Hct MCV MCH MCHC RDW Plt Count Seg Neutrophils % Lymphocytes % Monocytes % Eosinophils % Basophils % Absolute Neutrophils Absolute Lymphocytes Absolute Monocytes Absolute Eosinophils Absolute Basophils Carbonic Acid HCO3/H2CO3 Ratio ABG pH ABG pCO2 ABG pO2 ABG HCO3 ABG O2 Saturation ABG Base Excess FiO2 Sodium 148.9 H 148.0 H 149.1 H Potassium Chloride Carbon Dioxide Anion Gap BUN Creatinine Est GFR ( Amer) Est GFR (Non-Af Amer) Glucose Calcium Total Bilirubin AST ALT Alkaline Phosphatase Total Protein Albumin 02/02/18 02/03/18 02/03/18 21:23 03:53 09:46 Troponin I 0.119 0.190 0.166 NT-Pro-B Natriuret Pep 02/04/18 02/07/18 03:55 17:00 Troponin I NT-Pro-B Natriuret Pep 144 343 Impressions: Chest/Abdomen CTA 02/02/18 00:00 IMPRESSION: NORMAL CTA OF THE CHEST. NO PULMONARY EMBOLI. Multiple transverse fractures of the anterolateral ribs bilaterally, consistent with recent resuscitation efforts. Abdomen/Pelvis CT 02/05/18 00:00 IMPRESSION: 1. FOCAL DILATION OF THE PROXIMAL SIGMOID COLON. THE LUMEN MORE DISTALLY IS NARROWED. THIS COULD REPRESENT A PARTIAL OBSTRUCTION SECONDARY TO ADHESIONS. APPEARANCE DOES NOT APPEAR TO BE DUE TO VOLVULUS. NO SIGNIFICANT DILATION OF THE COLON PROXIMAL TO THE SIGMOID. THERE ARE A FEW SCATTERED DIVERTICULI WITH NO CT FINDINGS OF DIVERTICULITIS. 2. NO OTHER SIGNIFICANT FINDINGS. THERE IS PATCHY ATELECTASIS OR INFILTRATE IN THE LUNG BASES. Head CT 02/05/18 00:00 IMPRESSION: NORMAL BRAIN CT WITHOUT CONTRAST. EVIDENCE OF ACUTE STROKE: NO. KUB X-Ray 02/05/18 00:00 IMPRESSION: Ileus or partial small bowel obstruction. Chest X-Ray 02/07/18 05:00 IMPRESSION: Slight improvement. No pneumothorax. Assessment & Plan - Plan Summary Plan Summary: (1) Cardiac Arrest secondary to Respiratory Failure stable, intubated in ICU on vent. (2) Acute and chronic respiratory failure sedation vacation, intubated on vent this AM using fentanyl pushes for pain control from rib fractures doing well on pressure support sedation vacation. unable to respond to commands family aware of possible anoxic brain injury continue pulm medicines Neuro exam today with caloric testing: mixed results: unclear if indicating some anoxic injury (3) COPD with respiratory failure, acute Pulmonary following. no significant wheezing on exam today. would avoid weaning pulm medicines until after patient is extubated. (4) Anticoagulated Continue Xarelto 20 mg per NG (5) Hypertension continue Norvasc dose. prn hydralazine (5) Obstructive sleep apnea may need transition to CPAP when extubated (6) History of pulmonary embolism Continue Xarelto (7) History of DVT (deep vein thrombosis) Patient is on anticoagulation (8) Ribs, multiple fractures Bilateral. Due to resuscitation. will likely need pain treated to get him off of the vent.
[2018-02-07] MEDS: ATORVASTATIN CALCIUM 40 MG TABLET NG SCH (21:05)
[2018-02-08] MEDS: PROPOFOL 100 ML IV PRN ×3 (02:16→21:31)
[2018-02-08 03:51] LABS: HEMATOCRIT 35.4 % (37.9-51.0); HEMOGLOBIN 11.6 g/dL (13.5-17.0); MEAN CORPUSCULAR HEMOGLOBIN 25.1 pg (27.0-33.4); MEAN CORPUSCULAR HGB CONC 32.8 g/dL (32.0-36.0); MEAN CORPUSCULAR VOLUME 76 fl (80-97); PLATELET COUNT 200 10^3/uL (150-450); RED BLOOD COUNT 4.64 10^6/uL (4.35-5.55); RED CELL DISTRIBUTION WIDTH 21.4 % (11.5-14.0); WHITE BLOOD COUNT 10.5 10^3/uL (4.0-10.5)
[2018-02-08 04:03] LABS: ANION GAP 6 (5-19); BLOOD UREA NITROGEN 28 mg/dL (7-20); CALCIUM 8.4 mg/dL (8.4-10.2); CARBON DIOXIDE 23 mmol/L (22-30); CHLORIDE 120 mmol/L (98-107); GLUCOSE 132 mg/dL (75-110); PHOSPHORUS 3.7 mg/dL (2.5-4.5); POTASSIUM 4.8 mmol/L (3.6-5.0); SODIUM 149.2 mmol/L (137-145)
[2018-02-08] MEDS: LANSOPRAZOLE 30 MG TAB.RAP.DR NG SCH (05:03)
[2018-02-08] MEDS: METHYLPREDNISOLONE INJ 40 MG/1 ML SDV IV SCH ×3 (05:04→21:30)
[2018-02-08] MEDS: DEXTROSE 5%-WATER 1000 ML 1,000 ML IV PRN (05:04)
[2018-02-08 05:35] LABS: APPEARANCE,URINE CLEAR; BILIRUBIN,URINE NEGATIVE (NEGATIVE); COLOR,URINE STRAW; GLUCOSE, URINE NEGATIVE (NEGATIVE); KETONES,URINE NEGATIVE (NEGATIVE); URINE SPECIFIC GRAVITY 1.017
[2018-02-08 05:36] LABS: LEUKOCYTE ESTERASE,URINE NEGATIVE (NEGATIVE); NITRITE,URINE NEGATIVE (NEGATIVE); PROTEIN,URINE 30 mg/dL (NEGATIVE); UROBILINOGEN,URINE NEGATIVE mg/dL (<2.0)
[2018-02-08] MEDS: LEVALBUTEROL HCL NEB 1.25 MG/3 ML AMPUL NEB SCH ×3 (08:05→23:54)
[2018-02-08] MEDS: IPRATROPIUM BROMIDE 0.02% NEB 0.5 MG/2.5 ML AMPUL NEB SCH ×3 (08:05→23:54)
[2018-02-08] MEDS: ENOXAPARIN SODIUM INJ 80 MG/0.8 ML DISP.SYRIN SUBCUT SCH ×2 (10:16→21:31)
[2018-02-08] MEDS: DOCUSATE SODIUM 100 MG CAPSULE PO SCH (10:17)
[2018-02-08] MEDS: BISACODYL 10 MG SUPP.RECT PR PRN (10:17)
[2018-02-08] MEDS: FENTANYL CITRATE INJ/PF 100 MCG/2 ML AMPUL IV PRN ×2 (10:38→22:00)
[2018-02-08] MEDS ORDERED: MINERAL OIL 30 ML UDCUP GT ONE (12:00)
[2018-02-08 13:27] LABS: ARTERIAL BLOOD BASE EXCESS -1.1 mmol/L; ARTERIAL BLOOD HCO3 22.3 mmol/L (20-26); ARTERIAL BLOOD O2 SATURATION 97.1 % (94-98); ARTERIAL BLOOD PCO2 33.1 mmHg (35-45); ARTERIAL BLOOD PH 7.45 (7.35-7.45); ARTERIAL BLOOD PO2 87.5 mmHg (80-100); ARTERIAL BLOOD TOTAL CO2 23.4 mmol/L (23-27)
[2018-02-08 13:28] LABS: ARTERIAL BLOOD FIO2 40%
[2018-02-08] MEDS: LEVOFLOXACIN 500 MG/D5W RTU 500 MG/100 ML RTUPB IV SCH (15:55)
[2018-02-08] MEDS: AMLODIPINE BESYLATE 10 MG TABLET NG SCH (15:56)
--- NOTE | 2018-02-08 16:36 | RADIOLOGY REPORT (SQ) ---
EXAM DESCRIPTION: KUB/ABDOMEN (SINGLE VIEW) COMPLETED DATE/TIME: 02/08/2018 4:18 pm REASON FOR STUDY: SMALL BOWEL OBSTRUCTION COMPARISON: 02/05/2018 NUMBER OF VIEWS: One view. TECHNIQUE: Supine radiographic image of the abdomen acquired. LIMITATIONS: None. FINDINGS: BOWEL GAS PATTERN: Normal bowel gas pattern. No dilated loops. CALCIFICATIONS: No suspicious calcifications. SOFT TISSUES: No gross mass or suggestion of organomegaly. HARDWARE: None. BONES: No bone lesions or fracture. OTHER: Smallwood catheter overlying urinary bladder. Nasogastric tube in the stomach. IMPRESSION: No obstruction. Reading location - IP/workstation name: [email or web address]
[2018-02-08] MEDS: ASPIRIN 81 MG TABLET, CHEWABLE NG SCH (17:43)
--- NOTE | 2018-02-08 21:25 | PDOC PROGRESS REPORT ---
Subjective Progress Note for:: 02/08/18 Subjective:: Patient remains intubated with significant secretions. Was resting on propofol sedation overnight. This was discontinued this morning. Patient doing well on pressure support settings, breathing on his own. No significant neurologic recovery noted during this morning's examination. Family at the bedside, his sister, and goals of care were rediscussed. Sister is going to communicate with the rest of the family to get their input. We discussed possibly considering when the patient is stable enough to support his breathing, extubating him and considering making him a DO NOT RESUSCITATE. At present she is considering this but not in agreement to it. Patient's abdomen appears softer but still somewhat distended. No bowel movements or flatulence noted per nursing staff. Patient's been on intermittent wall suction. Understand the desire to replace him on trophic's. Checked a KUB. Patient did not appear obstructed on the KUB. Reason For Visit: ACUTE ON CHRONIC RESPIRATORY FAILURE CARDIAC Physical Exam Vital Signs: Temp Pulse Resp BP Pulse Ox 99.7 F 98 18 141/95 H 95 02/08/18 19:48 02/08/18 18:00 02/08/18 18:30 02/08/18 18:00 02/08/18 18:30 Intake & Output 02/07/18 02/08/18 02/09/18 06:59 06:59 06:59 Intake Total 2729 1776 755 Output Total 2150 3400 1585 Balance 579 -1624 -830 Weight 85.2 kg 83.6 kg General appearance: PRESENT: no acute distress - Intubated on ventilator. Head exam: PRESENT: atraumatic, normocephalic Eye exam: PRESENT: PERRLA. ABSENT: nystagmus Ear exam: PRESENT: normal external ear exam. ABSENT: bleeding Mouth exam: PRESENT: moist, neck supple. ABSENT: dry mucosa Neck exam: ABSENT: JVD, thyromegaly Respiratory exam: ABSENT: accessory muscle use, crackles, rales, rhonchi, wheezes Cardiovascular exam: PRESENT: RRR, +S1, +S2 Pulses: PRESENT: normal radial pulses, normal dorsalis pedis pul Vascular exam: PRESENT: normal capillary refill. ABSENT: pallor GI/Abdominal exam: ABSENT: ascites, distended, mass Extremities exam: ABSENT: calf tenderness, joint swelling Musculoskeletal exam: PRESENT: full ROM. ABSENT: ambulatory Neurological exam: PRESENT: altered, other - No significant response to pain this morning, but recently removed from sedation. Psychiatric exam: ABSENT: agitated, anxious Skin exam: ABSENT: abrasion, mottled Results Laboratory Results: 02/08/18 03:39 02/08/18 16:25 02/08/18 02/08/18 02/08/18 00:24 03:39 03:39 WBC 10.5 RBC 4.64 Hgb 11.6 L Hct 35.4 L MCV 76 L MCH 25.1 L MCHC 32.8 RDW 21.4 H Plt Count 200 Carbonic Acid HCO3/H2CO3 Ratio ABG pH ABG pCO2 ABG pO2 ABG HCO3 ABG O2 Saturation ABG Base Excess FiO2 Sodium 149.7 H Cancelled Potassium Cancelled Chloride Cancelled Carbon Dioxide Cancelled Anion Gap Cancelled BUN Cancelled Creatinine Cancelled Est GFR ( Amer) Cancelled Est GFR (Non-Af Amer) Cancelled Glucose Cancelled Calcium Cancelled Phosphorus Cancelled Magnesium Albumin 3.1 L Urine Color Urine Appearance Urine pH Ur Specific [place] Urine Protein Urine Glucose (UA) Urine Ketones Urine Blood Urine Nitrite Ur Leukocyte Esterase Urine WBC (Auto) Urine RBC (Auto) 02/08/18 02/08/18 02/08/18 03:39 05:00 13:10 WBC RBC Hgb Hct MCV MCH MCHC RDW Plt Count Carbonic Acid 1.00 L HCO3/H2CO3 Ratio 22:1 ABG pH 7.45 ABG pCO2 33.1 L ABG pO2 87.5 ABG HCO3 22.3 ABG O2 Saturation 97.1 ABG Base Excess -1.1 FiO2 40% Sodium 149.2 H Potassium 4.8 Chloride 120 H Carbon Dioxide 23 Anion Gap 6 BUN 28 H Creatinine 0.92 Est GFR ( Amer) > 60 Est GFR (Non-Af Amer) > 60 Glucose 132 H Calcium 8.4 Phosphorus 3.7 Magnesium 2.9 H Albumin Urine Color STRAW Urine Appearance CLEAR Urine pH 6.0 Ur Specific [place] 1.017 Urine Protein 30 H Urine Glucose (UA) NEGATIVE Urine Ketones NEGATIVE Urine Blood MODERATE H Urine Nitrite NEGATIVE Ur Leukocyte Esterase NEGATIVE Urine WBC (Auto) 2 Urine RBC (Auto) 45 02/08/18 16:25 WBC RBC Hgb Hct MCV MCH MCHC RDW Plt Count Carbonic Acid HCO3/H2CO3 Ratio ABG pH ABG pCO2 ABG pO2 ABG HCO3 ABG O2 Saturation ABG Base Excess FiO2 Sodium 148.8 H Potassium Chloride Carbon Dioxide Anion Gap BUN Creatinine Est GFR ( Amer) Est GFR (Non-Af Amer) Glucose Calcium Phosphorus Magnesium Albumin Urine Color Urine Appearance Urine pH Ur Specific [place] Urine Protein Urine Glucose (UA) Urine Ketones Urine Blood Urine Nitrite Ur Leukocyte Esterase Urine WBC (Auto) Urine RBC (Auto) 02/02/18 02/03/18 02/03/18 21:23 03:53 09:46 Troponin I 0.119 0.190 0.166 NT-Pro-B Natriuret Pep 02/04/18 02/07/18 03:55 17:00 Troponin I NT-Pro-B Natriuret Pep 144 343 Impressions: Chest/Abdomen CTA 02/02/18 00:00 IMPRESSION: NORMAL CTA OF THE CHEST. NO PULMONARY EMBOLI. Multiple transverse fractures of the anterolateral ribs bilaterally, consistent with recent resuscitation efforts. Abdomen/Pelvis CT 02/05/18 00:00 IMPRESSION: 1. FOCAL DILATION OF THE PROXIMAL SIGMOID COLON. THE LUMEN MORE DISTALLY IS NARROWED. THIS COULD REPRESENT A PARTIAL OBSTRUCTION SECONDARY TO ADHESIONS. APPEARANCE DOES NOT APPEAR TO BE DUE TO VOLVULUS. NO SIGNIFICANT DILATION OF THE COLON PROXIMAL TO THE SIGMOID. THERE ARE A FEW SCATTERED DIVERTICULI WITH NO CT FINDINGS OF DIVERTICULITIS. 2. NO OTHER SIGNIFICANT FINDINGS. THERE IS PATCHY ATELECTASIS OR INFILTRATE IN THE LUNG BASES. Head CT 02/05/18 00:00 IMPRESSION: NORMAL BRAIN CT WITHOUT CONTRAST. EVIDENCE OF ACUTE STROKE: NO. Chest X-Ray 02/07/18 05:00 IMPRESSION: Slight improvement. No pneumothorax. KUB X-Ray 02/08/18 00:00 IMPRESSION: No obstruction. Assessment & Plan - Plan Summary Plan Summary: (1) Cardiac Arrest secondary to Respiratory Failure stable, intubated in ICU on vent. (2) Acute and chronic respiratory failure sedation vacation, maintained on vent this AM using fentanyl pushes for pain control from rib fractures doing well on pressure support sedation vacation. unable to respond to commands family aware of possible anoxic brain injury continue pulm medicines Neuro exam today with caloric testing: mixed results: unclear if indicating some anoxic injury Family considering goals of care beyond possible extubation soon. (3) COPD with respiratory failure, acute Pulmonary following. no significant wheezing on exam today. would avoid weaning pulm medicines until after patient is extubated. (4) Anticoagulated Continue Xarelto 20 mg per NG (5) Hypertension continue Norvasc dose. prn hydralazine (6) Obstructive sleep apnea may need transition to CPAP when extubated (7) History of pulmonary embolism Continue Xarelto (8) History of DVT (deep vein thrombosis) Patient is on anticoagulation (9) Ribs, multiple fractures Bilateral. Due to resuscitation. will likely need pain treated to get him off of the vent.
[2018-02-08] MEDS: ATORVASTATIN CALCIUM 40 MG TABLET NG SCH (21:30)
[2018-02-09 04:18] LABS: HEMATOCRIT 37.3 % (37.9-51.0); HEMOGLOBIN 12.1 g/dL (13.5-17.0); MEAN CORPUSCULAR HEMOGLOBIN 24.9 pg (27.0-33.4); MEAN CORPUSCULAR HGB CONC 32.4 g/dL (32.0-36.0); MEAN CORPUSCULAR VOLUME 77 fl (80-97); PLATELET COUNT 212 10^3/uL (150-450); RED BLOOD COUNT 4.85 10^6/uL (4.35-5.55); RED CELL DISTRIBUTION WIDTH 21.5 % (11.5-14.0); WHITE BLOOD COUNT 10.4 10^3/uL (4.0-10.5)
[2018-02-09 04:31] LABS: ALBUMIN 3.1 g/dL (3.5-5.0); ANION GAP 8 (5-19); BLOOD UREA NITROGEN 28 mg/dL (7-20); CALCIUM 8.9 mg/dL (8.4-10.2); CARBON DIOXIDE 25 mmol/L (22-30); CHLORIDE 115 mmol/L (98-107); GLUCOSE 109 mg/dL (75-110); PHOSPHORUS 3.7 mg/dL (2.5-4.5); POTASSIUM 4.4 mmol/L (3.6-5.0); SODIUM 147.9 mmol/L (137-145); TRIGLYCERIDES 210 mg/dL (<150)
[2018-02-09] MEDS: FENTANYL CITRATE INJ/PF 100 MCG/2 ML AMPUL IV PRN ×5 (04:52→21:35)
[2018-02-09] MEDS: METHYLPREDNISOLONE INJ 40 MG/1 ML SDV IV SCH ×2 (06:34→21:36)
[2018-02-09] MEDS: LANSOPRAZOLE 30 MG TAB.RAP.DR NG SCH (06:34)
[2018-02-09] MEDS: LEVALBUTEROL HCL NEB 1.25 MG/3 ML AMPUL NEB SCH ×2 (09:17→15:32)
[2018-02-09] MEDS: IPRATROPIUM BROMIDE 0.02% NEB 0.5 MG/2.5 ML AMPUL NEB SCH ×2 (09:17→15:32)
[2018-02-09] MEDS: DOCUSATE SODIUM 100 MG CAPSULE PO SCH (10:41)
[2018-02-09] MEDS: ENOXAPARIN SODIUM INJ 80 MG/0.8 ML DISP.SYRIN SUBCUT SCH ×2 (10:41→21:36)
[2018-02-09] MEDS ORDERED: SCOPOLAMINE HYDROBROMIDE 1.5 MG PATCH.TD72 TD ONE (11:00)
[2018-02-09] MEDS: LEVOFLOXACIN 500 MG/D5W RTU 500 MG/100 ML RTUPB IV SCH (13:41)
[2018-02-09] MEDS: AMLODIPINE BESYLATE 10 MG TABLET NG SCH (13:45)
[2018-02-09] MEDS: ASPIRIN 81 MG TABLET, CHEWABLE NG SCH (17:54)
--- NOTE | 2018-02-09 19:50 | PDOC PROGRESS REPORT ---
Subjective Progress Note for:: 02/09/18 Subjective:: Had another meeting today with the patient's family. Sister is the decision- maker. She is leaning toward agreeing with making the patient a do not reintubate, and possibly no CPR after his upcoming extubation. Patient remains with significant secretions and intubated. Went through another sedation, pressure supported trial successfully on the vent today. We will continue to encourage minimizing propofol sedation and using fentanyl IV pushes for control of pain and discomfort as needed. Patient has displayed mixed results and neurologic testing. High concern that patient has an anoxic brain injury given a 40 minute of resuscitation total time. Would anticipate possible extubation in the next 48 hours. Would try to have patient's family confirmed an appropriate code situation prior to extubation. Concern for patient's ability to protect airway after extubation. Appears to be breathing comfortably on his own with pressure support today. Some ocular reflex improvement on today's exam. Caloric testing by neurology in the prior days did show some brainstem activity. Doll's eye testing poor response. Reason For Visit: ACUTE ON CHRONIC RESPIRATORY FAILURE CARDIAC Physical Exam Vital Signs: Temp Pulse Resp BP Pulse Ox 100.2 F 104 H 13 118/86 H 95 02/09/18 18:01 02/09/18 17:49 02/09/18 18:01 02/09/18 18:00 02/09/18 18:01 Intake & Output 02/08/18 02/09/18 02/10/18 06:59 06:59 06:59 Intake Total 1776 755 908 Output Total 3400 2410 795 Balance -1624 -1655 113 Weight 83.6 kg 81.9 kg General appearance: PRESENT: no acute distress - Intubated on ventilator, off sedation, normal vitals. Head exam: PRESENT: atraumatic, normocephalic Eye exam: PRESENT: PERRLA. no injury to eyes or eye lids Ear exam: PRESENT: normal external ear exam. ABSENT: bleeding Mouth exam: PRESENT: moist, neck supple. ABSENT: dry mucosa Neck exam: ABSENT: JVD, thyromegaly Respiratory exam: ABSENT: accessory muscle use, crackles, rales, rhonchi, wheezes, He has Good air movement Cardiovascular exam: PRESENT: RRR, +S1, +S2 Pulses: PRESENT: normal radial pulses, normal dorsalis pedis pul Vascular exam: PRESENT: normal capillary refill. ABSENT: pallor GI/Abdominal exam: ABSENT: ascites, distended, mass Extremities exam: ABSENT: calf tenderness, joint swelling Musculoskeletal exam: PRESENT: full ROM. ABSENT: ambulatory Neurological exam: PRESENT: altered, other - minimal response to pain. corneal reflex working, some posturing noted in his bed postion. Psychiatric exam: ABSENT: agitated, anxious Skin exam: ABSENT: abrasion, mottled Results Laboratory Results: 02/09/18 03:53 02/09/18 03:53 02/09/18 02/09/18 03:53 03:53 WBC 10.4 RBC 4.85 Hgb 12.1 L Hct 37.3 L MCV 77 L MCH 24.9 L MCHC 32.4 RDW 21.5 H Plt Count 212 Sodium 147.9 H Potassium 4.4 Chloride 115 H Carbon Dioxide 25 Anion Gap 8 BUN 28 H Creatinine 0.97 Est GFR ( Amer) > 60 Est GFR (Non-Af Amer) > 60 Glucose 109 Calcium 8.9 Phosphorus 3.7 Albumin 3.1 L Triglycerides 210 H 02/02/18 02/03/18 02/03/18 21:23 03:53 09:46 Troponin I 0.119 0.190 0.166 NT-Pro-B Natriuret Pep 02/04/18 02/07/18 03:55 17:00 Troponin I NT-Pro-B Natriuret Pep 144 343 Impressions: Chest/Abdomen CTA 02/02/18 00:00 IMPRESSION: NORMAL CTA OF THE CHEST. NO PULMONARY EMBOLI. Multiple transverse fractures of the anterolateral ribs bilaterally, consistent with recent resuscitation efforts. Abdomen/Pelvis CT 02/05/18 00:00 IMPRESSION: 1. FOCAL DILATION OF THE PROXIMAL SIGMOID COLON. THE LUMEN MORE DISTALLY IS NARROWED. THIS COULD REPRESENT A PARTIAL OBSTRUCTION SECONDARY TO ADHESIONS. APPEARANCE DOES NOT APPEAR TO BE DUE TO VOLVULUS. NO SIGNIFICANT DILATION OF THE COLON PROXIMAL TO THE SIGMOID. THERE ARE A FEW SCATTERED DIVERTICULI WITH NO CT FINDINGS OF DIVERTICULITIS. 2. NO OTHER SIGNIFICANT FINDINGS. THERE IS PATCHY ATELECTASIS OR INFILTRATE IN THE LUNG BASES. Head CT 02/05/18 00:00 IMPRESSION: NORMAL BRAIN CT WITHOUT CONTRAST. EVIDENCE OF ACUTE STROKE: NO. Chest X-Ray 02/07/18 05:00 IMPRESSION: Slight improvement. No pneumothorax. KUB X-Ray 02/08/18 00:00 IMPRESSION: No obstruction. Assessment & Plan - Plan Summary Plan Summary: (1) Cardiac Arrest secondary to Respiratory Failure intubated on vent, at present Full Code Family meeting today, family is on the cusp of deciding DO not reintubate and DNR after tube is removed. (2) Acute and chronic respiratory failure sedation vacation, maintained on vent today, stable breathing with pressure support. using fentanyl pushes for pain control from rib fractures continue pulm medicines (3) Anoxic Brain Injury coded for 40 minutes. caloric testing: mixed results: unclear if indicating some anoxic injury EEG showing some brain activity CT head: no showing signs of anoxic injury. unable to respond to commands minimal response to pain, posturing in bed, some brainstem reflexes are intact. (3) COPD with respiratory failure, acute Pulmonary following. no significant wheezing on exam today. would avoid weaning pulm medicines until after patient is extubated. (4) Distended Abdomen ileus vs. partial obstruction. very small amount of stool over night completed multiple days of decompression. attempting low rate trophic feeding again at 10cc (5) Anticoagulated Continue Xarelto 20 mg per NG (6) Hypertension continue Norvasc dose. prn hydralazine (7) Obstructive sleep apnea may need transition to CPAP when extubated (8) History of pulmonary embolism Continue Xarelto (9) History of DVT (deep vein thrombosis) Patient is on anticoagulation (10) Ribs, multiple fractures Bilateral. Due to resuscitation. will likely need pain treated to get him off of the vent.
--- NOTE | 2018-02-09 19:53 | PROGRESS NOTE E ---
Progress Note NAME: SHONDA HUERTA : 1960 AGE: 57Y DATE: 02/07/2018 ROOM: 605 SUBJECTIVE: The patient is a 57 years old -[place] male who came in with acute respiratory failure requiring invasive mechanical ventilation. The patient is status post cardiac arrest and cardiopulmonary resuscitation for about 45 minutes. He came in with COPD exacerbation. The patient has been slightly febrile over the last 24 hours. Blood cultures appeared normal with increased endotracheal secretions. There is no vomiting or diarrhea. Feeding was held for the last 24 hours because of ileus. OBJECTIVE: GENERAL: The patient is sedated. VITAL SIGNS: Currently, afebrile with a temperature of 99.5 with a T-Max of 100.2 degrees Fahrenheit. Heart rate is 85. Respiratory rate of 16. Saturation is 97% on SIMV rate of 16, tidal volume of 540 mL, pressure support of 10, PEEP of 5, the FiO2 30%, and the FiO2 titrated to keep saturations 91 to 95%. Peak airway pressure is 21, plateau pressure is 16, and minute ventilation is 10. EYES: No jaundice or pallor. EARS, NOSE, AND THROAT: No ear drainage noted. No nasal discharge. CHEST AND LUNGS: No wheezing. No rhonchi. No coarse crackles. CARDIOVASCULAR: S1, S2 distinct. Normal rate. Regular rhythm. ABDOMEN: Flabby. Hypoactive bowel sounds. Soft. Nondistended. EXTREMITIES: No joint swelling. No cellulitis. LABORATORY DATA: A CBC done today showed a white count is 9.5, hemoglobin is 12.2, hematocrit is 38.5 and no bands noted. PT today was 13.9. INR is 1. PTT is 37.7. Fibrogen is 10 to 13 and D-dimer is 1.1. ABG done today showed a pH of 7.45, pCO2 is 34, pO2 is 72.2, and saturation is 95.4% on 30% FiO2. Tolerated spontaneous breathing trial for about an a hour. There is still increased endotracheal tube secretions requiring endotracheal tube suction every 1 to 2 hours, moderate in amount. A chest x-ray appeared unremarkable. No new infiltrates, and endotracheal tube is in place. No pneumothorax noted. ASSESSMENT: 1. Acute respiratory failure requiring invasive mechanical ventilation. The patient is not ready to be extubated yet. The patient appeared to be waking up slightly but evrbally nonresponsive after the IV sedation was held this morning. The patient was placed on spontaneous breathing trial. The patient appeared to tolerate this SBT but requires enodotracheal tube suctioning every 1 to 2 hours. 2. Anoxic encephalopathy due to cardiac arrest. 3. History of COPD. Currently not in acute exacerbation. 4. Fever, unknown etiology. It appeared to have improved over the last 24 hours. PLAN AND RECOMMENDATIONS: 1. We will continue sedation medication every morning. We will do a breathing trial tomorrow morning if the patient becomes more awake and not agitated and comfortable. We may consider endotracheal tube extubation tomorrow if the patient continues to do well with the SB trial and the endotracheal tube secretions become scanty. 2. We will need to optimize enteral nutrition. There is no intra-abdominal pathologic process. The patient may need to have G tube placement, eventually, for feeding. DICTATING PHYSICIAN: JERILYN LEONARDO MD,GERSON,MPH [id number] PHY#: [id number] ID: [id number] JOB#: [id number] ACCT: [id number] cc: > MTDD
--- NOTE | 2018-02-09 19:56 | PROGRESS NOTE E ---
Progress Note NAME: SHONDA HUERTA : 1960 AGE: 57Y DATE: 02/08/2018 ROOM: 605 SUBJECTIVE: The patient is a 57-year-old -[place]ian male who came in in acute respiratory failure, requiring invasive mechanical ventilation, status post cardiac arrest. CPR and ACLS for about 45 minutes. The patient has had no fever over the last 24 hours. He tolerated a spontaneous breathing trial today. ABG after 1 hour was normal. The patient has already had abundant, profuse amount of endotracheal secretions and mouth secretions. The secretions appeared to be clear. No vomiting. No diarrhea. The patient remains constipated for the last 2-3 days. The patient was given Dulcolax. The NG tube was held over the last 34-48 hours because the patient's bowels are still very hypoactive. OBJECTIVE: GENERAL: On physical exam, the patient is sedated, afebrile, not in apparent respiratory distress, with a temperature of 99.7 with a T-max of 99.7 and a heart rate of 97, blood pressure 141/95, respiratory rate of 18, saturation 95%. EYES: No jaundice or pallor. EARS, NOSE, AND THROAT: No ear drainage noted. No nasal discharge. HEAD AND NECK: No scalp swelling or tenderness. Neck supple. CHEST AND LUNGS: No wheezing. No rhonchi. No coarse crackles. CARDIOVASCULAR: S1 and S2 distant. Normal rate. Regular rhythm. ABDOMEN: Flabby. Positive bowel sounds. Soft, nondistended, nontender. EXTREMITIES: No joint swelling. No cellulitis. LABORATORY: CBC done today shows a white count of 10.5, hemoglobin of 11.6, hematocrit of 35.4, and platelet count of 200. The blood gas done at 1:00 p.m. today during the spontaneous breathing trial showed a pH of 7.45, pCO2 of 33.1, and saturations 97% on 40% FIO2 with a pressure support of 10 , peep of 5, SIMV rate of 1, tidal volume 540, during spontaneous breathing trial. Chemistries done today showed a sodium of 149, potassium of 4.8, chloride is 120, CO2 is 33, BUN is 38, creatinine is 0.92, glucose is 132, the calcium is 8.4, phosphorus 3.7, lipase is 2.9. Chest x-ray done today showed absence of pneumothorax; endotracheal tube is in place. No new infiltrate. ASSESSMENT: 1. ACUTE RESPIRATORY FAILURE REQUIRING INVASIVE MECHANICAL VENTILATION, STATUS POST CARDIAC ARREST, STATUS POST CARDIOPULMONARY RESUSCITATION AND ADVANCED CARDIOVASCULAR LIFE SUPPORT FOR ABOUT 25 MINUTES. 2. SEVERE ANOXIC ENCEPHALOPATHY, MOST LIKELY DUE TO THE CARDIAC ARREST REQUIRING CARDIOPULMONARY RESUSCITATION. 3. CHRONIC OBSTRUCTIVE PULMONARY DISEASE, CURRENTLY STABLE AND NOT IN ACUTE EXACERBATION. 4. HYPOACTIVE BOWELS. 5. INCREASED ENDOTRACHEAL TUBE SECRETIONS. PLAN: 1. Will start patient on scopolamine patch, 1 patch for 3 days. Reevaluate if the patch is still needed after 3 days. 2. Will do a spontaneous breathing trial and CBC and chemistries every morning and reevaluate every day for possible extubation. 3. Will start patient on enteral feeding, which was held in the last 24 hours. 4. Will continue to optimize the ventilator support. DICTATING PHYSICIAN: JERILYN LEONARDO MD,GERSON,MPH [id number] PHY#: [id number] ID: [id number] JOB#: [id number] ACCT: [id number] cc: > MTDD
--- NOTE | 2018-02-09 20:02 | PROGRESS NOTE E ---
Progress Note NAME: SHONDA HUERTA : 1960 AGE: 57Y DATE: 02/09/2018 ROOM: 605 SUBJECTIVE: Patient is a 57-year-old -Eritre[place] male who came in with acute respiratory failure requiring invasive mechanical ventilation, status post cardiac arrest. CPR and ACLS for about 45 minutes. There was no fever over the last 24 hours. Patient still presenting with profuse endotracheal tube secretions. Scopolamine patch was started yesterday. There was no nausea or vomiting. Patient seemed to tolerate the OG tube feeding at 5 mL/hour which was started this morning. Patient has been on spontaneous breathing trial using pressure support ventilation -PS 12/ PEEP 5 for the last hour and appeared to be doing well. Patient's oxygenation for the last 3 hours, patient seems to be calm and not agitated. There was some spontaneous movements of the eyes but not maintaining. PHYSICAL EXAMINATION: GENERAL: The patient is unresponsive with spontaneous movements of the eyes. Unresponsive, afebrile, not in respiratory distress. VITAL SIGNS: Temperature of 99.5 with a T-max of 100. Blood pressure is 130/97, heart rate of 80, respirations 16, saturation is about 96% on 35% FiO2, pressure support of 10, PEEP of 5 on pressure support ventilation with peak airway pressure of 21, plateau pressure of 14, and mean airway pressure of 12, mid ventilation of 8.5, and inspiratory and expiratory tidal volume of about 400-500 ml. EYES: No jaundice or pallor. EARS, NOSE, AND THROAT: Pupils appeared to be sluggishly reactive, symmetrical but no eye tracking when verbally questioned. CHEST AND LUNGS: No wheezing. No rhonchi. No coarse crackles. CARDIOVASCULAR: S1 and S2 distinct. Normal rate. Regular rhythm. ABDOMEN: Flabby, soft, nondistended. Positive bowel sounds noted today. EXTREMITIES: No joint swelling. No cellulitis. GENITALIA: Appear normal with a [place] catheter in. LABORATORY: CBC done today showed a white count of 10.4, hemoglobin 12.1, hematocrit is 37.3, and platelet count is 212. Chemistry today showed sodium of 147.9, potassium 4.4, chloride 115, CO2 is 25, BUN is 28, creatinine is 0.97, glucose is 109, calcium is 8.9, phosphorus 3.7, albumin 3.1. Chest x-ray not done today. ASSESSMENT: 1. ACUTE RESPIRATORY FAILURE REQUIRING INVASIVE MECHANICAL VENTILATION. Currently doing well on the spontaneous breathing trial. However, patient still presents with profuse endotracheal tube secretions requiring suctioning every 1 or 2 hours, about 10-20 mL. Secretions appear to be clear or whitish. Patient is not ready to be extubated yet. 2. ANOXIC ENCEPHALOPATHY SECONDARY TO CARDIAC ARREST AND PROLONGED RESUSCITATION. 3. HISTORY OF COPD, CURRENTLY STABLE AND NOT EXACERBATION. 4. HYPOACTIVE BOWEL SOUNDS. Currently appear to be improving. May be able to advance the OG tube feeding to 20 mL/hour later today if tolerating the OG tube feeding of 10 mL/hour. PLAN AND RECOMMENDATIONS: 1. We will continue the OG tube feeding at 10 mL/hour and consider advancing to 20 mL/hour after 8 hours if doing well. 2. We will start with scopolamine patch today, change it every 3 days as needed. 3. We will decrease the Solu-Medrol dose to 20 mg IV q.12 hours. We might do spontaneous breathing trial again tomorrow. 4. We will do chest x-ray tomorrow morning. DICTATING PHYSICIAN: JERILYN LEONARDO MD,GERSON,MPH [id number] PHY#: [id number] ID: [id number] JOB#: [id number] ACCT: [id number] cc: > MTDD
--- NOTE | 2018-02-09 21:07 | RADIOLOGY REPORT (SQ) ---
EXAM DESCRIPTION: CHEST SINGLE VIEW COMPLETED DATE/TIME: 02/09/2018 8:23 pm REASON FOR STUDY: pneumonia COMPARISON: 02/07/2018 EXAM PARAMETERS: NUMBER OF VIEWS: One view. TECHNIQUE: Single frontal radiographic view of the chest acquired. RADIATION DOSE: NA LIMITATIONS: None. FINDINGS: LUNGS AND PLEURA: Stable pulmonary exam. No pneumothorax. No large pleural effusion evid ent. MEDIASTINUM AND HILAR STRUCTURES: No masses. Contour normal. HEART AND VASCULAR STRUCTURES: Heart normal in size. Normal vasculature. BONES: No acute findings. HARDWARE: Stable endotracheal and enteric tubes. OTHER: No other significant finding. IMPRESSION: 1. Stable pulmonary exam. 2. Stable lines and tubes. TECHNICAL DOCUMENTATION: JOB ID: [id number] [employer]- All Rights Reserved Reading location - IP/workstation name: [email or web address]
[2018-02-09] MEDS: ATORVASTATIN CALCIUM 40 MG TABLET NG SCH (21:35)
[2018-02-09] MEDS: DEXTROSE 5%-WATER 1000 ML 1,000 ML IV PRN (21:37)
[2018-02-10] MEDS: LEVALBUTEROL HCL NEB 1.25 MG/3 ML AMPUL NEB SCH ×3 (00:27→15:37)
[2018-02-10] MEDS: IPRATROPIUM BROMIDE 0.02% NEB 0.5 MG/2.5 ML AMPUL NEB SCH ×3 (00:27→15:37)
[2018-02-10] MEDS: FENTANYL CITRATE INJ/PF 100 MCG/2 ML AMPUL IV PRN ×3 (00:53→19:56)
[2018-02-10 04:52] LABS: HEMOGLOBIN 12.7 g/dL (13.5-17.0); MEAN CORPUSCULAR HEMOGLOBIN 25.4 pg (27.0-33.4); MEAN CORPUSCULAR HGB CONC 32.6 g/dL (32.0-36.0); MEAN CORPUSCULAR VOLUME 78 fl (80-97); PLATELET COUNT 244 10^3/uL (150-450); RED BLOOD COUNT 5.01 10^6/uL (4.35-5.55); RED CELL DISTRIBUTION WIDTH 21.4 % (11.5-14.0); WHITE BLOOD COUNT 10.5 10^3/uL (4.0-10.5)
[2018-02-10 05:06] LABS: ALBUMIN 3.3 g/dL (3.5-5.0); ANION GAP 10 (5-19); BLOOD UREA NITROGEN 29 mg/dL (7-20); CALCIUM 9.5 mg/dL (8.4-10.2); CARBON DIOXIDE 23 mmol/L (22-30); CHLORIDE 112 mmol/L (98-107); GLUCOSE 151 mg/dL (75-110); PHOSPHORUS 6.2 mg/dL (2.5-4.5); SODIUM 144.7 mmol/L (137-145)
[2018-02-10 05:27] LABS: ABSOLUTE LYMPHOCYTES# (MANUAL) 0.5 10^3/uL (0.5-4.7); ABSOLUTE MONOCYTES # (MANUAL) 0.4 10^3/uL (0.1-1.4); ABSOLUTE NEUTROPHILS# (MANUAL) 9.6 10^3/uL (1.7-8.2); BASOPHILS % (MANUAL) 0 % (0-2); EOSINOPHILS % (MANUAL) 0 % (0-6); LYMPHOCYTES % (MANUAL) 1 % (13-45); MONOCYTES % (MANUAL) 4 % (3-13); SEGMENTED NEUTROPHILS % (MAN) 91 % (42-78); TOTAL CELLS COUNTED 100
[2018-02-10 05:29] LABS: ANISOCYTOSIS 3+; HYPOCHROMASIA 1+; PLATELET COMMENT ADEQUATE; POIKILOCYTOSIS SLIGHT; POLYCHROMASIA SLIGHT; TARGET CELLS SLIGHT; TOXIC VACUOLATION PRESENT
[2018-02-10] MEDS: LANSOPRAZOLE 30 MG TAB.RAP.DR NG SCH (05:30)
--- NOTE | 2018-02-10 08:27 | RADIOLOGY REPORT (SQ) ---
EXAM DESCRIPTION: CHEST SINGLE VIEW COMPLETED DATE/TIME: 02/10/2018 6:57 am REASON FOR STUDY: mechanically ventilated COMPARISON: 02/09/2018 EXAM PARAMETERS: NUMBER OF VIEWS: One view TECHNIQUE: Single frontal radiograph of the chest. RADIATION DOSE: N/A LIMITATIONS: None. FINDINGS: TEMPORARY SUPPORT DEVICES:ETT in expected location. NG tube courses below the fatou-diaphr agm in to the stomach. LUNGS AND PLEURA: No opacities. No effusions. No masses. No pneumothorax. MEDIASTINUM AND HILAR STRUCTURES: No masses. Contour normal. HEART AND VASCULAR STRUCTURES: Heart normal in size. normal vascularity. Aorta normal for age. BONES: No acute findings. OTHER: No other significant finding. IMPRESSION: NO ACUTE RADIOGRAPHIC FINDING IN THE CHEST. SUPPORT DEVICE(S) IN EXPECTED LOCATIONS. TECHNICAL DOCUMENTATION: JOB ID: [id number] [employer]- All Rights Reserved Reading location - IP/workstation name: [email or web address]
[2018-02-10] MEDS: METHYLPREDNISOLONE INJ 40 MG/1 ML SDV IV SCH (09:51)
[2018-02-10] MEDS: ENOXAPARIN SODIUM INJ 80 MG/0.8 ML DISP.SYRIN SUBCUT SCH ×2 (09:52→21:27)
[2018-02-10] MEDS: DOCUSATE SODIUM 100 MG CAPSULE PO SCH (10:07)
[2018-02-10] MEDS ORDERED: PREDNISONE 5 MG TABLET PO SCH (11:15)
[2018-02-10] MEDS ORDERED: LACTULOSE SYRUP 20 GM/30 ML UDCUP PO SCH (12:00)
[2018-02-10] MEDS: PREDNISONE 5 MG TABLET NG SCH (12:35)
[2018-02-10] MEDS: AMLODIPINE BESYLATE 10 MG TABLET NG SCH (14:07)
[2018-02-10] MEDS: ASPIRIN 81 MG TABLET, CHEWABLE NG SCH (17:33)
[2018-02-10] MEDS: TAMSULOSIN HCL 0.4 MG CAP.SR.24H PO SCH (18:06)
[2018-02-10] MEDS: DEXTROSE 5%-WATER 1000 ML 1,000 ML IV PRN (18:08)
--- NOTE | 2018-02-10 18:33 | PDOC PROGRESS REPORT ---
Subjective Progress Note for:: 02/10/18 Subjective:: Unchanged neurologically. Remains on Vent. Code status discussion with sister today . Reason For Visit: ACUTE ON CHRONIC RESPIRATORY FAILURE CARDIAC Physical Exam Vital Signs: Temp Pulse Resp BP Pulse Ox 99.9 F 93 16 113/78 95 02/10/18 18:01 02/10/18 15:37 02/10/18 18:01 02/10/18 18:01 02/10/18 18:01 Intake & Output 02/09/18 02/10/18 02/11/18 06:59 06:59 06:59 Intake Total 755 1812 930 Output Total 2410 1895 1040 Balance -1655 -83 -110 Weight 81.9 kg 81.8 kg General appearance: PRESENT: other - Intubated, eyes open but not responding to verbal commands Respiratory exam: PRESENT: unlabored, other - Intubated Cardiovascular exam: PRESENT: +S1, +S2 GI/Abdominal exam: PRESENT: soft. ABSENT: tenderness Neurological exam: PRESENT: other - Open eyes, but not tracking, not following commands Results Laboratory Results: 02/10/18 04:19 02/10/18 04:19 02/10/18 02/10/18 04:19 04:19 WBC 10.5 RBC 5.01 Hgb 12.7 L Hct 39.0 MCV 78 L MCH 25.4 L MCHC 32.6 RDW 21.4 H Plt Count 244 Seg Neutrophils % Not Reportable Lymphocytes % Not Reportable Monocytes % Not Reportable Eosinophils % Not Reportable Basophils % Not Reportable Absolute Neutrophils Not Reportable Absolute Lymphocytes Not Reportable Absolute Monocytes Not Reportable Absolute Eosinophils Not Reportable Absolute Basophils Not Reportable Sodium 144.7 Potassium 5.0 Chloride 112 H Carbon Dioxide 23 Anion Gap 10 BUN 29 H Creatinine 0.93 Est GFR ( Amer) > 60 Est GFR (Non-Af Amer) > 60 Glucose 151 H Calcium 9.5 Phosphorus 6.2 H Magnesium 2.4 H Albumin 3.3 L 02/02/18 02/03/18 02/03/18 21:23 03:53 09:46 Troponin I 0.119 0.190 0.166 NT-Pro-B Natriuret Pep 02/04/18 02/07/18 03:55 17:00 Troponin I NT-Pro-B Natriuret Pep 144 343 Impressions: Chest/Abdomen CTA 02/02/18 00:00 IMPRESSION: NORMAL CTA OF THE CHEST. NO PULMONARY EMBOLI. Multiple transverse fractures of the anterolateral ribs bilaterally, consistent with recent resuscitation efforts. Abdomen/Pelvis CT 02/05/18 00:00 IMPRESSION: 1. FOCAL DILATION OF THE PROXIMAL SIGMOID COLON. THE LUMEN MORE DISTALLY IS NARROWED. THIS COULD REPRESENT A PARTIAL OBSTRUCTION SECONDARY TO ADHESIONS. APPEARANCE DOES NOT APPEAR TO BE DUE TO VOLVULUS. NO SIGNIFICANT DILATION OF THE COLON PROXIMAL TO THE SIGMOID. THERE ARE A FEW SCATTERED DIVERTICULI WITH NO CT FINDINGS OF DIVERTICULITIS. 2. NO OTHER SIGNIFICANT FINDINGS. THERE IS PATCHY ATELECTASIS OR INFILTRATE IN THE LUNG BASES. Head CT 02/05/18 00:00 IMPRESSION: NORMAL BRAIN CT WITHOUT CONTRAST. EVIDENCE OF ACUTE STROKE: NO. KUB X-Ray 02/08/18 00:00 IMPRESSION: No obstruction. Chest X-Ray 02/10/18 05:00 IMPRESSION: NO ACUTE RADIOGRAPHIC FINDING IN THE CHEST. SUPPORT DEVICE(S) IN EXPECTED LOCATIONS. Assessment & Plan - Diagnosis (1) Cardiac arrest Is this a current diagnosis for this admission?: Yes Plan: intubated on vent, code status discussion today, changed to DNR - Discussed intubation status however unclear at this time - Patient has not made neurological improvement over last 24 hours (2) Anoxic brain damage Is this a current diagnosis for this admission?: Yes Plan: coded for 40 minutes. caloric testing: mixed results: unclear if indicating some anoxic injury EEG showing some brain activity CT head: no showing signs of anoxic injury. unable to respond to commands minimal response to pain, posturing in bed, some brainstem reflexes are intact. (3) Limited code status Is this a current diagnosis for this admission?: Yes Plan: Long discussion with family members today to discuss options moving forward. They were in favor of DNR status. They are unable to make decision regarding re- intubation if/when patient is extubated. Discussed that patient may be unable to support his airway due to unfortunate neurological status. If they wish to keep him alive in this scenerio, he may need to be trached and remain vent dependent in LTAC. They want more time to discuss prior to making decision. We will support them in this difficult time. (4) Acute hypoxemic respiratory failure Plan: Per above. - sedation vacation, maintained on vent today, stable breathing with pressure support. - Continue fentanyl pushes PRN for pain control from rib fractures - continue pulm medicines - Time Time Spent with patient: 35 or more minutes
[2018-02-10] MEDS: ALBUTEROL SULFATE 0.042% NEB (1.25 MG/3 ML) AMPUL NEB PRN (20:14)
[2018-02-10] MEDS: PROPOFOL 100 ML IV PRN (20:24)
[2018-02-10] MEDS: ATORVASTATIN CALCIUM 40 MG TABLET NG SCH (21:27)
[2018-02-11] MEDS: LEVALBUTEROL HCL NEB 1.25 MG/3 ML AMPUL NEB SCH ×3 (00:01→16:06)
[2018-02-11] MEDS: FENTANYL CITRATE INJ/PF 100 MCG/2 ML AMPUL IV PRN ×2 (00:01→10:40)
[2018-02-11] MEDS: IPRATROPIUM BROMIDE 0.02% NEB 0.5 MG/2.5 ML AMPUL NEB SCH ×3 (00:02→16:06)
[2018-02-11] MEDS: PROPOFOL 100 ML IV PRN ×2 (02:01→17:52)
[2018-02-11 04:22] LABS: HEMATOCRIT 38.1 % (37.9-51.0); HEMOGLOBIN 12.2 g/dL (13.5-17.0); MEAN CORPUSCULAR HEMOGLOBIN 24.8 pg (27.0-33.4); MEAN CORPUSCULAR VOLUME 78 fl (80-97); PLATELET COUNT 236 10^3/uL (150-450); RED CELL DISTRIBUTION WIDTH 21.1 % (11.5-14.0); WHITE BLOOD COUNT 12.5 10^3/uL (4.0-10.5)
[2018-02-11 04:55] LABS: ANION GAP 8 (5-19); BLOOD UREA NITROGEN 29 mg/dL (7-20); CALCIUM 8.8 mg/dL (8.4-10.2); CARBON DIOXIDE 26 mmol/L (22-30); CHLORIDE 111 mmol/L (98-107); GLUCOSE 139 mg/dL (75-110); SODIUM 145.2 mmol/L (137-145)
[2018-02-11 05:00] LABS: POTASSIUM 3.9 mmol/L (3.6-5.0)
[2018-02-11] MEDS: LANSOPRAZOLE 30 MG TAB.RAP.DR NG SCH (05:37)
[2018-02-11 06:03] LABS: APPEARANCE,URINE CLEAR; BILIRUBIN,URINE NEGATIVE (NEGATIVE); COLOR,URINE YELLOW; GLUCOSE, URINE NEGATIVE (NEGATIVE); KETONES,URINE NEGATIVE (NEGATIVE); LEUKOCYTE ESTERASE,URINE NEGATIVE (NEGATIVE); NITRITE,URINE NEGATIVE (NEGATIVE); PROTEIN,URINE 30 mg/dL (NEGATIVE); URINE SPECIFIC GRAVITY 1.019; UROBILINOGEN,URINE NEGATIVE mg/dL (<2.0)
[2018-02-11] MEDS: SCOPOLAMINE HYDROBROMIDE 1.5 MG PATCH.TD72 TD SCH (10:41)
[2018-02-11] MEDS: ENOXAPARIN SODIUM INJ 80 MG/0.8 ML DISP.SYRIN SUBCUT SCH ×2 (10:42→21:56)
[2018-02-11] MEDS: LACTULOSE SYRUP 20 GM/30 ML UDCUP NG SCH (11:41)
[2018-02-11] MEDS: DEXTROSE 5%-WATER 1000 ML 1,000 ML IV PRN (12:02)
[2018-02-11] MEDS: PREDNISONE 5 MG TABLET NG SCH (12:02)
[2018-02-11 13:36] LABS: ARTERIAL BLOOD BASE EXCESS -0.4 mmol/L; ARTERIAL BLOOD FIO2 35%; ARTERIAL BLOOD H2CO3 1.08 mmol/L (1.05-1.35); ARTERIAL BLOOD HCO3 23.5 mmol/L (20-26); ARTERIAL BLOOD O2 SATURATION 96.6 % (94-98); ARTERIAL BLOOD PH 7.43 (7.35-7.45); ARTERIAL BLOOD PO2 83.4 mmHg (80-100); ARTERIAL BLOOD TOTAL CO2 24.6 mmol/L (23-27)
--- NOTE | 2018-02-11 13:52 | PDOC PROGRESS REPORT ---
Subjective Progress Note for:: 02/11/18 Subjective:: Unable to obtain since sedated Review of symptoms Unable to obtain since sedated All significant laboratories and diagnostics have been reviewed Reason For Visit: ACUTE ON CHRONIC RESPIRATORY FAILURE CARDIAC Physical Exam Vital Signs: Temp Pulse Resp BP Pulse Ox 99.7 F 85 13 107/81 99 02/11/18 06:00 02/11/18 05:52 02/11/18 06:00 02/11/18 05:52 02/11/18 06:00 Intake & Output 02/10/18 02/11/18 02/12/18 06:59 06:59 06:59 Intake Total 1812 2184 Output Total 1895 1890 Balance -83 294 Weight 81.8 kg 81.4 kg General appearance: PRESENT: obese Head exam: PRESENT: atraumatic, normocephalic Eye exam: PRESENT: conjunctiva pink, EOMI, PERRLA Mouth exam: PRESENT: moist Neck exam: ABSENT: JVD, lymphadenopathy, tenderness Respiratory exam: PRESENT: clear to auscultation andie. ABSENT: unlabored Cardiovascular exam: PRESENT: RRR. ABSENT: diastolic murmur, systolic murmur Vascular exam: PRESENT: normal capillary refill GI/Abdominal exam: PRESENT: normal bowel sounds, soft. ABSENT: tenderness Extremities exam: ABSENT: full ROM Musculoskeletal exam: ABSENT: ambulatory Neurological exam: PRESENT: alert, awake, oriented to person, oriented to place , oriented to time, oriented to situation, CN II-XII grossly intact Skin exam: PRESENT: intact, normal color Results Laboratory Results: 02/11/18 04:02 02/11/18 04:02 02/11/18 02/11/18 02/11/18 04:02 04:02 05:40 WBC 12.5 H RBC 4.90 Hgb 12.2 L Hct 38.1 MCV 78 L MCH 24.8 L MCHC 32.0 RDW 21.1 H Plt Count 236 Sodium 145.2 H Potassium 3.9 D Chloride 111 H Carbon Dioxide 26 Anion Gap 8 BUN 29 H Creatinine 0.88 Est GFR ( Amer) > 60 Est GFR (Non-Af Amer) > 60 Glucose 139 H Calcium 8.8 Urine Color YELLOW Urine Appearance CLEAR Urine pH 6.0 Ur Specific [place] 1.019 Urine Protein 30 H Urine Glucose (UA) NEGATIVE Urine Ketones NEGATIVE Urine Blood MODERATE H Urine Nitrite NEGATIVE Ur Leukocyte Esterase NEGATIVE Urine WBC (Auto) 2 Urine RBC (Auto) 23 02/02/18 02/03/18 02/03/18 21:23 03:53 09:46 Troponin I 0.119 0.190 0.166 NT-Pro-B Natriuret Pep 02/04/18 02/07/18 03:55 17:00 Troponin I NT-Pro-B Natriuret Pep 144 343 Impressions: Chest/Abdomen CTA 02/02/18 00:00 IMPRESSION: NORMAL CTA OF THE CHEST. NO PULMONARY EMBOLI. Multiple transverse fractures of the anterolateral ribs bilaterally, consistent with recent resuscitation efforts. Abdomen/Pelvis CT 02/05/18 00:00 IMPRESSION: 1. FOCAL DILATION OF THE PROXIMAL SIGMOID COLON. THE LUMEN MORE DISTALLY IS NARROWED. THIS COULD REPRESENT A PARTIAL OBSTRUCTION SECONDARY TO ADHESIONS. APPEARANCE DOES NOT APPEAR TO BE DUE TO VOLVULUS. NO SIGNIFICANT DILATION OF THE COLON PROXIMAL TO THE SIGMOID. THERE ARE A FEW SCATTERED DIVERTICULI WITH NO CT FINDINGS OF DIVERTICULITIS. 2. NO OTHER SIGNIFICANT FINDINGS. THERE IS PATCHY ATELECTASIS OR INFILTRATE IN THE LUNG BASES. Head CT 02/05/18 00:00 IMPRESSION: NORMAL BRAIN CT WITHOUT CONTRAST. EVIDENCE OF ACUTE STROKE: NO. KUB X-Ray 02/08/18 00:00 IMPRESSION: No obstruction. Chest X-Ray 02/10/18 05:00 IMPRESSION: NO ACUTE RADIOGRAPHIC FINDING IN THE CHEST. SUPPORT DEVICE(S) IN EXPECTED LOCATIONS. Assessment & Plan - Diagnosis (1) Acute and chronic respiratory failure Qualifiers: Respiratory failure complication: hypoxia and hypercapnia Qualified Code(s) : J96.21 - Acute and chronic respiratory failure with hypoxia; J96.22 - Acute and chronic respiratory failure with hypercapnia; J96.22 - Acute and chronic respiratory failure with hypercapnia; J96.22 - Acute and chronic respiratory failure with hypercapnia Is this a current diagnosis for this admission?: Yes Plan: Patient tolerating pressure support. Currently trying to extubate and managed by Dr. Artis (2) COPD with respiratory failure, acute Is this a current diagnosis for this admission?: Yes Plan: Dr. Beard assisting in management (3) Anticoagulated Is this a current diagnosis for this admission?: Yes Plan: Xarelto stopped and place on Lovenox 1 mg/kg every [address] Beard (4) Hypertension Qualifiers: Hypertension type: essential hypertension Qualified Code(s): I10 - Essential (primary) hypertension Is this a current diagnosis for this admission?: Yes Plan: Continue current management (5) Obstructive sleep apnea Is this a current diagnosis for this admission?: Yes Plan: May be contributing to presentation since had not been using CPAP (6) History of pulmonary embolism Is this a current diagnosis for this admission?: Yes Plan: Currently on Lovenox subcu (7) History of DVT (deep vein thrombosis) Is this a current diagnosis for this admission?: Yes Plan: Patient is on anticoagulation (8) Ribs, multiple fractures Qualifiers: Encounter type: subsequent encounter Laterality: bilateral Is this a current diagnosis for this admission?: Yes Plan: Bilateral. Due to resuscitation. (9) Anoxic encephalopathy Is this a current diagnosis for this admission?: Yes Plan: Not much response. My understanding is that she is daughter's are currently being contacted by the [employer] for further management - Time Time Spent with patient: 15-24 minutes Medications reviewed and adjusted accordingly: Yes Anticipated discharge: SNF Within: Other - Unable to determine at this time - Inpatient Certification Based on my medical assessment, after consideration of the patient's comorbidities, presenting symptoms, or acuity I expect that the services needed warrant INPATIENT care.: Yes I certify that my determination is in accordance with my understanding of Medicare's requirements for reasonable and necessary INPATIENT services [42 CFR 412.3e].: Yes Medical Necessity: Need Close Monitoring Due to Risk of Patient Decompensation
[2018-02-11] MEDS: AMLODIPINE BESYLATE 10 MG TABLET NG SCH (14:58)
[2018-02-11] MEDS: BISACODYL 10 MG SUPP.RECT PR PRN (15:10)
--- NOTE | 2018-02-11 15:33 | PROGRESS NOTE E ---
Progress Note NAME: SHONDA HUERTA : 1960 AGE: 57Y DATE: 02/10/2018 ROOM: 605 SUBJECTIVE: Patient is a 57-year-old -[place] male who came in for respiratory failure requiring invasive mechanical ventilation, status post cardiac arrest and prolonged resuscitation. Patient has no fever over the last 3-4 hours. Patient tolerated OG tube feeding at 20 mL/hr. No nausea, no vomiting, no diarrhea. Patient seemed to be constipated. Patient doing well on spontaneous breathing trial. He was seeing pressor support of 12 and PEEP of 5 over the last 2-3 hours. Patient has been oxygenation for the last 24 hours and patient appeared to be verbally unresponsive, opened his eyes. Does not follow commands. Scopolamine patch was started yesterday. The patient still has a good bit amount of endotracheal tube secretions requiring suctioning of the endotracheal tube secretions every hour 5-10 mL. Hospitalist discussed with family about possible DNR status and possible DNI (do not intubate) after being extubated. PHYSICAL EXAMINATION: GENERAL: The patient is currently not sedated. He is verbally nonresponsive, afebrile, not in respiratory distress. VITAL SIGNS: Blood pressure of 133/90, temperature is 100 degrees Fahrenheit with a T-max of 100. 4. Heart rate is 105, respiratory 17, saturation is 93% on Fi02 of 35%, pressure support of 10, PEEP of 5, minute ventilation of 8, and peak airway pressure of 24. EYES: No jaundice or pallor. Pupils appeared symmetrical. EARS, NOSE, AND THROAT: No ear drainage, no nasal discharge. OG tube, endotracheal tube in place orally. CHEST AND LUNGS: No wheezing. No rhonchi. No coarse crackles. CARDIOVASCULAR: S1 and S2 distinct. Sinus tachycardic. Regular rate. ABDOMEN: Flabby. There is positive bowel sounds. Soft. Appeared nondistended. GENITALIA: Appear normal. No ulcerations or inflammation. EXTREMITIES: No joint swelling noted. No cellulitis. No edema. LABORATORY: CBC done today showed there was actual WBC count of 10, hemoglobin 12.6, hematocrit is 39, and platelet count is 244. Chemistry showed sodium 144, potassium 5, chloride 112, CO2 is 23, BUN is 39, creatinine is 0.93, glucose 151, calcium is 9.5, phosphorous 6.2, and albumin is 3.3. Chest x-ray showed endotracheal tubes in place. No pneumothorax. No infiltrate. Stable pulmonary findings. ASSESSMENT: 1. ACUTE RESPIRATORY FAILURE REQUIRING INVASIVE MECHANICAL VENTILATION. Patient is presenting with profuse endotracheal tube secretions. They still persist and discussed Scopolamine. 2. ANOXIC ENCEPHALOPATHY SECONDARY TO CARDIAC ARREST AND PROLONGED RESUSCITATION. 3. HISTORY OF COPD EXACERBATION, CURRENTLY STABLE AND NOT IN ACUTE EXACERBATION We are weaning off the steroid currently. 4. PARALYTIC ILEUS - CURRENTLY APPEARED TO BE RESOLVED. Currently tolerating OG tube feeding at 20 mL/hr. PLAN AND RECOMMENDATIONS: 1. We will discontinue the Solu-Medrol and start patient on prednisone 5 mg daily today. 2. We will stop the Colace. Spoke to the pharmacist about Colace capsules and the difficulty with the nurses to deliver the Colace capsule through the OG tube. Will start patient on Lactulose 10 g per OG tube once daily. 3. Will continue to optimize ventilatory support. Will consider extubation probably tomorrow if the secretions continue to decrease. 4. Agree with family discussed about end of life care and future care and discussed DNR/DNI status. 5. Will increase the OG tube feeding to 30 mL/hr. DICTATING PHYSICIAN: JERILYN LEONARDO MD,GERSON,MPH [id number] [id number] PHY#: [id number] ID: [id number] JOB#: [id number] ACCT: [id number] cc: > MTDD
[2018-02-11] MEDS: ASPIRIN 81 MG TABLET, CHEWABLE NG SCH (17:06)
--- NOTE | 2018-02-11 20:54 | PROGRESS NOTE E ---
Progress Note NAME: SHONDA HUERTA : 1960 AGE: 57Y DATE: 02/11/2018 ROOM: 605 SUBJECTIVE: Patient is a 57-year-old male who came in with acute respiratory failure requiring invasive mechanical ventilation, status post cardiac arrest and prolonged cardiopulmonary resuscitation. Patient has had a low grade fever over the last 24 hours with a T max of 100.4. Patient is tolerating the OG tube feeding well at 30 mL/hour. There is no vomiting. No diarrhea. Patient still is presenting with profuse endotracheal tube secretions requiring endotracheal tube suctioning almost every hour per patient's nurse today. Patient was started on scopolamine about 2 days ago. Secretions appear to be clear and whitish. Non-purulent. Patient's family is deciding about do not intubate orders. Currently, patient is on DNR status. Patient has been off sedation over the whole day and still unresponsive, does not follow commands. Appeared to be doing on a pressure support of 12, PEEP of 5. OBJECTIVE: GENERAL: Patient currently is Afebrile. Patient is currently not in acute respiratory distress. VITAL SIGNS: Blood pressure of 99/74, temperature of 100.4, and T max of 100.4, heart rate of 94, respiration is 12-14, saturation is 96% on FiO2 of 35% and pressure support of 12, PEEP of 5. EYES: No jaundice or pallor. Pupils are symmetrical. EARS, NOSE AND THROAT: No ear drainage noted. No nasal discharge. Orotracheal tube is in pace and orogastric tube is in place. CHEST AND LUNGS: No wheezing. No rhonchi. No coarse crackles. CARDIOVASCULAR: S1, S2 distinct. Normal rate, regular rhythm. ABDOMEN: Flabby. Positive bowel sounds. Soft, nondistended, nontender. EXTREMITIES: No joint swelling. No leg swelling or cellulitis. LABORATORY: CBC done today showed white count 12.5, hemoglobin is 12.2, hematocrit is 38.1, and platelet count is 231. ABG done today at 1:25 p.m. showed pH 7.423, pCO2 is 36, CO2 is 83, and saturation 96.6 on 35% FiO2. Chemistry showed sodium of 145, potassium 3.9, chloride 111, carbon dioxide of 26, BUN 59, creatinine 0.88, glucose 139, and calcium is 8.8. Phosphorus is 6.2, magnesium is 2.4, albumin is 3.3. A chest x-ray done yesterday showed endotracheal tube in place. No new pulmonary infiltrates. No pleural effusion noted. The endotracheal tube may be advanced by 2 cm. We will repeat the chest x-ray today and determine whether we need to adjust the endotracheal tube further. ASSESSMENT: 1. ACUTE RESPIRATORY FAILURE REQUIRING INVASIVE MECHANICAL VENTILATION. CURRENTLY NOT READY TO BE EXTUBATED YET. Patient is presenting with profuse endotracheal tube secretions requiring hourly suctioning by the ICU nurse despite scopolamine patch. This may resolve hopefully in a few days. 2. ANOXIC ENCEPHALOPATHY DUE TO CARDIAC ARREST AND PROLONGED CARDIOPULMONARY RESUSCITATION. 3. HISTORY OF COPD, CURRENTLY STABLE AND NOT IN ACUTE EXACERBATION. 4. PARALYTIC ILEUS APPEARS TO BE RESOLVED. PLAN AND RECOMMENDATIONS: 1. We will continue the nebulizer treatment. 2. We will put the patient back on SIMV rate of 12, pressure support of 12, PEEP OF 5, tidal volume 540, and FiO2 35% and titrate to give saturation of 91-94%. 4. We will continue to optimize nutritional support by enteral feeding at 30 mL/hour. We advanced to 40 mL/hour after 8 hours. He is doing well. 5. We will re-evaluate the patient tomorrow and may consider extubating patient tomorrow if the secretions have decreased. DICTATING PHYSICIAN: JERILYN LEONARDO MD,GERSON,MPH [id number] PHY#: [id number] ID: [id number] JOB#: [id number] ACCT: [id number] cc: > [facility]
--- NOTE | 2018-02-11 21:54 | RADIOLOGY REPORT (SQ) ---
EXAM DESCRIPTION: CHEST SINGLE VIEW COMPLETED DATE/TIME: 02/11/2018 8:17 pm REASON FOR STUDY: on ventilator COMPARISON: 02/10/2018 EXAM PARAMETERS: NUMBER OF VIEWS: One view. TECHNIQUE: Single frontal radiographic view of the chest acquired. RADIATION DOSE: NA LIMITATIONS: None. FINDINGS: LUNGS AND PLEURA: Today's examination demonstrates loculated left costophrenic angle fluid as well as a retrocardiac opacity. No pneumothorax. MEDIASTINUM AND HILAR STRUCTURES: No masses. Contour normal. HEART AND VASCULAR STRUCTURES: Heart normal in size. Normal vasculature. BONES: No acute findings. HARDWARE: Endotracheal tube and enteric tubes demonstrate appropriate positioning. OTHER: No other significant finding. IMPRESSION: 1. Retrocardiac opacity likely represents atelectasis in this patient under mechanical ventilation ; a developing consolidation is not excluded. 2. Endotracheal and enteric tubes demonstrating normal positioning. TECHNICAL DOCUMENTATION: JOB ID: [id number] [employer]- All Rights Reserved Reading location - IP/workstation name: [email or web address]
[2018-02-11] MEDS: ATORVASTATIN CALCIUM 40 MG TABLET NG SCH (21:56)
[2018-02-12] MEDS: FENTANYL CITRATE INJ/PF 100 MCG/2 ML AMPUL IV PRN ×4 (00:08→22:56)
[2018-02-12] MEDS: IPRATROPIUM BROMIDE 0.02% NEB 0.5 MG/2.5 ML AMPUL NEB SCH ×3 (00:10→16:13)
[2018-02-12] MEDS: LEVALBUTEROL HCL NEB 1.25 MG/3 ML AMPUL NEB SCH ×3 (00:10→16:13)
[2018-02-12] MEDS: PROPOFOL 100 ML IV PRN ×3 (04:21→17:57)
[2018-02-12] MEDS: LANSOPRAZOLE 30 MG TAB.RAP.DR NG SCH (05:56)
[2018-02-12] MEDS: DEXTROSE 5%-WATER 1000 ML 1,000 ML IV PRN (05:58)
[2018-02-12] MEDS: ENOXAPARIN SODIUM INJ 80 MG/0.8 ML DISP.SYRIN SUBCUT SCH ×2 (10:53→21:05)
[2018-02-12] MEDS: LACTULOSE SYRUP 20 GM/30 ML UDCUP NG SCH (12:44)
[2018-02-12] MEDS: PREDNISONE 5 MG TABLET NG SCH (12:45)
--- NOTE | 2018-02-12 14:24 | PDOC PROGRESS REPORT ---
Subjective Progress Note for:: 02/12/18 Subjective:: Unable to obtain since sedated Review of symptoms Unable to obtain since sedated All significant laboratories and diagnostics have been reviewed Reason For Visit: ACUTE ON CHRONIC RESPIRATORY FAILURE CARDIAC Physical Exam Vital Signs: Temp Pulse Resp BP Pulse Ox 99.7 F 95 12 106/71 96 02/12/18 06:00 02/12/18 00:12 02/12/18 06:00 02/12/18 05:46 02/12/18 06:00 Intake & Output 02/10/18 02/11/18 02/12/18 06:59 06:59 06:59 Intake Total 1812 2184 1929 Output Total 1895 1890 1390 Balance -83 294 539 Weight 81.8 kg 81.4 kg 81.5 kg General appearance: PRESENT: cooperative, obese Head exam: PRESENT: atraumatic, normocephalic Eye exam: PRESENT: EOMI, PERRLA Ear exam: PRESENT: normal external ear exam Mouth exam: PRESENT: moist Neck exam: PRESENT: full ROM. ABSENT: JVD, lymphadenopathy, tenderness Respiratory exam: PRESENT: clear to auscultation andie Cardiovascular exam: PRESENT: RRR. ABSENT: diastolic murmur, systolic murmur GI/Abdominal exam: PRESENT: normal bowel sounds, soft. ABSENT: tenderness Extremities exam: ABSENT: pedal edema Musculoskeletal exam: ABSENT: ambulatory Neurological exam: ABSENT: altered Skin exam: PRESENT: normal color Results Laboratory Results: 02/11/18 04:02 02/11/18 04:02 02/11/18 02/11/18 02/12/18 13:25 18:00 04:02 Carbonic Acid 1.08 HCO3/H2CO3 Ratio 21:1 ABG pH 7.43 ABG pCO2 36.0 ABG pO2 83.4 ABG HCO3 23.5 ABG O2 Saturation 96.6 ABG Base Excess -0.4 FiO2 35% Triglycerides 156 H Stool Occult Blood NEGATIVE 02/09/18 11:20 Sputum Gram Stain - Final 02/09/18 11:20 Sputum Sputum Culture - Final NORMAL BRE 02/02/18 02/03/18 02/03/18 21:23 03:53 09:46 Troponin I 0.119 0.190 0.166 NT-Pro-B Natriuret Pep 02/04/18 02/07/18 03:55 17:00 Troponin I NT-Pro-B Natriuret Pep 144 343 Impressions: Chest/Abdomen CTA 02/02/18 00:00 IMPRESSION: NORMAL CTA OF THE CHEST. NO PULMONARY EMBOLI. Multiple transverse fractures of the anterolateral ribs bilaterally, consistent with recent resuscitation efforts. Abdomen/Pelvis CT 02/05/18 00:00 IMPRESSION: 1. FOCAL DILATION OF THE PROXIMAL SIGMOID COLON. THE LUMEN MORE DISTALLY IS NARROWED. THIS COULD REPRESENT A PARTIAL OBSTRUCTION SECONDARY TO ADHESIONS. APPEARANCE DOES NOT APPEAR TO BE DUE TO VOLVULUS. NO SIGNIFICANT DILATION OF THE COLON PROXIMAL TO THE SIGMOID. THERE ARE A FEW SCATTERED DIVERTICULI WITH NO CT FINDINGS OF DIVERTICULITIS. 2. NO OTHER SIGNIFICANT FINDINGS. THERE IS PATCHY ATELECTASIS OR INFILTRATE IN THE LUNG BASES. Head CT 02/05/18 00:00 IMPRESSION: NORMAL BRAIN CT WITHOUT CONTRAST. EVIDENCE OF ACUTE STROKE: NO. KUB X-Ray 02/08/18 00:00 IMPRESSION: No obstruction. Chest X-Ray 02/11/18 00:00 IMPRESSION: 1. Retrocardiac opacity likely represents atelectasis in this patient under mechanical ventilation ; a developing consolidation is not excluded. 2. Endotracheal and enteric tubes demonstrating normal positioning. Assessment & Plan - Diagnosis (1) Acute and chronic respiratory failure Qualifiers: Respiratory failure complication: hypoxia and hypercapnia Qualified Code(s) : J96.21 - Acute and chronic respiratory failure with hypoxia; J96.22 - Acute and chronic respiratory failure with hypercapnia; J96.22 - Acute and chronic respiratory failure with hypercapnia; J96.22 - Acute and chronic respiratory failure with hypercapnia Is this a current diagnosis for this admission?: Yes Plan: Patient tolerating pressure support. Managed by Dr. Beard (2) COPD with respiratory failure, acute Is this a current diagnosis for this admission?: Yes Plan: Dr. Beard assisting in management (3) Anticoagulated Is this a current diagnosis for this admission?: Yes Plan: Xarelto stopped and place on Lovenox 1 mg/kg every [address] Beard (4) Hypertension Qualifiers: Hypertension type: essential hypertension Qualified Code(s): I10 - Essential (primary) hypertension Is this a current diagnosis for this admission?: Yes Plan: Continue current management (5) Obstructive sleep apnea Is this a current diagnosis for this admission?: Yes Plan: May be contributing to presentation since had not been using CPAP (6) History of pulmonary embolism Is this a current diagnosis for this admission?: Yes Plan: Currently on Lovenox subcu (7) History of DVT (deep vein thrombosis) Is this a current diagnosis for this admission?: Yes Plan: Patient is on anticoagulation (8) Ribs, multiple fractures Qualifiers: Encounter type: subsequent encounter Laterality: bilateral Is this a current diagnosis for this admission?: Yes Plan: Bilateral. Due to resuscitation. (9) Anoxic encephalopathy Is this a current diagnosis for this admission?: Yes Plan: Not much response. My understanding is that she is daughter's are currently being contacted by the [place] [employer] for further management - Time Time Spent with patient: Less than 15 minutes Medications reviewed and adjusted accordingly: Yes Anticipated discharge: Other - Still undetermined at this time - Inpatient Certification Based on my medical assessment, after consideration of the patient's comorbidities, presenting symptoms, or acuity I expect that the services needed warrant INPATIENT care.: Yes I certify that my determination is in accordance with my understanding of Medicare's requirements for reasonable and necessary INPATIENT services [42 CFR 412.3e].: Yes Medical Necessity: Need Close Monitoring Due to Risk of Patient Decompensation
[2018-02-12] MEDS: AMLODIPINE BESYLATE 10 MG TABLET NG SCH (15:08)
[2018-02-12] MEDS: ASPIRIN 81 MG TABLET, CHEWABLE NG SCH (17:57)
[2018-02-12] MEDS: ATORVASTATIN CALCIUM 40 MG TABLET NG SCH (21:05)
[2018-02-13] MEDS: LEVALBUTEROL HCL NEB 1.25 MG/3 ML AMPUL NEB SCH ×3 (00:25→16:24)
[2018-02-13] MEDS: IPRATROPIUM BROMIDE 0.02% NEB 0.5 MG/2.5 ML AMPUL NEB SCH ×3 (00:26→16:24)
[2018-02-13] MEDS: PROPOFOL 100 ML IV PRN ×4 (03:13→23:52)
[2018-02-13 04:43] LABS: HEMATOCRIT 38.6 % (37.9-51.0); HEMOGLOBIN 12.4 g/dL (13.5-17.0); MEAN CORPUSCULAR HEMOGLOBIN 24.8 pg (27.0-33.4); MEAN CORPUSCULAR HGB CONC 32.2 g/dL (32.0-36.0); MEAN CORPUSCULAR VOLUME 77 fl (80-97); PLATELET COUNT 208 10^3/uL (150-450); RED BLOOD COUNT 5.01 10^6/uL (4.35-5.55); RED CELL DISTRIBUTION WIDTH 21.4 % (11.5-14.0); WHITE BLOOD COUNT 18.6 10^3/uL (4.0-10.5)
[2018-02-13 04:48] LABS: ALANINE AMINOTRANSFERASE 62 U/L (21-72); ALKALINE PHOSPHATASE 66 U/L (38-126); ANION GAP 6 (5-19); ASPARTATE AMINO TRANSFERASE 86 U/L (17-59); BILIRUBIN,DIRECT 0.3 mg/dL (0.0-0.4); BILIRUBIN,TOTAL 0.5 mg/dL (0.2-1.3); BLOOD UREA NITROGEN 16 mg/dL (7-20); CALCIUM 8.2 mg/dL (8.4-10.2); CARBON DIOXIDE 28 mmol/L (22-30); CHLORIDE 107 mmol/L (98-107); GLUCOSE 134 mg/dL (75-110); POTASSIUM 3.4 mmol/L (3.6-5.0); SODIUM 141.3 mmol/L (137-145); TOTAL PROTEIN 5.8 g/dL (6.3-8.2)
[2018-02-13] MEDS: LANSOPRAZOLE 30 MG TAB.RAP.DR NG SCH (05:11)
[2018-02-13] MEDS: DEXTROSE 5%-WATER 1000 ML 1,000 ML IV PRN (05:11)
[2018-02-13 06:07] LABS: APPEARANCE,URINE SLIGHTLY-CLOUDY; BILIRUBIN,URINE NEGATIVE (NEGATIVE); COLOR,URINE YELLOW; GLUCOSE, URINE NEGATIVE (NEGATIVE); KETONES,URINE NEGATIVE (NEGATIVE); LEUKOCYTE ESTERASE,URINE NEGATIVE (NEGATIVE); NITRITE,URINE NEGATIVE (NEGATIVE); PROTEIN,URINE 30 mg/dL (NEGATIVE); URINE SPECIFIC GRAVITY 1.017
[2018-02-13] MEDS ORDERED: POTASSIUM CHLORIDE 20 MEQ/15 ML UDCUP PO ONE (06:22)
--- NOTE | 2018-02-13 06:30 | RADIOLOGY REPORT (SQ) ---
EXAM DESCRIPTION: CHEST SINGLE VIEW CLINICAL HISTORY: on ventilator COMPARISON: 02/11/2018 FINDINGS: Single frontal view of the chest. Endotracheal tube with tip 6 cm above the alem. NG tube with tip below the diaphragm. Tortuosity of the thoracic aorta. Heart is not enlarged. Low lung volumes. Leads overlie the chest. Linear left basilar opacity is stable. No pneumothorax. Upper abdominal soft tissues are unremarkable. IMPRESSION: 1. Stable appearance of the chest. Electronically signed by: Drake Ramos 02/13/2018 5:28 AM CDT
[2018-02-13] MEDS ORDERED: PIPERACILLIN/TAZOBACTAM 3.375 GM VIAL IV SCH (09:15)
[2018-02-13] MEDS: ENOXAPARIN SODIUM INJ 80 MG/0.8 ML DISP.SYRIN SUBCUT SCH ×2 (09:28→21:12)
[2018-02-13] MEDS ORDERED: CEFTRIAXONE 1 GM/D5W RTU 1 GM/50 ML RTUPB IV SCH (10:00)
[2018-02-13 10:20] LABS: APPEARANCE,URINE CLEAR; BILIRUBIN,URINE NEGATIVE (NEGATIVE); COLOR,URINE YELLOW; GLUCOSE, URINE 50 mg/dL (NEGATIVE); KETONES,URINE NEGATIVE (NEGATIVE); LEUKOCYTE ESTERASE,URINE NEGATIVE (NEGATIVE); NITRITE,URINE NEGATIVE (NEGATIVE); PROTEIN,URINE 30 mg/dL (NEGATIVE); URINE SPECIFIC GRAVITY 1.017
--- NOTE | 2018-02-13 11:59 | RADIOLOGY REPORT (SQ) ---
CT ABDOMEN PELVIS 02/05/2018 EXAM DESCRIPTION: KUB/ABDOMEN (SINGLE VIEW) COMPLETED DATE/TIME: 02/13/2018 11:49 am REASON FOR STUDY: abdominal distension r/o ileus COMPARISON: CT ABDOMEN PELVIS 01/08/2018 ABDOMINAL FILMS 02/05/2018, 02/08/2018 NUMBER OF VIEWS: One view. TECHNIQUE: Supine radiographic image of the abdomen acquired. LIMITATIONS: None. FINDINGS: BOWEL GAS PATTERN: There is air in nondistended transverse colon and sigmoid colon. No di lated small bowel loops worrisome for small bowel obstruction. CALCIFICATIONS: No suspicious calcifications. SOFT TISSUES: No gross mass or suggestion of organomegaly. HARDWARE: Nasogastric tube tip and side port in the stomach. [place] catheter in the bladder BONES: Osteoporotic with L4 and L5 compression deformities OTHER: No other significant finding. IMPRESSION: Nasogastric tube tip and side port in the stomach. Grossly nonobstructive bowel gas pattern TECHNICAL DOCUMENTATION: JOB ID: [id number] [employer]- All Rights Reserved Reading location - IP/workstation name: [facility]
--- NOTE | 2018-02-13 12:03 | PDOC PROGRESS REPORT ---
Subjective Progress Note for:: 02/13/18 Subjective:: Unable to obtain since sedated. Nurse reports diarrhea Review of symptoms Unable to obtain since sedated All significant laboratories and diagnostics have been reviewed Reason For Visit: ACUTE ON CHRONIC RESPIRATORY FAILURE CARDIAC Physical Exam Vital Signs: Temp Pulse Resp BP Pulse Ox 99.7 F 96 13 117/77 99 02/13/18 05:08 02/13/18 00:25 02/13/18 02:00 02/13/18 01:47 02/13/18 04:09 Intake & Output 02/11/18 02/12/18 02/13/18 06:59 06:59 06:59 Intake Total 2184 1929 2356 Output Total 1890 1390 1800 Balance 294 539 556 Weight 81.4 kg 81.5 kg 82.4 kg General appearance: PRESENT: other - sedated Head exam: PRESENT: atraumatic, normocephalic Eye exam: PRESENT: conjunctiva pink, EOMI, PERRLA Mouth exam: PRESENT: moist Neck exam: ABSENT: JVD, lymphadenopathy, tenderness - Scattered crackles Cardiovascular exam: PRESENT: RRR. ABSENT: diastolic murmur, systolic murmur Vascular exam: PRESENT: normal capillary refill GI/Abdominal exam: PRESENT: normal bowel sounds, soft. ABSENT: tenderness Extremities exam: PRESENT: pedal edema. ABSENT: full ROM Musculoskeletal exam: ABSENT: ambulatory Neurological exam: PRESENT: other - sedated Psychiatric exam: PRESENT: other - sedated Skin exam: PRESENT: normal color Results Laboratory Results: 02/13/18 04:10 02/13/18 04:10 02/13/18 02/13/18 02/13/18 04:10 04:10 05:25 WBC 18.6 H RBC 5.01 Hgb 12.4 L Hct 38.6 MCV 77 L MCH 24.8 L MCHC 32.2 RDW 21.4 H Plt Count 208 Sodium 141.3 Potassium 3.4 L Chloride 107 Carbon Dioxide 28 Anion Gap 6 BUN 16 Creatinine 0.75 Est GFR ( Amer) > 60 Est GFR (Non-Af Amer) > 60 Glucose 134 H Calcium 8.2 L Magnesium 2.5 H Total Bilirubin 0.5 AST 86 H ALT 62 Alkaline Phosphatase 66 Total Protein 5.8 L Albumin 3.0 L Urine Color YELLOW Urine Appearance SLIGHTLY-CLOUDY Urine pH 5.0 Ur Specific [place] 1.017 Urine Protein 30 H Urine Glucose (UA) NEGATIVE Urine Ketones NEGATIVE Urine Blood MODERATE H Urine Nitrite NEGATIVE Ur Leukocyte Esterase NEGATIVE Urine WBC (Auto) 3 Urine RBC (Auto) 111 02/02/18 02/03/18 02/03/18 21:23 03:53 09:46 Troponin I 0.119 0.190 0.166 NT-Pro-B Natriuret Pep 02/04/18 02/07/18 03:55 17:00 Troponin I NT-Pro-B Natriuret Pep 144 343 Impressions: Chest/Abdomen CTA 02/02/18 00:00 IMPRESSION: NORMAL CTA OF THE CHEST. NO PULMONARY EMBOLI. Multiple transverse fractures of the anterolateral ribs bilaterally, consistent with recent resuscitation efforts. Abdomen/Pelvis CT 02/05/18 00:00 IMPRESSION: 1. FOCAL DILATION OF THE PROXIMAL SIGMOID COLON. THE LUMEN MORE DISTALLY IS NARROWED. THIS COULD REPRESENT A PARTIAL OBSTRUCTION SECONDARY TO ADHESIONS. APPEARANCE DOES NOT APPEAR TO BE DUE TO VOLVULUS. NO SIGNIFICANT DILATION OF THE COLON PROXIMAL TO THE SIGMOID. THERE ARE A FEW SCATTERED DIVERTICULI WITH NO CT FINDINGS OF DIVERTICULITIS. 2. NO OTHER SIGNIFICANT FINDINGS. THERE IS PATCHY ATELECTASIS OR INFILTRATE IN THE LUNG BASES. Head CT 02/05/18 00:00 IMPRESSION: NORMAL BRAIN CT WITHOUT CONTRAST. EVIDENCE OF ACUTE STROKE: NO. KUB X-Ray 02/08/18 00:00 IMPRESSION: No obstruction. Assessment & Plan - Diagnosis (1) Acute and chronic respiratory failure Qualifiers: Respiratory failure complication: hypoxia and hypercapnia Qualified Code(s) : J96.21 - Acute and chronic respiratory failure with hypoxia; J96.22 - Acute and chronic respiratory failure with hypercapnia; J96.22 - Acute and chronic respiratory failure with hypercapnia; J96.22 - Acute and chronic respiratory failure with hypercapnia Is this a current diagnosis for this admission?: Yes Plan: Managed by Dr. Beard (2) COPD with respiratory failure, acute Is this a current diagnosis for this admission?: Yes Plan: Dr. Beard assisting in management (3) Anticoagulated Is this a current diagnosis for this admission?: Yes Plan: Xarelto stopped and place on Lovenox 1 mg/kg every [address] Beard (4) Hypertension Qualifiers: Hypertension type: essential hypertension Qualified Code(s): I10 - Essential (primary) hypertension Is this a current diagnosis for this admission?: Yes Plan: Continue current management (5) Obstructive sleep apnea Is this a current diagnosis for this admission?: Yes Plan: May be contributing to presentation since had not been using CPAP (6) History of pulmonary embolism Is this a current diagnosis for this admission?: Yes Plan: Currently on Lovenox subcu (7) History of DVT (deep vein thrombosis) Is this a current diagnosis for this admission?: Yes Plan: Patient is on anticoagulation (8) Ribs, multiple fractures Qualifiers: Encounter type: subsequent encounter Laterality: bilateral Is this a current diagnosis for this admission?: Yes Plan: Bilateral. Due to resuscitation. (9) Anoxic encephalopathy Is this a current diagnosis for this admission?: Yes Plan: Not much response. My understanding is that she is daughter's are currently being contacted by the [employer] [place] [employer] for further management (10) Diarrhea Qualifiers: Diarrhea type: unspecified type Qualified Code(s): R19.7 - Diarrhea, unspecified Is this a current diagnosis for this admission?: Yes Plan: Order C diff and KUB ( since abdomen slightly distended) - Time Time Spent with patient: Less than 15 minutes Medications reviewed and adjusted accordingly: Yes Anticipated discharge: Other - Still needing to meet with the family. Patient may even need tracheostomy Within: Other - Unable to tell at this time - Inpatient Certification Based on my medical assessment, after consideration of the patient's comorbidities, presenting symptoms, or acuity I expect that the services needed warrant INPATIENT care.: Yes I certify that my determination is in accordance with my understanding of Medicare's requirements for reasonable and necessary INPATIENT services [42 CFR 412.3e].: Yes Medical Necessity: Need Close Monitoring Due to Risk of Patient Decompensation
[2018-02-13] MEDS ORDERED: LACTOBACILLUS ACIDOPHILUS 250 MG TAB PO ONE (13:00)
[2018-02-13] MEDS ORDERED: PSYLLIUM SEED-SF 5.85 GM PACKET PO ONE (13:30)
[2018-02-13] MEDS: PREDNISONE 5 MG TABLET NG SCH (13:34)
[2018-02-13] MEDS: AMLODIPINE BESYLATE 10 MG TABLET NG SCH (13:37)
[2018-02-13] MEDS: PIPERACILLIN SODIUM/TAZOBACTAM 3.375 GM in NORMAL SALINE 100 ML IV SCH ×3 (13:39→23:52)
--- NOTE | 2018-02-13 14:59 | PROGRESS NOTE E ---
Progress Note NAME: SHONDA HUERTA : 1960 AGE: 57Y DATE: 02/12/2018 ROOM: 605 SUBJECTIVE: Patient is a 57-year-old -[place] male who came in with acute respiratory failure requiring invasive mechanical ventilation, status post cardiac arrest and prolonged cardiopulmonary resuscitation. Endotracheal tube secretions seemed slight reduced today. Patient became tachypneic, presenting excessive accessory respiratory muscles use when on T- piece. Patient's tidal volume was only about 150-200 mL, while on PS/ PEEP 5/ 5, suggesting patient is not ready to be extubated. Patient tolerated the OG tube feeding well over the last 24 hours. Temperature was 100.2 with a T max of 100.2. No vomiting. No diarrhea noted. OBJECTIVE: GENERAL: Patient appeared to be verbally unresponsive, afebrile, not in acute respiratory distress. VITAL SIGNS: Blood pressure of 121/70, pulse rate of 91, respirations about 14, saturation is 96% on 30% FiO2 and pressure support of 12/6 with a minute ventilation of 8 and respirations about 16. EYES: No jaundice or pallor. Pupils symmetrical. EARS, NOSE, MOUTH AND THROAT: No ear drainage. No redness. No discharge. Orotracheal tube is in place and orogastric tube is in place. CHEST AND LUNGS: No wheezing. No rhonchi. No coarse crackles. CARDIOVASCULAR: S1, S2 distinct. Normal rate, regular rhythm. ABDOMEN: Flabby. Positive bowel sounds. Soft, nondistended, nontender. EXTREMITIES: No joint swelling. No cellulitis. LABORATORY DATA: CBC done yesterday showed white blood cell count of 12.5, hemoglobin is 12.2, hematocrit is 38.1, platelet count is 236. There was no chemistry done today and no blood gas done today. IMAGING STUDIES: No chest x-ray done today. ASSESSMENT: 1. ACUTE RESPIRATORY FAILURE REQUIRING INVASIVE MECHANICAL VENTILATION, NOT ABLE TO BE EXTUBATED. PATIENT FAILED SPONTANEOUS BREATHING TRIAL USING T-PIECE. 2. ANOXIC ENCEPHALOPATHY/PERSISTENT VEGETATIVE STATE STATUS POST CARDIAC ARREST AND PROLONGED CARDIOPULMONARY RESUSCITATION. 3. HISTORY OF COPD, CURRENTLY STABLE, NOT IN ACUTE EXACERBATION. PLAN AND RECOMMENDATIONS: 1. We will do sedation vacation again tomorrow and do subsequent spontaneous breathing trial. The patient's family will be coming in. The patient may need to have a tracheostomy tube in place and a G-tube in place. It may take awhile for the patient to be independent from the ventilator. 2. We will continue nebulizer treatments, continue antibiotics. Will repeat CBC, chem 7 and chest x-ray tomorrow. DICTATING PHYSICIAN: JERILYN LEONARDO MD,GERSON,MPH [id number] [id number] PHY#: [id number] ID: [id number] JOB#: [id number] ACCT: [id number] cc:JERILYN LEONARDO M.D. > MTDD
[2018-02-13] MEDS: ASPIRIN 81 MG TABLET, CHEWABLE NG SCH (17:07)
[2018-02-13] MEDS: LACTOBACILLUS ACIDOPHILUS 250 MG TAB PO SCH (17:08)
[2018-02-13] MEDS: 1/2 NORMAL SALINE 1,000 ML IV PRN (17:08)
[2018-02-13] MEDS: BUDESONIDE NEB 0.5 MG/2 ML AMPUL NEB SCH (20:54)
[2018-02-13] MEDS: ATORVASTATIN CALCIUM 40 MG TABLET NG SCH (21:12)
[2018-02-14] MEDS: IPRATROPIUM BROMIDE 0.02% NEB 0.5 MG/2.5 ML AMPUL NEB SCH ×4 (00:18→23:47)
[2018-02-14] MEDS: LEVALBUTEROL HCL NEB 1.25 MG/3 ML AMPUL NEB SCH ×4 (00:18→23:46)
[2018-02-14 04:02] LABS: HEMATOCRIT 33.4 % (37.9-51.0); HEMOGLOBIN 10.7 g/dL (13.5-17.0); MEAN CORPUSCULAR HEMOGLOBIN 24.8 pg (27.0-33.4); MEAN CORPUSCULAR HGB CONC 32.1 g/dL (32.0-36.0); MEAN CORPUSCULAR VOLUME 77 fl (80-97); PLATELET COUNT 227 10^3/uL (150-450); RED BLOOD COUNT 4.33 10^6/uL (4.35-5.55); RED CELL DISTRIBUTION WIDTH 21.3 % (11.5-14.0); WHITE BLOOD COUNT 16.5 10^3/uL (4.0-10.5)
[2018-02-14] MEDS: PROPOFOL 100 ML IV PRN ×2 (04:07→23:38)
[2018-02-14 04:15] LABS: BLOOD UREA NITROGEN 14 mg/dL (7-20); CALCIUM 8.1 mg/dL (8.4-10.2); CARBON DIOXIDE 27 mmol/L (22-30); CHLORIDE 107 mmol/L (98-107); GLUCOSE 104 mg/dL (75-110); POTASSIUM 3.6 mmol/L (3.6-5.0)
[2018-02-14 04:22] LABS: ANION GAP 5 (5-19); SODIUM 138.5 mmol/L (137-145)
[2018-02-14 04:31] LABS: ABSOLUTE LYMPHOCYTES# (MANUAL) 0.8 10^3/uL (0.5-4.7); ABSOLUTE MONOCYTES # (MANUAL) 0.8 10^3/uL (0.1-1.4); ABSOLUTE NEUTROPHILS# (MANUAL) 14.7 10^3/uL (1.7-8.2); BASOPHILS % (MANUAL) 0 % (0-2); EOSINOPHILS % (MANUAL) 1 % (0-6); LYMPHOCYTES % (MANUAL) 5 % (13-45); MONOCYTES % (MANUAL) 5 % (3-13); SEGMENTED NEUTROPHILS % (MAN) 89 % (42-78); TOTAL CELLS COUNTED 100
[2018-02-14 04:33] LABS: ANISOCYTOSIS 3+; PLATELET COMMENT ADEQUATE; PLATELET LARGE PRESENT; POIKILOCYTOSIS SLIGHT; SCHISTOCYTES SLIGHT; TOXIC GRANULATION SLIGHT; TOXIC VACUOLATION PRESENT
[2018-02-14] MEDS: PIPERACILLIN SODIUM/TAZOBACTAM 3.375 GM in NORMAL SALINE 100 ML IV SCH ×4 (05:42→23:37)
[2018-02-14] MEDS: LANSOPRAZOLE 30 MG TAB.RAP.DR NG SCH (05:42)
[2018-02-14] MEDS: BUDESONIDE NEB 0.5 MG/2 ML AMPUL NEB SCH ×2 (08:48→20:03)
--- NOTE | 2018-02-14 11:09 | PROGRESS NOTE E ---
Progress Note NAME: SHONDA HUERTA : 1960 AGE: 57Y DATE: 02/13/2018 ROOM: 605 SUBJECTIVE: The patient is a 57-year-old -[place] male who came in acute respiratory failure, requiring invasive mechanical ventilation, status post cardiac arrest and prolonged cardiopulmonary resuscitation. The patient has been afebrile for the last 24 hours. Loyd cultures were done. He had diarrhea this morning. Stool exam for C. diff was negative. No vomiting. No fever or chills. He had a spontaneous breathing trial this morning using a pressure support of 5 above a PEEP of 5, pressure-support ventilation. The patient's tidal volume was only about 200-215 mL. The patient started to become tachypneic to about 35 breathes per minute. The patient was placed back on the pressure-support ventilation of 12/5. FIO2 remains 35%. The patient's family has not decided yet. The patient's family may be leaning towards comfort care. Recommended tracheostomy and G-tube placement and a possible transfer to an LTAC once he becomes more stable. OBJECTIVE: GENERAL: On physical exam, the patient appeared verbally unresponsive, a vegetative state, afebrile, not in acute respiratory distress. VITAL SIGNS: Temperature is 99.1. Blood pressure is 117/77. Respiration is better. Saturations 98% on FIO2 of 35%, currently down to FIO2 of 30% with oxygen saturation above 98-99%. Currently on a pressure support of 14, tidal volume of 540, SIMV rate of 14, and pressure support of 12 above PEEP and PEEP of 5. FIO2 is 30%. Peak airway pressure of 51, total pressure of 18, and mean airway pressure of 14, minute ventilation of 7.8, and exhaled and inhaled tidal volume of 500 mL. EYES: No jaundice or pallor. EARS, NOSE, AND THROAT: No ear drainage. No redness or discharge. CHEST AND LUNGS: No wheezing, no rhonchi, no coarse crackles. CARDIOVASCULAR: S1/S2 distant. Normal rate. Regular rhythm. ABDOMEN: Flabby. Positive bowel sounds. Soft, nondistended, nontender. EXTREMITIES: No joint swelling or cellulitis. LABORATORY: Today showed a white count of 18,600, up from 12.5 on 02/11/2018; hemoglobin is 12.4, hematocrit 38.6, and platelet count is 208. Chemistries showed a sodium of 141, potassium 3.4, chloride is 107, BUN is 28, creatinine is 0.75, BUN is 15, and estimated GFR (-Pakistani) is more than 60; glucose is 134, calcium is 8.2, total bilirubin 0.5, ASSESSMENT: 1. WORSENING LEUKOCYTOSIS TO 18,600, POSSIBLE INFECTION, ETIOLOGY STILL TO BE DETERMINED. URINARY TRACT INFECTION IS LIKELY. 2. ACUTE RESPIRATORY FAILURE REQUIRING INVASIVE MECHANICAL VENTILATION. THE PATIENT IS NOT INTUBATED AT THIS POINT. 3. ANOXIC ENCEPHALOPATHY, STATUS POST CARDIAC ARREST AND PROLONGED CARDIOPULMONARY RESUSCITATION. PLAN: Will discontinue the ceftriaxone. Will change to Zosyn of 3.375 grams IV piggyback q. 6 hours. Will do loyd cultures (urine culture, sputum culture, blood culture). DICTATING PHYSICIAN: JERILYN LEONARDO MD,GERSON,MPH [id number] [id number] PHY#: [id number] ID: [id number] JOB#: [id number] ACCT: [id number] cc: > MTDD
[2018-02-14] MEDS: SCOPOLAMINE HYDROBROMIDE 1.5 MG PATCH.TD72 TD SCH (11:47)
[2018-02-14] MEDS: LACTOBACILLUS ACIDOPHILUS 250 MG TAB PO SCH ×2 (11:48→17:37)
[2018-02-14] MEDS: ENOXAPARIN SODIUM INJ 80 MG/0.8 ML DISP.SYRIN SUBCUT SCH ×2 (11:49→21:14)
[2018-02-14] MEDS: PSYLLIUM SEED-SF 5.85 GM PACKET PO SCH (11:49)
[2018-02-14] MEDS: FENTANYL CITRATE INJ/PF 100 MCG/2 ML AMPUL IV PRN ×2 (14:29→21:13)
[2018-02-14] MEDS: 1/2 NORMAL SALINE 1,000 ML IV PRN ×2 (14:30→20:21)
[2018-02-14] MEDS: AMLODIPINE BESYLATE 10 MG TABLET NG SCH (14:33)
--- NOTE | 2018-02-14 14:35 | PDOC PROGRESS REPORT ---
Subjective Progress Note for:: 02/14/18 Subjective:: Unable to obtain since sedated. Review of symptoms Unable to obtain since sedated All significant laboratories and diagnostics have been reviewed Reason For Visit: ACUTE ON CHRONIC RESPIRATORY FAILURE CARDIAC Physical Exam Vital Signs: Temp Pulse Resp BP Pulse Ox 99.5 F 85 12 93/70 L 99 02/14/18 06:00 02/14/18 00:18 02/14/18 06:00 02/14/18 05:50 02/14/18 06:00 Intake & Output 02/13/18 02/14/18 02/15/18 06:59 06:59 06:59 Intake Total 2356 2343 Output Total 1800 1695 Balance 556 648 Weight 82.4 kg 83.7 kg General appearance: PRESENT: other - sedated Head exam: PRESENT: atraumatic, normocephalic Eye exam: PRESENT: conjunctiva pink, EOMI, PERRLA Ear exam: PRESENT: normal external ear exam Mouth exam: PRESENT: moist Neck exam: ABSENT: full ROM, JVD, lymphadenopathy, tenderness Respiratory exam: PRESENT: clear to auscultation andie Cardiovascular exam: PRESENT: RRR. ABSENT: diastolic murmur, systolic murmur GI/Abdominal exam: PRESENT: distended, normal bowel sounds, soft Extremities exam: ABSENT: full ROM, pedal edema Musculoskeletal exam: ABSENT: ambulatory Neurological exam: PRESENT: other - sedated Skin exam: PRESENT: intact, normal color Results Laboratory Results: 02/14/18 03:36 02/14/18 03:36 02/13/18 02/13/18 02/14/18 09:40 09:41 03:36 WBC 16.5 H RBC 4.33 L Hgb 10.7 L Hct 33.4 L MCV 77 L MCH 24.8 L MCHC 32.1 RDW 21.3 H Plt Count 227 Seg Neutrophils % Not Reportable Lymphocytes % Not Reportable Monocytes % Not Reportable Eosinophils % Not Reportable Basophils % Not Reportable Absolute Neutrophils Not Reportable Absolute Lymphocytes Not Reportable Absolute Monocytes Not Reportable Absolute Eosinophils Not Reportable Absolute Basophils Not Reportable Sodium Potassium Chloride Carbon Dioxide Anion Gap BUN Creatinine Est GFR ( Amer) Est GFR (Non-Af Amer) Glucose Calcium Urine Color YELLOW Urine Appearance CLEAR Urine pH 5.0 Ur Specific [place] 1.017 Urine Protein 30 H Urine Glucose (UA) 50 H Urine Ketones NEGATIVE Urine Blood LARGE H Urine Nitrite NEGATIVE Ur Leukocyte Esterase NEGATIVE Urine WBC (Auto) 5 Urine RBC (Auto) >182 Stool Occult Blood POSITIVE 02/14/18 03:36 WBC RBC Hgb Hct MCV MCH MCHC RDW Plt Count Seg Neutrophils % Lymphocytes % Monocytes % Eosinophils % Basophils % Absolute Neutrophils Absolute Lymphocytes Absolute Monocytes Absolute Eosinophils Absolute Basophils Sodium 138.5 Potassium 3.6 Chloride 107 Carbon Dioxide 27 Anion Gap 5 BUN 14 Creatinine 0.67 Est GFR ( Amer) > 60 Est GFR (Non-Af Amer) > 60 Glucose 104 Calcium 8.1 L Urine Color Urine Appearance Urine pH Ur Specific [place] Urine Protein Urine Glucose (UA) Urine Ketones Urine Blood Urine Nitrite Ur Leukocyte Esterase Urine WBC (Auto) Urine RBC (Auto) Stool Occult Blood 02/02/18 02/03/18 02/03/18 21:23 03:53 09:46 Troponin I 0.119 0.190 0.166 NT-Pro-B Natriuret Pep 02/04/18 02/07/18 03:55 17:00 Troponin I NT-Pro-B Natriuret Pep 144 343 Impressions: Chest/Abdomen CTA 02/02/18 00:00 IMPRESSION: NORMAL CTA OF THE CHEST. NO PULMONARY EMBOLI. Multiple transverse fractures of the anterolateral ribs bilaterally, consistent with recent resuscitation efforts. Abdomen/Pelvis CT 02/05/18 00:00 IMPRESSION: 1. FOCAL DILATION OF THE PROXIMAL SIGMOID COLON. THE LUMEN MORE DISTALLY IS NARROWED. THIS COULD REPRESENT A PARTIAL OBSTRUCTION SECONDARY TO ADHESIONS. APPEARANCE DOES NOT APPEAR TO BE DUE TO VOLVULUS. NO SIGNIFICANT DILATION OF THE COLON PROXIMAL TO THE SIGMOID. THERE ARE A FEW SCATTERED DIVERTICULI WITH NO CT FINDINGS OF DIVERTICULITIS. 2. NO OTHER SIGNIFICANT FINDINGS. THERE IS PATCHY ATELECTASIS OR INFILTRATE IN THE LUNG BASES. Head CT 02/05/18 00:00 IMPRESSION: NORMAL BRAIN CT WITHOUT CONTRAST. EVIDENCE OF ACUTE STROKE: NO. KUB X-Ray 02/13/18 00:00 IMPRESSION: Nasogastric tube tip and side port in the stomach. Grossly nonobstructive bowel gas pattern Chest X-Ray 02/13/18 05:00 IMPRESSION: 1. Stable appearance of the chest. Assessment & Plan - Diagnosis (1) Acute and chronic respiratory failure Qualifiers: Respiratory failure complication: hypoxia and hypercapnia Qualified Code(s) : J96.21 - Acute and chronic respiratory failure with hypoxia; J96.22 - Acute and chronic respiratory failure with hypercapnia; J96.22 - Acute and chronic respiratory failure with hypercapnia; J96.22 - Acute and chronic respiratory failure with hypercapnia Is this a current diagnosis for this admission?: Yes Plan: Managed by Dr. Beard (2) COPD with respiratory failure, acute Is this a current diagnosis for this admission?: Yes Plan: Dr. Beard assisting in management (3) Anticoagulated Is this a current diagnosis for this admission?: Yes Plan: On Lovenox 1 mg/kg every [address] Beard (4) Hypertension Qualifiers: Hypertension type: essential hypertension Qualified Code(s): I10 - Essential (primary) hypertension Is this a current diagnosis for this admission?: Yes Plan: Continue current management (5) Obstructive sleep apnea Is this a current diagnosis for this admission?: Yes Plan: May be contributing to presentation since had not been using CPAP (6) History of pulmonary embolism Is this a current diagnosis for this admission?: Yes Plan: Currently on Lovenox subcu (7) History of DVT (deep vein thrombosis) Is this a current diagnosis for this admission?: Yes Plan: Patient is on anticoagulation (8) Ribs, multiple fractures Qualifiers: Encounter type: subsequent encounter Laterality: bilateral Is this a current diagnosis for this admission?: Yes Plan: Bilateral. Due to resuscitation. (9) Anoxic encephalopathy Is this a current diagnosis for this admission?: Yes Plan: Not much response. My understanding is that the daughter's are currently being contacted by the [place] [employer] for further management (10) Diarrhea Qualifiers: Diarrhea type: unspecified type Qualified Code(s): R19.7 - Diarrhea, unspecified Is this a current diagnosis for this admission?: Yes Plan: C diff negative. KUB noted. Improved - Time Time Spent with patient: Less than 15 minutes Medications reviewed and adjusted accordingly: Yes Anticipated discharge: Other - Patient made tracheostomy and likely will need placement. Awaiting for family Within: Other - Unable to determine at this time - Inpatient Certification Based on my medical assessment, after consideration of the patient's comorbidities, presenting symptoms, or acuity I expect that the services needed warrant INPATIENT care.: Yes I certify that my determination is in accordance with my understanding of Medicare's requirements for reasonable and necessary INPATIENT services [42 CFR 412.3e].: Yes Medical Necessity: Need Close Monitoring Due to Risk of Patient Decompensation
[2018-02-14] MEDS: ASPIRIN 81 MG TABLET, CHEWABLE NG SCH (17:37)
[2018-02-14] MEDS ORDERED: FUROSEMIDE INJ/PF 20 MG/2 ML SDV IV ONE (20:45)
[2018-02-14] MEDS: ATORVASTATIN CALCIUM 40 MG TABLET NG SCH (21:13)
[2018-02-14] MEDS: METHYLPREDNISOLONE INJ 40 MG/1 ML SDV IV SCH (21:13)
[2018-02-14 21:22] LABS: HEMATOCRIT 34.4 % (37.9-51.0); HEMOGLOBIN 11.2 g/dL (13.5-17.0); MEAN CORPUSCULAR HGB CONC 32.7 g/dL (32.0-36.0); MEAN CORPUSCULAR VOLUME 77 fl (80-97); PLATELET COUNT 248 10^3/uL (150-450); RED CELL DISTRIBUTION WIDTH 21.3 % (11.5-14.0); WHITE BLOOD COUNT 16.8 10^3/uL (4.0-10.5)
[2018-02-14 21:45] LABS: ABSOLUTE LYMPHOCYTES# (MANUAL) 0.5 10^3/uL (0.5-4.7); ABSOLUTE MONOCYTES # (MANUAL) 0.8 10^3/uL (0.1-1.4); ABSOLUTE NEUTROPHILS# (MANUAL) 15.5 10^3/uL (1.7-8.2); BASOPHILS % (MANUAL) 0 % (0-2); EOSINOPHILS % (MANUAL) 0 % (0-6); LYMPHOCYTES % (MANUAL) 2 % (13-45); MONOCYTES % (MANUAL) 5 % (3-13); SEGMENTED NEUTROPHILS % (MAN) 92 % (42-78); TOTAL CELLS COUNTED 100
[2018-02-14 21:47] LABS: ANISOCYTOSIS 3+; HYPOCHROMASIA 1+; POIKILOCYTOSIS 1+; POLYCHROMASIA SLIGHT; SCHISTOCYTES SLIGHT; TOXIC GRANULATION 1+; TOXIC VACUOLATION PRESENT
[2018-02-14 21:48] LABS: PLATELET COMMENT ADEQUATE; TARGET CELLS SLIGHT
[2018-02-15] MEDS ORDERED: VANCOMYCIN HCL INJ 1000 MG VIAL IV PRN (00:30)
[2018-02-15] MEDS ORDERED: VANCOMYCIN HCL 1,000 MG in DEXTROSE 5%-WATER 250 ML IV ONE (00:30)
[2018-02-15] MEDS ORDERED: VANCOMYCIN HCL INJ 1000 MG VIAL ONE (00:31)
[2018-02-15] MEDS: PROPOFOL 100 ML IV PRN ×3 (02:31→21:22)
[2018-02-15 04:14] LABS: HEMATOCRIT 32.7 % (37.9-51.0); HEMOGLOBIN 10.5 g/dL (13.5-17.0); MEAN CORPUSCULAR HEMOGLOBIN 24.6 pg (27.0-33.4); MEAN CORPUSCULAR HGB CONC 32.2 g/dL (32.0-36.0); MEAN CORPUSCULAR VOLUME 76 fl (80-97); PLATELET COUNT 237 10^3/uL (150-450); RED BLOOD COUNT 4.28 10^6/uL (4.35-5.55); RED CELL DISTRIBUTION WIDTH 20.9 % (11.5-14.0); WHITE BLOOD COUNT 16.6 10^3/uL (4.0-10.5)
[2018-02-15 04:33] LABS: ALANINE AMINOTRANSFERASE 64 U/L (21-72); ALBUMIN 2.8 g/dL (3.5-5.0); ALKALINE PHOSPHATASE 91 U/L (38-126); ANION GAP 8 (5-19); ASPARTATE AMINO TRANSFERASE 85 U/L (17-59); BILIRUBIN,DIRECT 0.2 mg/dL (0.0-0.4); BILIRUBIN,TOTAL 0.4 mg/dL (0.2-1.3); BLOOD UREA NITROGEN 17 mg/dL (7-20); CALCIUM 8.3 mg/dL (8.4-10.2); CARBON DIOXIDE 26 mmol/L (22-30); CHLORIDE 106 mmol/L (98-107); GLUCOSE 186 mg/dL (75-110); SODIUM 140.3 mmol/L (137-145); TOTAL PROTEIN 5.2 g/dL (6.3-8.2); TRIGLYCERIDES 129 mg/dL (<150)
[2018-02-15] MEDS: METHYLPREDNISOLONE INJ 40 MG/1 ML SDV IV SCH ×3 (05:31→23:00)
[2018-02-15] MEDS: LANSOPRAZOLE 30 MG TAB.RAP.DR NG SCH (05:32)
[2018-02-15] MEDS: PIPERACILLIN SODIUM/TAZOBACTAM 3.375 GM in NORMAL SALINE 100 ML IV SCH ×3 (05:32→18:08)
[2018-02-15 05:47] LABS: ARTERIAL BLOOD BASE EXCESS 3.2 mmol/L; ARTERIAL BLOOD H2CO3 0.93 mmol/L (1.05-1.35); ARTERIAL BLOOD HCO3 25.3 mmol/L (20-26); ARTERIAL BLOOD O2 SATURATION 97.9 % (94-98); ARTERIAL BLOOD PCO2 30.8 mmHg (35-45); ARTERIAL BLOOD PH 7.53 (7.35-7.45); ARTERIAL BLOOD PO2 93.3 mmHg (80-100); ARTERIAL BLOOD TOTAL CO2 26.3 mmol/L (23-27)
[2018-02-15 05:53] LABS: ARTERIAL BLOOD FIO2 30%
[2018-02-15 06:10] LABS: APPEARANCE,URINE CLOUDY; BILIRUBIN,URINE NEGATIVE (NEGATIVE); COLOR,URINE YELLOW; GLUCOSE, URINE NEGATIVE (NEGATIVE); KETONES,URINE NEGATIVE (NEGATIVE); LEUKOCYTE ESTERASE,URINE NEGATIVE (NEGATIVE); NITRITE,URINE NEGATIVE (NEGATIVE); PROTEIN,URINE 30 mg/dL (NEGATIVE); URIC ACID CRYSTALS,URINE TOO NUMEROUS TO CNT /HPF; URINE SPECIFIC GRAVITY 1.019; UROBILINOGEN,URINE NEGATIVE mg/dL (<2.0)
--- NOTE | 2018-02-15 06:56 | RADIOLOGY REPORT (SQ) ---
EXAM DESCRIPTION: CHEST SINGLE VIEW CLINICAL HISTORY: on mechanical ventilator COMPARISON: 02/13/2018 FINDINGS: Single frontal view of the chest. Endotracheal tube with tip 5 cm above the alem. NG tube with tip below the diaphragm. Tortuosity of the thoracic aorta. Heart is not enlarged. Low lung volumes. Leads overlie the chest. Linear left basilar opacity is stable. No pneumothorax. Upper abdominal soft tissues are unremarkable. IMPRESSION: 1. Stable appearance of the chest. Electronically signed by: Drake Ramos 02/15/2018 5:54 AM CDT
[2018-02-15] MEDS: FENTANYL CITRATE INJ/PF 100 MCG/2 ML AMPUL IV PRN ×3 (07:48→18:07)
[2018-02-15] MEDS: LEVALBUTEROL HCL NEB 1.25 MG/3 ML AMPUL NEB SCH ×2 (08:08→16:10)
[2018-02-15] MEDS: IPRATROPIUM BROMIDE 0.02% NEB 0.5 MG/2.5 ML AMPUL NEB SCH ×2 (08:08→16:11)
--- NOTE | 2018-02-15 09:42 | RADIOLOGY REPORT (SQ) ---
EXAM DESCRIPTION: CHEST SINGLE VIEW COMPLETED DATE/TIME: 02/15/2018 9:33 am REASON FOR STUDY: ventilated; possible E tube leak/displacement COMPARISON: 02/15/2018 EXAM PARAMETERS: NUMBER OF VIEWS: One view. TECHNIQUE: Single frontal radiographic view of the chest acquired. RADIATION DOSE: NA LIMITATIONS: None. FINDINGS: LUNGS AND PLEURA: Stable pulmonary exam demonstrating left lung base scarring versus atele ctasis. No focal opacities, masses or pneumothorax. No pleural effusion. MEDIASTINUM AND HILAR STRUCTURES: No masses. Contour normal. HEART AND VASCULAR STRUCTURES: Heart normal in size. Normal vasculature. BONES: No acute findings. HARDWARE: Endotracheal tube terminates at the level of the clavicular heads, approximately 6.3 cm craps dealer nial to the alem. Enteric tube tip and proximal port project subdiaphragmatically. OTHER: No other significant finding. IMPRESSION: 1. Stable pulmonary exam. 2. Enteric tube terminates approximately 6.3 cm cranial to the alem. Endotracheal tube terminates subdiaphragmatically. TECHNICAL DOCUMENTATION: JOB ID: [id number] [employer]- All Rights Reserved Reading location - IP/workstation name: [email or web address]
--- NOTE | 2018-02-15 11:17 | PDOC PROGRESS REPORT ---
Subjective Progress Note for:: 02/15/18 Subjective:: Unable to obtain since sedated. Review of symptoms Unable to obtain since sedated All significant laboratories and diagnostics have been reviewed Reason For Visit: ACUTE ON CHRONIC RESPIRATORY FAILURE CARDIAC Physical Exam Vital Signs: Temp Pulse Resp BP Pulse Ox 97.5 F 92 16 104/78 99 02/15/18 06:00 02/15/18 00:00 02/15/18 06:00 02/15/18 05:48 02/15/18 06:00 Intake & Output 02/13/18 02/14/18 02/15/18 06:59 06:59 06:59 Intake Total 2356 2343 2642 Output Total 1800 4035 2715 Balance 556 648 -73 Weight 82.4 kg 83.7 kg 82.7 kg General appearance: PRESENT: other - sedated Head exam: PRESENT: atraumatic, normocephalic Eye exam: PRESENT: conjunctiva pink, EOMI, PERRLA - sluggish Mouth exam: PRESENT: moist Neck exam: ABSENT: full ROM, JVD, lymphadenopathy, tenderness Respiratory exam: PRESENT: clear to auscultation andie Cardiovascular exam: PRESENT: RRR. ABSENT: diastolic murmur, systolic murmur Vascular exam: PRESENT: normal capillary refill GI/Abdominal exam: PRESENT: normal bowel sounds, soft. ABSENT: tenderness Extremities exam: ABSENT: full ROM, pedal edema Musculoskeletal exam: ABSENT: ambulatory Neurological exam: PRESENT: other - sedated Skin exam: PRESENT: intact, normal color Results Laboratory Results: 02/15/18 03:45 02/15/18 03:45 02/14/18 02/15/18 02/15/18 20:50 03:45 03:45 WBC 16.8 H 16.6 H RBC 4.50 4.28 L Hgb 11.2 L 10.5 L Hct 34.4 L 32.7 L MCV 77 L 76 L MCH 25.0 L 24.6 L MCHC 32.7 32.2 RDW 21.3 H 20.9 H Plt Count 248 237 Seg Neutrophils % Not Reportable Lymphocytes % Not Reportable Monocytes % Not Reportable Eosinophils % Not Reportable Basophils % Not Reportable Absolute Neutrophils Not Reportable Absolute Lymphocytes Not Reportable Absolute Monocytes Not Reportable Absolute Eosinophils Not Reportable Absolute Basophils Not Reportable Carbonic Acid HCO3/H2CO3 Ratio ABG pH ABG pCO2 ABG pO2 ABG HCO3 ABG O2 Saturation ABG Base Excess FiO2 Sodium 140.3 Potassium 4.0 Chloride 106 Carbon Dioxide 26 Anion Gap 8 BUN 17 Creatinine 0.82 Est GFR ( Amer) > 60 Est GFR (Non-Af Amer) > 60 Glucose 186 H Calcium 8.3 L Magnesium 2.4 H Total Bilirubin 0.4 AST 85 H ALT 64 Alkaline Phosphatase 91 Total Protein 5.2 L Albumin 2.8 L Triglycerides 129 Urine Color Urine Appearance Urine pH Ur Specific [place] Urine Protein Urine Glucose (UA) Urine Ketones Urine Blood Urine Nitrite Ur Leukocyte Esterase Urine WBC (Auto) Urine RBC (Auto) 02/15/18 02/15/18 05:20 05:20 WBC RBC Hgb Hct MCV MCH MCHC RDW Plt Count Seg Neutrophils % Lymphocytes % Monocytes % Eosinophils % Basophils % Absolute Neutrophils Absolute Lymphocytes Absolute Monocytes Absolute Eosinophils Absolute Basophils Carbonic Acid 0.93 L HCO3/H2CO3 Ratio 27:1 ABG pH 7.53 H ABG pCO2 30.8 L ABG pO2 93.3 ABG HCO3 25.3 ABG O2 Saturation 97.9 ABG Base Excess 3.2 FiO2 30% Sodium Potassium Chloride Carbon Dioxide Anion Gap BUN Creatinine Est GFR ( Amer) Est GFR (Non-Af Amer) Glucose Calcium Magnesium Total Bilirubin AST ALT Alkaline Phosphatase Total Protein Albumin Triglycerides Urine Color YELLOW Urine Appearance CLOUDY Urine pH 5.0 Ur Specific [place] 1.019 Urine Protein 30 H Urine Glucose (UA) NEGATIVE Urine Ketones NEGATIVE Urine Blood SMALL H Urine Nitrite NEGATIVE Ur Leukocyte Esterase NEGATIVE Urine WBC (Auto) 2 Urine RBC (Auto) 15 02/02/18 02/03/18 02/03/18 21:23 03:53 09:46 Troponin I 0.119 0.190 0.166 NT-Pro-B Natriuret Pep 02/04/18 02/07/18 03:55 17:00 Troponin I NT-Pro-B Natriuret Pep 144 343 Impressions: Chest/Abdomen CTA 02/02/18 00:00 IMPRESSION: NORMAL CTA OF THE CHEST. NO PULMONARY EMBOLI. Multiple transverse fractures of the anterolateral ribs bilaterally, consistent with recent resuscitation efforts. Abdomen/Pelvis CT 02/05/18 00:00 IMPRESSION: 1. FOCAL DILATION OF THE PROXIMAL SIGMOID COLON. THE LUMEN MORE DISTALLY IS NARROWED. THIS COULD REPRESENT A PARTIAL OBSTRUCTION SECONDARY TO ADHESIONS. APPEARANCE DOES NOT APPEAR TO BE DUE TO VOLVULUS. NO SIGNIFICANT DILATION OF THE COLON PROXIMAL TO THE SIGMOID. THERE ARE A FEW SCATTERED DIVERTICULI WITH NO CT FINDINGS OF DIVERTICULITIS. 2. NO OTHER SIGNIFICANT FINDINGS. THERE IS PATCHY ATELECTASIS OR INFILTRATE IN THE LUNG BASES. Head CT 02/05/18 00:00 IMPRESSION: NORMAL BRAIN CT WITHOUT CONTRAST. EVIDENCE OF ACUTE STROKE: NO. KUB X-Ray 02/13/18 00:00 IMPRESSION: Nasogastric tube tip and side port in the stomach. Grossly nonobstructive bowel gas pattern Assessment & Plan - Diagnosis (1) Acute and chronic respiratory failure Qualifiers: Respiratory failure complication: hypoxia and hypercapnia Qualified Code(s) : J96.21 - Acute and chronic respiratory failure with hypoxia; J96.22 - Acute and chronic respiratory failure with hypercapnia; J96.22 - Acute and chronic respiratory failure with hypercapnia; J96.22 - Acute and chronic respiratory failure with hypercapnia Is this a current diagnosis for this admission?: Yes Plan: Managed by Dr. Beard (2) COPD with respiratory failure, acute Is this a current diagnosis for this admission?: Yes Plan: Dr. Beard assisting in management (3) Anticoagulated Is this a current diagnosis for this admission?: Yes Plan: On Lovenox 1 mg/kg every [address] Beard (4) Hypertension Qualifiers: Hypertension type: essential hypertension Qualified Code(s): I10 - Essential (primary) hypertension Is this a current diagnosis for this admission?: Yes Plan: Continue current management (5) Obstructive sleep apnea Is this a current diagnosis for this admission?: Yes Plan: May be contributing to presentation since had not been using CPAP (6) History of pulmonary embolism Is this a current diagnosis for this admission?: Yes Plan: Currently on Lovenox subcu (7) History of DVT (deep vein thrombosis) Is this a current diagnosis for this admission?: Yes Plan: Patient is on anticoagulation (8) Ribs, multiple fractures Qualifiers: Encounter type: subsequent encounter Laterality: bilateral Is this a current diagnosis for this admission?: Yes Plan: Bilateral. Due to resuscitation. (9) Anoxic encephalopathy Is this a current diagnosis for this admission?: Yes Plan: Consult palliative care to assist (10) Diarrhea Qualifiers: Diarrhea type: unspecified type Qualified Code(s): R19.7 - Diarrhea, unspecified Is this a current diagnosis for this admission?: Yes Plan: C diff negative. KUB noted. Resolved - Time Time Spent with patient: Less than 15 minutes Medications reviewed and adjusted accordingly: Yes Anticipated discharge: Other - uncertain - Inpatient Certification Based on my medical assessment, after consideration of the patient's comorbidities, presenting symptoms, or acuity I expect that the services needed warrant INPATIENT care.: Yes I certify that my determination is in accordance with my understanding of Medicare's requirements for reasonable and necessary INPATIENT services [42 CFR 412.3e].: Yes Medical Necessity: Need Close Monitoring Due to Risk of Patient Decompensation
[2018-02-15] MEDS: ENOXAPARIN SODIUM INJ 80 MG/0.8 ML DISP.SYRIN SUBCUT SCH ×2 (11:50→23:01)
[2018-02-15] MEDS: PSYLLIUM SEED-SF 5.85 GM PACKET PO SCH (11:52)
[2018-02-15] MEDS: FUROSEMIDE INJ/PF 20 MG/2 ML SDV IV SCH (11:55)
[2018-02-15] MEDS: LACTOBACILLUS ACIDOPHILUS 250 MG TAB PO SCH ×2 (11:56→18:09)
--- NOTE | 2018-02-15 12:47 | PROGRESS NOTE E ---
Progress Note NAME: SHONDA HUERTA : 1960 AGE: 57Y DATE: 02/14/2018 ROOM: 605 SUBJECTIVE: The patient is a 57-year-old -[place] male who came in with acute respiratory failure requiring invasive mechanical ventilation, status post cardiac arrest and prolonged cardiopulmonary resuscitation. The patient has been spiking a temperature of 100 degrees Fahrenheit over the last 24 hours. The leukocytosis has gown down from 18,000 to 16,000 today. There is still some increase in the tracheal tube secretions, mostly clear. There were some loose bowel movements earlier today. Stool exam was negative for C. diff. No vomiting. No diarrhea. Tonight the patient was a little tachypneic with respiratory rate of 33 breaths per minute on pressure support ventilation using a pressure support of 12 and PEEP of 5 and FIO2 of 35%. No vomiting. Tolerated OG tube feeding. The family has not decided whether to go ahead with the trach. Discussed with the nurse earlier today. We are planning a meeting for a possible discussion trach and a G-tube placement. OBJECTIVE: GENERAL: On physical exam, the patient appears unresponsive and slightly febrile and slightly tachypneic on the pressure support ventilation, which improved after the patient was placed back on the SIMV rate of 16, tidal volume 540 ml, pressure support of 12, PEEP of 5, and FIO2 of 35%. EYES: No jaundice or pallor. EARS, NOSE, MOUTH, AND THROAT: No ear drainage noted. No nasal discharge. CHEST AND LUNGS: Rhonchi noted in the left lung field. No coarse crackles. Slight wheeze in the left lung. CARDIOVASCULAR: S1 and S2 distant. Normal rate, regular rhythm. ABDOMEN: Flabby. Positive bowel sounds. Soft, nondistended, nontender. EXTREMITIES: No joint swelling or cellulitis. LABORATORY: CBC done today shows a white count of 16.5, hemoglobin is 10.7, hematocrit is 33.4, and platelet count is 257. Chemistries done today show a sodium of 138, potassium 3.6, chloride 107, CO2 is 47, BUN 14, creatinine 0.67, glucose 104, and calcium is 8.1, albumin is 3, total protein is 5.8. Chest x-ray done yesterday showed some infiltrate in the left lower lobe which is relatively new, most likely a pneumonic process. We reviewed the CAT scan done on February 05, showing a small amount of pleural effusion involving the left lower lobe, which was not present on the CAT scan on the prior chest CT scan. ASSESSMENT: 1. Acute respiratory failure requiring invasive mechanical ventilation, status post cardiac arrest and prolonged cardiopulmonary resuscitation. Not able to be extubated yet. Failed spontaneous breathing trial this morning 2. Severe sepsis, most likely related to a pneumonic process, left lower lobe. 3. Pneumonia, left lower lobe. Possible small amount of pleural effusion. PLAN: Will repeat the CBC and differential today and tomorrow morning. Will do the chem-12 tomorrow. Will do a chest x-ray and imaging tomorrow morning. Will plan to continue IV antibiotics for now using Zosyn 3.375 grams IV piggyback q. 6 hours. Will consider adding additional antibiotics if white count tonight shows worsening leukocytosis. DICTATING PHYSICIAN: JERILYN LEONARDO MD,GERSON,MPH [id number] PHY#: [id number] 2021 ID: [id number] JOB#: [id number] ACCT: [id number] cc: > MTDD
--- NOTE | 2018-02-15 14:55 | RADIOLOGY REPORT (SQ) ---
EXAM DESCRIPTION: U/S CHEST COMPLETED DATE/TIME: 02/15/2018 2:39 pm REASON FOR STUDY: pneumonia left lung; possible effusion COMPARISON: Chest x-ray dated 02/15/2018 TECHNIQUE: Sonographic sections through the chest were obtained in varying positions. LIMITATIONS: Study is limited due to the patient's condition. Study was performed as a portable hugo dy in the ICU. FINDINGS: No definite left pleural effusion is identified IMPRESSION: Somewhat limited study as noted above. No definite left pleural effusion is identified. TECHNICAL DOCUMENTATION: JOB ID: [id number] [employer]- All Rights Reserved Reading location - IP/workstation name: [email or web address]
[2018-02-15] MEDS: AMLODIPINE BESYLATE 10 MG TABLET NG SCH (16:18)
[2018-02-15] MEDS: ASPIRIN 81 MG TABLET, CHEWABLE NG SCH (18:09)
--- NOTE | 2018-02-15 22:26 | RADIOLOGY REPORT (SQ) ---
EXAM DESCRIPTION: CHEST SINGLE VIEW COMPLETED DATE/TIME: 02/15/2018 8:59 pm REASON FOR STUDY: VENTILATED. For E. tube adjustment COMPARISON: 02/15/2018 at 0900 EXAM PARAMETERS: NUMBER OF VIEWS: One view. TECHNIQUE: Single frontal radiographic view of the chest acquired. RADIATION DOSE: NA LIMITATIONS: None. FINDINGS: Endotracheal tube tip is overlying the mid trachea approximately 6 cm above the level of t he alem. Nasogastric catheters present with tip overlying the antral region of the stomach. Incre ased left basilar airspace disease -effusion. Similar apical thickening. No pneumothorax. OTHER: No other significant finding. IMPRESSION: Endotracheal tube tip is overlying the mid trachea approximately 6 cm above the level of the alem. Nasogastric catheters present with tip overlying the antral region of the stomach. Inc reased left basilar airspace disease -effusion. TECHNICAL DOCUMENTATION: JOB ID: [id number] 2010 [employer]- All Rights Reserved Reading location - IP/workstation name: [email or web address]
[2018-02-15] MEDS: ATORVASTATIN CALCIUM 40 MG TABLET NG SCH (23:00)
[2018-02-16] MEDS: PIPERACILLIN SODIUM/TAZOBACTAM 3.375 GM in NORMAL SALINE 100 ML IV SCH ×5 (00:10→23:26)
[2018-02-16] MEDS: LEVALBUTEROL HCL NEB 1.25 MG/3 ML AMPUL NEB SCH ×3 (00:42→16:08)
[2018-02-16] MEDS: IPRATROPIUM BROMIDE 0.02% NEB 0.5 MG/2.5 ML AMPUL NEB SCH ×3 (00:42→16:08)
[2018-02-16] MEDS: PROPOFOL 100 ML IV PRN ×5 (01:50→23:25)
[2018-02-16 04:26] LABS: ALANINE AMINOTRANSFERASE 79 U/L (21-72); ALBUMIN 2.8 g/dL (3.5-5.0); ALKALINE PHOSPHATASE 91 U/L (38-126); ANION GAP 6 (5-19); ASPARTATE AMINO TRANSFERASE 119 U/L (17-59); BILIRUBIN,DIRECT 0.2 mg/dL (0.0-0.4); BILIRUBIN,TOTAL 0.4 mg/dL (0.2-1.3); BLOOD UREA NITROGEN 20 mg/dL (7-20); CALCIUM 8.5 mg/dL (8.4-10.2); CARBON DIOXIDE 29 mmol/L (22-30); CHLORIDE 107 mmol/L (98-107); GLUCOSE 100 mg/dL (75-110); HEMATOCRIT 31.6 % (37.9-51.0); HEMOGLOBIN 10.1 g/dL (13.5-17.0); MEAN CORPUSCULAR HEMOGLOBIN 24.7 pg (27.0-33.4); MEAN CORPUSCULAR VOLUME 77 fl (80-97); PLATELET COUNT 243 10^3/uL (150-450); RED BLOOD COUNT 4.11 10^6/uL (4.35-5.55); RED CELL DISTRIBUTION WIDTH 20.9 % (11.5-14.0); SODIUM 141.9 mmol/L (137-145); TOTAL PROTEIN 5.2 g/dL (6.3-8.2); WHITE BLOOD COUNT 17.3 10^3/uL (4.0-10.5)
[2018-02-16 05:01] LABS: BASOPHILS % (MANUAL) 0 % (0-2); EOSINOPHILS % (MANUAL) 0 % (0-6)
[2018-02-16 05:03] LABS: ABSOLUTE LYMPHOCYTES# (MANUAL) 0.7 10^3/uL (0.5-4.7); ABSOLUTE MONOCYTES # (MANUAL) 1.6 10^3/uL (0.1-1.4); ABSOLUTE NEUTROPHILS# (MANUAL) 15.1 10^3/uL (1.7-8.2); LYMPHOCYTES % (MANUAL) 4 % (13-45); MONOCYTES % (MANUAL) 9 % (3-13); NUCLEATED RED BLOOD CELLS 1 /100 WBC (0); SEGMENTED NEUTROPHILS % (MAN) 87 % (42-78); TOTAL CELLS COUNTED 100
[2018-02-16 05:04] LABS: ANISOCYTOSIS 2+; HYPOCHROMASIA SLIGHT; POLYCHROMASIA SLIGHT
[2018-02-16 05:05] LABS: OVALOCYTES SLIGHT; TEAR DROP CELLS SLIGHT
[2018-02-16 05:06] LABS: PLATELET COMMENT ADEQUATE; SCHISTOCYTES SLIGHT
[2018-02-16] MEDS ORDERED: POTASSIUM CHLORIDE 20 MEQ/15 ML UDCUP NG ONE ×2 (05:15→11:00)
[2018-02-16] MEDS: METHYLPREDNISOLONE INJ 40 MG/1 ML SDV IV SCH ×2 (05:28→21:19)
[2018-02-16] MEDS: LANSOPRAZOLE 30 MG TAB.RAP.DR NG SCH (05:28)
[2018-02-16] MEDS: LACTOBACILLUS ACIDOPHILUS 250 MG TAB PO SCH ×2 (09:40→17:00)
[2018-02-16] MEDS: FUROSEMIDE INJ/PF 20 MG/2 ML SDV IV SCH (09:40)
[2018-02-16] MEDS: PSYLLIUM SEED-SF 5.85 GM PACKET PO SCH (09:41)
[2018-02-16] MEDS: ENOXAPARIN SODIUM INJ 80 MG/0.8 ML DISP.SYRIN SUBCUT SCH ×2 (09:41→21:20)
[2018-02-16] MEDS ORDERED: POTASSIUM CHLORIDE 10 MEQ TABLET.SA PO SCH (10:00)
[2018-02-16 10:29] LABS: ANION GAP 9 (5-19); BLOOD UREA NITROGEN 21 mg/dL (7-20); CALCIUM 8.5 mg/dL (8.4-10.2); CARBON DIOXIDE 23 mmol/L (22-30); CHLORIDE 110 mmol/L (98-107); GLUCOSE 164 mg/dL (75-110); SODIUM 141.5 mmol/L (137-145)
[2018-02-16 10:34] LABS: POTASSIUM 4.5 mmol/L (3.6-5.0)
[2018-02-16] MEDS: 1/2 NORMAL SALINE 1,000 ML IV PRN (10:48)
[2018-02-16] MEDS ORDERED: POTASSIUM CHLORIDE 20 MEQ/15 ML UDCUP PO ONE ×2 (13:00)
[2018-02-16] MEDS ORDERED: VANCOMYCIN HCL INJ 1000 MG VIAL IV SCH (13:15)
[2018-02-16] MEDS: AMLODIPINE BESYLATE 10 MG TABLET NG SCH (13:17)
--- NOTE | 2018-02-16 13:30 | PDOC PROGRESS REPORT ---
Subjective Progress Note for:: 02/16/18 Subjective:: Unable to obtain since sedated. Had in conversation with patient's oldest daughter late on February 15 and patient's sister was also present. There was a third person which is a friend of patient's daughter. Patient's medical condition was explained and made her aware of basically 2 possibilities which are to proceed with tracheostomy and PEG tube in anticipation for patient to be then transferred to LTAC and posteriorly to a long-term versus placing patient in hospice. It appears that patient and daughter have strained relationship. She asked for 1 more day to make the decision. However, nurse is telling me that it appears that likely they will go for the aggressive route. Review of symptoms Unable to obtain since sedated All significant laboratories and diagnostics have been reviewed Reason For Visit: ACUTE ON CHRONIC RESPIRATORY FAILURE CARDIAC Physical Exam Vital Signs: Temp Pulse Resp BP Pulse Ox 99.3 F 70 16 119/86 H 97 02/16/18 06:00 02/16/18 00:40 02/16/18 06:00 02/16/18 05:48 02/16/18 06:00 Intake & Output 02/15/18 02/16/18 02/17/18 06:59 06:59 06:59 Intake Total 2642 1419 Output Total 2715 1999 Balance -73 -581 Weight 82.7 kg 84 kg General appearance: PRESENT: obese Head exam: PRESENT: atraumatic, normocephalic Eye exam: PRESENT: conjunctiva pink, EOMI, PERRLA Neck exam: ABSENT: full ROM, JVD, lymphadenopathy, tenderness Respiratory exam: PRESENT: crackles Cardiovascular exam: PRESENT: RRR. ABSENT: diastolic murmur, systolic murmur Vascular exam: PRESENT: normal capillary refill GI/Abdominal exam: PRESENT: distended, normal bowel sounds, soft. ABSENT: tenderness Extremities exam: ABSENT: full ROM, pedal edema Musculoskeletal exam: ABSENT: ambulatory Skin exam: PRESENT: normal color Results Laboratory Results: 02/16/18 04:01 02/16/18 04:01 02/16/18 02/16/18 04:01 04:01 WBC 17.3 H RBC 4.11 L Hgb 10.1 L Hct 31.6 L MCV 77 L MCH 24.7 L MCHC 32.0 RDW 20.9 H Plt Count 243 Seg Neutrophils % Not Reportable Lymphocytes % Not Reportable Monocytes % Not Reportable Eosinophils % Not Reportable Basophils % Not Reportable Absolute Neutrophils Not Reportable Absolute Lymphocytes Not Reportable Absolute Monocytes Not Reportable Absolute Eosinophils Not Reportable Absolute Basophils Not Reportable Sodium 141.9 Potassium 3.0 L* Chloride 107 Carbon Dioxide 29 Anion Gap 6 BUN 20 Creatinine 0.90 Est GFR ( Amer) > 60 Est GFR (Non-Af Amer) > 60 Glucose 100 Calcium 8.5 Magnesium 2.4 H Total Bilirubin 0.4 AST 119 H ALT 79 H Alkaline Phosphatase 91 Total Protein 5.2 L Albumin 2.8 L 02/13/18 09:40 Sputum Gram Stain - Final 02/13/18 09:40 Sputum Sputum Culture - Final NORMAL BRE 02/13/18 09:40 Catheterized Urine Urine Culture - Final NO GROWTH 2 DAYS 02/02/18 02/03/18 02/03/18 21:23 03:53 09:46 Troponin I 0.119 0.190 0.166 NT-Pro-B Natriuret Pep 02/04/18 02/07/18 03:55 17:00 Troponin I NT-Pro-B Natriuret Pep 144 343 Impressions: Chest/Abdomen CTA 02/02/18 00:00 IMPRESSION: NORMAL CTA OF THE CHEST. NO PULMONARY EMBOLI. Multiple transverse fractures of the anterolateral ribs bilaterally, consistent with recent resuscitation efforts. Abdomen/Pelvis CT 02/05/18 00:00 IMPRESSION: 1. FOCAL DILATION OF THE PROXIMAL SIGMOID COLON. THE LUMEN MORE DISTALLY IS NARROWED. THIS COULD REPRESENT A PARTIAL OBSTRUCTION SECONDARY TO ADHESIONS. APPEARANCE DOES NOT APPEAR TO BE DUE TO VOLVULUS. NO SIGNIFICANT DILATION OF THE COLON PROXIMAL TO THE SIGMOID. THERE ARE A FEW SCATTERED DIVERTICULI WITH NO CT FINDINGS OF DIVERTICULITIS. 2. NO OTHER SIGNIFICANT FINDINGS. THERE IS PATCHY ATELECTASIS OR INFILTRATE IN THE LUNG BASES. Head CT 02/05/18 00:00 IMPRESSION: NORMAL BRAIN CT WITHOUT CONTRAST. EVIDENCE OF ACUTE STROKE: NO. KUB X-Ray 02/13/18 00:00 IMPRESSION: Nasogastric tube tip and side port in the stomach. Grossly nonobstructive bowel gas pattern Chest X-Ray 02/15/18 05:00 IMPRESSION: 1. Stable appearance of the chest. Chest Ultrasound 02/15/18 06:00 IMPRESSION: Somewhat limited study as noted above. No definite left pleural effusion is identified. Assessment & Plan - Diagnosis (1) Acute and chronic respiratory failure Qualifiers: Respiratory failure complication: hypoxia and hypercapnia Qualified Code(s) : J96.21 - Acute and chronic respiratory failure with hypoxia; J96.22 - Acute and chronic respiratory failure with hypercapnia; J96.22 - Acute and chronic respiratory failure with hypercapnia; J96.22 - Acute and chronic respiratory failure with hypercapnia Is this a current diagnosis for this admission?: Yes Plan: Managed by Dr. Beard. Awaiting for family decisions this patient may need a tracheostomy (2) COPD with respiratory failure, acute Is this a current diagnosis for this admission?: Yes Plan: Dr. Beard assisting in management (3) Anticoagulated Is this a current diagnosis for this admission?: Yes Plan: On Lovenox 1 mg/kg every [address] Beard (4) Hypertension Qualifiers: Hypertension type: essential hypertension Qualified Code(s): I10 - Essential (primary) hypertension Is this a current diagnosis for this admission?: Yes Plan: Continue current management (5) Obstructive sleep apnea Is this a current diagnosis for this admission?: Yes Plan: May be contributing to presentation since had not been using CPAP (6) History of pulmonary embolism Is this a current diagnosis for this admission?: Yes Plan: Currently on Lovenox subcu (7) History of DVT (deep vein thrombosis) Is this a current diagnosis for this admission?: Yes Plan: Patient is on anticoagulation (8) Ribs, multiple fractures Qualifiers: Encounter type: subsequent encounter Laterality: bilateral Is this a current diagnosis for this admission?: Yes Plan: Bilateral. Due to resuscitation. (9) Anoxic encephalopathy Is this a current diagnosis for this admission?: Yes Plan: Had discussion with family on February 15 and hopefully will come with an answer as to how to proceed from then on (10) Diarrhea Qualifiers: Diarrhea type: unspecified type Qualified Code(s): R19.7 - Diarrhea, unspecified Is this a current diagnosis for this admission?: Yes Plan: C diff negative. KUB noted. Resolved (11) Hypokalemia Is this a current diagnosis for this admission?: Yes Plan: Resolved after supplementation - Time Time Spent with patient: Less than 15 minutes Medications reviewed and adjusted accordingly: Yes Anticipated discharge: SNF Within: Other - Unable to tell at this time - Inpatient Certification Based on my medical assessment, after consideration of the patient's comorbidities, presenting symptoms, or acuity I expect that the services needed warrant INPATIENT care.: Yes I certify that my determination is in accordance with my understanding of Medicare's requirements for reasonable and necessary INPATIENT services [42 CFR 412.3e].: Yes Medical Necessity: Need Close Monitoring Due to Risk of Patient Decompensation, Need For Continuous Telemetry Monitoring, Need for Nebulizer Therapy and Monitoring of Response, Need for IV Antibiotics
--- NOTE | 2018-02-16 13:59 | PROGRESS NOTE E ---
Progress Note NAME: SHONDA HUERTA : 1960 AGE: 57Y DATE: 02/16/2018 ROOM: 605 SUBJECTIVE: The patient is a 57-year-old -Malaysian male who came in with acute respiratory failure requiring invasive escalator mechanic ventilation, status post cardiac arrest and status post prolonged cardiopulmonary resuscitation. The patient has no fever over the last 24 hours. Blood pressure has been stable. Has still profuse amount of endotracheal tube secretions. Currently on scopolamine patch. Most of the time clear, but sometimes yellow-green. There is vomiting noted, no diarrhea. The patient tolerated the NG tube feeding about 13 mL per hour. Family has not decided whether to place the patient for comfort care or to proceed with tracheostomy and G-tube placement and possible LTAC placement. White blood cell count went up to 17.3 this morning from 16.6. Sputum culture done on 02/15 , was still preliminary and is still pending. However, the blood culture and sputum culture done on 02/13, was normal ana, no growth. The patient received vancomycin 2 days ago and yesterday. No vancomycin IV orders noted today. OBJECTIVE: GENERAL: The patient appeared sedated, afebrile, and not in apparent respiratory distress with oxygen saturation above 96% to 97% on FiO2 of 40%, SIMV rate of 16, tidal volume of 540, pressure support of 12, PEEP of 5, peak airway pressure is 21-23, plateau pressure is 17-18, minute ventilation is 7-8, and tidal volume is about 500-523 mL. EYES: No jaundice or pallor. EARS, NOSE, AND THROAT: No ear drainage. No nasal discharge. Oral tracheal tube is in place and oral gastric tube is in place. CHEST AND LUNGS: No wheezing, no rhonchi, no coarse crackles. CARDIOVASCULAR: S1 and S2 distinct and regular rhythm, normal rate. Heart rate of 87. ABDOMEN: Positive bowel sounds, but soft and nondistended. EXTREMITIES: No joint swelling, no cellulitis. LABORATORY DATA: CBC done today showed a white count of 17,300 from 16,600 yesterday; hemoglobin is 10.1; hematocrit is 31.6; and platelet count is 243. Chemistry done today showed sodium 141, potassium is 4.5, chloride 110, CO2 is 23, BUN is 21, creatinine is 0.91, glucose 154, calcium was 8.5. IMAGING STUDIES: Chest x-ray done yesterday showed endotracheal tube is in place and no pneumothorax. OG tube is in the stomach. ASSESSMENT: 1. ACUTE RESPIRATORY FAILURE REQUIRING INVASIVE MECHANICAL VENTILATION. The patient currently not ready to be extubated. The patient may need a tracheostomy tube placed next week, and preparing patient for LTAC if he remains stable. 2. PERSISTENT VEGETATIVE STATE, MOST LIKELY DUE TO ANOXIC ENCEPHALOPATHY DUE TO CARDIAC ARREST AND PROLONGED CARDIOPULMONARY RESUSCITATION. 3. SEPSIS, POSSIBLE PNEUMONIA LEFT LOWER LOBE. Currently on IV Zosyn and IV vancomycin. Sputum cultures are all negative yet and blood cultures have been negative, and urinalysis and urine cultures unremarkable. 4. COPD, CURRENTLY NOT IN ACUTE BRONCHOSPASM. PLAN/RECOMMENDATION: 1. We will decrease the Solu-Medrol to 40 mg IV q.8 hours. 2. We will continue the Zosyn and we will resume the vancomycin at today's dose. 3. We will continue the nebulizer treatment every 8 hours. 4. Recommend family discussion for tracheostomy tube placement and G-tube placement for next week. 5. We will consider panculture again if patient's fever spikes and leukocytosis will continue to get worse. DICTATING PHYSICIAN: JERILYN LEONARDO MD,GERSON,MPH [id number] PHY#: [id number] ID: [id number] JOB#: [id number] ACCT: [id number] cc: > [facility]
[2018-02-16] MEDS ORDERED: METHYLPREDNISOLONE INJ 40 MG/1 ML SDV IV ONE (15:30)
--- NOTE | 2018-02-16 15:30 | RADIOLOGY REPORT (SQ) ---
EXAM DESCRIPTION: CHEST SINGLE VIEW COMPLETED DATE/TIME: 02/16/2018 2:49 pm REASON FOR STUDY: ventilated COMPARISON: 02/15/2018 NUMBER OF VIEWS: One view. TECHNIQUE: Single frontal radiographic image of the chest acquired. LIMITATIONS: None. FINDINGS: ENDOTRACHEAL TUBE: Stable location with tip overlying the mid trachea. OTHER SUPPORT DEVICES: NG tube tip overlies the body of the stomach. CHANGES IN RADIOGRAPHIC FINDINGS: Persistent opacity at the left lung base though there has been impr flavia aeration since the prior study. OTHER: No other significant finding. IMPRESSION: Stable tubes and lines. Persistent opacity at the left lung base though there has been improved aeration since the prior study. TECHNICAL DOCUMENTATION: JOB ID: [id number] [place]-72 2010 [employer]- All Rights Reserved Reading location - IP/workstation name: [email or web address]
[2018-02-16] MEDS: ASPIRIN 81 MG TABLET, CHEWABLE NG SCH (17:00)
[2018-02-16] MEDS: VANCOMYCIN HCL 1,250 MG in DEXTROSE 5%-WATER 250 ML IV SCH (17:01)
[2018-02-16] MEDS: ATORVASTATIN CALCIUM 40 MG TABLET NG SCH (21:19)
[2018-02-17] MEDS: LEVALBUTEROL HCL NEB 1.25 MG/3 ML AMPUL NEB SCH ×4 (00:43→23:14)
[2018-02-17] MEDS: IPRATROPIUM BROMIDE 0.02% NEB 0.5 MG/2.5 ML AMPUL NEB SCH ×4 (00:43→23:14)
[2018-02-17] MEDS: PROPOFOL 100 ML IV PRN ×3 (02:40→22:41)
[2018-02-17 04:38] LABS: HEMATOCRIT 30.5 % (37.9-51.0); HEMOGLOBIN 9.9 g/dL (13.5-17.0); MEAN CORPUSCULAR HGB CONC 32.6 g/dL (32.0-36.0); MEAN CORPUSCULAR VOLUME 77 fl (80-97); PLATELET COUNT 243 10^3/uL (150-450); RED BLOOD COUNT 3.98 10^6/uL (4.35-5.55); RED CELL DISTRIBUTION WIDTH 21.3 % (11.5-14.0); WHITE BLOOD COUNT 20.3 10^3/uL (4.0-10.5)
[2018-02-17 04:51] LABS: ANION GAP 10 (5-19); BLOOD UREA NITROGEN 22 mg/dL (7-20); CALCIUM 8.5 mg/dL (8.4-10.2); CARBON DIOXIDE 23 mmol/L (22-30); CHLORIDE 110 mmol/L (98-107); GLUCOSE 166 mg/dL (75-110); POTASSIUM 3.8 mmol/L (3.6-5.0); SODIUM 142.5 mmol/L (137-145)
[2018-02-17 05:04] LABS: ABSOLUTE LYMPHOCYTES# (MANUAL) 0.6 10^3/uL (0.5-4.7); ABSOLUTE MONOCYTES # (MANUAL) 1.2 10^3/uL (0.1-1.4); ABSOLUTE NEUTROPHILS# (MANUAL) 18.5 10^3/uL (1.7-8.2); BAND NEUTROPHILS % (MANUAL) 1 % (3-5); BASOPHILS % (MANUAL) 0 % (0-2); EOSINOPHILS % (MANUAL) 0 % (0-6); LYMPHOCYTES % (MANUAL) 3 % (13-45); MONOCYTES % (MANUAL) 6 % (3-13); NUCLEATED RED BLOOD CELLS 2 /100 WBC (0); SEGMENTED NEUTROPHILS % (MAN) 90 % (42-78); TOTAL CELLS COUNTED 100
[2018-02-17 05:07] LABS: OVALOCYTES 1+; POLYCHROMASIA SLIGHT
[2018-02-17 05:08] LABS: SCHISTOCYTES SLIGHT
[2018-02-17 05:09] LABS: PLATELET COMMENT ADEQUATE
[2018-02-17 05:11] LABS: ANISOCYTOSIS 3+; HYPOCHROMASIA SLIGHT
[2018-02-17] MEDS: METHYLPREDNISOLONE INJ 40 MG/1 ML SDV IV SCH ×2 (05:31→14:14)
[2018-02-17] MEDS: LANSOPRAZOLE 30 MG TAB.RAP.DR NG SCH (05:31)
[2018-02-17] MEDS: PIPERACILLIN SODIUM/TAZOBACTAM 3.375 GM in NORMAL SALINE 100 ML IV SCH (05:31)
[2018-02-17] MEDS: VANCOMYCIN HCL 1,250 MG in DEXTROSE 5%-WATER 250 ML IV SCH ×2 (05:32→17:38)
[2018-02-17] MEDS ORDERED: MEROPENEM 500 MG in NORMAL SALINE 50 ML IV ONE (06:45)
[2018-02-17] MEDS: FUROSEMIDE INJ/PF 20 MG/2 ML SDV IV SCH (11:04)
[2018-02-17] MEDS: LACTOBACILLUS ACIDOPHILUS 250 MG TAB PO SCH ×2 (11:05→17:36)
[2018-02-17] MEDS: PSYLLIUM SEED-SF 5.85 GM PACKET PO SCH (11:06)
[2018-02-17] MEDS: ENOXAPARIN SODIUM INJ 80 MG/0.8 ML DISP.SYRIN SUBCUT SCH ×2 (11:06→22:24)
[2018-02-17] MEDS: SCOPOLAMINE HYDROBROMIDE 1.5 MG PATCH.TD72 TD SCH (11:06)
[2018-02-17] MEDS ORDERED: MEROPENEM 500 MG in NORMAL SALINE 50 ML IV SCH (14:00)
[2018-02-17] MEDS: MEROPENEM 500 MG in NORMAL SALINE 50 ML IV SCH ×2 (14:14→22:24)
[2018-02-17] MEDS: AMLODIPINE BESYLATE 10 MG TABLET NG SCH (14:14)
[2018-02-17] MEDS ORDERED: GENTAMICIN SULFATE INJ 80 MG/2 ML VIAL IV SCH (14:30)
[2018-02-17] MEDS: ASPIRIN 81 MG TABLET, CHEWABLE NG SCH (17:36)
[2018-02-17] MEDS: GENTAMICIN SULFATE 80 MG in DEXTROSE 5%-WATER 100 ML IV SCH (17:37)
[2018-02-17] MEDS ORDERED: METHYLPREDNISOLONE INJ 40 MG/1 ML SDV IV SCH (22:00)
[2018-02-17] MEDS: ATORVASTATIN CALCIUM 40 MG TABLET NG SCH (22:24)
[2018-02-18] MEDS: GENTAMICIN SULFATE 80 MG in DEXTROSE 5%-WATER 100 ML IV SCH ×2 (01:19→09:44)
[2018-02-18] MEDS: PROPOFOL 100 ML IV PRN ×2 (01:25→05:56)
[2018-02-18] MEDS: 1/2 NORMAL SALINE 1,000 ML IV PRN (04:20)
[2018-02-18] MEDS: MEROPENEM 500 MG in NORMAL SALINE 50 ML IV SCH (05:20)
[2018-02-18] MEDS: LANSOPRAZOLE 30 MG TAB.RAP.DR NG SCH (05:21)
[2018-02-18 05:50] LABS: ARTERIAL BLOOD BASE EXCESS 3.6 mmol/L; ARTERIAL BLOOD H2CO3 0.87 mmol/L (1.05-1.35); ARTERIAL BLOOD HCO3 25.3 mmol/L (20-26); ARTERIAL BLOOD O2 SATURATION 98.7 % (94-98); ARTERIAL BLOOD PCO2 28.8 mmHg (35-45); ARTERIAL BLOOD PH 7.56 (7.35-7.45); ARTERIAL BLOOD PO2 115.8 mmHg (80-100); ARTERIAL BLOOD TOTAL CO2 26.1 mmol/L (23-27)
[2018-02-18 05:51] LABS: ARTERIAL BLOOD FIO2 35%
[2018-02-18] MEDS: VANCOMYCIN HCL 1,250 MG in DEXTROSE 5%-WATER 250 ML IV SCH (05:56)
[2018-02-18 06:05] LABS: APPEARANCE,URINE CLEAR; BILIRUBIN,URINE NEGATIVE (NEGATIVE); COLOR,URINE YELLOW; GLUCOSE, URINE NEGATIVE (NEGATIVE); KETONES,URINE NEGATIVE (NEGATIVE); LEUKOCYTE ESTERASE,URINE NEGATIVE (NEGATIVE); NITRITE,URINE NEGATIVE (NEGATIVE); PROTEIN,URINE 30 mg/dL (NEGATIVE); URINE SPECIFIC GRAVITY 1.019; UROBILINOGEN,URINE NEGATIVE mg/dL (<2.0)
[2018-02-18 06:20] LABS: HEMATOCRIT 32.7 % (37.9-51.0); HEMOGLOBIN 10.3 g/dL (13.5-17.0); MEAN CORPUSCULAR HEMOGLOBIN 24.4 pg (27.0-33.4); MEAN CORPUSCULAR HGB CONC 31.6 g/dL (32.0-36.0); MEAN CORPUSCULAR VOLUME 77 fl (80-97); PLATELET COUNT 276 10^3/uL (150-450); RED BLOOD COUNT 4.24 10^6/uL (4.35-5.55); RED CELL DISTRIBUTION WIDTH 21.5 % (11.5-14.0); WHITE BLOOD COUNT 21.7 10^3/uL (4.0-10.5)
[2018-02-18 06:49] LABS: ANION GAP 7 (5-19); BLOOD UREA NITROGEN 22 mg/dL (7-20); CALCIUM 9.2 mg/dL (8.4-10.2); CARBON DIOXIDE 28 mmol/L (22-30); CHLORIDE 108 mmol/L (98-107); GLUCOSE 139 mg/dL (75-110); PHOSPHORUS 3.7 mg/dL (2.5-4.5); POTASSIUM 3.7 mmol/L (3.6-5.0); SODIUM 143.2 mmol/L (137-145); TRIGLYCERIDES 149 mg/dL (<150)
--- NOTE | 2018-02-18 07:26 | RADIOLOGY REPORT (SQ) ---
EXAM DESCRIPTION: CHEST SINGLE VIEW COMPLETED DATE/TIME: 02/18/2018 5:38 am REASON FOR STUDY: on mechanical ventilation COMPARISON: Chest films 02/15/2018, 02/16/2018 EXAM PARAMETERS: NUMBER OF VIEWS: One view. TECHNIQUE: Single frontal radiographic view of the chest acquired. RADIATION DOSE: NA LIMITATIONS: None. FINDINGS: LUNGS AND PLEURA: Minimal left basilar atelectasis versus pneumonia. This is similar comp ared to prior studies. Right lung clear. No pleural effusions. No pneumothorax. MEDIASTINUM AND HILAR STRUCTURES: No masses. Contour normal. HEART AND VASCULAR STRUCTURES: Heart normal in size. Normal vasculature. BONES: No acute findings. HARDWARE: Endotracheal tube tip 4 cm above the alem. Nasogastric tube tip and side port in the sto mach. OTHER: No other significant finding. IMPRESSION: Endotracheal tube, nasogastric tube in good positioning. Minimal left basilar airspace disease persists TECHNICAL DOCUMENTATION: JOB ID: [id number] [employer]- All Rights Reserved Reading location - IP/workstation name: [email or web address]
[2018-02-18] MEDS: LEVALBUTEROL HCL NEB 1.25 MG/3 ML AMPUL NEB SCH ×2 (07:46→16:28)
[2018-02-18] MEDS: IPRATROPIUM BROMIDE 0.02% NEB 0.5 MG/2.5 ML AMPUL NEB SCH (07:46)
[2018-02-18] MEDS: FUROSEMIDE INJ/PF 20 MG/2 ML SDV IV SCH (09:43)
[2018-02-18] MEDS: LACTOBACILLUS ACIDOPHILUS 250 MG TAB PO SCH (09:43)
[2018-02-18] MEDS: PSYLLIUM SEED-SF 5.85 GM PACKET PO SCH (09:44)
[2018-02-18] MEDS: ENOXAPARIN SODIUM INJ 80 MG/0.8 ML DISP.SYRIN SUBCUT SCH (09:44)
[2018-02-18] MEDS ORDERED: VANCOMYCIN HCL 1,000 MG in DEXTROSE 5%-WATER 250 ML IV SCH (12:00)
--- NOTE | 2018-02-18 14:21 | PROGRESS NOTE E ---
Progress Note NAME: SHONDA HUERTA : 1960 AGE: 57Y DATE: 02/17/2018 ROOM: 605 SUBJECTIVE: The patient is a 57-year-old -Serbian male who came in with acute respiratory failure requiring invasive mechanical ventilation status post cardiac arrest and prolonged cardiopulmonary resuscitation. The patient has no fever over the last 24 hours. His leukocytosis was getting worse with his white count going up to 20,000 from 17,000 yesterday. He has copious endotracheal tube secretions, mostly clear to white. Sputum cultures sent again today. He had sputum culture done 2 days ago 02/15/2018, which shows normal ana and colonizing Nata albicans. Blood cultures on 02/13, showed no growth. Sputum culture on 02/13, was also normal ana. Urinalysis was sent today and the results are still pending. Patient tolerated the NG tube feeding. There is no vomiting noted or diarrhea. A family meeting was done last night and family feels uncertain whether to do a tracheostomy tube placement and G-tube placement. The patient's family left yesterday before end of the meeting and did not come back later part of the night. We will send a surgical consult for tracheostomy placement. I will send for the ENT consult for tracheostomy tube placement since the patient has been on ventilator for the last 2 weeks and still requiring invasive mechanical ventilation. The patient appeared to unresponsive despite being off sedation for the last 6 hours. OBJECTIVE: VITAL SIGNS: The patient is afebrile, not in apparent respiratory distress with temperature 98.4 with a T-max of 98.8, heart rate of 87, blood pressure is about 127/97, respiratory rate of 16, and saturation is 98% on 40% FiO2, SIMV rate of 16, tidal volume is running 540, pressure support of 12, and PEEP of 5, peak airway pressure is 27-28, plateau pressure is 18, and minute ventilation is 7-8. EYES: No jaundice or pallor. Pupils symmetrical. EARS, NOSE, AND THROAT: No ear drainage noted. No nasal discharge. Oral tracheal tube is in place and oral gastric tube is in place. CHEST AND LUNGS: Fine rhonchi bilaterally, no coarse crackles, no wheezing. CARDIOVASCULAR: S1 and S2 is distinct. Normal rate, regular rhythm. ABDOMEN: Flabby, positive bowel sounds, nondistended. EXTREMITIES: No joint swelling, no cellulitis. ASSESSMENT: 1. ACUTE RESPIRATORY FAILURE REQUIRING INVASIVE MECHANICAL VENTILATION. 2. PERSISTENT VEGETATIVE STATE DUE TO ANOXIC ENCEPHALOPATHY SECONDARY TO CARDIAC ARREST AND PROLONGED CARDIOPULMONARY RESUSCITATION. 3. INCREASING LEUKOCYTOSIS OF 20,000. MOST LIKELY DUE TO PNEUMONIC PROCESS OR PNEUMONIA LEFT LUNG BASE. 4. INFILTRATE/PNEUMONIA LEFT LUNG BASE MOST LIKELY. 5. COPD CURRENTLY STABLE, NOT IN ACUTE EXACERBATION. 6. HISTORY OF PULMONARY EMBOLISM PREVIOUS ON XARELTO, STARTED ON LOVENOX 1 MG/KG B.I.D. NO BLEEDING NOTED. PLAN/RECOMMENDATION: 1. ENT consult for possible tracheostomy tube placement. 2. Surgical consult for G-tube placement. 3. Agree with change to meropenem and discontinuation of the Zosyn. 4. Continue IV vancomycin. 5. Add gentamicin, adjusted to bodyweight. We will start gentamicin 80 mg IV q.8 hours. 6. We will decrease the IV Solu-Medrol dose to 20 mg q.12. DICTATING PHYSICIAN: JERILYN LEONARDO MD,GERSON,MPH [id number] [id number] PHY#: [id number] ID: [id number] JOB#: [id number] ACCT: [id number] cc: > [facility]
[2018-02-18] MEDS ORDERED: FENTANYL 50 MCG/HR PATCH.TD72 TD ONE (15:00)
[2018-02-18] MEDS: LORAZEPAM INJ 2 MG/1 ML VIAL IV PRN ×4 (15:50→22:04)
--- NOTE | 2018-02-18 17:28 | PDOC PROGRESS REPORT ---
Subjective Progress Note for:: 02/17/18 Subjective:: Patient still sedated and nonverbal. Review of symptoms Unable to obtain since sedated All significant laboratories and diagnostics have been reviewed Reason For Visit: ACUTE ON CHRONIC RESPIRATORY FAILURE CARDIAC Physical Exam Vital Signs: Temp Pulse Resp BP Pulse Ox 98.8 F 72 16 106/81 98 02/17/18 06:00 02/17/18 05:48 02/17/18 06:00 02/17/18 05:49 02/17/18 06:00 Intake & Output 02/15/18 02/16/18 02/17/18 06:59 06:59 06:59 Intake Total 2642 1419 2391 Output Total 2715 1999 2080 Balance -73 -581 311 Weight 82.7 kg 84 kg 80.1 kg General appearance: PRESENT: no acute distress, other - sedated Head exam: PRESENT: atraumatic, normocephalic Eye exam: PRESENT: conjunctiva pink, EOMI, PERRLA Ear exam: PRESENT: normal external ear exam Mouth exam: PRESENT: moist Neck exam: ABSENT: JVD, lymphadenopathy, tenderness Respiratory exam: PRESENT: clear to auscultation andie Cardiovascular exam: PRESENT: RRR. ABSENT: diastolic murmur, systolic murmur Vascular exam: PRESENT: normal capillary refill GI/Abdominal exam: PRESENT: normal bowel sounds, soft Extremities exam: ABSENT: full ROM, pedal edema Musculoskeletal exam: ABSENT: ambulatory Neurological exam: PRESENT: other - sedated Skin exam: PRESENT: normal color Results Laboratory Results: 02/17/18 03:55 02/17/18 03:55 02/16/18 02/17/18 02/17/18 10:02 03:55 03:55 WBC 20.3 H RBC 3.98 L Hgb 9.9 L Hct 30.5 L MCV 77 L MCH 25.0 L MCHC 32.6 RDW 21.3 H Plt Count 243 Seg Neutrophils % Not Reportable Lymphocytes % Not Reportable Monocytes % Not Reportable Eosinophils % Not Reportable Basophils % Not Reportable Absolute Neutrophils Not Reportable Absolute Lymphocytes Not Reportable Absolute Monocytes Not Reportable Absolute Eosinophils Not Reportable Absolute Basophils Not Reportable Sodium 141.5 142.5 Potassium 4.5 D 3.8 Chloride 110 H 110 H Carbon Dioxide 23 23 Anion Gap 9 10 BUN 21 H 22 H Creatinine 0.91 0.83 Est GFR ( Amer) > 60 > 60 Est GFR (Non-Af Amer) > 60 > 60 Glucose 164 H 166 H Calcium 8.5 8.5 Magnesium 2.6 H 02/02/18 02/03/18 02/03/18 21:23 03:53 09:46 Troponin I 0.119 0.190 0.166 NT-Pro-B Natriuret Pep 02/04/18 02/07/18 03:55 17:00 Troponin I NT-Pro-B Natriuret Pep 144 343 Impressions: Chest/Abdomen CTA 02/02/18 00:00 IMPRESSION: NORMAL CTA OF THE CHEST. NO PULMONARY EMBOLI. Multiple transverse fractures of the anterolateral ribs bilaterally, consistent with recent resuscitation efforts. Abdomen/Pelvis CT 02/05/18 00:00 IMPRESSION: 1. FOCAL DILATION OF THE PROXIMAL SIGMOID COLON. THE LUMEN MORE DISTALLY IS NARROWED. THIS COULD REPRESENT A PARTIAL OBSTRUCTION SECONDARY TO ADHESIONS. APPEARANCE DOES NOT APPEAR TO BE DUE TO VOLVULUS. NO SIGNIFICANT DILATION OF THE COLON PROXIMAL TO THE SIGMOID. THERE ARE A FEW SCATTERED DIVERTICULI WITH NO CT FINDINGS OF DIVERTICULITIS. 2. NO OTHER SIGNIFICANT FINDINGS. THERE IS PATCHY ATELECTASIS OR INFILTRATE IN THE LUNG BASES. Head CT 02/05/18 00:00 IMPRESSION: NORMAL BRAIN CT WITHOUT CONTRAST. EVIDENCE OF ACUTE STROKE: NO. KUB X-Ray 02/13/18 00:00 IMPRESSION: Nasogastric tube tip and side port in the stomach. Grossly nonobstructive bowel gas pattern Chest Ultrasound 02/15/18 06:00 IMPRESSION: Somewhat limited study as noted above. No definite left pleural effusion is identified. Chest X-Ray 02/16/18 14:00 IMPRESSION: Stable tubes and lines. Persistent opacity at the left lung base though there has been improved aeration since the prior study. Assessment & Plan - Diagnosis (1) Acute and chronic respiratory failure Qualifiers: Respiratory failure complication: hypoxia and hypercapnia Qualified Code(s) : J96.21 - Acute and chronic respiratory failure with hypoxia; J96.22 - Acute and chronic respiratory failure with hypercapnia; J96.22 - Acute and chronic respiratory failure with hypercapnia; J96.22 - Acute and chronic respiratory failure with hypercapnia Is this a current diagnosis for this admission?: Yes Plan: Managed by Dr. Beard. Awaiting for family decision. This patient may need a tracheostomy (2) COPD with respiratory failure, acute Is this a current diagnosis for this admission?: Yes Plan: Dr. Beard assisting in management (3) Anticoagulated Is this a current diagnosis for this admission?: Yes Plan: On Lovenox 1 mg/kg every [address] Beard (4) Hypertension Qualifiers: Hypertension type: essential hypertension Qualified Code(s): I10 - Essential (primary) hypertension Is this a current diagnosis for this admission?: Yes Plan: Continue current management (5) Obstructive sleep apnea Is this a current diagnosis for this admission?: Yes Plan: May be contributing to presentation since had not been using CPAP (6) History of pulmonary embolism Is this a current diagnosis for this admission?: Yes Plan: Currently on Lovenox subcu (7) History of DVT (deep vein thrombosis) Is this a current diagnosis for this admission?: Yes Plan: Patient is on anticoagulation (8) Ribs, multiple fractures Qualifiers: Encounter type: subsequent encounter Laterality: bilateral Is this a current diagnosis for this admission?: Yes Plan: Bilateral. Due to resuscitation. (9) Anoxic encephalopathy Is this a current diagnosis for this admission?: Yes Plan: No change. Family still undecided as to how to proceed (10) Diarrhea Qualifiers: Diarrhea type: unspecified type Qualified Code(s): R19.7 - Diarrhea, unspecified Is this a current diagnosis for this admission?: Yes Plan: C diff negative. KUB noted. Resolved (11) Hypokalemia Is this a current diagnosis for this admission?: Yes Plan: Resolved after supplementation (12) Pneumonia Qualifiers: Laterality: left Lung location: lower lobe of lung Is this a current diagnosis for this admission?: Yes Plan: Change Zosyn to meropenem and continue vancomycin - Time Time Spent with patient: 15-24 minutes Medications reviewed and adjusted accordingly: Yes Anticipated discharge: Other - Possibly LTAC Within: Other - Unable to tell at this time - Inpatient Certification Based on my medical assessment, after consideration of the patient's comorbidities, presenting symptoms, or acuity I expect that the services needed warrant INPATIENT care.: Yes I certify that my determination is in accordance with my understanding of Medicare's requirements for reasonable and necessary INPATIENT services [42 CFR 412.3e].: Yes Medical Necessity: Need Close Monitoring Due to Risk of Patient Decompensation, Need For Continuous Telemetry Monitoring, Need for IV Antibiotics
--- NOTE | 2018-02-18 17:34 | PDOC PROGRESS REPORT ---
Subjective Progress Note for:: 02/18/18 Subjective:: Patient still sedated and nonverbal. Family agreeable to withdraw care and with comfort care Review of symptoms Unable to obtain since sedated All significant laboratories and diagnostics have been reviewed Reason For Visit: ACUTE ON CHRONIC RESPIRATORY FAILURE CARDIAC Physical Exam Vital Signs: Temp Pulse Resp BP Pulse Ox 99.0 F 97 33 H 119/83 96 02/18/18 14:00 02/18/18 12:15 02/18/18 14:00 02/18/18 13:50 02/18/18 14:00 Intake & Output 02/17/18 02/18/18 02/19/18 06:59 06:59 06:59 Intake Total 2391 1883 Output Total 2081 8215 1325 Balance 311 -312 -1325 Weight 80.1 kg 80.8 kg General appearance: PRESENT: other - Sedated Head exam: PRESENT: atraumatic, normocephalic Eye exam: PRESENT: conjunctiva pink, EOMI, PERRLA Ear exam: PRESENT: normal external ear exam Neck exam: ABSENT: full ROM, JVD, lymphadenopathy, tenderness Respiratory exam: PRESENT: clear to auscultation andie Cardiovascular exam: PRESENT: RRR. ABSENT: diastolic murmur, systolic murmur Vascular exam: PRESENT: normal capillary refill GI/Abdominal exam: PRESENT: normal bowel sounds, soft. ABSENT: tenderness Extremities exam: ABSENT: full ROM, pedal edema Musculoskeletal exam: ABSENT: ambulatory Neurological exam: PRESENT: other - Sedated Results Laboratory Results: 02/18/18 06:05 02/18/18 06:05 02/18/18 02/18/18 02/18/18 05:35 05:35 06:05 WBC 21.7 H RBC 4.24 L Hgb 10.3 L Hct 32.7 L MCV 77 L MCH 24.4 L MCHC 31.6 L RDW 21.5 H Plt Count 276 Carbonic Acid 0.87 L HCO3/H2CO3 Ratio 29:1 ABG pH 7.56 H ABG pCO2 28.8 L ABG pO2 115.8 H ABG HCO3 25.3 ABG O2 Saturation 98.7 H ABG Base Excess 3.6 FiO2 35% Sodium Potassium Chloride Carbon Dioxide Anion Gap BUN Creatinine Est GFR ( Amer) Est GFR (Non-Af Amer) Glucose Calcium Phosphorus Magnesium Triglycerides Urine Color YELLOW Urine Appearance CLEAR Urine pH 5.0 Ur Specific [place] 1.019 Urine Protein 30 H Urine Glucose (UA) NEGATIVE Urine Ketones NEGATIVE Urine Blood NEGATIVE Urine Nitrite NEGATIVE Ur Leukocyte Esterase NEGATIVE Urine WBC (Auto) 1 Urine RBC (Auto) 6 02/18/18 06:05 WBC RBC Hgb Hct MCV MCH MCHC RDW Plt Count Carbonic Acid HCO3/H2CO3 Ratio ABG pH ABG pCO2 ABG pO2 ABG HCO3 ABG O2 Saturation ABG Base Excess FiO2 Sodium 143.2 Potassium 3.7 Chloride 108 H Carbon Dioxide 28 Anion Gap 7 BUN 22 H Creatinine 0.81 Est GFR ( Amer) > 60 Est GFR (Non-Af Amer) > 60 Glucose 139 H Calcium 9.2 Phosphorus 3.7 Magnesium 2.4 H Triglycerides 149 Urine Color Urine Appearance Urine pH Ur Specific [place] Urine Protein Urine Glucose (UA) Urine Ketones Urine Blood Urine Nitrite Ur Leukocyte Esterase Urine WBC (Auto) Urine RBC (Auto) 02/13/18 09:38 Blood Blood Culture - Final NO GROWTH IN 5 DAYS 02/13/18 09:47 Blood Blood Culture - Final NO GROWTH IN 5 DAYS 02/15/18 01:00 Sputum Gram Stain - Final 02/15/18 01:00 Sputum Sputum Culture - Final C.albicans/C.dubliniensis Normal Sylvia 02/02/18 02/03/18 02/03/18 21:23 03:53 09:46 Troponin I 0.119 0.190 0.166 NT-Pro-B Natriuret Pep 02/04/18 02/07/18 03:55 17:00 Troponin I NT-Pro-B Natriuret Pep 144 343 Impressions: Chest/Abdomen CTA 02/02/18 00:00 IMPRESSION: NORMAL CTA OF THE CHEST. NO PULMONARY EMBOLI. Multiple transverse fractures of the anterolateral ribs bilaterally, consistent with recent resuscitation efforts. Abdomen/Pelvis CT 02/05/18 00:00 IMPRESSION: 1. FOCAL DILATION OF THE PROXIMAL SIGMOID COLON. THE LUMEN MORE DISTALLY IS NARROWED. THIS COULD REPRESENT A PARTIAL OBSTRUCTION SECONDARY TO ADHESIONS. APPEARANCE DOES NOT APPEAR TO BE DUE TO VOLVULUS. NO SIGNIFICANT DILATION OF THE COLON PROXIMAL TO THE SIGMOID. THERE ARE A FEW SCATTERED DIVERTICULI WITH NO CT FINDINGS OF DIVERTICULITIS. 2. NO OTHER SIGNIFICANT FINDINGS. THERE IS PATCHY ATELECTASIS OR INFILTRATE IN THE LUNG BASES. Head CT 02/05/18 00:00 IMPRESSION: NORMAL BRAIN CT WITHOUT CONTRAST. EVIDENCE OF ACUTE STROKE: NO. KUB X-Ray 02/13/18 00:00 IMPRESSION: Nasogastric tube tip and side port in the stomach. Grossly nonobstructive bowel gas pattern Chest Ultrasound 02/15/18 06:00 IMPRESSION: Somewhat limited study as noted above. No definite left pleural effusion is identified. Chest X-Ray 02/18/18 05:00 IMPRESSION: Endotracheal tube, nasogastric tube in good positioning. Minimal left basilar airspace disease persists Assessment & Plan - Diagnosis (1) Acute and chronic respiratory failure Qualifiers: Respiratory failure complication: hypoxia and hypercapnia Qualified Code(s) : J96.21 - Acute and chronic respiratory failure with hypoxia; J96.22 - Acute and chronic respiratory failure with hypercapnia; J96.22 - Acute and chronic respiratory failure with hypercapnia; J96.22 - Acute and chronic respiratory failure with hypercapnia Is this a current diagnosis for this admission?: Yes Plan: To us intubated and provide comfort care (2) COPD with respiratory failure, acute Is this a current diagnosis for this admission?: Yes Plan: Comfort care (3) Anticoagulated Is this a current diagnosis for this admission?: Yes Plan: Discontinue anticoaxs (4) Hypertension Qualifiers: Hypertension type: essential hypertension Qualified Code(s): I10 - Essential (primary) hypertension Is this a current diagnosis for this admission?: Yes Plan: Continue current management (5) Obstructive sleep apnea Is this a current diagnosis for this admission?: Yes Plan: May be contributing to presentation since had not been using CPAP (6) History of pulmonary embolism Is this a current diagnosis for this admission?: Yes Plan: Discontinue anticoagulants (7) History of DVT (deep vein thrombosis) Is this a current diagnosis for this admission?: Yes Plan: Discontinue anticoagulation (8) Ribs, multiple fractures Qualifiers: Encounter type: subsequent encounter Laterality: bilateral Is this a current diagnosis for this admission?: Yes Plan: Bilateral. Due to resuscitation. (9) Anoxic encephalopathy Is this a current diagnosis for this admission?: Yes Plan: No change. To be extubated and provide comfort care (10) Diarrhea Qualifiers: Diarrhea type: unspecified type Qualified Code(s): R19.7 - Diarrhea, unspecified Is this a current diagnosis for this admission?: Yes Plan: C diff negative. KUB noted. Resolved (11) Hypokalemia Is this a current diagnosis for this admission?: Yes Plan: Resolved after supplementation (12) Pneumonia Qualifiers: Laterality: left Lung location: lower lobe of lung Is this a current diagnosis for this admission?: Yes Plan: Discontinue IV antibiotics and provide comfort care - Time Time Spent with patient: 15-24 minutes Medications reviewed and adjusted accordingly: Yes Anticipated discharge: Hospice Within: within 24 hours - Inpatient Certification Based on my medical assessment, after consideration of the patient's comorbidities, presenting symptoms, or acuity I expect that the services needed warrant INPATIENT care.: Yes I certify that my determination is in accordance with my understanding of Medicare's requirements for reasonable and necessary INPATIENT services [42 CFR 412.3e].: Yes Medical Necessity: Other - Awaiting placement in hospice
[2018-02-19] MEDS: LORAZEPAM INJ 2 MG/1 ML VIAL IV PRN ×5 (00:06→21:48)
[2018-02-19] MEDS: LANSOPRAZOLE 30 MG TAB.RAP.DR NG SCH (06:17)
[2018-02-19] MEDS: MORPHINE SULFATE 60 MG/60 ML RTUINJ IV PRN (12:53)
--- NOTE | 2018-02-19 14:21 | PROGRESS NOTE E ---
Progress Note NAME: SHONDA HUERTA : 1960 AGE: 57Y DATE: 02/18/2018 ROOM: 605 SUBJECTIVE: The patient is a 57 years old -Citizen Of The [place] male who came in with acute respiratory failure requiring invasive mechanical ventilation status post cardiac arrest and prolonged cardiopulmonary resuscitation. 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 The tracheostomy tube and G tube placement require family members consent and were not done. Family members decided comfort care. Patient was extubated earlier today.The patient was referred for hospice care. We will sign off tonight. If you have any questions, please feel free to call me. DICTATING PHYSICIAN: JERILYN LEONARDO MD,GERSON,MPH [id number] PHY#: [id number] ID: [id number] JOB#: [id number] ACCT: [id number] cc: > MTDD
--- NOTE | 2018-02-19 16:00 | PDOC PROGRESS REPORT ---
Subjective Progress Note for:: 02/19/18 Subjective:: Patient extubated on February 18. Currently on comfort care. Patient on nasal cannula and shows some labored breathing Review of symptoms Unable to obtain since sedated All significant laboratories and diagnostics have been reviewed Reason For Visit: ACUTE ON CHRONIC RESPIRATORY FAILURE CARDIAC Physical Exam Vital Signs: Temp Pulse Resp BP Pulse Ox 100.0 F 102 H 20 102/71 93 02/19/18 14:00 02/18/18 22:00 02/19/18 14:00 02/19/18 10:51 02/19/18 14:00 Intake & Output 02/18/18 02/19/18 02/20/18 06:59 06:59 06:59 Intake Total 1883 Output Total 2455 2250 370 Balance -572 -2250 -370 Weight 80.8 kg General appearance: PRESENT: mild distress Head exam: PRESENT: atraumatic, normocephalic Eye exam: PRESENT: conjunctiva pink, EOMI, PERRLA Neck exam: ABSENT: full ROM, JVD, lymphadenopathy, tenderness Respiratory exam: PRESENT: crackles, decreased breath sounds Cardiovascular exam: PRESENT: tachycardia. ABSENT: diastolic murmur, systolic murmur Vascular exam: PRESENT: normal capillary refill GI/Abdominal exam: PRESENT: distended, normal bowel sounds, soft. ABSENT: tenderness Extremities exam: ABSENT: full ROM, pedal edema Musculoskeletal exam: ABSENT: ambulatory Neurological exam: PRESENT: other - GCS 3 Skin exam: PRESENT: intact, normal color Results Laboratory Results: 02/18/18 06:05 02/18/18 06:05 02/17/18 06:50 Catheterized Urine Urine Culture - Final NO GROWTH 2 DAYS 02/02/18 02/03/18 02/03/18 21:23 03:53 09:46 Troponin I 0.119 0.190 0.166 NT-Pro-B Natriuret Pep 02/04/18 02/07/18 03:55 17:00 Troponin I NT-Pro-B Natriuret Pep 144 343 Impressions: Chest/Abdomen CTA 02/02/18 00:00 IMPRESSION: NORMAL CTA OF THE CHEST. NO PULMONARY EMBOLI. Multiple transverse fractures of the anterolateral ribs bilaterally, consistent with recent resuscitation efforts. Abdomen/Pelvis CT 02/05/18 00:00 IMPRESSION: 1. FOCAL DILATION OF THE PROXIMAL SIGMOID COLON. THE LUMEN MORE DISTALLY IS NARROWED. THIS COULD REPRESENT A PARTIAL OBSTRUCTION SECONDARY TO ADHESIONS. APPEARANCE DOES NOT APPEAR TO BE DUE TO VOLVULUS. NO SIGNIFICANT DILATION OF THE COLON PROXIMAL TO THE SIGMOID. THERE ARE A FEW SCATTERED DIVERTICULI WITH NO CT FINDINGS OF DIVERTICULITIS. 2. NO OTHER SIGNIFICANT FINDINGS. THERE IS PATCHY ATELECTASIS OR INFILTRATE IN THE LUNG BASES. Head CT 02/05/18 00:00 IMPRESSION: NORMAL BRAIN CT WITHOUT CONTRAST. EVIDENCE OF ACUTE STROKE: NO. KUB X-Ray 02/13/18 00:00 IMPRESSION: Nasogastric tube tip and side port in the stomach. Grossly nonobstructive bowel gas pattern Chest Ultrasound 02/15/18 06:00 IMPRESSION: Somewhat limited study as noted above. No definite left pleural effusion is identified. Chest X-Ray 02/18/18 05:00 IMPRESSION: Endotracheal tube, nasogastric tube in good positioning. Minimal left basilar airspace disease persists Assessment & Plan - Diagnosis (1) Acute and chronic respiratory failure Qualifiers: Respiratory failure complication: hypoxia and hypercapnia Qualified Code(s) : J96.21 - Acute and chronic respiratory failure with hypoxia; J96.22 - Acute and chronic respiratory failure with hypercapnia; J96.22 - Acute and chronic respiratory failure with hypercapnia; J96.22 - Acute and chronic respiratory failure with hypercapnia Is this a current diagnosis for this admission?: Yes Plan: Provide comfort care (2) COPD with respiratory failure, acute Is this a current diagnosis for this admission?: Yes Plan: Comfort care (3) Anticoagulated Is this a current diagnosis for this admission?: Yes Plan: Off anticoaxs (4) Hypertension Qualifiers: Hypertension type: essential hypertension Qualified Code(s): I10 - Essential (primary) hypertension Is this a current diagnosis for this admission?: Yes Plan: Of meds (5) Obstructive sleep apnea Is this a current diagnosis for this admission?: Yes Plan: May be contributing to presentation since had not been using CPAP (6) History of pulmonary embolism Is this a current diagnosis for this admission?: Yes Plan: Off anticoagulants (7) History of DVT (deep vein thrombosis) Is this a current diagnosis for this admission?: Yes Plan: Off anticoagulation (8) Ribs, multiple fractures Qualifiers: Encounter type: subsequent encounter Laterality: bilateral Is this a current diagnosis for this admission?: Yes Plan: Bilateral. Due to resuscitation. (9) Anoxic encephalopathy Is this a current diagnosis for this admission?: Yes Plan: No change. Comfort care (10) Diarrhea Qualifiers: Diarrhea type: unspecified type Qualified Code(s): R19.7 - Diarrhea, unspecified Is this a current diagnosis for this admission?: Yes Plan: C diff negative. KUB noted. Resolved (11) Hypokalemia Is this a current diagnosis for this admission?: Yes Plan: Resolved after supplementation (12) Pneumonia Qualifiers: Laterality: left Lung location: lower lobe of lung Is this a current diagnosis for this admission?: Yes Plan: Off antibiotics and providing comfort care - Time Time Spent with patient: Less than 15 minutes Medications reviewed and adjusted accordingly: Yes Anticipated discharge: Hospice Within: within 24 hours - Inpatient Certification Based on my medical assessment, after consideration of the patient's comorbidities, presenting symptoms, or acuity I expect that the services needed warrant INPATIENT care.: Yes I certify that my determination is in accordance with my understanding of Medicare's requirements for reasonable and necessary INPATIENT services [42 CFR 412.3e].: Yes Medical Necessity: Other - requires hospice placement
[2018-02-19] MEDS: ACETAMINOPHEN 650 MG SUPP.RECT PR PRN (21:49)
[2018-02-20] MEDS: ACETAMINOPHEN 650 MG SUPP.RECT PR PRN ×2 (06:04→14:48)
[2018-02-20] MEDS: SCOPOLAMINE HYDROBROMIDE 1.5 MG PATCH.TD72 TD SCH (09:42)
--- NOTE | 2018-02-20 15:27 | PDOC PROGRESS REPORT ---
Subjective Progress Note for:: 02/20/18 Subjective:: Currently on comfort care. Patient extubated on February 18. Review of systems Unable to obtain since sedated Labs are diagnostics to review Reason For Visit: ACUTE ON CHRONIC RESPIRATORY FAILURE CARDIAC Physical Exam Vital Signs: Temp Pulse Resp BP Pulse Ox 101.5 F H 106 H 22 H 106/87 H 89 L 02/20/18 06:00 02/19/18 22:00 02/20/18 06:00 02/20/18 04:52 02/20/18 06:00 Intake & Output 02/19/18 02/20/18 02/21/18 06:59 06:59 06:59 Intake Total 553 Output Total 2250 1500 Balance -2250 -947 General appearance: PRESENT: mild distress Head exam: PRESENT: atraumatic, normocephalic Eye exam: PRESENT: EOMI, PERRLA Ear exam: PRESENT: normal external ear exam Mouth exam: PRESENT: moist Neck exam: PRESENT: full ROM. ABSENT: JVD, lymphadenopathy, tenderness Respiratory exam: PRESENT: crackles Cardiovascular exam: PRESENT: tachycardia. ABSENT: diastolic murmur, systolic murmur Vascular exam: PRESENT: pallor GI/Abdominal exam: PRESENT: distended, normal bowel sounds, soft. ABSENT: tenderness Extremities exam: ABSENT: full ROM, pedal edema Musculoskeletal exam: ABSENT: ambulatory Neurological exam: PRESENT: other Results Laboratory Results: 02/18/18 06:05 02/18/18 06:05 02/17/18 06:50 Catheterized Urine Urine Culture - Final NO GROWTH 2 DAYS 02/02/18 02/03/18 02/03/18 21:23 03:53 09:46 Troponin I 0.119 0.190 0.166 NT-Pro-B Natriuret Pep 02/04/18 02/07/18 03:55 17:00 Troponin I NT-Pro-B Natriuret Pep 144 343 Impressions: Chest/Abdomen CTA 02/02/18 00:00 IMPRESSION: NORMAL CTA OF THE CHEST. NO PULMONARY EMBOLI. Multiple transverse fractures of the anterolateral ribs bilaterally, consistent with recent resuscitation efforts. Abdomen/Pelvis CT 02/05/18 00:00 IMPRESSION: 1. FOCAL DILATION OF THE PROXIMAL SIGMOID COLON. THE LUMEN MORE DISTALLY IS NARROWED. THIS COULD REPRESENT A PARTIAL OBSTRUCTION SECONDARY TO ADHESIONS. APPEARANCE DOES NOT APPEAR TO BE DUE TO VOLVULUS. NO SIGNIFICANT DILATION OF THE COLON PROXIMAL TO THE SIGMOID. THERE ARE A FEW SCATTERED DIVERTICULI WITH NO CT FINDINGS OF DIVERTICULITIS. 2. NO OTHER SIGNIFICANT FINDINGS. THERE IS PATCHY ATELECTASIS OR INFILTRATE IN THE LUNG BASES. Head CT 02/05/18 00:00 IMPRESSION: NORMAL BRAIN CT WITHOUT CONTRAST. EVIDENCE OF ACUTE STROKE: NO. KUB X-Ray 02/13/18 00:00 IMPRESSION: Nasogastric tube tip and side port in the stomach. Grossly nonobstructive bowel gas pattern Chest Ultrasound 02/15/18 06:00 IMPRESSION: Somewhat limited study as noted above. No definite left pleural effusion is identified. Chest X-Ray 02/18/18 05:00 IMPRESSION: Endotracheal tube, nasogastric tube in good positioning. Minimal left basilar airspace disease persists Assessment & Plan - Diagnosis (1) Acute and chronic respiratory failure Qualifiers: Respiratory failure complication: hypoxia and hypercapnia Qualified Code(s) : J96.21 - Acute and chronic respiratory failure with hypoxia; J96.22 - Acute and chronic respiratory failure with hypercapnia; J96.22 - Acute and chronic respiratory failure with hypercapnia; J96.22 - Acute and chronic respiratory failure with hypercapnia Is this a current diagnosis for this admission?: Yes Plan: Provide comfort care. (2) COPD with respiratory failure, acute Is this a current diagnosis for this admission?: Yes Plan: Comfort care (3) Anticoagulated Is this a current diagnosis for this admission?: Yes Plan: Off anticoaxs (4) Hypertension Qualifiers: Hypertension type: essential hypertension Qualified Code(s): I10 - Essential (primary) hypertension Is this a current diagnosis for this admission?: Yes Plan: Of meds (5) Obstructive sleep apnea Is this a current diagnosis for this admission?: Yes Plan: May be contributing to presentation since had not been using CPAP (6) History of pulmonary embolism Is this a current diagnosis for this admission?: Yes Plan: Off anticoagulants (7) History of DVT (deep vein thrombosis) Is this a current diagnosis for this admission?: Yes Plan: Off anticoagulation (8) Ribs, multiple fractures Qualifiers: Encounter type: subsequent encounter Laterality: bilateral Is this a current diagnosis for this admission?: Yes Plan: Bilateral. Due to resuscitation. (9) Anoxic encephalopathy Is this a current diagnosis for this admission?: Yes Plan: Unchanged. Comfort care. Patient now with fever (10) Diarrhea Qualifiers: Diarrhea type: unspecified type Qualified Code(s): R19.7 - Diarrhea, unspecified Is this a current diagnosis for this admission?: Yes Plan: Resolved (11) Hypokalemia Is this a current diagnosis for this admission?: Yes Plan: Resolved after supplementation (12) Pneumonia Qualifiers: Laterality: left Lung location: lower lobe of lung Is this a current diagnosis for this admission?: Yes Plan: On comfort care. Febrile no further intervention - Time Time Spent with patient: Less than 15 minutes Medications reviewed and adjusted accordingly: Yes Anticipated discharge: Hospice Within: when bed available - Inpatient Certification Based on my medical assessment, after consideration of the patient's comorbidities, presenting symptoms, or acuity I expect that the services needed warrant INPATIENT care.: Yes I certify that my determination is in accordance with my understanding of Medicare's requirements for reasonable and necessary INPATIENT services [42 CFR 412.3e].: Yes Medical Necessity: Other - Awaiting transfer to hospice
[2018-02-20] MEDS: MORPHINE SULFATE 60 MG/60 ML RTUINJ IV PRN (16:02)
[2018-02-21] MEDS ORDERED: FENTANYL 50 MCG/HR PATCH.TD72 TD SCH (10:00)
--- NOTE | 2018-02-21 14:05 | PDOC PROGRESS REPORT ---
Subjective Progress Note for:: 02/21/18 Subjective:: Currently on comfort care. Patient extubated on February 18. Review of systems Unable to obtain since sedated Labs are diagnostics to review Reason For Visit: ACUTE ON CHRONIC RESPIRATORY FAILURE CARDIAC Physical Exam Vital Signs: Temp Pulse Resp BP Pulse Ox 100.8 F H 90 12 108/79 92 02/21/18 06:00 02/20/18 22:00 02/21/18 06:00 02/20/18 23:00 02/20/18 18:00 Intake & Output 02/20/18 02/21/18 02/22/18 06:59 06:59 06:59 Intake Total 553 423 Output Total 1500 1360 Balance -947 -937 General appearance: PRESENT: other - obtunded Head exam: PRESENT: atraumatic, normocephalic Eye exam: PRESENT: EOMI, PERRLA Ear exam: PRESENT: normal external ear exam Mouth exam: PRESENT: moist Neck exam: PRESENT: full ROM. ABSENT: JVD, lymphadenopathy, tenderness Respiratory exam: PRESENT: crackles Cardiovascular exam: PRESENT: RRR. ABSENT: diastolic murmur, systolic murmur Vascular exam: PRESENT: normal capillary refill GI/Abdominal exam: PRESENT: normal bowel sounds, soft. ABSENT: tenderness Extremities exam: ABSENT: full ROM, pedal edema Musculoskeletal exam: ABSENT: ambulatory Neurological exam: PRESENT: other - obtunded Skin exam: PRESENT: normal color Results Laboratory Results: 02/18/18 06:05 02/18/18 06:05 02/02/18 02/03/18 02/03/18 21:23 03:53 09:46 Troponin I 0.119 0.190 0.166 NT-Pro-B Natriuret Pep 02/04/18 02/07/18 03:55 17:00 Troponin I NT-Pro-B Natriuret Pep 144 343 Impressions: Chest/Abdomen CTA 02/02/18 00:00 IMPRESSION: NORMAL CTA OF THE CHEST. NO PULMONARY EMBOLI. Multiple transverse fractures of the anterolateral ribs bilaterally, consistent with recent resuscitation efforts. Abdomen/Pelvis CT 02/05/18 00:00 IMPRESSION: 1. FOCAL DILATION OF THE PROXIMAL SIGMOID COLON. THE LUMEN MORE DISTALLY IS NARROWED. THIS COULD REPRESENT A PARTIAL OBSTRUCTION SECONDARY TO ADHESIONS. APPEARANCE DOES NOT APPEAR TO BE DUE TO VOLVULUS. NO SIGNIFICANT DILATION OF THE COLON PROXIMAL TO THE SIGMOID. THERE ARE A FEW SCATTERED DIVERTICULI WITH NO CT FINDINGS OF DIVERTICULITIS. 2. NO OTHER SIGNIFICANT FINDINGS. THERE IS PATCHY ATELECTASIS OR INFILTRATE IN THE LUNG BASES. Head CT 02/05/18 00:00 IMPRESSION: NORMAL BRAIN CT WITHOUT CONTRAST. EVIDENCE OF ACUTE STROKE: NO. KUB X-Ray 02/13/18 00:00 IMPRESSION: Nasogastric tube tip and side port in the stomach. Grossly nonobstructive bowel gas pattern Chest Ultrasound 02/15/18 06:00 IMPRESSION: Somewhat limited study as noted above. No definite left pleural effusion is identified. Chest X-Ray 02/18/18 05:00 IMPRESSION: Endotracheal tube, nasogastric tube in good positioning. Minimal left basilar airspace disease persists Assessment & Plan - Diagnosis (1) Acute and chronic respiratory failure Qualifiers: Respiratory failure complication: hypoxia and hypercapnia Qualified Code(s) : J96.21 - Acute and chronic respiratory failure with hypoxia; J96.22 - Acute and chronic respiratory failure with hypercapnia; J96.22 - Acute and chronic respiratory failure with hypercapnia; J96.22 - Acute and chronic respiratory failure with hypercapnia Is this a current diagnosis for this admission?: Yes Plan: Providing comfort care. (2) COPD with respiratory failure, acute Is this a current diagnosis for this admission?: Yes Plan: Comfort care (3) Anticoagulated Is this a current diagnosis for this admission?: Yes Plan: Off anticoaxs (4) Hypertension Qualifiers: Hypertension type: essential hypertension Qualified Code(s): I10 - Essential (primary) hypertension Is this a current diagnosis for this admission?: Yes Plan: Of meds (5) Obstructive sleep apnea Is this a current diagnosis for this admission?: Yes Plan: May be contributing to presentation since had not been using CPAP (6) History of pulmonary embolism Is this a current diagnosis for this admission?: Yes Plan: Off anticoagulants (7) History of DVT (deep vein thrombosis) Is this a current diagnosis for this admission?: Yes Plan: Off anticoagulation (8) Ribs, multiple fractures Qualifiers: Encounter type: subsequent encounter Laterality: bilateral Is this a current diagnosis for this admission?: Yes Plan: Bilateral. Due to resuscitation. (9) Anoxic encephalopathy Is this a current diagnosis for this admission?: Yes Plan: Unchanged. Comfort care. (10) Diarrhea Qualifiers: Diarrhea type: unspecified type Qualified Code(s): R19.7 - Diarrhea, unspecified Is this a current diagnosis for this admission?: Yes Plan: Resolved (11) Hypokalemia Is this a current diagnosis for this admission?: Yes Plan: Resolved after supplementation (12) Pneumonia Qualifiers: Laterality: left Lung location: lower lobe of lung Is this a current diagnosis for this admission?: Yes Plan: On comfort care. Febrile no further intervention - Time Time Spent with patient: Less than 15 minutes Medications reviewed and adjusted accordingly: Yes Anticipated discharge: Hospice Within: when bed available - Inpatient Certification Based on my medical assessment, after consideration of the patient's comorbidities, presenting symptoms, or acuity I expect that the services needed warrant INPATIENT care.: Yes I certify that my determination is in accordance with my understanding of Medicare's requirements for reasonable and necessary INPATIENT services [42 CFR 412.3e].: Yes Medical Necessity: Significant Comorbidiites Make Outpatient Treatment Too Risky
[2018-02-21] MEDS: MORPHINE SULFATE 60 MG/60 ML RTUINJ IV PRN (20:09)
[2018-02-22 02:55] VITALS: BP 108/74
--- NOTE | 2018-02-22 13:36 | PDOC PROGRESS REPORT ---
Subjective Progress Note for:: 02/22/18 Subjective:: Currently on comfort care. Patient extubated on February 18. Review of systems Unable to obtain since sedated Labs are diagnostics to review Reason For Visit: ACUTE ON CHRONIC RESPIRATORY FAILURE CARDIAC Physical Exam Vital Signs: Temp Pulse Resp BP Pulse Ox 99.7 F 83 11 L 108/74 90 L 02/22/18 06:00 02/21/18 22:00 02/22/18 06:00 02/22/18 01:01 02/22/18 06:00 Intake & Output 02/21/18 02/22/18 02/23/18 06:59 06:59 06:59 Intake Total 423 739 Output Total 1360 1100 Balance -937 -361 General appearance: PRESENT: other - obtunded Head exam: PRESENT: atraumatic, normocephalic Eye exam: PRESENT: conjunctiva pink, EOMI, PERRLA Ear exam: PRESENT: normal external ear exam Mouth exam: PRESENT: moist Neck exam: ABSENT: JVD, lymphadenopathy, tenderness Respiratory exam: PRESENT: crackles, decreased breath sounds Cardiovascular exam: PRESENT: tachycardia. ABSENT: diastolic murmur, systolic murmur GI/Abdominal exam: PRESENT: normal bowel sounds, soft. ABSENT: tenderness Extremities exam: ABSENT: clubbing, full ROM, pedal edema Musculoskeletal exam: ABSENT: ambulatory Neurological exam: ABSENT: CN II-XII grossly intact Skin exam: PRESENT: normal color Results Laboratory Results: 02/18/18 06:05 02/18/18 06:05 02/02/18 02/03/18 02/03/18 21:23 03:53 09:46 Troponin I 0.119 0.190 0.166 NT-Pro-B Natriuret Pep 02/04/18 02/07/18 03:55 17:00 Troponin I NT-Pro-B Natriuret Pep 144 343 Impressions: Chest/Abdomen CTA 02/02/18 00:00 IMPRESSION: NORMAL CTA OF THE CHEST. NO PULMONARY EMBOLI. Multiple transverse fractures of the anterolateral ribs bilaterally, consistent with recent resuscitation efforts. Abdomen/Pelvis CT 02/05/18 00:00 IMPRESSION: 1. FOCAL DILATION OF THE PROXIMAL SIGMOID COLON. THE LUMEN MORE DISTALLY IS NARROWED. THIS COULD REPRESENT A PARTIAL OBSTRUCTION SECONDARY TO ADHESIONS. APPEARANCE DOES NOT APPEAR TO BE DUE TO VOLVULUS. NO SIGNIFICANT DILATION OF THE COLON PROXIMAL TO THE SIGMOID. THERE ARE A FEW SCATTERED DIVERTICULI WITH NO CT FINDINGS OF DIVERTICULITIS. 2. NO OTHER SIGNIFICANT FINDINGS. THERE IS PATCHY ATELECTASIS OR INFILTRATE IN THE LUNG BASES. Head CT 02/05/18 00:00 IMPRESSION: NORMAL BRAIN CT WITHOUT CONTRAST. EVIDENCE OF ACUTE STROKE: NO. KUB X-Ray 02/13/18 00:00 IMPRESSION: Nasogastric tube tip and side port in the stomach. Grossly nonobstructive bowel gas pattern Chest Ultrasound 02/15/18 06:00 IMPRESSION: Somewhat limited study as noted above. No definite left pleural effusion is identified. Chest X-Ray 02/18/18 05:00 IMPRESSION: Endotracheal tube, nasogastric tube in good positioning. Minimal left basilar airspace disease persists Assessment & Plan - Diagnosis (1) Acute and chronic respiratory failure Qualifiers: Respiratory failure complication: hypoxia and hypercapnia Qualified Code(s) : J96.21 - Acute and chronic respiratory failure with hypoxia; J96.22 - Acute and chronic respiratory failure with hypercapnia; J96.22 - Acute and chronic respiratory failure with hypercapnia; J96.22 - Acute and chronic respiratory failure with hypercapnia Is this a current diagnosis for this admission?: Yes Plan: Providing comfort care. (2) COPD with respiratory failure, acute Is this a current diagnosis for this admission?: Yes Plan: Comfort care (3) Anticoagulated Is this a current diagnosis for this admission?: Yes Plan: Off anticoaxs (4) Hypertension Qualifiers: Hypertension type: essential hypertension Qualified Code(s): I10 - Essential (primary) hypertension Is this a current diagnosis for this admission?: Yes Plan: Of meds (5) Obstructive sleep apnea Is this a current diagnosis for this admission?: Yes Plan: May be contributing to presentation since had not been using CPAP (6) History of pulmonary embolism Is this a current diagnosis for this admission?: Yes Plan: Off anticoagulants (7) History of DVT (deep vein thrombosis) Is this a current diagnosis for this admission?: Yes Plan: Off anticoagulation (8) Ribs, multiple fractures Qualifiers: Encounter type: subsequent encounter Laterality: bilateral Is this a current diagnosis for this admission?: Yes Plan: Bilateral. Due to resuscitation. (9) Anoxic encephalopathy Is this a current diagnosis for this admission?: Yes Plan: Unchanged. Comfort care. (10) Diarrhea Qualifiers: Diarrhea type: unspecified type Qualified Code(s): R19.7 - Diarrhea, unspecified Is this a current diagnosis for this admission?: Yes Plan: Resolved (11) Hypokalemia Is this a current diagnosis for this admission?: Yes Plan: Resolved after supplementation (12) Pneumonia Qualifiers: Laterality: left Lung location: lower lobe of lung Is this a current diagnosis for this admission?: Yes Plan: On comfort care. Febrile no further intervention - Time Time Spent with patient: Less than 15 minutes Medications reviewed and adjusted accordingly: Yes Anticipated discharge: Hospice Within: when bed available - Inpatient Certification Based on my medical assessment, after consideration of the patient's comorbidities, presenting symptoms, or acuity I expect that the services needed warrant INPATIENT care.: Yes I certify that my determination is in accordance with my understanding of Medicare's requirements for reasonable and necessary INPATIENT services [42 CFR 412.3e].: Yes Medical Necessity: Other - Awaiting for hospice but
[2018-02-23] MEDS: MORPHINE SULFATE 60 MG/60 ML RTUINJ IV PRN (00:37)
--- NOTE | 2018-02-23 12:35 | PDOC TRANSFER SUMMARY ---
General - Admit/Disc Date/PCP Admission Date/Primary Care Provider: 02/02/18 15:49 STACEY MORTON MD Discharge Date: 02/23/18 - Discharge Diagnosis (1) Acute and chronic respiratory failure Is this a current diagnosis for this admission?: Yes (2) Anoxic brain damage Is this a current diagnosis for this admission?: Yes (3) Anoxic encephalopathy Is this a current diagnosis for this admission?: Yes (4) COPD with respiratory failure, acute Is this a current diagnosis for this admission?: Yes (5) Cardiac arrest Is this a current diagnosis for this admission?: Yes (6) Diarrhea Is this a current diagnosis for this admission?: Yes (7) History of DVT (deep vein thrombosis) Is this a current diagnosis for this admission?: Yes (8) History of pulmonary embolism Is this a current diagnosis for this admission?: Yes (9) Hypokalemia Is this a current diagnosis for this admission?: Yes (10) Pneumonia Is this a current diagnosis for this admission?: Yes (11) Ribs, multiple fractures Is this a current diagnosis for this admission?: Yes (12) Acute hypoxemic respiratory failure Is this a current diagnosis for this admission?: Yes (13) COPD exacerbation Is this a current diagnosis for this admission?: Yes (14) Hyperlipidemia Is this a current diagnosis for this admission?: Yes (15) Hypertension Is this a current diagnosis for this admission?: Yes (16) Obstructive sleep apnea Is this a current diagnosis for this admission?: Yes - Additional Information Resuscitation Status: Comfort Measures Only Home Medications: Amlodipine Besylate [Norvasc 5 mg Tablet] 5 mg PO DAILY 12/03/17 Hydrochlorothiazide [Hydrodiuril 25 mg Tablet] 25 mg PO QAM 12/03/17 Lovastatin 40 mg PO WSUPPER 12/03/17 Omeprazole 40 mg PO Q6AM 12/03/17 Rivaroxaban [Xarelto 10 mg Tablet] 20 mg PO WSUPPER 12/03/17 Tamsulosin HCl [Flomax 0.4 mg Cap.sr] 0.4 mg PO DAILY 12/03/17 Tiotropium [place] [Spiriva Handihaler 5 Cap/Kit (18 Mcg/Cap)] 1 cap IH DAILY Fluticasone Propionate [Flonase Allergy Relief] 2 spray NASL DAILY 02/02/18 Loratadine [Claritin 10 mg Tablet] 10 mg PO DAILY 02/02/18 Tapentadol HCl [Nucynta] 50 mg PO Q6HP PRN 02/02/18 History of Present Illness Admission Date/PCP: 02/02/18 15:49 STAECY MORTON MD 37-year-old male with past medical history of Asthma COPD Hypertension Hyperlipidemia Obstructive sleep apnea He presented to the hospital on February 02 with shortness of breath and wheezing. Aeration in the emergency room revealed bilateral wheezing reduced air movement and tachypnea. He was treated with albuterol and ipratropium nebulizers, IV Solu-Medrol and IV magnesium and suddenly became unresponsive a code was called and he was found to have asystole and then pulseless electrical activity. He received CPR and was intubated. Stomach was decompressed with an OG tube. He was able to get return of spontaneous circulation. He was sedated with propofol and admitted to the intensive care unit. History of Present Illness: He was given weaning trials and periods off sedation, with no significant neurologic recovery. Diagnosed with anoxic brain injury and patient's family including his sister Emely Olmedo, phone #[phone] and daughter Nichole [phone] had multiple conversations with the attending physicians taking care of him over the past 2 weeks. Eventually the patient's family decided to withdraw care and proceed with comfort care. The patient was extubated on February 18. He is being discharged to an inpatient hospice facility [facility]. Physical Exam Vital Signs: Temp Pulse Resp BP Pulse Ox 100.0 F 83 12 108/74 89 L 02/22/18 12:00 02/21/18 22:00 02/22/18 15:00 02/22/18 01:01 02/22/18 12:00 Intake & Output 02/22/18 02/23/18 02/24/18 06:59 06:59 06:59 Intake Total 739 270 Output Total 1100 875 Balance -361 -605 General appearance: PRESENT: no acute distress Respiratory exam: PRESENT: rhonchi, symmetrical Cardiovascular exam: PRESENT: RRR Neurological exam: PRESENT: altered, aphasic Results Laboratory Results: 02/18/18 06:05 02/18/18 06:05 02/02/18 02/03/18 02/03/18 21:23 03:53 09:46 Troponin I 0.119 0.190 0.166 NT-Pro-B Natriuret Pep 02/04/18 02/07/18 03:55 17:00 Troponin I NT-Pro-B Natriuret Pep 144 343 Impressions: Chest/Abdomen CTA 02/02/18 00:00 IMPRESSION: NORMAL CTA OF THE CHEST. NO PULMONARY EMBOLI. Multiple transverse fractures of the anterolateral ribs bilaterally, consistent with recent resuscitation efforts. Abdomen/Pelvis CT 02/05/18 00:00 IMPRESSION: 1. FOCAL DILATION OF THE PROXIMAL SIGMOID COLON. THE LUMEN MORE DISTALLY IS NARROWED. THIS COULD REPRESENT A PARTIAL OBSTRUCTION SECONDARY TO ADHESIONS. APPEARANCE DOES NOT APPEAR TO BE DUE TO VOLVULUS. NO SIGNIFICANT DILATION OF THE COLON PROXIMAL TO THE SIGMOID. THERE ARE A FEW SCATTERED DIVERTICULI WITH NO CT FINDINGS OF DIVERTICULITIS. 2. NO OTHER SIGNIFICANT FINDINGS. THERE IS PATCHY ATELECTASIS OR INFILTRATE IN THE LUNG BASES. Head CT 02/05/18 00:00 IMPRESSION: NORMAL BRAIN CT WITHOUT CONTRAST. EVIDENCE OF ACUTE STROKE: NO. KUB X-Ray 02/13/18 00:00 IMPRESSION: Nasogastric tube tip and side port in the stomach. Grossly nonobstructive bowel gas pattern Chest Ultrasound 02/15/18 06:00 IMPRESSION: Somewhat limited study as noted above. No definite left pleural effusion is identified. Chest X-Ray 02/18/18 05:00 IMPRESSION: Endotracheal tube, nasogastric tube in good positioning. Minimal left basilar airspace disease persists Transfer Plan - Disposition Transfer Plan: Inpatient Hospice - Time Spent with Patient Time spent with patient: Greater than 30 Minutes Qualifiers - * [facility] BEING DISCHARGED WITH ANY OF THE FOLLOWING DIAGNOSIS?: No
[2018-02-23] MEDS: SCOPOLAMINE HYDROBROMIDE 1.5 MG PATCH.TD72 TD SCH (13:36)
== END 2018-02-23 14:43 | disposition hospice, inpatient (51) | DRG 207 ==
LOC: ER 12:36 → EH 15:49 → ICU 18:30 → 4S 02-22 12:54
PROVIDERS: ADMIT Emergency Medicine; ATTEND Emergency Medicine
PROC: 5A1955Z Respiratory Ventilation, Greater than 96 Consecutive Hours (ICD-10-PCS; principal; 2018-02-02)
PROC: 0BH17EZ Insertion of Endotracheal Airway into Trachea, Via Natural or Artificial Opening (ICD-10-PCS; 2018-02-02)
PROC: 0DH67UZ Insertion of Feeding Device into Stomach, Via Natural or Artificial Opening (ICD-10-PCS; 2018-02-02)
PROC: 3E0G76Z Introduction of Nutritional Substance into Upper GI, Via Natural or Artificial Opening (ICD-10-PCS; 2018-02-02)
PROC: 3E0F73Z Introduction of Anti-inflammatory into Respiratory Tract, Via Natural or Artificial Opening (ICD-10-PCS; 2018-02-03)
DX: J96.21 Acute and chronic respiratory failure with hypoxia (principal); S22.43XA Multiple fractures of ribs, bilateral, initial encounter for closed fracture; J18.9 Pneumonia, unspecified organism; J44.1 Chronic obstructive pulmonary disease with (acute) exacerbation; G93.1 Anoxic brain damage, not elsewhere classified; K56.7 Ileus, unspecified; E87.0 Hyperosmolality and hypernatremia; Z51.5 Encounter for palliative care; J96.22 Acute and chronic respiratory failure with hypercapnia; R19.7 Diarrhea, unspecified; E87.6 Hypokalemia; I12.9 Hypertensive chronic kidney disease with stage 1 through stage 4 chronic kidney disease, or unspecified chronic kidney disease; E11.22 Type 2 diabetes mellitus with diabetic chronic kidney disease; N18.3 Chronic kidney disease, stage 3 (moderate); G47.33 Obstructive sleep apnea (adult) (pediatric); E78.00 Pure hypercholesterolemia, unspecified; K21.9 Gastro-esophageal reflux disease without esophagitis; X58.XXXA Exposure to other specified factors, initial encounter; Z78.1 Physical restraint status; Z79.899 Other long term (current) drug therapy; Z86.711 Personal history of pulmonary embolism; Z87.891 Personal history of nicotine dependence; Z82.49 Family history of ischemic heart disease and other diseases of the circulatory system; Z83.6 Family history of other diseases of the respiratory system
CPT/HCPCS: 36415; 51702; 70450; 71045; 71275; 74018; 74176; 76604; 80048; 80053; 80069; 80202; 81001; 82040; 82271; 82272; 82550; 82553; 82803; 83051; 83605; 83735; 83880; 84100; 84295; 84478; 84484; 85025; 85027; 85379; 85384; 85610; 85730; 87040; 87070; 87086; 87205; 87493; 92950; 93005; 93010; 93306; 94002; 94003; 94640; 96374; 96375; 99291; 99292; J0171; J0461; J1580; J1650; J1940; J1956; J2060; J2185; J2250; J2270; J2405; J2543; J2704; J2920; J2930; J3010; J3370; J3475; J3490; J7030; J7060; J7512; J7620; S0028